=== PATIENT | female | born 1930 | race Caucasian/White ===

== ENCOUNTER 2016-05-08 17:37 | Inpatient (IN) | payer OTHER ==
--- NOTE | 2016-05-08 17:53 | CPEKG ---
Heart Rate: 122 RR Interval: 492 QRSD Interval: 86 QT Interval: 340 QTC Interval: 485 QRS [place]: -2 T Wave [place]: 114 EKG Severity - ABNORMAL ECG - EKG Impression: ATRIAL FLUTTER, A-RATE 294 EKG Impression: PROBABLE LVH WITH SECONDARY REPOL ABNRM Electronically Signed By: Augusto Escobar 08-May-2016 21:03:30
[2016-05-08] MEDS ORDERED: NS 500 ML IV ONE (18:10)
[2016-05-08 18:21] LABS: % IMMATURE GRANULYOCYTES 0.4 % (0.0-1.1); ABSOLUTE IMMATURE GRANULOCYTES 0.03 10^3/uL (0.00-0.10); ADD DIFF? NO; ADD MORPH? NO; ADD SCAN? NO; ATYPICAL LYMPHOCYTE FLAG 0 (0-99); FRAGMENT RBC FLAG 0 (0-99); HEMATOCRIT 38.8 % (38.0-47.0); LEFT SHIFT FLG 0 (0-99); LIPEMIA HEMOLYSIS FLAG 80 (0-99); MEAN CELL HEMOGLOBIN 30.7 pg (27.9-34.1); MEAN CELL HEMOGLOBIN CONCENTR. 33.5 g/dL (32.4-36.7); MEAN CELL VOLUME 91.5 fL (81.5-99.8); MEAN PLATELET VOLUME 9.8 fL (8.7-11.7); PLATELET CLUMPS FLAG 0 (0-99); PLATELET COUNT 324 10^3/uL (150-400); RED BLOOD CELL COUNT 4.24 10^6/uL (4.18-5.33); RED CELL DISTRIBUTION WIDTH 13.5 % (11.5-15.2)
[2016-05-08 18:22] LABS: ANION GAP 14 mEq/L (8-16); CALCIUM 10.2 mg/dL (8.5-10.4); CARBON DIOXIDE 22 mEq/l (22-31); CHLORIDE 102 mEq/L (97-110); CREATININE 1.4 mg/dL (0.6-1.0); GLOMERULAR FILTRATION RATE 36; GLUCOSE 169 mg/dL (70-100); POTASSIUM 4.5 mEq/L (3.5-5.2); SODIUM 138 mEq/L (134-144)
--- NOTE | 2016-05-08 18:29 | EDPHY ---
H & P Time Seen by Provider: 05/08/16 17:59 HPI/ROS: HPI Palpitations, lightheaded. 85-year-old female by private vehicle with her . She reports that she woke up at 3:00 a.m. last night and noticed that she had a fast heart rate. She states that she felt lightheaded she went to the bathroom. She did not have a syncopal event. She got back into bed and woke up again this morning at about 8:00 a.m.. She reports that shortly after waking up she had intermittent episodes of a fast heart rate with associated lightheadedness with exertion only. No chest pain. She had a prior episode of rapid heart rate back in February. She saw Dr. Johnathan Valenzuela the cardiology service for this. It resolved. She was not put on any additional medication. She is on Norvasc for hypertension. She has been on this medication for 10-15 years. ROS: Constitutional: No fever, no chills. No weakness. Eyes: No discharge. No changes in vision. ENT: No sore throat. No nasal congestion or rhinorrhea. Respiratory: No cough. No shortness of breath. Cardiac: No chest pain, no palpitations. Gastrointestinal: No abdominal pain, no vomiting, no diarrhea. Genitourinary: No hematuria. No dysuria or increased frequency with urination. Musculoskeletal: No back pain. No neck pain. No myalgias or arthralgias. Skin: No rashes. Neurological: No headache. No focal weakness or altered sensation. Past medical history: Pneumonia, achalasia, scoliosis, hysterectomy, appendectomy, arthritis. As above. Social history: Nonsmoker. Here with her . Physical Exam: General Appearance: Alert, no distress. This patient is responding to questions appropriately and in full sentences. This patient appears well- hydrated and well-nourished. Eyes: Pupils equal and round no pallor or injection. No lid edema, erythema or injection. Respiratory: There are no retractions, lungs are clear to auscultation with good air movement bilaterally. Cardiovascular: Irregular, irregular rhythm. No murmur. Gastrointestinal: Abdomen is soft and nontender, no masses, bowel sounds normal. No focal tenderness at McBurney's point. No Gallardo sign. Neurological: Motor sensory function is grossly intact. Cranial nerves are normal. Gait is normal. Skin: Warm and dry, no rashes. Musculoskeletal: Neck is supple and nontender. Extremities are symmetrical. All joints range without pain or impingement. Psychiatric: No agitation. No depression. Database: EKG: EKG time is 5:50 p.m., EKG shows a narrow complex atrial flutter versus fibrillation ventricular rate average of 122. No ST, T-wave changes indicative of ischemic or injury pattern. Interpreted by me. Imaging: Chest x-ray AP portable; the cardiac mediastinal silhouette is unremarkable. No evidence of infiltrate or pneumothorax. No acute cardiopulmonary disease process noted. Interpreted by me. Procedures: Emergency department course: IV placed. She was placed on a playground monitor. She was started on IV normal saline with 500 cc to be given over the next hour. She is very clear that her onset of symptoms was 3 a.m. last night. Will consider IV Lopressor for rate suppression then conversion. 6:45 p.m., patient re-evaluated. Resting comfortably at this time. Blood pressure currently 93/57. She was just started on IV normal saline. telemetry monitor shows a narrow complex regular rhythm with ventricular rate of 82. IV Lopressor will be held at this time. 7:30 p.m., patient re-evaluated. Resting comfortably at this time. Blood pressure on the monitor is 133/85. She is in and out of a sinus regular rhythm and atrial flutter versus atrial fibrillation with a rate in the low 80s. Troponin slightly elevated at 0.064. Results of blood work EKG and plan for admission discussed with her and her . An echocardiogram will be ordered. They are in agreement. All their questions were answered. 7:40 p.m., spoke with on-call hospitalist, Dr. Chaudhari. Patient accepted for admission. Echocardiogram ordered. Patient accepted the hospitalist service, telemetry. Patient admitted in stable condition. Differential Diagnosis: The differential diagnosis on this patient includes but is not limited to new onset atrial fibrillation, new onset atrial flutter with RVR. Acute coronary syndrome, CVA, pulmonary embolism unlikely. This represents a partial list of diagnoses considered. These considerations are based on history, physical exam , past history, reassessment and diagnostic testing. Smoking Status: Never smoked Constitutional: Initial Vital Signs Temperature (C) 36.2 C 05/08/16 17:42 Heart Rate 116 H 01/17/17 17:42 Respiratory Rate 22 H 05/08/16 17:42 Blood Pressure 99/68 L 05/08/16 17:42 O2 Sat (%) 94 05/08/16 17:42 O2 Delivery Mode Room Air Allergies/Adverse Reactions: Sulfa (Sulfonamide Antibiotics) Allergy (Verified 05/08/16 17:41) Rash Home Medications: Medication Instructions Recorded Acetaminophen [Tylenol ES 500 mg 12/03/15 (*)] Docusate Sodium [Colace 100 MG (*)] 12/03/15 Zolpidem Tartrate [Ambien 5MG (*)] 12/03/15 amLODIPine BESYLATE [Norvasc 5 mg 12/03/15 (*)] Mucinex 12/27/15 Medical Decision Making - Data Points Laboratory Results: Laboratory Results 05/08/16 17:56 05/08/16 17:56 05/08/16 17:56 WBC 7.28 10^3/uL (3.80-9.50) RBC 4.24 10^6/uL (4.18-5.33) Hgb 13.0 g/dL (12.6-16.3) Hct 38.8 % (38.0-47.0) MCV 91.5 fL (81.5-99.8) MCH 30.7 pg (27.9-34.1) MCHC 33.5 g/dL (32.4-36.7) RDW 13.5 % (11.5-15.2) Plt Count 324 10^3/uL (150-400) MPV 9.8 fL (8.7-11.7) Neut % (Auto) 83.5 H % (39.3-74.2) Lymph % (Auto) 11.0 L % (15.0-45.0) [place] % (Auto) 3.7 L % (4.5-13.0) Eos % (Auto) 0.4 L % (0.6-7.6) Baso % (Auto) 1.0 % (0.3-1.7) Nucleat RBC Rel Count 0.0 % (0.0-0.2) Absolute Neuts (auto) 6.08 10^3/uL (1.70-6.50) Absolute Lymphs (auto) 0.80 L 10^3/uL (1.00-3.00) Absolute Monos (auto) 0.27 L 10^3/uL (0.30-0.80) Absolute Eos (auto) 0.03 10^3/uL (0.03-0.40) Absolute Basos (auto) 0.07 10^3/uL (0.02-0.10) Absolute Nucleated RBC 0.00 10^3/uL (0-0.01) Immature Gran % 0.4 % (0.0-1.1) Immature Gran # 0.03 10^3/uL (0.00-0.10) PT 13.4 SEC (12.0-15.0) INR 1.03 (0.83-1.16) APTT 28.9 SEC (23.0-38.0) Sodium 138 mEq/L (134-144) Potassium 4.5 mEq/L (3.5-5.2) Chloride 102 mEq/L (97-110) Carbon Dioxide 22 mEq/l (22-31) Anion Gap 14 mEq/L (8-16) BUN 34 H mg/dL (7-23) Creatinine 1.4 H mg/dL (0.6-1.0) Estimated GFR 36 Glucose 169 H mg/dL (70-100) Calcium 10.2 mg/dL (8.5-10.4) Troponin I 0.064 H ng/mL (0-0.034) Medications Given: Discontinued Medications Sodium Chloride (Ns) 500 mls @ 0 mls/hr IV ONCE ONE PRN Reason: As Directed Stop: 05/08/16 18:11 Last Admin: 05/08/16 18:42 Dose: 500 mls Metoprolol Tartrate (Lopressor Injection) 5 mg IVP Q5M [facility] Stop: 05/08/16 19:11 Last Admin: 05/08/16 19:27 Dose: Not Given Departure - Departure Disposition: [facility] Acute Clinical Impression: Atrial flutter, Lightheaded, Elevated troponin, Dehydration, Renal insufficiency Referrals: Prema Guevara MD [Primary Care Provider] - As per Instructions
[2016-05-08 18:34] LABS: TROPONIN I 0.064 ng/mL (0-0.034)
[2016-05-08] MEDS ORDERED: METOPROLOL TARTRATE 5 MG/5 ML INJ ONE (18:34)
--- NOTE | 2016-05-08 18:42 | DX ---
Portable AP chest. May 08, 2016at 1831 History: Dizziness. Tachycardia. Comparison exam: December 12, 2015. Findings: Moderate enlargement of the cardiac silhouette. Lungs are clear, without infiltrate or effu allie. Impression: Moderate cardiomegaly.
[2016-05-08 18:43] LABS: INR 1.03 (0.83-1.16); PROTIME(PATIENT) 13.4 SEC (12.0-15.0)
[2016-05-08 18:44] LABS: APTT 28.9 SEC (23.0-38.0)
--- NOTE | 2016-05-08 19:17 | CPEKG ---
Heart Rate: 88 RR Interval: 682 QRSD Interval: 90 QT Interval: 380 QTC Interval: 460 QRS [place]: -4 T Wave [place]: 42 EKG Severity - ABNORMAL ECG - EKG Impression: ATRIAL FIBRILLATION EKG Impression: PROBABLE LVH WITH SECONDARY REPOL ABNRM Electronically Signed By: Augusto Escobar 08-May-2016 21:03:30
[2016-05-08] MEDS: METOPROLOL TARTRATE 5 MG/5 ML INJ IVP SCH (19:27)
[2016-05-08] MEDS ORDERED: ZOLPIDEM TARTRATE 5 MG TAB PO PRN (22:55)
[2016-05-08] MEDS ORDERED: ONDANSETRON DISINTEGRATING 4 MG TAB PO PRN (22:55)
[2016-05-08] MEDS ORDERED: ONDANSETRON 4 MG/2 ML VIAL IVP PRN (22:55)
[2016-05-08] MEDS ORDERED: ACETAMINOPHEN 325 MG TAB PO PRN (22:55)
[2016-05-08] MEDS ORDERED: METOPROLOL TARTRATE 5 MG/5 ML INJ IVP PRN (23:01)
[2016-05-08] MEDS: NS 1,000 ML IV SCH (23:17)
--- NOTE | 2016-05-09 01:40 | PDGENHP ---
History and Physical - Chief Complaint dizziness - History of Present Illness Patient is an 85/F with HTN, achalasia, arthritis who presents to the ED complaining of dizziness and fast heart rate. Patient states she woke up at around 3:00 a.m. the night prior to presentation feeling lightheaded. She denies any associated chest pain, palpitations or shortness of breath and only felt lightheaded when rising from sitting to standing position. She went back to sleep and awoke again this morning with persistent symptoms. Throughout the day she reported feeling primarily only lightheaded. Her , who is a retired physician, decided to check her pulse and O2 sat with his home pulse oximeter and it was noted to be in the 120-130 range. Given this and her symptoms a decided to come to the ED for further evaluation. Patient denies any recent fevers, chills, cough, congestion, chest pain, nausea vomiting or diarrhea. She does report p.o. intake is at her baseline, which is limited due to her history of achalasia. On arrival to the ED patient was afebrile, BP stable and HR 110-120 range. EKG revealed narrow complex tachycardia that appeared consistent with AFib. Labs were remarkable for mildly elevated creatinine, slightly elevated troponin, normal CBC. She was given gentle IV fluid hydration, IV metoprolol for rate control and heart rate improved, although remained in atrial fibrillation. She was then admitted to the hospitalist service for further management. History Information - Allergies/Home Medication List Allergies/Adverse Reactions: Sulfa (Sulfonamide Antibiotics) Allergy (Verified 05/08/16 17:41) Rash Home Medications: Docusate Sodium [Colace 100 MG (*)] 3 tab PO DAILY 12/03/15 [Last Taken 05/08/16 ] Zolpidem Tartrate [Ambien 5MG (*)] 2.5 - 5 mg PO HS PRN 12/03/15 [Last Taken ] amLODIPine BESYLATE [Norvasc 5 mg (*)] 5 mg PO DAILY 12/03/15 [Last Taken ] I have personally reviewed and updated: family history, medical history, social history, surgical history - Past Medical History Additional medical history: HTN. Achalasia. Osteoporosis with lumbar arthritis - Surgical History Additional surgical history: Hysterectomy. Bilateral bunionectomy. Appendectomy. Bilateral cataract. Right hand surgery - Family History Positive for: CAD (In her mother) - Social History Smoking Status: Never smoked Alcohol Use: Occasionally (One gin and tonic nightly) Drug Use: None Additional social history: Patient lives with her , is independent in all ADLs. Review of Systems ROS: 10pt was reviewed & negative except for what was stated in HPI & below Physical Exam Temp Pulse Resp BP Pulse Ox 37 C 91 17 120/61 93 05/09/16 00:00 05/09/16 00:00 05/09/16 00:00 05/09/16 00:00 05/09/16 00:00 Constitutional: no apparent distress, appears nourished, not in pain Eyes: PERRL, anicteric sclera, EOMI Ears, Nose, Mouth, Throat: moist mucous membranes, hearing normal, ears appear normal, no oral mucosal ulcers Cardiovascular: no murmur, rub, or gallop, irregularly irregular, pulses symmetric bilaterally, No JVD, No tachycardia, No edema Peripheral Pulses: 2+: dorsalis-pedis (R), dorsalis-pedis (L) Respiratory: no respiratory distress, no rales or rhonchi, clear to auscultation Gastrointestinal: normoactive bowel sounds, soft, non-tender abdomen, no palpable masses Genitourinary: no bladder fullness, no bladder tenderness Skin: warm, normal color, no rashes or abrasions, no fluctuance, No mottled Musculoskeletal: full muscle strength, no muscle tenderness, normal joint ROM, no joint effusions Neurologic: AAOx3, sensation intact bilaterally, CN II-XII Intact, No weakness, No numbness, No facial droop Psychiatric: interacting appropriately, not anxious, not encephalopathic, thought process linear Lab Data & Imaging Review 05/08/16 17:56 05/08/16 17:56 WBC 7.28 10^3/uL (3.80-9.50) 05/08/16 17:56 RBC 4.24 10^6/uL (4.18-5.33) 05/08/16 17:56 Hgb 13.0 g/dL (12.6-16.3) 05/08/16 17:56 Hct 38.8 % (38.0-47.0) 05/08/16 17:56 MCV 91.5 fL (81.5-99.8) 05/08/16 17:56 MCH 30.7 pg (27.9-34.1) 05/08/16 17:56 MCHC 33.5 g/dL (32.4-36.7) 05/08/16 17:56 RDW 13.5 % (11.5-15.2) 05/08/16 17:56 Plt Count 324 10^3/uL (150-400) 05/08/16 17:56 MPV 9.8 fL (8.7-11.7) 05/08/16 17:56 Neut % (Auto) 83.5 % (39.3-74.2) H 05/08/16 17:56 Lymph % (Auto) 11.0 % (15.0-45.0) L 05/08/16 17:56 [place] % (Auto) 3.7 % (4.5-13.0) L 05/08/16 17:56 Eos % (Auto) 0.4 % (0.6-7.6) L 05/08/16 17:56 Baso % (Auto) 1.0 % (0.3-1.7) 05/08/16 17:56 Nucleat RBC Rel Count 0.0 % (0.0-0.2) 05/08/16 17:56 Absolute Neuts (auto) 6.08 10^3/uL (1.70-6.50) 05/08/16 17:56 Absolute Lymphs (auto) 0.80 10^3/uL (1.00-3.00) L 05/08/16 17:56 Absolute Monos (auto) 0.27 10^3/uL (0.30-0.80) L 05/08/16 17:56 Absolute Eos (auto) 0.03 10^3/uL (0.03-0.40) 05/08/16 17:56 Absolute Basos (auto) 0.07 10^3/uL (0.02-0.10) 05/08/16 17:56 Absolute Nucleated RBC 0.00 10^3/uL (0-0.01) 05/08/16 17:56 Immature Gran % 0.4 % (0.0-1.1) 05/08/16 17:56 Immature Gran # 0.03 10^3/uL (0.00-0.10) 05/08/16 17:56 PT 13.4 SEC (12.0-15.0) 05/08/16 17:56 INR 1.03 (0.83-1.16) 05/08/16 17:56 APTT 28.9 SEC (23.0-38.0) 05/08/16 17:56 Sodium 138 mEq/L (134-144) 05/08/16 17:56 Potassium 4.5 mEq/L (3.5-5.2) 05/08/16 17:56 Chloride 102 mEq/L (97-110) 05/08/16 17:56 Carbon Dioxide 22 mEq/l (22-31) 05/08/16 17:56 Anion Gap 14 mEq/L (8-16) 05/08/16 17:56 BUN 34 mg/dL (7-23) H 05/08/16 17:56 Creatinine 1.4 mg/dL (0.6-1.0) H 05/08/16 17:56 Estimated GFR 36 05/08/16 17:56 Glucose 169 mg/dL (70-100) H 05/08/16 17:56 Calcium 10.2 mg/dL (8.5-10.4) 05/08/16 17:56 CK-MB (CK-2) Fraction 1.10 ng/mL (0-3.19) 05/08/16 23:20 Troponin I 0.057 ng/mL (0-0.034) H 05/08/16 23:20 Visualized and Interpreted Chest x-ray results: Yes Chest X-Ray results: no infiltrate, normal Visualized and Interpreted EKG results: Yes EKG Interpretation: Positive for: other (Atrial fib at 122 beats per minute, no obvious ischemic changes; repeat EKG: AFib it 88 beats per minute) Assessment & Plan Assessment: Patient is an 85-year-old female with history of hypertension, achalasia/ chronic dysphagia, who presents to the ED with the complaint of lightheadedness and was found to be in new onset AFib. Labs also showed evidence of mild dehydration. Plan: # atrial fibrillation Patient denies any previous history of this diagnosis. Follows with Dr. Valenzuela, reports having a normal TTE about 2 months ago. Labs revealed evidence of mild dehydration, so it is possible this has triggered the AFib, which appears to have begun less than 24 hours ago. Patient's ChadsVasc score is 4 (age, sex, hypertension), for which systemic anticoagulation is recommended. This was discussed with patient and her at length, they would like to discuss initiating anticoagulation with their parts remover in the morning. Will give gentle rehydration and assess rate/rhythm in the morning, if still in atrial fibrillation would initiate anticoagulation at that time. Overnight will continue to trend troponins, check TSH, lipid panel and TTE in a.m. and repeat EKG in a.m. Will initiate low dose lopressor for rate control. # elevated creatinine Given patient's history of achalasia/dysphagia she has chronic difficulty maintaining adequate p.o. intake. Elevated creatinine likely pre renal, will give IV fluid hydration and reassess in a.m. # chronic HTN BP stable, will cont home amlodipine. # achalasia, chronic dysphagia Will continue aspiration precautions while inpatient. # dispo: admit under observation for afib # full code
[2016-05-09 02:14] LABS: COLOR PALE YELLOW; LEUKOCYTE ESTERASE,URINE NEGATIVE (NEGATIVE); NITRITE,URINE NEGATIVE (NEGATIVE)
[2016-05-09 07:03] LABS: % IMMATURE GRANULYOCYTES 0.2 % (0.0-1.1); ABSOLUTE IMMATURE GRANULOCYTES 0.01 10^3/uL (0.00-0.10); ADD DIFF? NO; ADD MORPH? NO; ADD SCAN? NO; ATYPICAL LYMPHOCYTE FLAG 0 (0-99); FRAGMENT RBC FLAG 0 (0-99); HEMATOCRIT 34.3 % (38.0-47.0); HEMOGLOBIN 11.7 g/dL (12.6-16.3); LEFT SHIFT FLG 0 (0-99); LIPEMIA HEMOLYSIS FLAG 90 (0-99); MEAN CELL HEMOGLOBIN 31.5 pg (27.9-34.1); MEAN CELL HEMOGLOBIN CONCENTR. 34.1 g/dL (32.4-36.7); MEAN CELL VOLUME 92.2 fL (81.5-99.8); MEAN PLATELET VOLUME 9.5 fL (8.7-11.7); PLATELET CLUMPS FLAG 0 (0-99); PLATELET COUNT 252 10^3/uL (150-400); RED BLOOD CELL COUNT 3.72 10^6/uL (4.18-5.33); RED CELL DISTRIBUTION WIDTH 13.6 % (11.5-15.2)
[2016-05-09 07:12] LABS: INR 1.09 (0.83-1.16)
[2016-05-09 07:25] LABS: ANION GAP 7 mEq/L (8-16); CALCIUM 9.5 mg/dL (8.5-10.4); CARBON DIOXIDE 25 mEq/l (22-31); CHLORIDE 110 mEq/L (97-110); CREATININE 1.1 mg/dL (0.6-1.0); GLOMERULAR FILTRATION RATE 47; GLUCOSE 97 mg/dL (70-100); POTASSIUM 4.2 mEq/L (3.5-5.2); SODIUM 142 mEq/L (134-144)
[2016-05-09 07:37] LABS: CREATINE KINASE-MB FRACTION 1.18 ng/mL (0-3.19); TROPONIN I 0.045 ng/mL (0-0.034)
[2016-05-09] MEDS: DOCUSATE SODIUM 100 MG CAP PO SCH (08:49)
[2016-05-09] MEDS ORDERED: DOCUSATE SODIUM 100 MG CAP PO SCH (09:00)
[2016-05-09] MEDS ORDERED: amLODIPine BESYLATE 5 MG TAB PO SCH (09:00)
[2016-05-09] MEDS ORDERED: ENOXAPARIN 30 MG/0.3 ML SYR SC SCH (09:00)
[2016-05-09] MEDS ORDERED: ENOXAPARIN 40 MG/0.4 ML SYR SC SCH (09:00)
[2016-05-09] MEDS: METOPROLOL TARTRATE 25 MG TAB PO SCH ×2 (11:00→20:18)
[2016-05-09] MEDS: APIXABAN 2.5 MG TAB PO SCH ×2 (11:01→20:18)
--- NOTE | 2016-05-09 11:32 | GHP ---
[f rep st] HISTORY AND PHYSICAL DATE OF ADMISSION: 05/08/2016 CHIEF COMPLAINT: Palpitations. HPI: This is an 85-year-old female, who has a history of palpitations, was seen in our office by Dr. Valenzuela as recently as a few weeks ago with normal EKG with PACs and echocardiogram done at that po int in our office. Showed normal LV function, no ischemic wall motion abnormality, moderate to sever e left atrial enlargement, no significant valvar heart disease. In speaking to her in February year, she had an episode lasting 2-3 days of a rapid heart rate with some lightheadedness which ap parently ended spontaneously 2 days ago. She awoke after an episode of dehydration for unknown reaso ns. She was having quite a bit of urination and noted to be lightheaded. Her had a pulse ox which showed a heart rate of 120. She came to the emergency room where she was diagnosed atrial fib rillation. She was admitted with blood thinners, beta-blockers, and subsequently now is doing well. In speaking to her, her past history is significant cardiac johns only for a longstanding history of hypertension, for which she has been on chronic Norvasc. When she got admitted, she was slightly deh ydrated and received IV fluids. Overnight she has done well. Her heart rate now is in the 80s and i n atrial fibrillation. She is sitting comfortably without any issues. Her troponins are mildly elev ated. REVIEW OF SYSTEMS: She has had no previous history of any chest pain, CHF. She actually is involved in a balance class without problems. She denies any ongoing fever, chills, GI, , blood loss, or o ther issues. A long discussion with the patient, her , and her daughter regarding our options . At this time, we will begin Eliquis 2.5 mg p.o. b.i.d. and continue the metoprolol 12.5 mg p.o. b. i.d. We will watch her for the next 24 hours. Tomorrow we will obtain a Lexiscan stress test for co mpleteness sake. We will start off with a rate control strategy. I did talk to him about possible c ardioversions and discussed the pros and cons. They are comfortable with rate control strategy at is time. Upon discharge I would place a 30 day monitor and have her follow up in our office. For no w, all their questions were answered. She is comfortable and stable, feeling well. PAST HISTORY: Hypertension and achalasia. ALLERGIES: Sulfa. PAST SURGICAL HISTORY: Hysterectomy, bunionectomy. FAMILY HISTORY: History of CAD in her mother. SOCIAL HISTORY: She never smoked. She only has social alcohol. She lives with her . She is totally independent in her activities of daily living at this point. PHYSICAL EXAMINATION: VITAL SIGNS: 130/80. Heart rate is in the 80s and atrial fibrillation. GENE RAL: She is an elderly female, who is comfortable, alert and oriented x3. HEENT: Mouth oropharynx were moist. NECK: Without pain, no JVP, no bruits. LUNGS: Clear to auscultation. CARDIOVASCULAR: Irregular regular rhythm without murmurs, gallops, or rubs. ABDOMEN: Soft, normoactive bowel soun ds. MUSCULOSKELETAL: No edema. She had good distal pulses. LABS: White count 4, hemoglobin initially 13, after hydration 11.7. Creatinine initially was 1.4 an d now 1.1. Troponins 0.06, 0.05, and 0.04. TSH 2.1. ASSESSMENT: Atrial fibrillation. Apparently new onset with possible a previous episode a month ago. Patient has "palpitations." At this time, she is comfortable and stable and tolerating her medicat ions well. PLAN: 1. We will start off with her rate control strategy with beta blockers. Eliquis will be given, dose d for her age and renal insufficiency. The patient will continue to follow clinical course. 2. Mildly abnormal troponins probably due to arterial venous mismatch. Patient had an echocardiogra m 2 weeks ago in our office. Normal LV function. She has no ACS symptomatology. For complete jaymie p we will do a Lexiscan stress test tomorrow, but she gives no history of any ACS symptomatology. 3. Achalasia. We discussed hydration status as she appeared to be somewhat dehydrated when she came in initially. 4. No fever. 5. Further workup depending on her clinical course. /[id number]/MODL
[2016-05-09] MEDS ORDERED: ZOLPIDEM TARTRATE 5 MG TAB PO PRN (12:40)
--- NOTE | 2016-05-09 15:18 | ECHO ---
[id number] + + [address] : : [place] [address] : : [phone] + + Adult Echocardiographic Report + --+ :Name: BASIL BAUTISTA Jim Date: 05/09/2016 01:49 PM : : Hospital Admission Number: [id number] Location: 2 12: :: 1930 Gender: Female Height: 64 in : :Age: 85 yrs Race: WH Weight: 130 lb : :Reason For Study: Eval LV FX : : BSA: 1.6 meters2 : :History: New onset A-Fib : + --+ MMode/2D Measurements & Calculations IVSd: 1.1 cm LVIDd: 4.5 cm FS: 33.1 % Ao root diam: 3.3 cm LVPWd: 1.1 cm LVIDs: 3.0 cm EDV(Teich): 93.2 ml ACS: 1.8 cm ESV(Teich): 35.7 ml EF(Teich): 61.7 % Normal Measurement Values: + + :LVIDd (3.5-5.7cm) IVSd (0.6-1.1cm) LVPWd (0.6-1.1cm) Aortic Root (2.0-3.7cm)Left Atrium (1.5-4.0cm): :LV Vol(d) (76-115ml) LV Vol(s) (29-48ml) Ejec Fraction (50-65%)PV Gordy (0.6- 1.2m/s) TV Gordy (0.4-1.0m/s) : :MV E Gordy (0.8-1.0m/s)MV A G[place]y (0.3-1.0m/s)LVOT Gordy (0.7-1.2m/s) Asc Ao Gordy ( 0.9-1.8m/s) : + + Doppler Measurements & Calculations MV E max gordy: Ao V2 max: AI max gordy: LV V1 max: 111.6 cm/sec 114.0 cm/sec 414.0 cm/sec 54.8 cm/sec Ao max PG: AI max P.6 mmHg LV V1 max P.2 mmHg AI dec slope: 1.2 mmHg 150.2 cm/sec2 AI P1/2t: 807.5 msec PA V2 max: TR max gordy: 67.9 cm/sec 245.7 cm/sec PA max P.8 mmHg TR max P.1 mmHg RAP systole: 5.0 mmHg RVSP(TR): 29.1 mmHg Left Ventricle The left ventricle is normal in size. There is normal left ventricular wall thickness. The left ventricular ejection fraction is normal. Ejection Fraction = 62%. They rhythm is atrial fibrillation. No regional wall motion abnormalities noted. Right Ventricle The right ventricle is normal in size and function. Atria The left atrium is severely dilated. The right atrium is moderate to severely dilated. Mitral Valve The mitral valve is normal in structure and function. There is no evidence of mitral valve prolapse. There is no mitral valve stenosis. There is trace mitral regurgitation. Tricuspid Valve Normal tricuspid valve. There is trace tricuspid regurgitation. Aortic Valve Mild Aortic Valve Calcification. There is no aortic stenosis. Mild aortic regurgitation. Pulmonic Valve The pulmonic valve is normal in structure and function. There is no pulmonic valvular regurgitation. Great Vessels The aortic root is normal size. Pericardium/Pleural Small posterior pericardial effusion. Conclusion A complete two-dimensional transthoracic echocardiogram was performed (2D, M-mode, Doppler and color flow Doppler). The left ventricular ejection fraction is normal. Ejection Fraction = 62%. They rhythm is atrial fibrillation. No regional wall motion abnormalities noted. The right ventricle is normal in size and function. The left atrium is severely dilated. The mitral valve is normal in structure and function. There is trace mitral regurgitation. There is trace tricuspid regurgitation. Mild Aortic Valve Calcification Mild aortic regurgitation. The pulmonic valve is normal in structure and function. Small posterior pericardial effusion Final Reading Physician: Miquel Thrasher signed on 05/09/2016 03:17 PM Ordering Physician: Iggy Farnsworth Performed By: Kel Hollis, MARYANNCS
[2016-05-09] MEDS: NS 1,000 ML IV SCH (16:28)
--- NOTE | 2016-05-09 19:37 | HOSPPROG ---
Hospitalist Progress Note Assessment/Plan: * Rapid afib -PO metoprolol, Eliquis * Troponin elevation -Lexiscan stress test in am * ARF - suspect dehydration -continue IVF * Achalasia - stable Subjective: No new complaints Objective: Vital Signs Temp Pulse Resp BP Pulse Ox 36.4 C 94 19 138/83 H 93 05/09/16 15:30 05/09/16 15:30 05/09/16 15:30 05/09/16 15:30 05/09/16 15:30 05/08/16 05/09/16 05/10/16 05:59 05:59 05:59 Intake Total 550 Balance 550 PT 14.0 SEC (12.0-15.0) 05/09/16 06:55 INR 1.09 (0.83-1.16) 05/09/16 06:55 d/w Dr. Marr - cardiology consulted - stress test in am ECHO: unremarkable - Physical Exam Constitutional: no apparent distress, appears nourished, not in pain Cardiovascular: regular rate and rhythym, no murmur, rub, or gallop Respiratory: no respiratory distress, no rales or rhonchi, clear to auscultation Gastrointestinal: normoactive bowel sounds, soft, non-tender abdomen, no palpable masses Skin: no rashes or abrasions, no fluctuance, no induration Neurologic: AAOx3, sensation intact bilaterally Psychiatric: interacting appropriately, not anxious, not encephalopathic, thought process linear ICD10 Worksheet Patient Problems: Problems Problem Status Diagnosed Atrial flutter Acute Dehydration Acute Elevated troponin Acute Lightheaded Acute Renal insufficiency Acute Aspiration pneumonia Acute
[2016-05-10 04:00] VITALS: O2SAT 93
[2016-05-10 05:07] LABS: % IMMATURE GRANULYOCYTES 0.2 % (0.0-1.1); ABSOLUTE IMMATURE GRANULOCYTES 0.01 10^3/uL (0.00-0.10); ADD DIFF? NO; ADD MORPH? NO; ADD SCAN? NO; ATYPICAL LYMPHOCYTE FLAG 10 (0-99); FRAGMENT RBC FLAG 0 (0-99); HEMATOCRIT 35.8 % (38.0-47.0); HEMOGLOBIN 11.9 g/dL (12.6-16.3); LEFT SHIFT FLG 0 (0-99); LIPEMIA HEMOLYSIS FLAG 80 (0-99); MEAN CELL HEMOGLOBIN 31.5 pg (27.9-34.1); MEAN CELL HEMOGLOBIN CONCENTR. 33.2 g/dL (32.4-36.7); MEAN CELL VOLUME 94.7 fL (81.5-99.8); MEAN PLATELET VOLUME 9.7 fL (8.7-11.7); PLATELET CLUMPS FLAG 0 (0-99); PLATELET COUNT 254 10^3/uL (150-400); RED BLOOD CELL COUNT 3.78 10^6/uL (4.18-5.33); RED CELL DISTRIBUTION WIDTH 13.8 % (11.5-15.2)
[2016-05-10 05:34] LABS: ANION GAP 10 mEq/L (8-16); CALCIUM 9.1 mg/dL (8.5-10.4); CARBON DIOXIDE 22 mEq/l (22-31); CHLORIDE 110 mEq/L (97-110); CHOLESTEROL 233 mg/dL (140-220); CHOLESTEROL/HDL RATIO 3.76 RATIO (1.00-4.44); CREATININE 1.2 mg/dL (0.6-1.0); GLOMERULAR FILTRATION RATE 42; GLUCOSE 97 mg/dL (70-100); HIGH DENSITY LIPOPROTEIN 62 mg/dL (40-85); LDL/HDL RATIO 2.44 RATIO (1.00-3.22); LOW DENSITY LIPOPROTEIN 151 mg/dL (80-100); NON-HIGH DENSITY LIPOPROTEIN 171 mg/dL (90-129); POTASSIUM 4.4 mEq/L (3.5-5.2); SODIUM 142 mEq/L (134-144); TRIGLYCERIDE 102 mg/dL (35-135); VERY LOW DENSITY LIPOPROTEINS 20 mg/dL (8-25)
[2016-05-10] MEDS: METOPROLOL TARTRATE 25 MG TAB PO SCH (08:14)
[2016-05-10] MEDS: APIXABAN 2.5 MG TAB PO SCH (08:14)
[2016-05-10] MEDS: DOCUSATE SODIUM 100 MG CAP PO SCH (08:14)
[2016-05-10 08:18] VITALS: BP 144/86; PULSE 82
[2016-05-10] MEDS ORDERED: REGADENOSON 0.4 MG/5 ML SYR IVP ONE (09:43)
--- NOTE | 2016-05-10 10:14 | SOAPPROG ---
SOAP Progress Note Assessment/Plan: Assessment:1 afib..persistent..rate control strategy with eloquis and BB..30 day moniter with out pt f/u Plan:1.hopefully home today post reading of nuc tm 05/10/16 10:13 Subjective: pt doing well..lexiscan tm done without problems...if no significant issues on tm ok to d/c on eliquis and 30 day moniter with out pt f/u Objective: Vital Signs Temp Pulse Resp BP Pulse Ox 37 C 82 17 144/86 H 93 05/10/16 04:00 05/10/16 08:14 05/10/16 04:00 05/10/16 08:14 05/10/16 04:00 Laboratory Results 05/10/16 04:10 05/10/16 04:10 05/09/16 05/10/16 05/11/16 05:59 05:59 05:59 Intake Total 1450 Balance 1450 PT 14.0 SEC (12.0-15.0) 05/09/16 06:55 INR 1.09 (0.83-1.16) 05/09/16 06:55 Physical Exam - Physical Exam Respiratory: lungs clear Cardiac/Chest: No edema, No JVD ICD10 Worksheet Patient Problems: Problems Problem Status Diagnosed Atrial flutter Acute Dehydration Acute Elevated troponin Acute Lightheaded Acute Renal insufficiency Acute Aspiration pneumonia Acute
--- NOTE | 2016-05-10 11:46 | CPR ---
[f rep st] NONINVASIVE CARDIAC PROCEDURE REPORT DATE OF PROCEDURE: 05/10/2016 PROCEDURE: Nuclear stress test. INDICATION: Atrial fibrillation, shortness of breath. DESCRIPTION OF PROCEDURE: After informed consent, the patient received Lexiscan per protocol. She to lerated it well. She also tolerated the injection of nuclear tracer without incidence. Her exam was n ormal pre and post test. She remained in atrial fibrillation with stable vital signs at the end of th e procedure. She had no complications. Nuclear imaging will be dictated in a separate report. CONCLUSION: Uneventful Lexiscan stress test. /[id number]/MODL
--- NOTE | 2016-05-10 11:50 | NM ---
Nuclear Medicine Myocardial Perfusion Stress and Rest Imaging History: Chest pain. Comparison: None available. Technique: Rest imaging is performed after the intravenous administration of 10.7 mCi of technetiu m 99m labeled sestamibi on May 10, 2016 at 0914 hours. Stress imaging is performed after the intr avenous administration of 26.8 mCi of technetium 99m labeled sestamibi on May 10, 2016 at 1035 ho urs. Resting heart rate was 79 and maximal heart rate of 96 was attained. 0.4 mg of Lexiscan was adm inistered without complication. Images are reviewed on the independent nuclear medicine work station , computer analysis is performed. Findings: The left ventricular ejection fraction is 57%. A small fixed anteroseptal perfusion defec t is minimally more prominent with stress imaging. A small fixed area of lateral hypoperfusion near t he base in the circumflex distribution is more prominent with stress imaging. No focal wall motion ab normalities. Impression: 1. Normal left ventricular ejection fraction of 57%. 2. Small areas of probable mild ischemia anteroseptally and laterally. 3. No focal wall motion abnormalities. Findings discussed with Dr. Nawaf Marr today at 1140 hours.
[2016-05-10 12:17] VITALS: RESP 18; TEMP 97.6
--- NOTE | 2016-05-10 20:31 | GDS ---
[f rep st] DISCHARGE SUMMARY DISCHARGE DIAGNOSES: 1. Rapid atrial fibrillation. 2. Myocardial strain with slight troponin elevation. 3. Chronic kidney disease with baseline creatinine 1.2. 4. History of achalasia. HISTORY: The patient is an 85-year-old female who presented with palpitations and dizziness. On arr ival to the emergency room, she was found to be in rapid atrial fibrillation. Her atrial fibrillatio n remained persistent throughout her hospitalization. She was started on oral metoprolol with good r ate control. Her Norvasc was discontinued. Eliquis was initiated for stroke prevention. She was seen here in consultation with cardiology. They are recommending a 30-day monitor with outpa tient followup. She did have some slight troponin elevation likely due to strain of the rapid rhythm . They did recommend a Lexiscan stress test to rule out ischemia. This showed a small area of mild ischemia anteroseptally and laterally. This was reviewed by Cardiology and they did not think anythi ng further was needed at this time. DISCHARGE MEDICATIONS: 1. Metoprolol 12.5 mg p.o. twice daily. 2. Eliquis 2.5 mg p.o. twice daily. ADDITIONAL DISCHARGE INSTRUCTIONS: 1. Outpatient 30 day heart monitor. 2. Follow up with primary care for elevated cholesterol. Less than 30 minutes of time spent arranging this discharge. Patient seen and examined by me on the date of discharge. /[id number]/MODL
== END 2016-05-10 14:43 | disposition home or self-care (01) | DRG 309 ==
LOC: F2W 21:02 → OBSVTOIN 05-09 14:35
PROVIDERS: ADMIT Internal Medicine; ATTEND Internal Medicine
DX: I48.1 Persistent atrial fibrillation (principal); N17.9 Acute kidney failure, unspecified; E86.0 Dehydration; K22.0 Achalasia of cardia; R13.10 Dysphagia, unspecified; I10 Essential (primary) hypertension; M81.0 Age-related osteoporosis without current pathological fracture
CPT/HCPCS: A9500; G0378; J1650; J2785

== ENCOUNTER → 2016-05-14 | Outpatient (CLI) | payer OTHER | LOC: BHFA 15:15 | PROVIDERS: ATTEND Internal Medicine Interventional Cardiology | DX: I48.91 Unspecified atrial fibrillation (principal); E78.00 Pure hypercholesterolemia, unspecified; I10 Essential (primary) hypertension ==

== ENCOUNTER 2016-05-15 10:16 | Observation (INO) | payer OTHER ==
--- NOTE | 2016-05-15 10:31 | EDPHY ---
H & P Stated Complaint: SOB, CHILLS SINCE THIS AM Time Seen by Provider: 05/15/16 10:30 HPI/ROS: CHIEF COMPLAINT: Productive cough, chills, shortness of breath x1 day HISTORY OF PRESENT ILLNESS: The patient presents to the ED with a 1 day history of productive cough, chills and shortness of breath. The patient was hospitalized 1 week ago for new onset atrial fibrillation. She was started on anticoagulants at that point time. The patient had been doing well until this morning when she developed the symptoms above. She does have a remote history of pneumonia and reports her symptoms today are reminiscent of her prior pneumonia. The patient did reportedly given influenza vaccination. The patient denies any abdominal pain, vomiting or melena. She has been taking her metoprolol as prescribed. REVIEW OF SYSTEMS: A comprehensive 10 point review of systems is otherwise negative aside from elements mentioned in the history of present illness. Source: Patient - Personal History Current Tetanus/Diphtheria Vaccine: Yes Current Tetanus Diphtheria and Acellular Pertussis (TDAP): Yes - Medical/Surgical History Hx Asthma: No Hx Chronic Respiratory Disease: No Hx Diabetes: No Hx Cardiac Disease: Yes Hx Renal Disease: No Hx Cirrhosis: No Hx Alcoholism: No Hx HIV/AIDS: No Hx Splenectomy or Spleen Trauma: No Other PMH: pneumonia, achilasia, scoliosis lumbar spine, charlene bunionectomies, left thr, hysterectomy, appy, charlene thumb surgeries for arthritis - Social History Smoking Status: Never smoked - Physical Exam Exam: General Appearance: Alert, no distress Eyes: Pupils equal and round no pallor or injection ENT, Mouth: Mucous membranes moist Respiratory: Rhonchorous breath sounds right upper lung field Cardiovascular: Regular rate and rhythm Gastrointestinal: Abdomen is soft and nontender, no masses, bowel sounds normal Neurological: A&O, normal motor function, normal sensory exam, normal cranial nerves Skin: Warm and dry, no rashes Musculoskeletal: Neck is supple nontender Extremities: symmetrical, full range of motion Psychiatric: Patient is oriented X 3, there is no agitation Constitutional: Initial Vital Signs Temperature (C) 36.3 C 05/15/16 10:21 Heart Rate 76 05/15/16 10:21 Respiratory Rate 16 05/15/16 10:21 Blood Pressure 171/80 H 05/15/16 10:21 O2 Sat (%) 90 L 05/15/16 10:21 O2 Delivery Mode Room Air Allergies/Adverse Reactions: Sulfa (Sulfonamide Antibiotics) Allergy (Verified 05/08/16 17:41) Rash Home Medications: Medication Instructions Recorded Docusate Sodium [Colace 100 MG (*)] 3 tab PO DAILY 12/03/15 Zolpidem Tartrate [Ambien 5MG (*)] 2.5 - 5 mg PO HS PRN 12/03/15 Apixaban [Eliquis] 2.5 mg PO BID #60 tab 05/10/16 Metoprolol Tartrate [Lopressor 25 12.5 mg PO BID #60 tab 05/10/16 mg (*)] Acetaminophen [Tylenol 325mg (*)] 325 mg PO DAILY PRN 05/15/16 Herbals/Supplements -Info Only 1 ea PO DAILY 05/15/16 Medical Decision Making - Diagnostics EKG Interpretation: EKG: Complete interpretation has been separately recorded in the [employer] archive. Summary impression: Sinus rate, 68, nonspecific ST changes noted Imaging: Chest x-ray PA lateral: Images reviewed by myself and with radiologist Dr. Barrera, dense right upper lobe pneumonia noted. ED Course/Re-evaluation: I reviewed the patient's recent history and physical discharge summary. She was recently admitted for atrial fibrillation with rapid ventricular response. She was started on anticoagulation at that point time. She did have a slightly elevated troponin. She had a Lexiscan which demonstrated a mild area of ischemia which cardiology recommended medical management. The patient presents to the ED today with a right upper lobe pneumonia. She does not have SIRS criteria. Given the size of her pneumonia, age and hypoxemia I do feel that she should be admitted to the hospital. The patient does not have evidence of sepsis, severe sepsis or septic shock. Consultation was made with the hospitalist service. The patient will be admitted by Dr. Chaudhari The patient did have blood cultures x2 obtained in the ED. She was started on IV Levaquin. Differential Diagnosis: Differential diagnosis considered includes pneumonia, influenza, bronchitis, heart failure, recurrent atrial fibrillation - Data Points Laboratory Results: Laboratory Results 05/15/16 10:40 05/15/16 05/15/16 05/15/16 11:36 10:40 10:34 WBC 10.62 H 10^3/uL (3.80-9.50) RBC 3.59 L 10^6/uL (4.18-5.33) Hgb 11.3 L g/dL (12.6-16.3) Hct 33.3 L % (38.0-47.0) MCV 92.8 fL (81.5-99.8) MCH 31.5 pg (27.9-34.1) MCHC 33.9 g/dL (32.4-36.7) RDW 13.5 % (11.5-15.2) Plt Count 227 10^3/uL (150-400) MPV 10.3 fL (8.7-11.7) Neut % (Auto) 88.9 H % (39.3-74.2) Lymph % (Auto) 4.1 L % (15.0-45.0) [place] % (Auto) 5.8 % (4.5-13.0) Eos % (Auto) 0.4 L % (0.6-7.6) Baso % (Auto) 0.5 % (0.3-1.7) Nucleat RBC Rel Count 0.0 % (0.0-0.2) Absolute Neuts (auto) 9.44 H 10^3/uL (1.70-6.50) Absolute Lymphs (auto) 0.44 L 10^3/uL (1.00-3.00) Absolute Monos (auto) 0.62 10^3/uL (0.30-0.80) Absolute Eos (auto) 0.04 10^3/uL (0.03-0.40) Absolute Basos (auto) 0.05 10^3/uL (0.02-0.10) Absolute Nucleated RBC 0.00 10^3/uL (0-0.01) Immature Gran % 0.3 % (0.0-1.1) Immature Gran # 0.03 10^3/uL (0.00-0.10) Influenza Typ A,B (DFA) NEGATIVE FOR FLU (NEGATIVE) Influenza A & B (PCR) Pending Departure - Departure Disposition: [facility] Inpatient Acute Clinical Impression: Pneumonia Qualifiers: Pneumonia type: due to unspecified organism Laterality: right Lung location: upper lobe of lung Qualifier Code: (J18.1) Lobar pneumonia, unspecified organism Condition: Good
--- NOTE | 2016-05-15 10:47 | CPEKG ---
Heart Rate: 68 RR Interval: 882 P-R Interval: 196 QRSD Interval: 92 QT Interval: 428 QTC Interval: 456 P [place]: 73 QRS [place]: 6 T Wave [place]: 39 EKG Severity - OTHERWISE NORMAL ECG - EKG Impression: SINUS ARRHYTHMIA, RATE 52-79 Electronically Signed By: Augusto Escobar 15-May-2016 13:41:05
[2016-05-15 10:52] LABS: % IMMATURE GRANULYOCYTES 0.3 % (0.0-1.1); ABSOLUTE IMMATURE GRANULOCYTES 0.03 10^3/uL (0.00-0.10); ADD DIFF? NO; ADD MORPH? NO; ADD SCAN? NO; ATYPICAL LYMPHOCYTE FLAG 0 (0-99); FRAGMENT RBC FLAG 0 (0-99); HEMATOCRIT 33.3 % (38.0-47.0); HEMOGLOBIN 11.3 g/dL (12.6-16.3); LEFT SHIFT FLG 0 (0-99); LIPEMIA HEMOLYSIS FLAG 90 (0-99); MEAN CELL HEMOGLOBIN 31.5 pg (27.9-34.1); MEAN CELL HEMOGLOBIN CONCENTR. 33.9 g/dL (32.4-36.7); MEAN CELL VOLUME 92.8 fL (81.5-99.8); MEAN PLATELET VOLUME 10.3 fL (8.7-11.7); PLATELET CLUMPS FLAG 0 (0-99); PLATELET COUNT 227 10^3/uL (150-400); RED BLOOD CELL COUNT 3.59 10^6/uL (4.18-5.33); RED CELL DISTRIBUTION WIDTH 13.5 % (11.5-15.2)
--- NOTE | 2016-05-15 11:38 | DX ---
AP and lateral chest - May 15, 2016 History: Dyspnea, cough, fever. Comparison: Portable chest May 08, 2016, CT chest December 19, 2015. Findings: There is new dense right upper lobe consolidation and patchy medial segment right middle lo be consolidation. A tiny left pleural effusion is suspected. Apparent mild increase in cardiomegaly c ould be related to decreased lung volumes or less likely pericardial effusion. The bones are stable. Impression: 1. Right upper lobe and right middle lobe consolidation suggesting pneumonia. 2. Slight increase in cardiomegaly, which could be related to decreased lung volumes or a small peric ardial effusion. 3. Small left pleural effusion. Findings discussed with Dr. Sam Escobar today at 1120 hours.
[2016-05-15] MEDS ORDERED: NS 1,000 ML IV ONE (12:07)
[2016-05-15] MEDS ORDERED: ONDANSETRON DISINTEGRATING 4 MG TAB PO PRN (12:24)
[2016-05-15] MEDS ORDERED: ONDANSETRON 4 MG/2 ML VIAL IVP PRN (12:24)
[2016-05-15] MEDS ORDERED: ACETAMINOPHEN 325 MG TAB PO PRN (12:24)
[2016-05-15] MEDS ORDERED: ACETAMINOPHEN 325 MG TAB ONE (13:04)
[2016-05-15 13:07] LABS: ANION GAP 14 mEq/L (8-16); CALCIUM 9.8 mg/dL (8.5-10.4); CARBON DIOXIDE 21 mEq/l (22-31); CHLORIDE 107 mEq/L (97-110); CREATININE 1.1 mg/dL (0.6-1.0); GLOMERULAR FILTRATION RATE 47; GLUCOSE 97 mg/dL (70-100); SODIUM 142 mEq/L (134-144)
[2016-05-15] MEDS ORDERED: ZOLPIDEM TARTRATE 5 MG TAB PO PRN (15:23)
[2016-05-15] MEDS ORDERED: NS 1,000 ML IV SCH (15:30)
--- NOTE | 2016-05-15 16:30 | GHP ---
[f rep st] HISTORY AND PHYSICAL DATE OF ADMISSION: 05/15/2016 CHIEF COMPLAINT: Mild hemoptysis, weakness. HISTORY OF PRESENT ILLNESS: The patient is a pleasant 85-year-old female with recently diagnosed atrial fibrillation, achalasia and hypertension, presenting with 1 day of productive cough, chills and weakness. She was hospitalized 1 week ago for new onset atrial fibrillation and started on metoprolol and Eliquis. She was doing well until this morning when she had a productive cough with, what she says is bright red blood, approximately a tablespoon. She chronically coughs up a lot of mucus secondary to her achalasia. New to her were chills today. Denied fevers or sweats. Per her , she had significant weakness today requiring a wheelchair to bring her to the hospital. Normally she is ambulatory without assistive device. She denies abdominal pain, vomiting, melena or bright red blood per rectum. No dizziness or lightheadedness. REVIEW OF SYSTEMS: I completed a 10-point review of systems and negative, except as noted in the HPI. PAST MEDICAL HISTORY: Atrial fibrillation, CKD with baseline creatinine 1.2, achalasia, hypertension, osteopenia, bronchiectasis, multiple pneumonias September through November 2015. PAST SURGICAL HISTORY: Hysterectomy, bunionectomy, appendectomy, bilateral cataract, bilateral hand, hip replacement. FAMILY HISTORY: CAD in mother. SOCIAL HISTORY: Lives with her in [place]. They have been almost 65 years. They live at [facility]. Denies alcohol, illicits or tobacco. PHYSICAL EXAM: VITAL SIGNS: Temperature 36.6, blood pressure 178/3, heart rate is 59-78, respirations 18-22, 90% on room air, 94% on 3 L. GENERAL: The patient is lying comfortably in bed, without any distress. HEENT: PERRLA. EOMI. Mildly dry mucous membranes. Oropharynx clear, without exudate or erythema. CV: Toby, regular. No murmurs, gallops or rubs. LUNGS: Crackles right mid base. ABDOMEN: Soft, nontender, nondistended. Positive bowel sounds. : No suprapubic tenderness. MUSCULOSKELETAL: 5/5 upper and lower extremity strength. SKIN: Warm, dry. No ulceration or rash. NEURO: 2 through 12 intact. No focal deficits. PSYCH: Alert and oriented x3. LABS: WBC 10.6, hemoglobin 11, hematocrit 33, platelets 227. Sodium 142, potassium 4.0, chloride 107, carbon dioxide 21, BUN 32, creatinine 1.1, glucose 97, calcium 9.8. Influenza negative. IMAGING: Chest x-ray personally reviewed by me: Right upper and right middle lobe consolidation. Slight increase in cardiomegaly. Mild blunting of the left costophrenic angle. EKG: Sinus arrhythmia. Ps are present throughout. Heart rate 68. ASSESSMENT AND PLAN: 1. Suspected aspiration pneumonitis: chronic cough and mucus/food from achalasia. She is currently stable hemodynamically and afebrile. X-ray suggestive of aspiration.Given the fact the patient has mild hemoptysis and increased weakness, will treat empirically with IV Unasyn. Influenza was negative. She does have a history of bronchiectasis, but has had no issues since last summer. She had been evaluated by Dr. Gary with Pulmonology in the past. 2. Newly diagnosed atrial fibrillation last week. She is currently rate controlled. Will continue metoprolol and Eliquis. 3. Chronic kidney disease. Creatinine stable at 1.1. 4. Achalasia, stable. 5. Accelerated hypertension. Systolic blood pressure 178. She reports that her blood pressure varies for the past 15 years. She had previously been on amlodipine, but her PCP stopped this medication. Will monitor here in the hospital. 6. Normocytic anemia. H and H are stable. 7. Reported hemoptysis. The patient does report a teaspoon to a tablespoon of bright red blood with mucus this morning. Suspect this is due to inflammation. She was recently started on anticoagulation. However, H and H are stable. The x-ray is not showing diffuse infiltrates suggestive of a hemorrhage. Will monitor closely. 8. Acute hypoxemic respiratory failure. This is likely secondary to aspiration pneumonia. Influenza was negative. Will monitor overnight and continue IV antibiotics. 9. Diet regular. 10. Deep venous thrombosis prophylaxis. The patient is on Eliquis. 11. Disposition. The patient warrants observation admission for IV antibiotics and pulse oximetry. /[id number]/MODL MTDD
[2016-05-15] MEDS: AMPICILLIN/SULBACTAM 3 GM in NS 100 ML IV SCH ×2 (18:28→23:16)
[2016-05-15] MEDS: APIXABAN 2.5 MG TAB PO SCH (21:53)
[2016-05-15] MEDS: METOPROLOL TARTRATE 25 MG TAB PO SCH (21:53)
[2016-05-15 22:35] VITALS: RESP 16
[2016-05-16] MEDS: AMPICILLIN/SULBACTAM 3 GM in NS 100 ML IV SCH (05:09)
[2016-05-16] MEDS: APIXABAN 2.5 MG TAB PO SCH (07:54)
[2016-05-16] MEDS: METOPROLOL TARTRATE 25 MG TAB PO SCH (07:54)
[2016-05-16] MEDS ORDERED: ENOXAPARIN 40 MG/0.4 ML SYR SC SCH (09:00)
[2016-05-16] MEDS ORDERED: DOCUSATE SODIUM 100 MG CAP PO SCH (09:00)
[2016-05-16] MEDS ORDERED: Herbals/Supplements -Info Only PO SCH (09:00)
[2016-05-16 09:05] VITALS: PULSE 62; TEMP 97.5; O2SAT 93
[2016-05-16 10:33] LABS: HEMOGLOBIN 9.8 g/dL (12.6-16.3); MEAN CELL HEMOGLOBIN 31.7 pg (27.9-34.1); MEAN CELL HEMOGLOBIN CONCENTR. 33.8 g/dL (32.4-36.7); MEAN CELL VOLUME 93.9 fL (81.5-99.8); RED BLOOD CELL COUNT 3.09 10^6/uL (4.18-5.33); RED CELL DISTRIBUTION WIDTH 13.7 % (11.5-15.2)
[2016-05-16 15:03] VITALS: BP 132/61
--- NOTE | 2016-05-16 15:14 | PDIAF ---
- Diagnosis Code Status: Full Code - Medication Management Discharge Medications: Medications to Continue on Transfer Docusate Sodium [Colace 100 MG (*)] 3 tab PO DAILY 12/03/15 [Last Taken 05/15/16 ] Zolpidem Tartrate [Ambien 5MG (*)] 2.5 - 5 mg PO HS PRN 12/03/15 [Last Taken ] Apixaban [Eliquis] 2.5 mg PO BID #60 tab 05/10/16 [Last Taken 05/15/16] Metoprolol Tartrate [Lopressor 25 mg (*)] 12.5 mg PO BID #60 tab 05/10/16 [Last Taken 05/15/16] Acetaminophen [Tylenol 325mg (*)] 325 mg PO DAILY PRN 05/15/16 [Last Taken Unknown] Herbals/Supplements -Info Only 1 ea PO DAILY 05/15/16 [Last Taken Unknown] Discharge Medications: Refer to the Discharge Home Medication list for PRN reason. - Orders Services needed: Home Care, Registered Nurse, Physical Therapy Home Care Face to Face: I certify that this patient was under my care and that I had the required [id number] encounter meeting the encounter requirements on the discharge day. My findings support the fact that the patient is homebound as defined in CMS Chapter 7 Medicare Benefits Manual 30.1.1, The condition of the patient is such that there exists a normal inability to leave home and consequently, leaving home would require a considerable and taxing effort. Diet Recommendation: no restrictions on diet Diet Texture: Regular Texture Diet - Follow Up Care Current Providers and Referrals: Prema Guevara MD [Primary Care Provider] - As per Instructions
--- NOTE | 2016-05-16 16:02 | GDS ---
[f rep st] DISCHARGE SUMMARY DISCHARGE DIAGNOSES: 1. Acute hypoxic respiratory failure. 2. Suspected aspiration pneumonitis. 3. Recently diagnosed atrial fibrillation, now on anticoagulation. 4. Chronic kidney disease. 5. History of achalasia. 6. Accelerated hypertension. 7. Normocytic anemia. 8. Mild leukocytosis. 9. Acute hypoxemic respiratory failure. PRIMARY IT INTERN: Dr. Valenzuela. HISTORY OF PRESENT ILLNESS: Patient is a pleasant 85-year-old, female who was recently hospitalized for new onset atrial fibrillation and started on metoprolol and Eliquis. Was doing well until day of admission, when she had a productive cough with some red-tinged sputum. She states that she chronically coughs up a lot of mucus secondary to her achalasia. New to her were chills and profound weakness per her . She was requiring a wheelchair to bring her to the hospital which is new for her. She denies abdominal pain, nausea, vomiting, melena or fever. No sweats. No ill contacts. HOSPITAL COURSE BY PROBLEM: 1. Acute hypoxemic respiratory failure: due to aspiration pneumonitis. She has chronic achalasia and likely aspiration. Chest x-ray did reveal opacity, right upper and middle lobe. She remained afebrile with minimal increase in her white count here. Blood cultures have remained negative to date. Initially treated with Unasyn, but given the fact that patient has been not endorsing infectious symptoms, I suspect this is more of a pneumonitis and will not be discharged on antibiotics. I advised if develop fevers, increased cough or shortness of breath that she should see her PCP and can be started on Augmentin for anaerobic coverage. Influenza was negative. No O2 needed at DC. 2. Suspected aspiration pneumonitis: Plan as stated above. 3. CKD. Creatinine was stable at 1.1. 4. Mild leukocytosis. WBC was mildly elevated at 10. This is now 8. 5. Normocytic anemia. H and H are stable at 9 and 29 today. Patient denies any bleeding. 6. Recently diagnosed atrial fibrillation: now in sinus rhythm. Rate controlled with metoprolol and on Eliquis. She is to start Holter monitor and follow up with Cardiology. Of note, patient was inadvertently dosed both Lovenox prophylactically and Eliquis today. I informed patient and of error. I advised them to monitor for any bleeding. 7. Weakness. I suspect this is secondary to acute pneumonitis. Patient is stable here. She was evaluated by PT, and we will arrange for home PT. 8. Accelerated hypertension. Patient's blood pressure varied from 130s-170s. This has been inconsistent over the past 15 years. She had previously been on amlodipine, but her PCP stopped those medications. Recommend followup with her PCP. DISPOSITION: Patient is stable for discharge home. MEDICATIONS: No new medications. FOLLOWUP: 1. Holter monitor for arrhythmias. 2. Cardiology. 3. PCP, Dr. Guevara. Copy requested to: Dr. Guevara /[id number]/MODL MTDD
== END 2016-05-16 14:31 | disposition home health service (06) ==
LOC: INTOOBSV 12:10 → F3E 14:37
PROVIDERS: ADMIT Internal Medicine; ATTEND Internal Medicine
DX: J96.01 Acute respiratory failure with hypoxia (principal); J69.0 Pneumonitis due to inhalation of food and vomit; K22.0 Achalasia of cardia; I48.91 Unspecified atrial fibrillation; N18.9 Chronic kidney disease, unspecified; I12.9 Hypertensive chronic kidney disease with stage 1 through stage 4 chronic kidney disease, or unspecified chronic kidney disease; D64.9 Anemia, unspecified; Z79.01 Long term (current) use of anticoagulants; Z87.01 Personal history of pneumonia (recurrent)
CPT/HCPCS: 71020; 93005; 96374; 97161; 99285; G0378; G8978; G8979; J0295; J1650; J1956

== ENCOUNTER 2016-05-27 11:03 | Inpatient (IN) | payer OTHER ==
--- NOTE | 2016-05-27 11:22 | CPEKG ---
Heart Rate: 58 RR Interval: 1034 P-R Interval: 192 QRSD Interval: 90 QT Interval: 484 QTC Interval: 476 P [place]: 70 QRS [place]: 37 T Wave [place]: 42 EKG Severity - BORDERLINE ECG - EKG Impression: SINUS RHYTHM EKG Impression: PROBABLE LEFT ATRIAL ABNORMALITY Electronically Signed By: Francisca Chiu 27-May-2016 14:54:25
--- NOTE | 2016-05-27 11:39 | EDPHY ---
H & P Time Seen by Provider: 05/27/16 11:32 HPI/ROS: CHIEF COMPLAINT: Shortness of breath HISTORY OF PRESENT ILLNESS: This patient is an 85 year old woman, with a history of newly diagnosed paroxysmal atrial fibrillation 04/2016, TIA, and recent pneumonia, presenting with acute shortness of breath, onset yesterday. Onset of cough a few days ago. She saw her PCP 3 days ago and Augmentin was prescribed for possible pneumonia. Gradually increasing SOB x 1 day, now SOB with minimal exertion. Moderate in severity. Denies chest pain, fever, sore throat or nasal congestion. Received a flu vaccination this year. REVIEW OF SYSTEMS: Constitutional: No fever, no chills Eyes: No visual changes ENT: No sore throat Respiratory: cough, shortness of breath Cardiac: No chest pain Gastrointestinal: No nausea, no vomiting, no abdominal pain Genitourinary: No hematuria, no dysuria Musculoskeletal: No leg pain or swelling Skin: No rash Neurological: No headache, no numbness Psychiatric: No depression Past Medical/Surgical History: Paroxysmal atrial fibrillation, TIA, multiple pneumonias, CKD with baseline creatinine of 1.2, achalasia, hypertension, osteopenia, hysterectomy, appendectomy, hip replacement Social History: Non-smoker, , at bedside Smoking Status: Never smoked Physical Exam: General Appearance: Alert, mildly tachypneic on oxygen, non-toxic appearing Eyes: Pupils equal and round, no conjunctival pallor or injection ENT, Mouth: Mucous membranes moist Neck: Normal inspection Respiratory: decreased breath sounds at bases Cardiovascular: Regular rate and rhythm Gastrointestinal: Abdomen is soft and non-tender Neurological: A&O, nonfocal, normal gait Skin: Warm and dry, no rash Extremities: Nontender, no pedal edema Psychiatric: Mood and affect normal Constitutional: Initial Vital Signs Temperature (C) 36.3 C 05/27/16 11:08 Heart Rate 60 05/27/16 11:08 Respiratory Rate 18 05/27/16 11:08 Blood Pressure 181/86 H 05/27/16 11:08 O2 Sat (%) 89 L 05/27/16 11:08 O2 Delivery Mode Nasal Cannula O2 (L/minute) 2 Allergies/Adverse Reactions: Sulfa (Sulfonamide Antibiotics) Allergy (Verified 05/27/16 11:04) Rash Home Medications: Medication Instructions Recorded Docusate Sodium [Colace 100 MG (*)] 3 tab PO DAILY 12/03/15 Zolpidem Tartrate [Ambien 5MG (*)] 2.5 - 5 mg PO HS PRN 12/03/15 Apixaban [Eliquis] 2.5 mg PO BID #60 tab 05/10/16 Metoprolol Tartrate [Lopressor 25 12.5 mg PO BID #60 tab 05/10/16 mg (*)] Acetaminophen [Tylenol 325mg (*)] 325 mg PO DAILY PRN 05/15/16 Amiodarone HCl [Pacerone (*)] 200 mg PO DAILY 05/27/16 Amoxicillin/Clavulanate Pot 875 mg PO BID 05/27/16 [Augmentin 875 MG TAB (*)] Calcium Carb W/Vit D [Calcium Carb 500 mg PO BID 05/27/16 W/Vit D 500/200 (*)] Medical Decision Making - Diagnostics EKG Interpretation: The 12 lead EKG was interpreted by myself. Sinus rhythm, rate 58, probable left atrial abnormality. See hard copy and/or "tracemaster" electronic copy for interpretation. Imaging: Study: PA and Lateral Chest X-ray Indication: Cough, SOB Results: I viewed the images myself on the PACS system. My interpretation of the images is: Bilateral pleural effusion and likely bilateral infiltrate. The radiologist interpretation is pending at the time of this dictation. ED Course/Re-evaluation: Patient presents with likely recurrent pneumonia. She is nontoxic appearing and mildly hypoxic. Placed on oxygen by [place]. CXR ordered. I discussed the likelihood of hospital admission. stat EKG reveals no evidence of ischemia or dysrhythmia. CXR demonstrates bilateral pleural effusion with likely bilateral infiltrate. BNP is quite elevated at 5290; there are no old BNP's for comparison. Presentation likely secondary to pulmonary edema +/- pneumonia. Lasix 20 mg IV given. IV Azithromycin and IV Rocephin ordered for possible pneumonia. Pt does not meet SIRS criteria. 1305: Consulted with the hospitalist service. Dr. Florez accepts admission. Differential Diagnosis: Differential diagnosis includes though it is not limited to pneumonia, pneumothorax, pulmonary embolism, aortic dissection, pericarditis, acute coronary syndrome. - Data Points Laboratory Results: Laboratory Results 05/27/16 12:36 05/27/16 12:10 Microbiology Results: MICROBIOLOGY 05/27/16 12:10 Blood Blood Culture - Preliminary 05/27/16 12:36 Blood Blood Culture - Preliminary Medications Given: Discontinued Medications Amiodarone HCl (Amiodarone Hcl) 200 mg PO DAILY MIRACLE Stop: 11/23/16 16:59 Last Admin: 05/29/16 09:04 Dose: 200 mg Amlodipine Besylate (Norvasc) 5 mg PO DAILY MIRACLE Stop: 11/23/16 17:29 Last Admin: 05/28/16 09:04 Dose: 5 mg Furosemide (Lasix Injection) 20 mg IVP EDNOW ONE Stop: 05/27/16 13:07 Last Admin: 05/27/16 13:57 Dose: 20 mg Hydralazine HCl (Apresoline) 5 mg IVP Q6HRS PRN PRN Reason: systolic Bp > 160 mmHg Stop: 11/23/16 17:24 Last Admin: 05/28/16 08:58 Dose: 5 mg Sodium Chloride (Ns) 1,000 mls @ 0 mls/hr IV ONCE ONE PRN Reason: Wide Open Stop: 05/27/16 11:44 Last Admin: 05/27/16 12:10 Dose: 1,000 mls Azithromycin 500 mg/ Dextrose 255 mls @ 255 mls/hr IV EDNOW ONE PRN Reason: Protocol Stop: 05/27/16 13:03 Last Admin: 05/27/16 13:17 Dose: 255 mls Ceftriaxone Sodium 2 gm/ (Dextrose) 50 mls @ 100 mls/hr IV EDNOW ONE PRN Reason: Protocol Stop: 05/27/16 12:32 Last Admin: 05/27/16 14:38 Dose: 50 mls Departure - Departure Disposition: [facility] Inpatient Acute Clinical Impression: Pleural effusion Pneumonia Qualifiers: Pneumonia type: due to unspecified organism Laterality: bilateral Lung location : lower lobe of lung Qualifier Code: (J18.9) Pneumonia, unspecified organism Pulmonary edema Qualifiers: Chronicity: acute Qualifier Code: (J81.0) Acute pulmonary edema Condition: Fair Report Scribed for: Francisca Chiu Report Scribed by: Kasey Avalos Date of Report: 05/27/16 Time of Report: 11:33 Physician Review and Approval Statement: 05/27/16 11:34 Portions of this note were transcribed by a coroner/medical examiner. I personally performed a history, physical exam, medical decision making, and confirmed accuracy of information the transcribed note.
[2016-05-27] MEDS ORDERED: NS 1,000 ML IV ONE (11:43)
[2016-05-27] MEDS ORDERED: cefTRIAXone 2 GM in D5W 50 ML IV ONE (12:03)
[2016-05-27] MEDS ORDERED: AZITHROMYCIN IV 500 MG in D5W 250 ML IV ONE (12:04)
[2016-05-27 12:53] LABS: % IMMATURE GRANULYOCYTES 0.9 % (0.0-1.1); ABSOLUTE IMMATURE GRANULOCYTES 0.07 10^3/uL (0.00-0.10); ADD DIFF? NO; ADD MORPH? NO; ADD SCAN? NO; ATYPICAL LYMPHOCYTE FLAG 20 (0-99); FRAGMENT RBC FLAG 0 (0-99); HEMATOCRIT 28.9 % (38.0-47.0); HEMOGLOBIN 9.7 g/dL (12.6-16.3); LEFT SHIFT FLG 0 (0-99); LIPEMIA HEMOLYSIS FLAG 80 (0-99); MEAN CELL HEMOGLOBIN 31.6 pg (27.9-34.1); MEAN CELL HEMOGLOBIN CONCENTR. 33.6 g/dL (32.4-36.7); MEAN CELL VOLUME 94.1 fL (81.5-99.8); MEAN PLATELET VOLUME 9.8 fL (8.7-11.7); PLATELET CLUMPS FLAG 20 (0-99); PLATELET COUNT 251 10^3/uL (150-400); RED BLOOD CELL COUNT 3.07 10^6/uL (4.18-5.33); RED CELL DISTRIBUTION WIDTH 13.9 % (11.5-15.2)
[2016-05-27 12:58] LABS: ANION GAP 12 mEq/L (8-16); BILIRUBIN,TOTAL 1.4 mg/dL (0.1-1.4); CALCIUM 9.4 mg/dL (8.5-10.4); CARBON DIOXIDE 20 mEq/l (22-31); CHLORIDE 111 mEq/L (97-110); GLOMERULAR FILTRATION RATE 52; GLUCOSE 117 mg/dL (70-100); POTASSIUM 5.2 mEq/L (3.5-5.2); SODIUM 143 mEq/L (134-144); SPECIMEN HEMOLYSIS 182
[2016-05-27] MEDS ORDERED: FUROSEMIDE 20 MG/2 ML VIAL IVP ONE (13:06)
--- NOTE | 2016-05-27 13:06 | DX ---
AP Upright and Lateral Views of the Chest May 27, 2016 at 11:20 a.m. Clinical History: 85-year-old female with chest pain and a cough for multiple days, being treated for pneumonia. Comparison Study: Chest, dated May 15, 2016. Findings: There are mild hypoventilatory features. Telemetry monitoring lead lines and oxygen tubing are present. The cardiac silhouette remains enlarged. There are increasing areas of bibasilar pleurop arenchymal consolidation with peribronchial cuffing and pulmonary vascular redistribution. There has been interval resolution of a right upper lobe infiltrate. There is no pneumothorax. The trachea is m idline. The osseous structures are age-appropriate. Impression: 1. Resolution of a right upper lobe pneumonia since May 15, 2016. 2. Cardiomegaly with peribronchial thickening, pulmonary vascular congestion, and interim development of bibasilar pleuroparenchymal consolidation.
[2016-05-27 14:02] LABS: INR 1.41 (0.83-1.16); PROTIME(PATIENT) 17.2 SEC (12.0-15.0)
[2016-05-27 14:03] LABS: APTT 33.5 SEC (23.0-38.0)
[2016-05-27] MEDS ORDERED: CEFTRIAXONE 1 GM/DEXTROSE/50 ML BAG IV ONE (14:34)
[2016-05-27] MEDS ORDERED: LORazepam 2 MG/ML INJ IVP PRN (16:49)
[2016-05-27] MEDS ORDERED: POLYETHYLENE GLYCOL 3350 17 GM PKT PO PRN (16:49)
[2016-05-27] MEDS ORDERED: ZOLPIDEM TARTRATE 5 MG TAB PO PRN ×2 (16:49→17:24)
[2016-05-27] MEDS ORDERED: ALBUTEROL 60 PUFFS/8 GM MDI IH PRN (16:49)
[2016-05-27] MEDS ORDERED: BISACODYL 10 MG SUPP PR PRN (16:49)
[2016-05-27] MEDS ORDERED: LACTULOSE 20 GM/30 ML UDCUP PO PRN (16:49)
[2016-05-27] MEDS ORDERED: MAGNESIUM HYDROXIDE 30 ML UDCUP PO PRN (16:49)
[2016-05-27] MEDS ORDERED: ACETAMINOPHEN 325 MG TAB PO PRN ×2 (16:49→17:24)
[2016-05-27] MEDS ORDERED: ONDANSETRON 4 MG/2 ML VIAL IVP PRN (16:49)
[2016-05-27] MEDS ORDERED: ONDANSETRON DISINTEGRATING 4 MG TAB PO PRN (16:49)
[2016-05-27] MEDS ORDERED: LORazepam 0.5 MG TAB PO PRN (16:49)
[2016-05-27] MEDS ORDERED: hydrALAZINE 20 MG/ML VIAL IVP PRN (17:25)
[2016-05-27] MEDS: amLODIPine BESYLATE 5 MG TAB PO SCH (17:46)
--- NOTE | 2016-05-27 17:54 | GHP ---
[f rep st] HISTORY AND PHYSICAL DATE OF ADMISSION: 05/27/2016 CHIEF COMPLAINT: Shortness of breath and cough. HISTORY OF PRESENT ILLNESS: An 85-year-old female with a known prior history of atrial fibrillation, achalasia, hypertension, and prior a history of pneumonia who presents with a problem of mild shortn ess of breath and persistent cough, and was found in the emergency department to have a CHF and pneum onia. The patient was diagnosed with new-onset atrial fibrillation in 04/2016 and started on metopro lol and Eliquis, but stopped one of her antihypertensive medications at the time. Since then, she lopez s done well, followed up with her PCP, and is currently on a 30-day event monitor. In the last few d ays, she has noted increasing shortness of breath, worsening cough, and increasing weakness. She was started on an outpatient course of antibiotics for pneumonia and has currently received approximatel y 5 days of that. In the emergency department, she was noted to have a chest x-ray showing bibasilar consolidation and infiltrates, with an elevated BNP at approximately 500. She was thus admitted. Her pulmonary history indicates that she has had achalasia for many years. She currently persistentl y has very thick mucus and difficulty swallowing, and is on a dysphagia 2 diet. Per her , Messi , she had a diagnosis of pneumonia in September, October, and November of 2015. She saw Dr. Gary at [facility] who placed her on bronchodilators during that time, but these were stopped in or January of 2016 for unknown reasons. She then developed a confirmed pneumonia in April with a right upper lobe infiltrate which was felt to probably be an aspiration pneumonitis. She now presents approximately 2 weeks following that event with new onset of pneumonia. She admits to d ifficulty swallowing and has very thick mucus. She does follow a dysphagia 2 diet. She frequently h as coughing and difficulty swallowing. PAST MEDICAL HISTORY: 1. Atrial fibrillation diagnosed in April of 2016, on Eliquis anticoagulation, along with metoprol ol for rate control. 2. Chronic kidney disease with a baseline creatinine of 1.2. 3. Achalasia for many years. 4. Hypertension, but recently stopped her Norvasc when she started the treatment for atrial fibrilla tion. 5. Bronchiectasis and multiple episodes of pneumonia from September through November of 2015. PAST SURGICAL HISTORY: 1. Hysterectomy. 2. Bunionectomy. 3. Appendectomy. 4. Bilateral cataracts. 5. Bilateral hand surgery. 6. Hip replacement. REVIEW OF SYSTEMS: She denies fever, chills, or sweating. There is increasing shortness of breath 1 day DIET CONSULTANT. She has no nausea or vomiting, but difficulty swallowing as noted above. Denies dysuria. No joint problems. There is very mild peripheral edema which has been noted. The remainder of a 10 -point review of systems is entirely negative. FAMILY HISTORY: Positive for coronary artery disease in her mother. SOCIAL HISTORY: She lives with her in [place] at [facility]. They have been fo r 65 years. Denies alcohol, drugs, or tobacco. MEDICATIONS: Noted in the EMR and will be reconciled when available. PHYSICAL EXAMINATION: GENERAL: Pleasant, alert female who appears comfortable. VITAL SIGNS: Her b lood pressure is elevated at 182/94. Heart rate in the 50s and sometimes in 60s. She require supple mental oxygen as she was at 88% to 89% on room air. Monitor shows she is in a normal sinus rhythm. HEENT: WNL, without inflammation of the ears, nose, or mouth. LUNGS: Show increased dullness at th e bases. There are bronchial breath sounds noted in the left base, and significant rhonchi and some rales in the bilateral bases. HEART: Regular rate and rhythm. Singular S1 and S2. No murmur was a ppreciated. ABDOMEN: Thin. Normoactive bowel sounds. No masses, tenderness, or organomegaly. EXT REMITIES: Trace peripheral edema. No cyanosis or clubbing. LABORATORY: WBC 7000, hemoglobin 9.7. INR is 1.41. Lactate was normal at 1.7. BMP shows some degr ee of dehydration with a BUN of 31 and a creatinine of 1.02. Elevated BNP at 5290. Potassium of 5.2 . Chest x-ray reveals bilateral lower lobe infiltrates and consolidation, with air bronchograms and cardiomegaly. Pulmonary vascular congestion is also noted. There has been resolution of the right u pper lobe infiltrate since May 15, 2016. ASSESSMENT: 1. Acute hypoxic respiratory failure, with increasing oxygen needs and evidence of bilateral lower l obe infiltration and consolidation. 2. Possible pneumonia. Infectious versus aspiration remains a question here. It is bilateral and h as significantly developed since her last chest x-ray of April 2016. 3. Acute congestive heart failure, possible both systolic and diastolic, although this will need to be further evaluated by cardiac echo. Her BNP is elevated at greater than 5000. She has a recent di agnosis of atrial fibrillation with RVR, but she is currently well rate-controlled and at times has b radycardia. It is possible that she is excessively beta-blocked, causing some degree of her heart fa ilure, although this needs to be further assessed by cardiac echo. 4. Hypertension. Currently, she is significantly hypertensive, but asymptomatic thereof. Her Norva sc at 5 mg daily was stopped in April 2016, and I will reinstitute for hypertensive control. 5. Achalasia, with a history of frequent pneumonias and currently following a dysphagia 2 diet. It is probable this lady is silently aspirating despite her best efforts to avoid it and follow appropri ate eating instructions regarding this problem. 6. Acute kidney injury with a baseline creatinine of 1.2. Her creatinine is currently 1.0. I belie ve she is euvolemic and adequately hydrated currently. PLAN: Cardiac echocardiogram and cardiology consult regarding both her new-onset CHF and her atrial fibrillation with the 30-day event monitor. There was evidence of pneumonia, and I will begin treatm ent outpatient for the pneumonitis for the next 1-2 days and obtain a pulmonary sputum culture and Gr am smear. She had previously used bronchodilators, but these were stopped in December or January of 2015. I will restart this medication along with mucolytics. Regarding her achalasia, an SENIOR PROJECT MANAGER ENGINEERING consul t will be obtained. Her hypertension will be treated appropriately. DVT prophylaxis will be with Lo venox. CODE STATUS: Full. Her medical POA is her . TIME: This admission required 60 minutes. BILLING: The patient be admitted to inpatient as she has multiple medical problems, which will requi re greater than 2 midnights to resolve. /[id number]/MODL
[2016-05-27] MEDS: AMIODARONE HCL 200 MG TAB PO SCH (18:42)
[2016-05-27] MEDS: APIXABAN 2.5 MG TAB PO SCH (20:28)
[2016-05-27] MEDS: AMOXICILLIN/CLAVULANATE POT 875/125 MG TAB PO SCH (20:28)
[2016-05-27] MEDS: METOPROLOL TARTRATE 25 MG TAB PO SCH (20:28)
[2016-05-27] MEDS: guaiFENesin 600 MG TAB.ER PO SCH (20:29)
[2016-05-27] MEDS: CALCIUM CARB W/VIT D 500 MG TAB PO SCH (20:29)
[2016-05-27] MEDS: IPRATROPIUM/ALBUTEROL 3 ML DEYVIAL IH SCH (20:41)
[2016-05-28] MEDS: IPRATROPIUM/ALBUTEROL 3 ML DEYVIAL IH SCH ×4 (05:24→21:29)
[2016-05-28 05:30] LABS: ABSOLUTE IMMATURE GRANULOCYTES 0.06 10^3/uL (0.00-0.10); ADD DIFF? NO; ADD MORPH? NO; ADD SCAN? NO; ATYPICAL LYMPHOCYTE FLAG 20 (0-99); FRAGMENT RBC FLAG 0 (0-99); HEMATOCRIT 29.3 % (38.0-47.0); HEMOGLOBIN 9.9 g/dL (12.6-16.3); LEFT SHIFT FLG 0 (0-99); LIPEMIA HEMOLYSIS FLAG 90 (0-99); MEAN CELL HEMOGLOBIN 31.6 pg (27.9-34.1); MEAN CELL HEMOGLOBIN CONCENTR. 33.8 g/dL (32.4-36.7); MEAN CELL VOLUME 93.6 fL (81.5-99.8); MEAN PLATELET VOLUME 9.7 fL (8.7-11.7); PLATELET CLUMPS FLAG 0 (0-99); PLATELET COUNT 252 10^3/uL (150-400); RED BLOOD CELL COUNT 3.13 10^6/uL (4.18-5.33); RED CELL DISTRIBUTION WIDTH 13.9 % (11.5-15.2)
[2016-05-28 05:45] LABS: ALANINE AMINOTRANSFERASE 55 IU/L (9-52); ALBUMIN 2.8 g/dL (3.5-5.0); ANION GAP 9 mEq/L (8-16); ASPARTATE AMINOTRANSFERASE 31 IU/L (14-46); BILIRUBIN,TOTAL 0.6 mg/dL (0.1-1.4); CALCIUM 9.1 mg/dL (8.5-10.4); CARBON DIOXIDE 26 mEq/l (22-31); CHLORIDE 108 mEq/L (97-110); CREATININE 1.1 mg/dL (0.6-1.0); GLOMERULAR FILTRATION RATE 47; GLUCOSE 95 mg/dL (70-100); POTASSIUM 3.7 mEq/L (3.5-5.2); SODIUM 143 mEq/L (134-144); TOTAL PROTEIN 5.9 g/dL (6.3-8.2)
[2016-05-28] MEDS: DOCUSATE SODIUM 100 MG CAP PO SCH (09:01)
[2016-05-28] MEDS: guaiFENesin 600 MG TAB.ER PO SCH ×2 (09:02→20:12)
[2016-05-28] MEDS: CALCIUM CARB W/VIT D 500 MG TAB PO SCH ×2 (09:02→20:12)
[2016-05-28] MEDS: APIXABAN 2.5 MG TAB PO SCH ×2 (09:03→20:12)
[2016-05-28] MEDS: AMIODARONE HCL 200 MG TAB PO SCH (09:04)
[2016-05-28] MEDS: amLODIPine BESYLATE 5 MG TAB PO SCH (09:04)
[2016-05-28] MEDS: AMOXICILLIN/CLAVULANATE POT 875/125 MG TAB PO SCH ×2 (09:07→20:12)
[2016-05-28] MEDS: METOPROLOL TARTRATE 25 MG TAB PO SCH ×2 (09:08→20:11)
--- NOTE | 2016-05-28 10:38 | ECHO ---
[id number] + + [address] : : [place] [address] : : [phone] + Adult Echocardiographic Report + --+ :Name: BASIL BAUTISTA Jim Date: 05/28/2016 07:58 AM BP: 167/74 mmHg : : Hospital Admission Number: [id number] Location: 2 17: :: 1930 Gender: Female Height: 64 in : :Age: 85 yrs Race: WH Weight: 136 lb : :Reason For Study: new onset CHF : : BSA: 1.7 meters2 : :History: new onset CHF : + --+ MMode/2D Measurements & Calculations IVSd: 1.2 cm RVDd: 2.4 cm FS: 30.7 % MV Diam: 3.1 cm LVPWd: 1.1 cm LVIDd: 4.4 cm EDV(Teich): 85.7 ml LVIDs: 3.0 cm ESV(Teich): 35.5 ml EF(Teich): 58.6 % LA dimension: LVOT diam: 2.0 cmLVLd ap4: 7.8 cm SV(MOD-sp4): 4.5 cm LVOT area: EDV(MOD-sp4): 74.0 ml 3.3 cm2 128.0 ml LVLs ap4: 6.5 cm ESV(MOD-sp4): 54.0 ml EF(MOD-sp4): 57.8 % Normal Measurement Values: + + :LVIDd (3.5-5.7cm) IVSd (0.6-1.1cm) LVPWd (0.6-1.1cm) Aortic Root (2.0-3.7cm)Left Atrium (1.5-4.0cm): :LV Vol(d) (76-115ml) LV Vol(s) (29-48ml) Ejec Fraction (50-65%)PV Gordy (0.6- 1.2m/s) TV Gordy (0.4-1.0m/s) : :MV E Godry (0.8-1.0m/s)MV A Gordy (0.3-1.0m/s)LVOT Gordy (0.7-1.2m/s) Asc Ao Gordy ( 0.9-1.8m/s) : + + Doppler Measurements & Calculations MV E max gordy: MV V2 max: Ao V2 max: AI max gordy: 101.2 cm/sec 58.2 cm/sec 159.9 cm/sec 417.2 cm/sec MV A max gordy: MV max P.4 mmHg Ao max PG: AI max P.1 cm/sec MV V2 mean: 10.2 mmHg 69.6 mmHg MV E/A: 3.2 28.3 cm/sec AI dec slope: MV mean P.6 cm/sec2 0.37 mmHg AI P1/2t: MV V2 VTI: 16.3 cm 497.5 msec MV area (1 diam): 7.5 cm2 MVA(VTI): 4.1 cm2 MV Flow area (1diam): 7.5 cm2 LV V1 mean PG: MR max gordy: MR(RF 1 diam): SV(MV 1 diam): 1.5 mmHg 534.3 cm/sec 43.5 % 122.7 ml LV V1 mean: MR max PG: SI(MV 1 diam): 58.9 cm/sec 114.2 mmHg 73.9 ml/m2 LV V1 VTI: 20.5 cm SV(LVOT): 67.3 ml PA V2 max: PI end-d gordy: TR max gordy: RF(MV,LVOT)(1diam): 92.3 cm/sec 29.9 cm/sec 379.2 cm/sec 0.45 PA max PG: TR max P.4 mmHg 57.5 mmHg RAP systole: 10.0 mmHg RVSP(TR): 67.5 mmHg Left Ventricle The left ventricle is normal in size and function. There is mild to moderate concentric left ventricular hypertrophy. Ejection Fraction = 55-60%. There is Doppler evidence for diastolic dysfunction. No regional wall motion abnormalities noted. Right Ventricle The right ventricle is normal in size and function. Atria The left atrium is severely dilated. The Left Atrial Volume is 51 ml/m2. The right atrium is mildly dilated. A dilated inferior vena cava suggests increased right atrial pressure. 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 There is no mitral valve stenosis. There is moderate mitral regurgitation. The mitral regurgitant jet is eccentrically directed. Tricuspid Valve The tricuspid valve is normal in structure and function. There is no tricuspid stenosis. There is mild tricuspid regurgitation. Right ventricular systolic pressure is 68mmHg. There is Doppler evidence for moderate to severe pulmonary hypertension. Aortic Valve The aortic valve is trileaflet. There is mild aortic valve calcification. There is no aortic stenosis. Mild aortic regurgitation. Pulmonic Valve The pulmonic valve is normal in structure and function. Mild pulmonic valvular regurgitation. Great Vessels The aortic root is normal size. Pericardium/Pleural Small pericardial effusion. There is a large pleural effusion. Conclusion A two-dimensional transthoracic echocardiogram with M-mode and Doppler was performed. The left ventricle is normal in size and function. There is mild to moderate concentric left ventricular hypertrophy. Ejection Fraction = 55-60%. There is Doppler evidence for diastolic dysfunction. The left atrium is severely dilated. The Left Atrial Volume is 51 ml/m2. The right atrium is mildly dilated. A dilated inferior vena cava suggests increased right atrial pressure. 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 There is moderate mitral regurgitation. The mitral regurgitant jet is eccentrically directed. There is mild tricuspid regurgitation. Right ventricular systolic pressure is 68mmHg. There is Doppler evidence for moderate to severe pulmonary hypertension. Mild aortic regurgitation. Mild pulmonic valvular regurgitation. Small pericardial effusion. There is a large pleural effusion. Since previous echocardiogram the estimated RVSP have increased from 29mmHg on 05/09/2016 to 67mmHg today; in addition the mitral regurgitation has gone from trace to moderate. Final Reading Physician: Miquel John signed on 05/28/2016 10:37 AM Ordering Physician: Randolph Florez Performed By: Sunshine Rojas
--- NOTE | 2016-05-28 12:35 | PDCARCONS ---
Cardiology Consult Reason for Consult: New onset congestive heart failure Chief Complaint: shortness of breath and dry cough Requesting Physician: Dr. Rai History of Present Illness: and is an 85-year-old female well known to me from the outpatient setting. She has no prior cardiovascular history until this year. She had her 1st episode of atrial fibrillation with rapid ventricular response. She converted spontaneously. She was seen in the clinic and was put on a 30 day monitor to determine AFib burden. Since that time she has been admitted to the hospital at least twice. Initially this was for pneumonia. She reported several days of fatigue and exertional shortness of breath with dry cough was seen in the emergency department last night and admitted with a diagnosis of potential pneumonia versus heart failure. On my arrival she continues have significant dyspnea on exertion. She has a dry cough productive of bloody /yellow sputum. She denies PND orthopnea. She has had no chest pain. She has had no syncope or near syncope. Confounding medical problems include longstanding achalasia. She has a history of chronic kidney disease with a creatinine 1.2. She has longstanding hypertension. She has bronchiectasis with multiple episodes of pneumonia. She has no history of coronary artery disease. She has no history of valvular heart disease. Medications in the hospital Medications Generic Name Dose Route Start Last Admin Trade Name Freq PRN Reason Stop Dose Admin Albuterol 2 puffs 05/27/16 16:49 Proventil Inhaler 11/23/16 16:48 Q4HRS PRN Short of Breath/Dyspnea Albuterol/Ipratropium 3 ml 05/27/16 21:00 05/28/16 11:28 Duoneb 11/23/16 20:59 3 ml QID [facility]1983 Amiodarone HCl 200 mg 05/27/16 17:00 05/28/16 09:04 Amiodarone Hcl PO 11/23/16 16:59 200 mg DAILY [facility] Amlodipine Besylate 5 mg 05/27/16 17:30 05/28/16 09:04 Norvasc PO 11/23/16 17:29 5 mg DAILY [facility] Apixaban 2.5 mg 05/27/16 21:00 05/28/16 09:03 Eliquis PO 11/23/16 20:59 2.5 mg BID [facility] Hydralazine HCl 5 mg 05/27/16 17:25 05/28/16 08:58 Apresoline IVP 11/23/16 17:24 5 mg Q6HRS PRN systolic Bp > 160 mmHg Metoprolol Tartrate 12.5 mg 05/27/16 21:00 05/28/16 09:08 Lopressor PO 11/23/16 20:59 12.5 mg BID [facility] Discontinued Medications Generic Name Dose Route Start Last Admin Trade Name Apolloq PRN Reason Stop Dose Admin Furosemide 20 mg 05/27/16 13:06 05/27/16 13:57 Lasix Injection IVP 05/27/16 13:07 20 mg EDNOW ONE History Information - Allergies/Home Medication List Allergies/Adverse Reactions: Sulfa (Sulfonamide Antibiotics) Allergy (Verified 05/27/16 11:04) Rash Home Medications: Docusate Sodium [Colace 100 MG (*)] 3 tab PO DAILY 12/03/15 [Last Taken 09:00] Zolpidem Tartrate [Ambien 5MG (*)] 2.5 - 5 mg PO HS PRN 12/03/15 [Last Taken ] Acetaminophen [Tylenol 325mg (*)] 325 mg PO DAILY PRN 05/15/16 [Last Taken 05/20] Amiodarone HCl [Pacerone (*)] 200 mg PO DAILY 05/27/16 [Last Taken 05/27/16 09: 00] Amoxicillin/Clavulanate Pot [Augmentin 875 MG TAB (*)] 875 mg PO BID 05/27/16 [ Last Taken 05/27/16 09:00] Calcium Carb W/Vit D [Calcium Carb W/Vit D 500/200 (*)] 500 mg PO BID 05/27/16 [ Last Taken 05/26/16 09:00] I have personally reviewed and updated: family history, medical history, social history - Surgical History Reports: no pertinent surgical hx - Family History Positive for: non-pertinent - Social History Smoking Status: Never smoked Age in Years: 75 or older Sex: Female Congestive Heart Failure History: Yes Hypertension History: Yes Physical Exam Temp Pulse Resp BP Pulse Ox 36.3 C 63 26 H 158/74 H 93 05/28/16 11:42 05/28/16 11:42 05/28/16 11:42 05/28/16 11:42 05/28/16 11:42 O2 (L/minute) 1 Constitutional: no apparent distress Eyes: PERRL, anicteric sclera, No scleral injection Ears, Nose, Mouth, Throat: moist mucous membranes, hearing normal Cardiovascular: regular rate and rhythym, no murmur, rub, or gallop, No JVD Peripheral Pulses: 1+: carotid (R), carotid (L), femoral (R), femoral (L), dorsalis-pedis (R), dorsalis-pedis (L) Respiratory: reduced air movement, other (Inspiratory rales) Gastrointestinal: normoactive bowel sounds, soft, non-tender abdomen, no palpable masses Skin: warm, no rashes or abrasions Musculoskeletal: full muscle strength, no muscle tenderness Neurologic: AAOx3 Psychiatric: interacting appropriately, not anxious Lymph, Heme, Immunologic: no cervical LAD, no supraclavicular LAD Lab and Imaging 05/28/16 05:15 05/28/16 05:15 WBC 6.16 10^3/uL (3.80-9.50) 05/28/16 05:15 RBC 3.13 10^6/uL (4.18-5.33) L 05/28/16 05:15 Hgb 9.9 g/dL (12.6-16.3) L 05/28/16 05:15 Hct 29.3 % (38.0-47.0) L 05/28/16 05:15 MCV 93.6 fL (81.5-99.8) 05/28/16 05:15 MCH 31.6 pg (27.9-34.1) 05/28/16 05:15 MCHC 33.8 g/dL (32.4-36.7) 05/28/16 05:15 RDW 13.9 % (11.5-15.2) 05/28/16 05:15 Plt Count 252 10^3/uL (150-400) 05/28/16 05:15 MPV 9.7 fL (8.7-11.7) 05/28/16 05:15 Neut % (Auto) 68.5 % (39.3-74.2) 05/28/16 05:15 Lymph % (Auto) 17.9 % (15.0-45.0) 05/28/16 05:15 Stephens % (Auto) 8.0 % (4.5-13.0) 05/28/16 05:15 Eos % (Auto) 3.6 % (0.6-7.6) 05/28/16 05:15 Baso % (Auto) 1.0 % (0.3-1.7) 05/28/16 05:15 Nucleat RBC Rel Count 0.0 % (0.0-0.2) 05/28/16 05:15 Absolute Neuts (auto) 4.23 10^3/uL (1.70-6.50) 05/28/16 05:15 Absolute Lymphs (auto) 1.10 10^3/uL (1.00-3.00) 05/28/16 05:15 Absolute Monos (auto) 0.49 10^3/uL (0.30-0.80) 05/28/16 05:15 Absolute Eos (auto) 0.22 10^3/uL (0.03-0.40) 05/28/16 05:15 Absolute Basos (auto) 0.06 10^3/uL (0.02-0.10) 05/28/16 05:15 Absolute Nucleated RBC 0.00 10^3/uL (0-0.01) 05/28/16 05:15 Immature Gran % 1.0 % (0.0-1.1) 05/28/16 05:15 Immature Gran # 0.06 10^3/uL (0.00-0.10) 05/28/16 05:15 PT 17.2 SEC (12.0-15.0) H 05/27/16 13:43 INR 1.41 (0.83-1.16) H 05/27/16 13:43 APTT 33.5 SEC (23.0-38.0) 05/27/16 13:43 VBG Lactic Acid 1.7 mmol/L (0.7-2.1) 05/27/16 12:10 Sodium 143 mEq/L (134-144) 05/28/16 05:15 Potassium 3.7 mEq/L (3.5-5.2) 05/28/16 05:15 Chloride 108 mEq/L (97-110) 05/28/16 05:15 Carbon Dioxide 26 mEq/l (22-31) D 05/28/16 05:15 Anion Gap 9 mEq/L (8-16) 05/28/16 05:15 BUN 22 mg/dL (7-23) 05/28/16 05:15 Creatinine 1.1 mg/dL (0.6-1.0) H 05/28/16 05:15 Estimated GFR 47 05/28/16 05:15 Glucose 95 mg/dL (70-100) 05/28/16 05:15 Calcium 9.1 mg/dL (8.5-10.4) 05/28/16 05:15 Total Bilirubin 0.6 mg/dL (0.1-1.4) D 05/28/16 05:15 AST 31 IU/L (14-46) 05/28/16 05:15 ALT 55 IU/L (9-52) H 05/28/16 05:15 Alkaline Phosphatase 238 IU/L (38-126) H 05/28/16 05:15 Troponin I 0.020 ng/mL (0-0.034) 05/27/16 12:10 NT-Pro-B Natriuret Pep 4780 pg/mL (0-450) H 05/28/16 05:15 Total Protein 5.9 g/dL (6.3-8.2) L 05/28/16 05:15 Albumin 2.8 g/dL (3.5-5.0) L 05/28/16 05:15 TSH 2.350 uIU/mL (0.465-4.680) 05/28/16 05:15 Specimen Hemolysis 182 05/27/16 12:10 Laboratory Tests 05/27/16 05/28/16 12:10 05:15 Troponin I 0.020 NT-Pro-B Natriuret Pep 5290 H 4780 H Visualized and Interpreted Chest x-ray results: Yes Chest X-ray Interpretation: effusion Visualized and Interpreted EKG results: Yes EKG additional interpertation: sinus rhythm without acute ST-T changes Echocardiogram: echocardiogram revealed moderate mitral regurgitation with an increase in pulmonary artery pressures from study in April. A/P Assessment: 85-year-old female with progressive dyspnea on exertion associated with bilateral pleural effusions. Her echocardiogram overall 1 month. Has shown an increase from mild mitral regurgitation to at least moderate with anterior leaflet prolapse. There has been a dramatic increase in pulmonary artery pressures at the same time as elevated systemic blood pressures. This is associated with an elevation brain natretic peptide. Symptoms have been complicated by bronchitis/pneumonia symptoms. I do not think this represents acute mitral valve papillary muscle rupture. More likely this represents worsening progressive hypertension in the setting of recent infectious illness. There is no evidence of acute coronary syndrome. Plan: Strongly ran commend optimization of medical therapy. This would include gentle diuresis. Afterload reduction with Isordil and hydralazine. Continued beta julio use. As she improves clinically will need to consider further risk stratification. At its most invasive would consider transesophageal ECHO left and right heart catheterization to see if she was a surgical candidate. In light of her advanced age would want her to fail medical therapy before going down this approach. I will discuss this with her Dr. Lawrence. Will plan for repeat echocardiogram once medical therapy and clinical status has been optimized. Review of Systems - Review of Systems Constitutional: malaise, weakness. denies: chills, fever Respiratory: cough, shortness of breath Cardiac: lightheadedness. denies: chest pain, irregular heart rate, palpitations, syncope Gastrointestinal/Abdominal: no symptoms reported Genitourinary: no symptoms Musculoskelatal: no symptoms Skin: no symptoms Neurological: no symptoms Hematologic/Lymphatic: no symptoms reported Immunologic/allergic: no symptoms reported
[2016-05-28] MEDS: FUROSEMIDE 20 MG TAB PO SCH ×2 (14:44→20:12)
[2016-05-28] MEDS: LOSARTAN POTASSIUM 50 MG TAB PO SCH (14:44)
--- NOTE | 2016-05-28 16:50 | HOSPPROG ---
Hospitalist Progress Note Assessment/Plan: 85 yo F w recent CAP and progressive MR CAP: completing course of augmentin MR: progressive ARB added gentle diuresis proph: anticoagulated AF: bb, colin overton code: full dispo: inpt Subjective: coughing up sputum. case d/w dr johnston. tele: AF (interp by me) Objective: Vital Signs Temp Pulse Resp BP Pulse Ox 36.5 C 63 20 132/69 H 90 L 05/28/16 15:27 05/28/16 15:27 05/28/16 15:27 05/28/16 15:27 05/28/16 15:27 Laboratory Results 05/28/16 05:15 05/28/16 05:15 05/27/16 05/28/16 05/29/16 05:59 05:59 05:59 Intake Total 800 Output Total 1050 300 Balance -250 -300 PT 17.2 SEC (12.0-15.0) H 05/27/16 13:43 INR 1.41 (0.83-1.16) H 05/27/16 13:43 - Physical Exam Constitutional: no apparent distress, appears nourished Eyes: PERRL, anicteric sclera Ears, Nose, Mouth, Throat: moist mucous membranes, hearing normal, ears appear normal Cardiovascular: regular rate and rhythym, systolic murmur Respiratory: no respiratory distress Gastrointestinal: normoactive bowel sounds, soft, non-tender abdomen Genitourinary: No barcenas in urethra Skin: warm, normal color Musculoskeletal: full muscle strength Neurologic: AAOx3 ICD10 Worksheet Patient Problems: Problems Problem Status Diagnosed Atrial flutter Acute Dehydration Acute Elevated troponin Acute Lightheaded Acute Pleural effusion Acute Pneumonia Acute Renal insufficiency Acute Aspiration pneumonia Acute
[2016-05-28 21:20] LABS: ALKALINE PHOSPHATASE 107 IU/L (38-126)
[2016-05-29 05:05] LABS: % IMMATURE GRANULYOCYTES 0.8 % (0.0-1.1); ABSOLUTE IMMATURE GRANULOCYTES 0.05 10^3/uL (0.00-0.10); ADD DIFF? NO; ADD MORPH? NO; ADD SCAN? NO; ATYPICAL LYMPHOCYTE FLAG 10 (0-99); FRAGMENT RBC FLAG 0 (0-99); HEMOGLOBIN 10.6 g/dL (12.6-16.3); LEFT SHIFT FLG 0 (0-99); LIPEMIA HEMOLYSIS FLAG 90 (0-99); MEAN CELL HEMOGLOBIN 31.7 pg (27.9-34.1); MEAN CELL HEMOGLOBIN CONCENTR. 34.2 g/dL (32.4-36.7); MEAN CELL VOLUME 92.8 fL (81.5-99.8); PLATELET CLUMPS FLAG 10 (0-99); PLATELET COUNT 296 10^3/uL (150-400); RED BLOOD CELL COUNT 3.34 10^6/uL (4.18-5.33)
[2016-05-29 05:27] LABS: ALANINE AMINOTRANSFERASE 54 IU/L (9-52); ALBUMIN 3.4 g/dL (3.5-5.0); ALKALINE PHOSPHATASE 112 IU/L (38-126); ASPARTATE AMINOTRANSFERASE 29 IU/L (14-46); BILIRUBIN,TOTAL 0.7 mg/dL (0.1-1.4); CALCIUM 9.4 mg/dL (8.5-10.4); CARBON DIOXIDE 25 mEq/l (22-31); CREATININE 1.1 mg/dL (0.6-1.0); GLOMERULAR FILTRATION RATE 47; GLUCOSE 98 mg/dL (70-100); POTASSIUM 3.7 mEq/L (3.5-5.2); SODIUM 142 mEq/L (134-144); TOTAL PROTEIN 6.1 g/dL (6.3-8.2)
[2016-05-29 05:32] LABS: ANION GAP 12 mEq/L (8-16); CHLORIDE 105 mEq/L (97-110)
[2016-05-29] MEDS: IPRATROPIUM/ALBUTEROL 3 ML DEYVIAL IH SCH ×4 (06:16→22:12)
[2016-05-29] MEDS: FUROSEMIDE 20 MG TAB PO SCH ×3 (06:27→21:35)
[2016-05-29] MEDS: DOCUSATE SODIUM 100 MG CAP PO SCH (09:02)
[2016-05-29] MEDS: CALCIUM CARB W/VIT D 500 MG TAB PO SCH ×2 (09:02→21:34)
[2016-05-29] MEDS: AMOXICILLIN/CLAVULANATE POT 875/125 MG TAB PO SCH ×2 (09:03→21:35)
[2016-05-29] MEDS: guaiFENesin 600 MG TAB.ER PO SCH ×2 (09:03→21:34)
[2016-05-29] MEDS: APIXABAN 2.5 MG TAB PO SCH ×2 (09:03→21:35)
[2016-05-29] MEDS: AMIODARONE HCL 200 MG TAB PO SCH (09:04)
[2016-05-29] MEDS: METOPROLOL TARTRATE 25 MG TAB PO SCH ×2 (09:04→21:34)
[2016-05-29] MEDS: LOSARTAN POTASSIUM 50 MG TAB PO SCH (09:04)
--- NOTE | 2016-05-29 15:03 | DX ---
Video Esophagram with Speech Therapy Clinical History: 85-year-old female with known distal thoracic esophageal achalasia, recently admitt ed for recurrent pneumonia. Assess dysphagia. Technique: This exam was performed in conjunction with Linda, the speech therapist, and the patient w as imaged in the lateral projection while ingesting thin barium, applesauce coated with barium, a aircraft riveter cker coated with barium, and barium tablet with water. Fluoroscopy Time: 1.5 minutes (entrance dose of 6.70 mCi) Comparison Study: Thoracic esophagram, dated November 14, 2015. Findings: There is appropriate oropharyngeal propulsion of the bolus into the hypopharynx. There is n o tongue weakness, nasopharyngeal reflux, epiglottic undercoating, vestibular penetration, or aspirat ion. There is no upper esophageal sphincter abnormality identified. There was a delay in thoracic eso phageal motility, which was better documented on the previous evaluation in October 2015. Impression: Normal oropharyngeal evaluation. Please also refer to speech therapist's separate assessments and specific recommendations for follow up.
--- NOTE | 2016-05-29 15:57 | SOAPPROG ---
SOAP Progress Note Assessment/Plan: Assessment: 1. moderate mitral regurgitation associated with pulmonary hypertension: Progressive from prior study. 2. paroxysmal atrial fibrillation. 3. systemic hypertension. 4. volume overload in the setting of recent pneumonic process. 5. History of bronchiectasis. Impression: Slow and steady improvement. She is maintaining sinus rhythm. She is tolerating afterload reduction. Will up titrate NICHOLAS-inhibitor today. She continues to diurese well. She is still requiring 2 L of oxygen to maintain saturations greater than 90%. Continue current medical therapy with clinical follow-up. Discussed with her Dr. Lawrence . Will continue current anticoagulation with Eliquis. Will continue rate control with beta- julio. Will stop her amiodarone as not to compromise further her pulmonary status. 05/29/16 15:54 05/29/16 15:57 05/29/16 15:58 Subjective: slowly improving. Still short of breath and weak with walking. She was able to make 1 lap. She denies PND orthopnea. She has had no syncope or near syncope. Peripheral swelling is resolving. Objective: Vital Signs Temp Pulse Resp BP Pulse Ox 36.4 C 64 20 169/76 H 94 05/29/16 15:40 05/29/16 15:40 05/29/16 15:40 05/29/16 15:40 05/29/16 15:40 Laboratory Results 05/29/16 04:26 05/29/16 04:26 05/28/16 05/29/16 05/30/16 05:59 05:59 05:59 Intake Total 800 200 350 Output Total 1050 1500 500 Balance -250 -1300 -150 PT 17.2 SEC (12.0-15.0) H 05/27/16 13:43 INR 1.41 (0.83-1.16) H 05/27/16 13:43 Medications Generic Name Dose Route Start Last Admin Trade Name Freq PRN Reason Stop Dose Admin Albuterol 2 puffs 05/27/16 16:49 Proventil Inhaler 11/23/16 16:48 Q4HRS PRN Short of Breath/Dyspnea Albuterol/Ipratropium 3 ml 05/27/16 21:00 05/29/16 11:45 Duoneb 11/23/16 20:59 3 ml QID [facility] Amiodarone HCl 200 mg 05/27/16 17:00 05/29/16 09:04 Amiodarone Hcl PO 11/23/16 16:59 200 mg DAILY [facility] Amoxicillin/Clavulanate Potassium 875 mg 05/27/16 21:00 05/29/16 09:03 Augmentin 875mg PO 05/31/16 21:01 875 mg BID [facility] Protocol Apixaban 2.5 mg 05/27/16 21:00 05/29/16 09:03 Eliquis PO 11/23/16 20:59 2.5 mg BID [facility] Furosemide 20 mg 05/28/16 14:00 05/29/16 14:05 Lasix PO 11/24/16 13:59 20 mg Q8HRS [facility] Losartan Potassium 50 mg 05/28/16 13:00 05/29/16 09:04 Cozaar PO 11/24/16 12:59 50 mg DAILY [facility] Metoprolol Tartrate 12.5 mg 05/27/16 21:00 05/29/16 09:04 Lopressor PO 11/23/16 20:59 12.5 mg BID [facility] Physical Exam - Physical Exam General Appearance: alert, no apparent distress EENT: normal ENT inspection Neck: non-tender, full range of motion Respiratory: decreased breath sounds, rhonchi Cardiac/Chest: regular rate, rhythm, No edema, No gallop, No JVD Abdomen: non-tender, soft Back: Normal inspection ICD10 Worksheet Patient Problems: Problems Problem Status Diagnosed Atrial flutter Acute Dehydration Acute Elevated troponin Acute Lightheaded Acute Pleural effusion Acute Pneumonia Acute Renal insufficiency Acute Aspiration pneumonia Acute Review of Systems - Review of Systems Constitutional: weakness. denies: chills, fever EENTM: no symptoms reported Respiratory: shortness of breath Cardiac: no symptoms reported Gastrointestinal/Abdominal: no symptoms reported Genitourinary: no symptoms
--- NOTE | 2016-05-29 16:36 | HOSPPROG ---
Hospitalist Progress Note Assessment/Plan: 85 yo F w recent CAP and progressive MR CAP: completing course of augmentin MR: progressive ARB added gentle diuresis proph: anticoagulated AF: bb, amio, colin code: full dispo: inpt Subjective: 1.5 L neg Objective: Vital Signs Temp Pulse Resp BP Pulse Ox 36.4 C 64 20 169/76 H 94 05/29/16 15:40 05/29/16 15:40 05/29/16 15:40 05/29/16 15:40 05/29/16 15:40 Laboratory Results 05/29/16 04:26 05/29/16 04:26 05/28/16 05/29/16 05/30/16 05:59 05:59 05:59 Intake Total 800 200 350 Output Total 1050 1500 500 Balance -250 -1300 -150 PT 17.2 SEC (12.0-15.0) H 05/27/16 13:43 INR 1.41 (0.83-1.16) H 05/27/16 13:43 - Physical Exam Constitutional: no apparent distress, appears nourished Eyes: PERRL, anicteric sclera Ears, Nose, Mouth, Throat: moist mucous membranes, hearing normal Cardiovascular: regular rate and rhythym, no murmur, rub, or gallop Respiratory: no respiratory distress, no rales or rhonchi Gastrointestinal: normoactive bowel sounds, soft, non-tender abdomen Genitourinary: No barcenas in urethra Skin: warm, normal color Musculoskeletal: full muscle strength, no muscle tenderness Neurologic: AAOx3 ICD10 Worksheet Patient Problems: Problems Problem Status Diagnosed Atrial flutter Acute Dehydration Acute Elevated troponin Acute Lightheaded Acute Pleural effusion Acute Pneumonia Acute Renal insufficiency Acute Aspiration pneumonia Acute
[2016-05-30] MEDS: IPRATROPIUM/ALBUTEROL 3 ML DEYVIAL IH SCH ×3 (05:39→16:43)
[2016-05-30] MEDS: FUROSEMIDE 20 MG TAB PO SCH ×2 (05:50→15:09)
[2016-05-30] MEDS: LOSARTAN POTASSIUM 50 MG TAB PO SCH (09:57)
[2016-05-30] MEDS: guaiFENesin 600 MG TAB.ER PO SCH ×2 (09:58→20:17)
[2016-05-30] MEDS: CALCIUM CARB W/VIT D 500 MG TAB PO SCH ×2 (09:58→20:17)
[2016-05-30] MEDS: AMOXICILLIN/CLAVULANATE POT 875/125 MG TAB PO SCH ×2 (09:58→20:17)
[2016-05-30] MEDS: METOPROLOL TARTRATE 25 MG TAB PO SCH ×2 (09:58→20:18)
[2016-05-30] MEDS: APIXABAN 2.5 MG TAB PO SCH ×2 (09:58→20:17)
[2016-05-30] MEDS: DOCUSATE SODIUM 100 MG CAP PO SCH (09:58)
--- NOTE | 2016-05-30 10:13 | SOAPPROG ---
SOAP Progress Note Assessment/Plan: Assessment: 1. moderate mitral regurgitation associated with pulmonary hypertension: Progressive from prior study. 2. paroxysmal atrial fibrillation. 3. systemic hypertension. 4. volume overload in the setting of recent pneumonic process. 5. History of bronchiectasis. Impression: Slow and steady improvement. She is maintaining sinus rhythm. She is tolerating afterload reduction. Will up titrate NICHOLAS-inhibitor today. She continues to diurese well. She is still requiring 2 L of oxygen to maintain saturations greater than 90%. Continue current medical therapy with clinical follow-up. Discussed with her Dr. Lawrence . Will continue current anticoagulation with Eliquis. Will continue rate control with beta- julio. Will stop her amiodarone as not to compromise further her pulmonary status. 05/29/16 15:58 Impression: Continued improvement with decreasing exertional dyspnea. Increasing strength. Blood pressures remain moderately elevated. Goal is 140 systolic. Oxygen saturations stabilizing on 2 L. reviewed echocardiograms on patient over the last 6 weeks today at case conference. Concerned was raised about the possibility of a ruptured Chord. Overall group recommendations were for aggressive medical therapy reassessment of MR in 14 to 30 days. Plan: Up titration of calcium channel julio to 5 mg amlodipine daily to maintain blood pressure systolic of 140 or less. Reduced diuretic therapy to 20 mg twice daily. Metabolic panel tomorrow. Rehabilitation. Discussed with patient's . 05/30/16 10:07 Subjective: Feeling better. Good night's sleep without PND orthopnea. Continues with exertional shortness of breath though improving. no palpitations, syncope, near syncope Objective: Vital Signs Temp Pulse Resp BP Pulse Ox 36.6 C 66 25 H 168/83 H 95 05/30/16 07:24 05/30/16 07:24 05/30/16 07:24 05/30/16 07:24 05/30/16 07:24 Laboratory Results 05/29/16 04:26 05/29/16 04:26 05/29/16 05/30/16 05/31/16 05:59 05:59 05:59 Intake Total 200 800 Output Total 1500 1920 700 Balance -1300 -1120 -700 PT 17.2 SEC (12.0-15.0) H 05/27/16 13:43 INR 1.41 (0.83-1.16) H 05/27/16 13:43 Medications Generic Name Dose Route Start Last Admin Trade Name Fantasma PRN Reason Stop Dose Admin Furosemide 20 mg 05/28/16 14:00 05/30/16 05:50 Lasix PO 11/24/16 13:59 20 mg Q8HRS [facility] Amlodipine Besylate 2.5 mg 05/29/16 16:30 05/30/16 09:58 Norvasc PO 11/25/16 16:29 2.5 mg DAILY [facility] Apixaban 2.5 mg 05/27/16 21:00 05/30/16 09:58 Eliquis PO 11/23/16 20:59 2.5 mg BID [facility] Losartan Potassium 50 mg 05/28/16 13:00 05/30/16 09:57 Cozaar PO 11/24/16 12:59 50 mg DAILY [facility] Metoprolol Tartrate 12.5 mg 05/27/16 21:00 05/30/16 09:58 Lopressor PO 11/23/16 20:59 12.5 mg BID [facility] Physical Exam - Physical Exam General Appearance: alert, no apparent distress EENT: normal ENT inspection Neck: non-tender, full range of motion Respiratory: lungs clear, decreased breath sounds Cardiac/Chest: regular rate, rhythm, No edema, No gallop, No JVD Abdomen: normal bowel sounds, non-tender Skin: warm/dry Lymphatic: no adenopathy Extremities: No pedal edema, No calf tenderness ICD10 Worksheet Patient Problems: Problems Problem Status Diagnosed Atrial flutter Acute Chronic Disease Mgmt/Transitional Care Acute Dehydration Acute Elevated troponin Acute Lightheaded Acute Pleural effusion Acute Pneumonia Acute Pulmonary edema Acute Renal insufficiency Acute Aspiration pneumonia Acute Review of Systems - Review of Systems Constitutional: denies: chills, fever EENTM: no symptoms reported Respiratory: shortness of breath. denies: wheezing Cardiac: no symptoms reported Gastrointestinal/Abdominal: no symptoms reported Genitourinary: no symptoms Musculoskelatal: no symptoms Skin: no symptoms
--- NOTE | 2016-05-30 16:56 | HOSPPROG ---
Hospitalist Progress Note Assessment/Plan: 85 yo F w recent CAP and progressive MR CAP: completing course of augmentin MR: progressive ARB added gentle diuresis proph: anticoagulated AF: bb, amijose elias, colin code: full dispo: inpt Subjective: diuresing well. case d/w dr johnston. tele: sinus (interp by me) Objective: Vital Signs Temp Pulse Resp BP Pulse Ox 36.4 C 65 20 145/74 H 92 05/30/16 15:18 05/30/16 15:18 05/30/16 15:18 05/30/16 15:18 05/30/16 15:18 Laboratory Results 05/29/16 04:26 05/29/16 04:26 05/29/16 05/30/16 05/31/16 05:59 05:59 05:59 Intake Total 200 800 240 Output Total 1500 1920 800 Balance -1300 -1120 -560 PT 17.2 SEC (12.0-15.0) H 05/27/16 13:43 INR 1.41 (0.83-1.16) H 05/27/16 13:43 - Physical Exam Constitutional: no apparent distress, appears nourished Eyes: PERRL, anicteric sclera Ears, Nose, Mouth, Throat: moist mucous membranes, hearing normal Cardiovascular: regular rate and rhythym, no murmur, rub, or gallop Respiratory: no respiratory distress, no rales or rhonchi Gastrointestinal: normoactive bowel sounds, soft, non-tender abdomen Genitourinary: No barcenas in urethra Skin: warm Musculoskeletal: full muscle strength Neurologic: AAOx3 ICD10 Worksheet Patient Problems: Problems Problem Status Diagnosed Atrial flutter Acute Chronic Disease [facility]/Transitional Care Acute Dehydration Acute Elevated troponin Acute Lightheaded Acute Pleural effusion Acute Pneumonia Acute Pulmonary edema Acute Renal insufficiency Acute Aspiration pneumonia Acute
[2016-05-31 06:04] LABS: ANION GAP 11 mEq/L (8-16); CALCIUM 10.2 mg/dL (8.5-10.4); CARBON DIOXIDE 29 mEq/l (22-31); CHLORIDE 99 mEq/L (97-110); CREATININE 1.4 mg/dL (0.6-1.0); GLOMERULAR FILTRATION RATE 36; GLUCOSE 99 mg/dL (70-100); POTASSIUM 3.6 mEq/L (3.5-5.2); SODIUM 139 mEq/L (134-144)
[2016-05-31] MEDS: CALCIUM CARB W/VIT D 500 MG TAB PO SCH ×2 (09:00→20:53)
[2016-05-31] MEDS: AMOXICILLIN/CLAVULANATE POT 875/125 MG TAB PO SCH ×2 (09:00→20:52)
[2016-05-31] MEDS: guaiFENesin 600 MG TAB.ER PO SCH ×2 (09:00→20:52)
[2016-05-31] MEDS: DOCUSATE SODIUM 100 MG CAP PO SCH (09:00)
[2016-05-31] MEDS: amLODIPine BESYLATE 5 MG TAB PO SCH (09:01)
[2016-05-31] MEDS: APIXABAN 2.5 MG TAB PO SCH ×2 (09:01→20:52)
[2016-05-31] MEDS: METOPROLOL TARTRATE 25 MG TAB PO SCH (09:01)
[2016-05-31] MEDS: LOSARTAN POTASSIUM 50 MG TAB PO SCH (09:01)
[2016-05-31] MEDS ORDERED: POTASSIUM CL 20 MEQ/15 ML UDCUP PO ONE (11:29)
--- NOTE | 2016-05-31 11:34 | SOAPPROG ---
SOAP Progress Note Assessment/Plan: Assessment: 1. moderate mitral regurgitation associated with pulmonary hypertension: Progressive from prior study. 2. paroxysmal atrial fibrillation. 3. systemic hypertension. 4. volume overload in the setting of recent pneumonic process. 5. History of bronchiectasis. 6. Anemia Impression: Slow and steady improvement. She is maintaining sinus rhythm. She is tolerating afterload reduction. Will up titrate NICHOLAS-inhibitor today. She continues to diurese well. She is still requiring 2 L of oxygen to maintain saturations greater than 90%. Continue current medical therapy with clinical follow-up. Discussed with her Dr. Lawrence . Will continue current anticoagulation with Eliquis. Will continue rate control with beta- julio. Will stop her amiodarone as not to compromise further her pulmonary status. 05/29/16 15:58 Impression: Continued improvement with decreasing exertional dyspnea. Increasing strength. Blood pressures remain moderately elevated. Goal is 140 systolic. Oxygen saturations stabilizing on 2 L. reviewed echocardiograms on patient over the last 6 weeks today at case conference. Concerned was raised about the possibility of a ruptured Chord. Overall group recommendations were for aggressive medical therapy reassessment of MR in 14 to 30 days. Plan: Up titration of calcium channel julio to 5 mg amlodipine daily to maintain blood pressure systolic of 140 or less. Reduced diuretic therapy to 20 mg twice daily. Metabolic panel tomorrow. Rehabilitation. Discussed with patient's . 05/30/16 10:07 impression: Patient continuing to improve. She is off supplemental oxygen at rest today. Her cough is tremendously productive of thick yellow sputum. Her creatinine has bumped with borderline blood pressure suggesting she is euvolemic to slightly dry. Recommendations: Reduce diuretic to once daily beginning tomorrow. Allow current medical regime to stabilize over several days. Consider dropping metoprolol as it is low dose and may be affecting underlying pulmonary status. Cardiac rehabilitation. Potassium supplementation. Consideration for further evaluation for anemia. 05/31/16 11:31 05/31/16 11:34 Subjective: Feeling better today. Off oxygen. No chest pain, PND, orthopnea. Very productive cough. She is bringing up white thick sputum. She has denied fever or chills. Objective: Vital Signs Temp Pulse Resp BP Pulse Ox 36.5 C 81 20 107/66 90 L 05/31/16 11:19 05/31/16 11:19 05/31/16 11:19 05/31/16 11:19 05/31/16 11:19 Laboratory Results 05/29/16 04:26 05/31/16 04:59 05/30/16 05/31/16 06/01/16 05:59 05:59 05:59 Intake Total 800 1320 Output Total 1920 1730 Balance -1120 -410 PT 17.2 SEC (12.0-15.0) H 05/27/16 13:43 INR 1.41 (0.83-1.16) H 05/27/16 13:43 Medications Generic Name Dose Route Start Last Admin Trade Name Freq PRN Reason Stop Dose Admin Amlodipine Besylate 5 mg 05/31/16 09:00 05/31/16 09:01 Norvasc PO 11/27/16 08:59 5 mg DAILY [facility] Apixaban 2.5 mg 05/27/16 21:00 05/31/16 09:01 Eliquis PO 11/23/16 20:59 2.5 mg BID [facility] Furosemide 20 mg 05/30/16 15:00 05/30/16 15:09 Lasix PO 11/26/16 14:59 20 mg BID@0900,1500 [facility] Losartan Potassium 50 mg 05/28/16 13:00 05/31/16 09:01 Cozaar PO 11/24/16 12:59 50 mg DAILY [facility] Metoprolol Tartrate 12.5 mg 05/27/16 21:00 05/31/16 09:01 Lopressor PO 11/23/16 20:59 12.5 mg BID [facility] Physical Exam - Physical Exam General Appearance: alert, no apparent distress Neck: full range of motion, supple Respiratory: decreased breath sounds, rhonchi Cardiac/Chest: normal peripheral pulses, regular rate, rhythm, No edema, No gallop, No JVD Abdomen: normal bowel sounds, non-tender Skin: warm/dry Neuro/Psych: no motor/sensory deficits, alert, normal mood/affect, oriented x 3 ICD10 Worksheet Patient Problems: Problems Problem Status Diagnosed Atrial flutter Acute Chronic Disease Mgmt/Transitional Care Acute Dehydration Acute Elevated troponin Acute Lightheaded Acute Pleural effusion Acute Pneumonia Acute Pulmonary edema Acute Renal insufficiency Acute Aspiration pneumonia Acute Review of Systems - Review of Systems Constitutional: denies: chills, fever EENTM: no symptoms reported Respiratory: see HPI, cough Cardiac: no symptoms reported Gastrointestinal/Abdominal: no symptoms reported Genitourinary: no symptoms Musculoskelatal: no symptoms Skin: no symptoms Neurological: no symptoms Hematologic/Lymphatic: no symptoms reported Immunologic/allergic: no symptoms reported All Other Systems: Reviewed and Negative Past Medical History - Personal History Current Tetanus/Diphtheria Vaccine: Yes - Medical/Surgical History Hx Asthma: No Hx Chronic Respiratory Disease: No Hx Cardiac Disease: Yes Hx Diabetes: No Hx Renal Disease: No Hx Alcoholism: No Hx Cirrhosis: No Hx HIV/AIDS: No Hx Splenectomy or Spleen Trauma: No Other PMH: pneumonia, achilasia, scoliosis lumbar spine, charlene bunionectomies, left thr, hysterectomy, appy, charlene thumb surgeries for arthritis, LEFT HIP, CATARACTS, AFIB, HYPERCHOLEST, HYPERTSN - Social History Smoking Status: Never smoked
[2016-05-31] MEDS: FUROSEMIDE 20 MG TAB PO SCH (11:48)
--- NOTE | 2016-05-31 15:52 | HOSPPROG ---
Hospitalist Progress Note Assessment/Plan: 85 yo F w recent CAP and progressive MR CAP: completing course of augmentin MR: progressive ARB added gentle diuresis proph: anticoagulated AF: , colin [place] dc BB as per dr johnston code: full dispo: inpt Subjective: feels improved Objective: Vital Signs Temp Pulse Resp BP Pulse Ox 36.5 C 81 20 107/66 90 L 05/31/16 11:19 05/31/16 11:19 05/31/16 11:19 05/31/16 11:19 05/31/16 11:19 Laboratory Results 05/29/16 04:26 05/31/16 04:59 05/30/16 05/31/16 06/01/16 05:59 05:59 05:59 Intake Total 800 1320 Output Total 1920 1730 Balance -1120 -410 PT 17.2 SEC (12.0-15.0) H 05/27/16 13:43 INR 1.41 (0.83-1.16) H 05/27/16 13:43 - Physical Exam Constitutional: no apparent distress, appears nourished Eyes: PERRL, anicteric sclera Ears, Nose, Mouth, Throat: moist mucous membranes, hearing normal Cardiovascular: regular rate and rhythym, no murmur, rub, or gallop Respiratory: no respiratory distress, no rales or rhonchi Gastrointestinal: normoactive bowel sounds, soft, non-tender abdomen Genitourinary: No barcenas in urethra Skin: warm, normal color Musculoskeletal: full muscle strength Neurologic: AAOx3, sensation intact bilaterally Psychiatric: interacting appropriately ICD10 Worksheet Patient Problems: Problems Problem Status Diagnosed Atrial flutter Acute Chronic Disease Mgmt/Transitional Care Acute Dehydration Acute Elevated troponin Acute Lightheaded Acute Pleural effusion Acute Pneumonia Acute Pulmonary edema Acute Renal insufficiency Acute Aspiration pneumonia Acute
[2016-06-01 05:18] LABS: ANION GAP 9 mEq/L (8-16); CARBON DIOXIDE 30 mEq/l (22-31); CHLORIDE 101 mEq/L (97-110); CREATININE 1.5 mg/dL (0.6-1.0); GLOMERULAR FILTRATION RATE 33; GLUCOSE 102 mg/dL (70-100); POTASSIUM 3.9 mEq/L (3.5-5.2); SODIUM 140 mEq/L (134-144)
[2016-06-01] MEDS: DOCUSATE SODIUM 100 MG CAP PO SCH (09:17)
[2016-06-01] MEDS: LOSARTAN POTASSIUM 50 MG TAB PO SCH (09:18)
[2016-06-01] MEDS: guaiFENesin 600 MG TAB.ER PO SCH ×2 (09:20→20:04)
[2016-06-01] MEDS: FUROSEMIDE 20 MG TAB PO SCH (09:20)
[2016-06-01] MEDS: CALCIUM CARB W/VIT D 500 MG TAB PO SCH ×2 (09:20→20:04)
[2016-06-01] MEDS: amLODIPine BESYLATE 5 MG TAB PO SCH (09:20)
[2016-06-01] MEDS: APIXABAN 2.5 MG TAB PO SCH ×2 (09:20→20:04)
--- NOTE | 2016-06-01 17:22 | SOAPPROG ---
SOAP Progress Note Assessment/Plan: Assessment: 1. moderate mitral regurgitation associated with pulmonary hypertension: Progressive from prior study. 2. paroxysmal atrial fibrillation. 3. systemic hypertension. 4. volume overload in the setting of recent pneumonic process. 5. History of bronchiectasis. 6. Anemia Impression: Slow and steady improvement. She is maintaining sinus rhythm. She is tolerating afterload reduction. Will up titrate NICHOLAS-inhibitor today. She continues to diurese well. She is still requiring 2 L of oxygen to maintain saturations greater than 90%. Continue current medical therapy with clinical follow-up. Discussed with her Dr. Lawrence . Will continue current anticoagulation with Eliquis. Will continue rate control with beta- julio. Will stop her amiodarone as not to compromise further her pulmonary status. 05/29/16 15:58 Impression: Continued improvement with decreasing exertional dyspnea. Increasing strength. Blood pressures remain moderately elevated. Goal is 140 systolic. Oxygen saturations stabilizing on 2 L. reviewed echocardiograms on patient over the last 6 weeks today at case conference. Concerned was raised about the possibility of a ruptured Chord. Overall group recommendations were for aggressive medical therapy reassessment of MR in 14 to 30 days. Plan: Up titration of calcium channel julio to 5 mg amlodipine daily to maintain blood pressure systolic of 140 or less. Reduced diuretic therapy to 20 mg twice daily. Metabolic panel tomorrow. Rehabilitation. Discussed with patient's . 05/30/16 10:07 impression: Patient continuing to improve. She is off supplemental oxygen at rest today. Her cough is tremendously productive of thick yellow sputum. Her creatinine has bumped with borderline blood pressure suggesting she is euvolemic to slightly dry. Recommendations: Reduce diuretic to once daily beginning tomorrow. Allow current medical regime to stabilize over several days. Consider dropping metoprolol as it is low dose and may be affecting underlying pulmonary status. Cardiac rehabilitation. Potassium supplementation. Consideration for further evaluation for anemia. 05/31/16 11:31 Impression: Clinically improved today. Almost at baseline. She is on 1 L supplemental oxygen. She continues to have productive sputum. Blood pressure has been well controlled. Creatinine has again increased slightly to 1.5. BNP has fallen Plan: Mitral regurgitation moderate by echo during acute decompensation. Recommendations are for follow-up echo in 30 days. Systemic hypertension better control on current medical therapy. Clinical follow-up. volume overload after recent pneumonic process. Resolved. Anemia stable but of uncertain etiology. Paroxysmal atrial fibrillation currently in sinus rhythm. She is off amiodarone. She is anticoagulated with Eliquis. She is on rate control with low-dose metoprolol. Patient could be discharged tomorrow from cardiac point of view. Outpatient follow-up with Nicolas 10-14 days. No new recommendations. 06/01/16 17:17 06/01/16 17:20 Subjective: Feeling well without shortness of breath, chest pain. She has been walking with stable vital signs. She continues to have a cough productive of sputum. Today it is rust-colored. Objective: Medications Generic Name Dose Route Start Last Admin Trade Name Freq PRN Reason Stop Dose Admin Amlodipine Besylate 5 mg 05/31/16 09:00 06/01/16 09:20 Norvasc PO 11/27/16 08:59 5 mg DAILY [facility] Apixaban 2.5 mg 05/27/16 21:00 06/01/16 09:20 Eliquis PO 11/23/16 20:59 2.5 mg BID [facility] Furosemide 20 mg 06/01/16 09:00 06/01/16 09:20 Lasix PO 11/28/16 08:59 20 mg DAILY [facility] Losartan Potassium 50 mg 05/28/16 13:00 06/01/16 09:18 Cozaar PO 11/24/16 12:59 50 mg DAILY [facility] Vital Signs Temp Pulse Resp BP Pulse Ox 36.6 C 80 20 124/68 H 92 06/01/16 16:30 06/01/16 16:30 06/01/16 16:30 06/01/16 16:30 06/01/16 16:30 Laboratory Results 05/29/16 04:26 06/01/16 04:42 05/31/16 06/01/16 06/02/16 05:59 05:59 05:59 Intake Total 1320 400 Output Total 1730 300 250 Balance -410 100 -250 PT 17.2 SEC (12.0-15.0) H 05/27/16 13:43 INR 1.41 (0.83-1.16) H 05/27/16 13:43 Laboratory Tests 05/27/16 05/28/16 05/29/16 12:10 05:15 04:26 Creatinine 1.0 1.1 H 1.1 H NT-Pro-B Natriuret Pep 5290 H 4780 H 3080 H 05/31/16 06/01/16 04:59 04:42 Creatinine 1.4 H 1.5 H NT-Pro-B Natriuret Pep ICD10 Worksheet Patient Problems: Problems Problem Status Diagnosed Atrial flutter Acute Chronic Disease Mgmt/Transitional Care Acute Dehydration Acute Elevated troponin Acute Lightheaded Acute Pleural effusion Acute Pneumonia Acute Pulmonary edema Acute Renal insufficiency Acute Aspiration pneumonia Acute Review of Systems - Review of Systems Constitutional: denies: chills, fever EENTM: no symptoms reported Respiratory: cough Cardiac: no symptoms reported Gastrointestinal/Abdominal: no symptoms reported Genitourinary: no symptoms
--- NOTE | 2016-06-01 22:22 | HOSPPROG ---
Hospitalist Progress Note Assessment/Plan: Assessment/Plan: 85 yo F p/w acute diastolic CHF in setting of mitral regurgitation, recent CAP, chronic hypoxic respiratory failure, paroxysmal atrial fibrillation # Acute diastolic CHF exacerbation. Evidenced by BNP > 5000 + pulm vasc congestion and effusions on CXR (personally interpreted) + diastolic dysfunction on Echo in setting of MR - s/p diuresis and afterload reduction - cont w/ ARB and bblocker # Paroxysmal Atrial Fibrillation. DC amio, cont on bblocker and eliquis ( counseled patient and regarding costs of this medication, to remove barrier to adherence) # Chronic hypoxic respiratory failure. Cont on supp o2, will require additional o2 for transport home # YAMILEX. Likely 2/2 hypoperfusion in setting of diuresis and lowering BP, as well as anticipated reduction in eGFR by increase in ARB dosage - monitor UOP/Cr for additional 24hrs given that it continues to rise - if rising in AM, will hold ARB and then restart at lower dose # CAP. Recent diagnosis, resolving on CXR - cont augmentin # HTN. Systemic and pulmonary, increased ARB Diet. Low salt PPx. High risk, on eliquis Code. Full Dispo. ADD 06/02, pending stabilization of YAMILEX above Subjective: patient/ requiring significant amount of financial counseling and reassurrence about medicaitons Objective: Vital Signs Temp Pulse Resp BP Pulse Ox 36.3 C 67 18 142/80 H 95 06/01/16 20:00 06/01/16 20:00 06/01/16 20:00 06/01/16 20:00 06/01/16 20:00 Laboratory Results 05/29/16 04:26 06/01/16 04:42 05/31/16 06/01/16 06/02/16 05:59 05:59 05:59 Intake Total 1320 400 780 Output Total 1730 300 250 Balance -410 100 530 PT 17.2 SEC (12.0-15.0) H 05/27/16 13:43 INR 1.41 (0.83-1.16) H 05/27/16 13:43 - Time Spent With Patient Time Spent with Patient: greater than 35 minutes Time Spent with Patient: Greater than 35 minutes spent on this patients care, greater than 50% of time spent counseling, educating, and coordinating care regarding the above mentioned plan. - Physical Exam Constitutional: not in pain, chronically ill appearing, No uncomfortable Cardiovascular: systolic murmur (III/ at apex), irregularly irregular, No tachycardia, No edema Respiratory: inspiratory crackles (bilat bases), No reduced air movement, No expiratory wheeze, No bronchial breath sounds, No respiratory distress Neurologic: AAOx3 Psychiatric: interacting appropriately, not anxious, not encephalopathic, thought process linear ICD10 Worksheet Patient Problems: Problems Problem Status Diagnosed Atrial flutter Acute Chronic Disease [facility]/Transitional Care Acute Dehydration Acute Elevated troponin Acute Lightheaded Acute Pleural effusion Acute Pneumonia Acute Pulmonary edema Acute Renal insufficiency Acute Aspiration pneumonia Acute
[2016-06-02 05:04] VITALS: TEMP 97.8
[2016-06-02 05:27] LABS: % IMMATURE GRANULYOCYTES 0.4 % (0.0-1.1); ABSOLUTE IMMATURE GRANULOCYTES 0.02 10^3/uL (0.00-0.10); ADD DIFF? NO; ADD MORPH? NO; ADD SCAN? NO; ATYPICAL LYMPHOCYTE FLAG 40 (0-99); FRAGMENT RBC FLAG 0 (0-99); HEMATOCRIT 33.8 % (38.0-47.0); HEMOGLOBIN 11.2 g/dL (12.6-16.3); LEFT SHIFT FLG 0 (0-99); LIPEMIA HEMOLYSIS FLAG 80 (0-99); MEAN CELL HEMOGLOBIN 30.9 pg (27.9-34.1); MEAN CELL HEMOGLOBIN CONCENTR. 33.1 g/dL (32.4-36.7); MEAN CELL VOLUME 93.1 fL (81.5-99.8); MEAN PLATELET VOLUME 9.8 fL (8.7-11.7); PLATELET CLUMPS FLAG 0 (0-99); PLATELET COUNT 304 10^3/uL (150-400); RED BLOOD CELL COUNT 3.63 10^6/uL (4.18-5.33); RED CELL DISTRIBUTION WIDTH 13.7 % (11.5-15.2)
[2016-06-02 05:45] LABS: ANION GAP 9 mEq/L (8-16); CALCIUM 10.1 mg/dL (8.5-10.4); CARBON DIOXIDE 28 mEq/l (22-31); CHLORIDE 103 mEq/L (97-110); CREATININE 1.3 mg/dL (0.6-1.0); GLOMERULAR FILTRATION RATE 39; GLUCOSE 90 mg/dL (70-100); POTASSIUM 4.1 mEq/L (3.5-5.2); SODIUM 140 mEq/L (134-144)
[2016-06-02 07:17] VITALS: BP 179/82; PULSE 64; RESP 19
[2016-06-02] MEDS: guaiFENesin 600 MG TAB.ER PO SCH (08:41)
[2016-06-02] MEDS: CALCIUM CARB W/VIT D 500 MG TAB PO SCH (08:42)
[2016-06-02] MEDS: FUROSEMIDE 20 MG TAB PO SCH (08:43)
[2016-06-02] MEDS: amLODIPine BESYLATE 5 MG TAB PO SCH (08:43)
[2016-06-02] MEDS: LOSARTAN POTASSIUM 50 MG TAB PO SCH (08:43)
[2016-06-02] MEDS: DOCUSATE SODIUM 100 MG CAP PO SCH (08:43)
[2016-06-02] MEDS: APIXABAN 2.5 MG TAB PO SCH (08:43)
--- NOTE | 2016-06-02 09:35 | SOAPPROG ---
SOY[facility] Progress Note Assessment/Plan: Assessment:1 pafib..back in [place] ..pt on eloquis and now metoprolol..f/u with dr johnston in 10 days ..already scheduled..has home oxygen Plan:1. ok to d/c home from my standpoint d/w dr díaz and patient/ 06/02/16 09:33 Subjective: pt feeling better today..ready to go home ..will take eloquis and metoprolol ..pt has f/u with dr johnston Objective: Vital Signs Temp Pulse Resp BP Pulse Ox 36.6 C 64 19 179/82 H 93 06/02/16 07:15 06/02/16 07:15 06/02/16 07:15 06/02/16 07:15 06/02/16 07:15 Laboratory Results 06/02/16 04:50 06/02/16 04:50 06/01/16 06/02/16 06/03/16 05:59 05:59 05:59 Intake Total 400 880 Output Total 300 250 Balance 100 630 PT 17.2 SEC (12.0-15.0) H 05/27/16 13:43 INR 1.41 (0.83-1.16) H 05/27/16 13:43 Physical Exam - Physical Exam Respiratory: lungs clear Cardiac/Chest: regular rate, rhythm ICD10 Worksheet Patient Problems: Problems Problem Status Diagnosed Atrial flutter Acute Chronic Disease Mgmt/Transitional Care Acute Dehydration Acute Elevated troponin Acute Lightheaded Acute Pleural effusion Acute Pneumonia Acute Pulmonary edema Acute Renal insufficiency Acute Aspiration pneumonia Acute
[2016-06-02 10:14] VITALS: O2SAT 90
--- NOTE | 2016-06-02 11:23 | PDDCSUM ---
Discharge Summary Discharge Summary: DISCHARGE SUMMARY FOLLOW-UP ITEMS: Repeat creatinine BUN and lytes next week prior to appointment with Dr. Valenzuela. DATE OF ADMISSION: 05/27/2016 DATE OF DISCHARGE: 06/02/2016 DISCHARGE DIAGNOSES: 1. Acute diastolic congestive heart failure exacerbation 2. Paroxysmal atrial fibrillation 3. Chronic hypoxic respiratory failure 4. Acute kidney injury 5. Recent community-acquired pneumonia 6. Systemic and pulmonary hypertension CONSULTATIONS: Cardiology PROCEDURES / IMAGING: Ejection fraction 55-60%, diastolic dysfunction, no focal wall motion abnormalities, normal right ventricular size and function Severely dilated left atrium with dilated IVC moderate mitral regurgitation, moderate to severe pulmonary hypertension with an RVSP of 68 CHIEF COMPLAINT: Acute shortness of breath and cough SUBJECTIVE: Patient is feeling improved at time of discharge, she continues to have intermittent cough PHYSICAL EXAM ON DISCHARGE: Systolic blood pressure is 1/20, heart rate in the 60s, afebrile overnight, requiring 1 L nasal cannula, lungs are clear to auscultation bilaterally, there is no lower extremity edema, heart rhythm is regular LABS ON DISCHARGE: Creatinine 1.3, potassium 4.1, white blood count 4600, hemoglobin 11.2 HOSPITAL COURSE BY PROBLEM: 1. Acute diastolic congestive heart failure exacerbation. Evidenced by a BNP of greater than 5000+ pulmonary vascular congestion and effusions on chest x- ray plus diastolic dysfunction on echocardiogram in the setting of mitral regurgitation. Patient received diuresis and afterload reduction. She will be discharged home on Lasix, ARB, beta-julio therapy. She will follow up with the cardiology office and have repeat creatinine BUN and lytes this week. 2. Paroxysmal atrial fibrillation. Patient was initially on a beta-julio and amiodarone but the decision was made to discontinue the amiodarone given her underlying pulmonary hypertension. She has been rate and rhythm controlled on a single agent beta-julio and she will be continued on renally dosed Eliquis for CVA prevention. 3. Chronic hypoxic respiratory failure. Patient was continued on supplemental oxygen. 4. Acute kidney injury. Most likely secondary to hypoperfusion in the setting of diuresis and lowering patient's blood pressure. There is also anticipated reduction in the eGFR by increasing her ARB dosage. Her creatinine level stabilized at 1.3 at time of discharge will be followed up in the outpatient Cardiology Office. 5. Recent community-acquired pneumonia. Resolving on chest x-ray, patient will finish her a prescription for Augmentin. 6. Systemic and pulmonary hypertension. The patient's antihypertensives were increased utilizing amlodipine and losartan, to be up titrated in the outpatient setting. DISCHARGE MEDICATIONS: Please see official discharge medication reconciliation sheet in chart , amlodipine 5 mg initiated, losartan 50 mg initiated, amiodarone discontinued, Eliquis continued, metoprolol 12.5 mg twice daily continued, Mucinex added. DISCHARGE INSTRUCTIONS: Patient should follow up in the [facility] office this week and have labs performed prior to that appointment. She should also follow up with the Pulmonary office and have an outpatient swallow eval performed TIME SPENT: Greater than 30 minutes were spent on direct patient care, as well as discharge planning and preparation.
--- NOTE | 2016-06-02 11:25 | PDIAF ---
- Diagnosis Diagnosis: Acute diastolic CHF, pulm HTN, paroxysmal Afib Code Status: Full Code - Medication Management Discharge Medications: Medications to Continue on Transfer Docusate Sodium [Colace 100 MG (*)] 3 tab PO DAILY 12/03/15 [Last Taken 09:00] Zolpidem Tartrate [Ambien 5MG (*)] 2.5 - 5 mg PO HS PRN 12/03/15 [Last Taken ] Apixaban [Eliquis] 2.5 mg PO BID #60 tab 05/10/16 [Last Taken 05/27/16 09:00] Metoprolol Tartrate [Lopressor 25 mg (*)] 12.5 mg PO BID #60 tab 05/10/16 [Last Taken 05/27/16 09:00] Acetaminophen [Tylenol 325mg (*)] 325 mg PO DAILY PRN 05/15/16 [Last Taken 05/20] Amoxicillin/Clavulanate Pot [Augmentin 875 MG TAB (*)] 875 mg PO BID 05/27/16 [ Last Taken 05/27/16 09:00] Calcium Carb W/Vit D [Calcium Carb W/Vit D 500/200 (*)] 500 mg PO BID 05/27/16 [ Last Taken 05/26/16 09:00] Acetaminophen [Tylenol 325mg (*)] 650 mg PO Q4HRS PRN #0 tab 06/02/16 [Last Taken Unknown] Furosemide [Lasix 20 MG (*)] 20 mg PO DAILY #30 tab 06/02/16 [Last Taken Unknown ] Losartan Potassium [Cozaar 50 mg (*)] 50 mg PO DAILY #30 tab 06/02/16 [Last Taken Unknown] amLODIPine BESYLATE [Norvasc 5 mg (*)] 5 mg PO DAILY #30 tab 06/02/16 [Last Taken Unknown] guaiFENesin [Mucinex 600 MG (*)] 1,200 mg PO BID #10 tab.er 06/02/16 [Last Taken Unknown] [employer] Super[employer] Antibiotics: home dose of augmentin Discharge Medications: Refer to the Discharge Home Medication list for PRN reason. PICC Care - Routine: N/A - Orders Services needed: Home Care, Registered Nurse, Physical Therapy, Speech Language Pathologist Home Care Face to Face: I certify that this patient was under my care and that I had the required [id number] encounter meeting the encounter requirements on the discharge day. My findings support the fact that the patient is homebound as defined in CMS Chapter 7 Medicare Benefits Manual 30.1.1, The condition of the patient is such that there exists a normal inability to leave home and consequently, leaving home would require a considerable and taxing effort. Oxygen: 1L Diet Texture: Regular Texture Diet, Thin Liquids Weigh Patient: weekly Rahman: Not applicable Activity/Weight Bearing Restrictions: as tolerates with walker - Labs/Radiology BMP Date: 06/05/16 CBC Date: 06/05/16 Call or Fax Lab and Imaging Results to: Dr. Guevara and Dr. Valenzuela - Follow Up Care Current Providers and Referrals: Prema Guevara MD [Primary Care Provider] - As per Instructions Syed Rios MD [Medical Doctor] - Johnathan Valenzuela MD [Medical Doctor] -
== END 2016-06-02 12:15 | disposition home health service (06) | DRG 291 ==
LOC: F2W 14:54
PROVIDERS: ADMIT Internal Medicine Pulmonary Disease; ATTEND Internal Medicine Pulmonary Disease
DX: I50.31 Acute diastolic (congestive) heart failure (principal); J18.9 Pneumonia, unspecified organism; I48.0 Paroxysmal atrial fibrillation; N17.9 Acute kidney failure, unspecified; J96.11 Chronic respiratory failure with hypoxia; I27.2 Other secondary pulmonary hypertension; I34.0 Nonrheumatic mitral (valve) insufficiency; N18.9 Chronic kidney disease, unspecified; K22.0 Achalasia of cardia; Z96.649 Presence of unspecified artificial hip joint; Z87.01 Personal history of pneumonia (recurrent)
CPT/HCPCS: 92610-GN; 92611-GN; 96365; 97116-GP; 97161-GP; G8978-GP-CI; G8979-GP-CI; G8996-GN-CJ; G8997-GN-CI; J0360; J0456; J0696

== ENCOUNTER 2016-07-02 19:56 | Inpatient (IN) | payer OTHER ==
--- NOTE | 2016-07-02 20:03 | EDPHY ---
H & P HPI/ROS: CHIEF COMPLAINT: LTA, Facial laceration. HISTORY OF PRESENT ILLNESS: The patient is an 85 year old female, with history of CHF and Afib, brought in by EMS presenting as limited + trauma activation. The patient was walking into the bathroom because she was coughing up mucous and suddenly fell forward. She hit her face on the ground. The fall was witnessed by and daughter. Family describes This as appearing as if it was an abrupt syncopal episode. The patient herself is unable to recall if she lost consciousness. She complains of neck pain and facial pain. Cervical collar is in place. She denies pain to extremities. The patient is on Eliquis. She is currently being seen at [facility] for congestive heart failure. Her family reports that they have been changing her medications and she seems to be increasingly unsteady. No recent fevers or chills, denies chest pain, palpitations, shortness of breath, no vomiting or diarrhea. REVIEW OF SYSTEMS: Aside from elements discussed in the HPI, a comprehensive 10-point review of systems was reviewed and is negative. PAST MEDICAL HISTORY: CHF, Atrial fibrillation on Eliquis, Achalasia. SOCIAL HISTORY: . VITAL SIGNS: Reviewed by me; see NN. GENERAL: Elderly female, pleasant, complaining of facial pain and neck pain HEENT: Head: Atraumatic, normocephalic. Face: laceration over left eye. Laceration on inner lip on left, through and through. Ecchymosis on upper left lip. Periorbital ecchymosis over left eye. PERRL, EOMI, no nystagmus. Oropharynx: no dental trauma, no instability, normal occlusion. Neck: Cervical spine is tender to palpation throughout. CHEST: Nontender, no subcutaneous air palpable. LUNGS: Clear to auscultation bilaterally, breath sounds are equal. CARDIAC: Regular rate and rhythm, no rubs, murmurs or gallops. ABDOMEN: Soft, nontender, nondistended, bowel sounds normal. BACK: No CVA tenderness, no spinal tenderness. EXTREMITIES: Ecchymosis over the left shoulder, normal range of motion. PULSES: 2+ and equal throughout. NEURO: Alert and oriented x3, cranial nerves are intact throughout, normal motor , normal sensation. SKIN: Warm and dry, no rash. Portions of this note were transcribed by a medical care manager. I personally performed a history, physical exam, medical decision making, and confirmed accuracy of information the transcribed note. Source: Patient, Family, EMS Constitutional: Initial Vital Signs Temperature (C) 36.6 C 07/02/16 19:56 Heart Rate 96 07/02/16 19:56 Respiratory Rate 17 07/02/16 19:56 Blood Pressure 177/92 H 07/02/16 19:56 O2 Sat (%) 92 07/02/16 19:56 O2 Delivery Mode Room Air Allergies/Adverse Reactions: Sulfa (Sulfonamide Antibiotics) Allergy (Verified 07/02/16 21:14) Rash Home Medications: Medication Instructions Recorded Docusate Sodium [Colace 100 MG (*)] 3 tab PO HS 12/03/15 Zolpidem Tartrate [Ambien 5MG (*)] 2.5 - 5 mg PO HS PRN 12/03/15 Apixaban [Eliquis] 2.5 mg PO BID #60 tab 05/10/16 Metoprolol Tartrate [Lopressor 25 12.5 mg PO BID #60 tab 05/10/16 mg (*)] Calcium Carb W/Vit D [Calcium Carb 500 mg PO BID 05/27/16 W/Vit D 500/200 (*)] Acetaminophen [Tylenol 325mg (*)] 650 mg PO Q4HRS PRN #0 tab 06/02/16 Atorvastatin Calcium [Lipitor 10 10 mg PO HS 07/02/16 mg (*)] Losartan Potassium [Cozaar 25 mg 25 mg PO DAILY 07/02/16 (*)] Spironolactone [Aldactone 25 MG 12.5 mg PO DAILY 07/02/16 (*)] Torsemide 30 mg PO DAILY 07/02/16 Medical Decision Making - Diagnostics EKG Interpretation: 12-LEAD EKG: Please see the full report in [facility]. My interpretation: Sinus rhythm, left ventricular hypertrophy. Imaging: Results: CT scan of the head was obtained. I viewed the images independently on the PACS system. I discussed the results of the study with the radiologist. Impression: Scattered mild subarachnoid hemorrhage. Two small foci of probable intraparenchymal hemorrhage in the right centrum semiovale. Please see the full radiology report. Results: CT scan of the maxillofacial was obtained. I viewed the images independently on the PACS system. I discussed the results of the study with the radiologist. Impression: No fracture. Please see the full radiology report. Results: CT scan of the cervical spine was obtained. I viewed the images independently on the PACS system. I discussed the results of the study with the radiologist. Impression: No fracture. Please see the full radiology report. ED Course/Re-evaluation: patient was seen on arrival. She is a limited +trauma activation secondary to taking Eliquis. CT imaging was ordered. 9:00 p.m.: I discussed CT findings with the patient and family. Plan to admit. I will consult neurosurgery. 9:05 p.m.: The patient will be admitted to Dr. Tabor, General surgery. 9:15 p.m.: I spoke to the neurosurgeon, Dr. Andino, who will consult. Lacerations repaired by LARA Valle. Please see his documentation. Differential Diagnosis: Differential diagnosis of this patient's fall was considered including but not limited to intracranial injury, long bone and pelvic bone fracture, spinal injury, intrathoracic injury, extremity injury, intra-abdominal injury, lacerations, abrasions, and contusions. Differential diagnosis of this patient's syncope was considered including but not limited to vasovagal syncope, arrhythmia, dehydration, and blood loss. Consult/Admit Bed Type: Dr. Tabor, ICU - Data Points Laboratory Results: Laboratory Results 07/02/16 19:45 07/02/16 19:45 07/02/16 07/02/16 07/02/16 19:45 19:45 19:45 WBC 5.64 10^3/uL 10^3/uL (3.80-9.50) RBC 3.81 10^6/uL L 10^6/uL (4.18-5.33) Hgb 12.1 g/dL L g/dL (12.6-16.3) Hct 35.9 % L % (38.0-47.0) MCV 94.2 fL fL (81.5-99.8) MCH 31.8 pg pg (27.9-34.1) MCHC 33.7 g/dL g/dL (32.4-36.7) RDW 13.4 % % (11.5-15.2) Plt Count 198 10^3/uL 10^3/uL (150-400) MPV 10.7 fL fL (8.7-11.7) Neut % (Auto) 49.3 % % (39.3-74.2) Lymph % (Auto) 38.1 % % (15.0-45.0) [place] % (Auto) 8.9 % % (4.5-13.0) Eos % (Auto) 2.3 % % (0.6-7.6) Baso % (Auto) 1.2 % % (0.3-1.7) Nucleat RBC Rel Count 0.0 % % (0.0-0.2) Absolute Neuts (auto) 2.78 10^3/uL 10^3/uL (1.70-6.50) Absolute Lymphs (auto) 2.15 10^3/uL 10^3/uL (1.00-3.00) Absolute Monos (auto) 0.50 10^3/uL 10^3/uL (0.30-0.80) Absolute Eos (auto) 0.13 10^3/uL 10^3/uL (0.03-0.40) Absolute Basos (auto) 0.07 10^3/uL 10^3/uL (0.02-0.10) Absolute Nucleated RBC 0.00 10^3/uL 10^3/uL (0-0.01) Immature Gran % 0.2 % % (0.0-1.1) Immature Gran # 0.01 10^3/uL 10^3/uL (0.00-0.10) PT 14.5 SEC SEC (12.0-15.0) INR 1.14 (0.83-1.16) APTT 28.1 SEC SEC (23.0-38.0) Sodium 138 mEq/L mEq/L (134-144) Potassium 3.5 mEq/L mEq/L (3.5-5.2) Chloride 96 mEq/L L mEq/L (97-110) Carbon Dioxide 24 mEq/l mEq/l (22-31) Anion Gap 18 mEq/L H mEq/L (8-16) BUN 65 mg/dL H mg/dL (7-23) Creatinine 2.1 mg/dL H mg/dL (0.6-1.0) Estimated GFR 22 Glucose 106 mg/dL H mg/dL (70-100) Calcium 11.0 mg/dL H mg/dL (8.5-10.4) Phosphorus 3.6 mg/dL mg/dL (2.5-4.5) Troponin I 0.016 ng/mL ng/mL (0-0.034) NT-Pro-B Natriuret Pep 1680 pg/mL H pg/mL (0-450) Medications Given: Discontinued Medications Hydromorphone HCl (Dilaudid) 0.5 mg IVP EDNOW ONE Stop: 07/02/16 20:06 Last Admin: 07/02/16 21:13 Dose: Not Given Hydromorphone HCl (Dilaudid) 0.5 mg IVP EDNOW ONE Stop: 07/02/16 22:33 Last Admin: 07/02/16 22:34 Dose: 0.5 mg Octyl Cyanoacrylate (Dermabond) 1 each TP ONCE ONE Stop: 07/02/16 22:34 Last Admin: 07/02/16 22:34 Dose: 1 each Departure - Departure Disposition: [facility] Inpatient Acute Clinical Impression: Subarachnoid hemorrhage Intraparenchymal hematoma of brain due to trauma Qualifiers: Encounter type: initial encounter Laterality: right Loss of consciousness presence/duration: without LOC Qualified Code(s): S06.340A - Traumatic hemorrhage of right cerebrum without loss of consciousness, initial encounter Lip laceration Qualifiers: Encounter type: initial encounter Qualified Code(s): S01.511A - Laceration without foreign body of lip, initial encounter Syncope Qualifiers: Syncope type: unspecified Qualified Code(s): R55 - Syncope and collapse Condition: Serious Report Scribed for: Abbey Ignacio Report Scribed by: Tiffanie Slater Date of Report: 07/02/16 Time of Report: 20:03
[2016-07-02] MEDS ORDERED: HYDROmorphONE/DILAUDID 1 MG/ML SYR IVP ONE ×2 (20:05→22:32)
[2016-07-02 20:14] LABS: % IMMATURE GRANULYOCYTES 0.2 % (0.0-1.1); ABSOLUTE IMMATURE GRANULOCYTES 0.01 10^3/uL (0.00-0.10); ADD DIFF? NO; ADD MORPH? NO; ADD SCAN? NO; ATYPICAL LYMPHOCYTE FLAG 20 (0-99); FRAGMENT RBC FLAG 0 (0-99); HEMATOCRIT 35.9 % (38.0-47.0); HEMOGLOBIN 12.1 g/dL (12.6-16.3); LEFT SHIFT FLG 0 (0-99); LIPEMIA HEMOLYSIS FLAG 80 (0-99); MEAN CELL HEMOGLOBIN 31.8 pg (27.9-34.1); MEAN CELL HEMOGLOBIN CONCENTR. 33.7 g/dL (32.4-36.7); MEAN CELL VOLUME 94.2 fL (81.5-99.8); MEAN PLATELET VOLUME 10.7 fL (8.7-11.7); PLATELET CLUMPS FLAG 0 (0-99); PLATELET COUNT 198 10^3/uL (150-400); RED BLOOD CELL COUNT 3.81 10^6/uL (4.18-5.33); RED CELL DISTRIBUTION WIDTH 13.4 % (11.5-15.2)
[2016-07-02 20:23] LABS: ANION GAP 18 mEq/L (8-16); CARBON DIOXIDE 24 mEq/l (22-31); CHLORIDE 96 mEq/L (97-110); CREATININE 2.1 mg/dL (0.6-1.0); GLOMERULAR FILTRATION RATE 22; GLUCOSE 106 mg/dL (70-100); POTASSIUM 3.5 mEq/L (3.5-5.2); SODIUM 138 mEq/L (134-144)
[2016-07-02 20:27] LABS: APTT 28.1 SEC (23.0-38.0); INR 1.14 (0.83-1.16); PROTIME(PATIENT) 14.5 SEC (12.0-15.0)
[2016-07-02 20:35] LABS: TROPONIN I 0.016 ng/mL (0-0.034)
--- NOTE | 2016-07-02 20:48 | CPEKG ---
Heart Rate: 63 RR Interval: 952 P-R Interval: 196 QRSD Interval: 104 QT Interval: 452 QTC Interval: 463 P [place]: 94 QRS [place]: 41 T Wave [place]: 58 EKG Severity - ABNORMAL ECG - EKG Impression: SINUS RHYTHM Electronically Signed By: Nigel Madison 04-Jul-2016 12:06:20
[2016-07-02] MEDS ORDERED: HYDROmorphONE/DILAUDID 1 MG/ML SYR ONE (22:23)
[2016-07-02] MEDS ORDERED: SKIN ADHESIVE (DERMABOND) 1 EACH TP ONE ×2 (22:24→22:33)
[2016-07-02] MEDS ORDERED: ACETAMINOPHEN 325 MG TAB PO PRN (22:26)
[2016-07-02] MEDS ORDERED: ONDANSETRON 4 MG/2 ML VIAL IVP PRN (22:26)
[2016-07-02] MEDS ORDERED: HYDROCODONE/APAP 5/325 TAB PO PRN (22:26)
[2016-07-02] MEDS ORDERED: LR 1,000 ML IV SCH (22:30)
--- NOTE | 2016-07-02 23:06 | GHP ---
[f rep st] PREOP HISTORY AND PHYSICAL DATE OF ADMISSION: 07/02/2016 REASON FOR EVALUATION: Trauma, subarachnoid hemorrhage, heart failure, anticoagulation. HISTORY OF PRESENT ILLNESS: 85-year-old female with a significant history for congestive heart failure and atrial fibrillation. She has been hospitalized recently and has been followed under the care of [facility] including Dr. Valenzuela and Dr. Knight. She has been maintained on Eliquis, as well as Lopressor, losartan, Norvasc and Lasix. She was witnessed to have a syncopal episode while walking to the bathroom. She was observed by her daughter. Her daughter notes that she did not trip prior, nor try and protect herself on falling forward. The patient is unable to recall any events surrounding the injury. She complains of facial pain only at this point in time. Patient denies any visual changes. She denies headache. Denies nausea or vomiting. She denies neck pain. She denies current chest pains or shortness of breath. She denies abdominal complaints. She denies bilateral upper or lower extremity complaints. She is alert and appropriate otherwise without deficit. She has been recently being assessed for unsteadiness by her public information relations manager. She was recently hospitalized for CHF. She denies a history of prior syncope nor does her family note such complaint. She denies visual changes or headache at present time. She denies CP or SOB at present time. She denies abdominal complaints. She reports that her lower extremity edema and weight have been nicely controlled on her current medication regimen. PAST MEDICAL HISTORY: CHF, atrial fibrillation, achalasia. PAST SURGICAL HISTORY: Left hip replacement, appendectomy, bilateral bunionectomy, cataract repair, blepharoplasty, total abdominal hysterectomy, bilateral salpingo-oophorectomy. MEDICATIONS: Eliquis, Colace, Lopressor, recently Augmentin, calcium, Lasix, losartan, Norvasc, Mucinex, Torsemide, Amlodipine. ALLERGIES: Sulfa. SOCIAL HISTORY: No alcohol, no tobacco. She lives in independent living with her . REVIEW OF SYSTEMS: Notable for recent admissions for heart failure. Negative 10 point system otherwise. PHYSICAL EXAMINATION: VITAL SIGNS: Temperature 36.6, blood pressure 188/92, pulse 96, respirations of 17, 92% saturation on room air. PRIMARY SURVEY: ABC intact. SECONDARY SURVEY: HEENT: Small laceration with periorbital ecchymosis and hematoma of left supraorbital brow, as well as a left lateral upper lip laceration. No active bleeding was present at either site. Pupils are equally round, reactive to light and accommodation. Extraocular muscles intact. Tympanic membranes are clear bilaterally. Nares are normal bilaterally. Tongue is normal. No midface tenderness. No step-offs or deformities. NECK: Cervical spine nontender. Trachea midline without crepitus. HEART: Regular. LUNGS: Clear bilaterally. ABDOMEN: Soft, nontender, nondistended. Pelvis nontender. EXTREMITIES: Notable left shoulder ecchymosis with tenderness to touch and good range of motion with pain. Normal bilateral upper and lower extremities. 2+ pedal pulses bilaterally. THORACIC SPINE: Mildly tender throughout. LUMBAR SPINE: Nontender. NEUROLOGIC: Patient is alert, appropriate, oriented x3. Moving all extremities. Intact normally. LABORATORY DATA: Hemoglobin 12, white count 5, platelets 200, INR 1.1. Sodium 138, potassium 3.5, chloride 96, CO2 24, BUN 65, creatinine 2.1. Glucose 106. BNP 1680. Troponin 0.016. CT images were directly reviewed on PACS as well as with on-call radiologist. Small scattered punctate subarachnoid hemorrhage, as well as 2 possible focal intraparenchymal hemorrhages and small left intraventricular hemorrhage. 12 lead EKG: NSR 60bpm, LVH, no acute changes. IMPRESSIONS: 1. Syncopal episode. 2. Superficial lacerations with associated ecchymosis/hematoma left face. 3. History of congestive heart failure/atrial fibrillation, on Eliquis. 4. Left shoulder ecchymosis. 5. Thoracic spine tenderness. 6. Elevated creatinine. PLAN: 1. The patient is being admitted for observation. Neurosurgical service has been consulted regarding intraparenchymal bleeding. Will repeat serial imaging studies later this morning. Hold Eliquis. No further intervention is being recommended at this time. 2. Obtain left shoulder and thoracic spine x-rays. 3. Internal Medicine has been requested for further syncope workup and medical management of the patient's chronic heart failure. 4. Gentle hydration/hold diuretic for elevated creatinine. Repeat labs in am. Care plan was reviewed with from the neurosurgical service via phone as well as hospitalist service at bedside. /[id number]/MODL MTDD
[2016-07-03] MEDS ORDERED: hydrALAZINE 20 MG/ML VIAL IVP PRN (00:57)
--- NOTE | 2016-07-03 04:59 | PDGENHP ---
History and Physical - Chief Complaint syncope - History of Present Illness Patient was seen and evaluated on 07/02/2016. Patient is an 85-year-old female with history of atrial fibrillation on systemic anticoagulation, diastolic CHF, chronic hypoxic respiratory failure, severe pulmonary hypertension and hypertension who presented to the ED with a syncopal episode resulting in facial trauma and intracranial hemorrhage. Patient reports that since most recent hospital discharge about 3 weeks ago patient's home medication regimen has been altered several times due to intolerance. She has been feeling particularly dizzy upon standing over the past 1 week. this evening, patient had eaten dinner without event, was walking back to her apartment with her and daughter when she suddenly blacked out and fell forward, striking her face on the ground. Patient remained unconscious for several minutes as EMS was called by the building staff. By EMS arrival patient had begun to regain consciousness and was immediately transferred to the ED. on arrival to the ED patient was afebrile, slightly hypertensive but otherwise hemodynamically stable. Exam revealed obvious left facial trauma and ecchymosis. CT head and C-spine were obtained and revealed acute intracranial hemorrhage with no evidence of acute fracture. EKG was normal sinus rhythm without obvious ischemia, and normal intervals. Labs revealed creatinine above previous baseline, elevated BNP and normal CBC. Patient was admitted under the Trauma Service, with hospital service consulting. History Information - Allergies/Home Medication List Allergies/Adverse Reactions: Sulfa (Sulfonamide Antibiotics) Allergy (Verified 07/02/16 21:14) Rash Home Medications: Docusate Sodium [Colace 100 MG (*)] 3 tab PO HS 12/03/15 [Last Taken 07/01/16 21 :00] Zolpidem Tartrate [Ambien 5MG (*)] 2.5 - 5 mg PO HS PRN 12/03/15 [Last Taken ] Calcium Carb W/Vit D [Calcium Carb W/Vit D 500/200 (*)] 500 mg PO BID 05/27/16 [ Last Taken 05/26/16 09:00] Atorvastatin Calcium [Lipitor 10 mg (*)] 10 mg PO HS 07/02/16 [Last Taken 21:00] Losartan Potassium [Cozaar 25 mg (*)] 25 mg PO DAILY 07/02/16 [Last Taken 08:00] Spironolactone [Aldactone 25 MG (*)] 12.5 mg PO DAILY 07/02/16 [Last Taken 07/02 08:00] Torsemide 30 mg PO DAILY 07/02/16 [Last Taken 07/02/16 08:00] I have personally reviewed and updated: family history, medical history, social history, surgical history - Past Medical History Additional medical history: Atrial fibrillation on eliquis. HTN. Achalasia. diastolic CHF. moderate to severe Pulm hypertension. chronic respiratory failure on home O2 at night. Osteoporosis with lumbar arthritis - Surgical History Additional surgical history: Hysterectomy. Bilateral bunionectomy. Appendectomy. Bilateral cataract. Right hand surgery - Family History Positive for: non-pertinent - Social History Smoking Status: Never smoked Additional social history: Patient lives with her in an independent living facility, usually walks with a walker Review of Systems ROS: 10pt was reviewed & negative except for what was stated in HPI & below Physical Exam Temp Pulse Resp BP Pulse Ox 36.7 C 61 16 128/61 H 98 07/03/16 04:03 07/03/16 04:03 07/03/16 04:03 07/03/16 04:03 07/03/16 04:03 O2 (L/minute) 2 Constitutional: other ( Elderly female obvious facial trauma, but no acute distress) Eyes: PERRL, anicteric sclera, EOMI, other (ecchymosis of L orbit, nare, scalp) Ears, Nose, Mouth, Throat: hearing normal, ears appear normal, no oral mucosal ulcers, dry mucous membranes Cardiovascular: regular rate and rhythym, no murmur, rub, or gallop, pulses symmetric bilaterally, No JVD, No edema Peripheral Pulses: 2+: dorsalis-pedis (R), dorsalis-pedis (L) Respiratory: no respiratory distress, no rales or rhonchi, clear to auscultation Gastrointestinal: normoactive bowel sounds, soft, non-tender abdomen, no palpable masses, No guarding, No rebound, No distension Genitourinary: no bladder fullness, no bladder tenderness Skin: other (ecchymosis and abrasions over L face and L shoulder ) Musculoskeletal: full muscle strength, no muscle tenderness, normal joint ROM Neurologic: AAOx3, sensation intact bilaterally, CN II-XII Intact, No weakness, No numbness, No pronator drift Psychiatric: interacting appropriately, not anxious, not encephalopathic, thought process linear Lab Data & Imaging Review 07/02/16 19:45 07/03/16 04:25 WBC 5.64 10^3/uL (3.80-9.50) 07/02/16 19:45 RBC 3.81 10^6/uL (4.18-5.33) L 07/02/16 19:45 Hgb 12.1 g/dL (12.6-16.3) L 07/02/16 19:45 Hct 35.9 % (38.0-47.0) L 07/02/16 19:45 MCV 94.2 fL (81.5-99.8) 07/02/16 19:45 MCH 31.8 pg (27.9-34.1) 07/02/16 19:45 MCHC 33.7 g/dL (32.4-36.7) 07/02/16 19:45 RDW 13.4 % (11.5-15.2) 07/02/16 19:45 Plt Count 198 10^3/uL (150-400) 07/02/16 19:45 MPV 10.7 fL (8.7-11.7) 07/02/16 19:45 Neut % (Auto) 49.3 % (39.3-74.2) 07/02/16 19:45 Lymph % (Auto) 38.1 % (15.0-45.0) 07/02/16 19:45 [place] % (Auto) 8.9 % (4.5-13.0) 07/02/16 19:45 Eos % (Auto) 2.3 % (0.6-7.6) 07/02/16 19:45 Baso % (Auto) 1.2 % (0.3-1.7) 07/02/16 19:45 Nucleat RBC Rel Count 0.0 % (0.0-0.2) 07/02/16 19:45 Absolute Neuts (auto) 2.78 10^3/uL (1.70-6.50) 07/02/16 19:45 Absolute Lymphs (auto) 2.15 10^3/uL (1.00-3.00) 07/02/16 19:45 Absolute Monos (auto) 0.50 10^3/uL (0.30-0.80) 07/02/16 19:45 Absolute Eos (auto) 0.13 10^3/uL (0.03-0.40) 07/02/16 19:45 Absolute Basos (auto) 0.07 10^3/uL (0.02-0.10) 07/02/16 19:45 Absolute Nucleated RBC 0.00 10^3/uL (0-0.01) 07/02/16 19:45 Immature Gran % 0.2 % (0.0-1.1) 07/02/16 19:45 Immature Gran # 0.01 10^3/uL (0.00-0.10) 07/02/16 19:45 PT 14.5 SEC (12.0-15.0) 07/02/16 19:45 INR 1.14 (0.83-1.16) 07/02/16 19:45 APTT 28.1 SEC (23.0-38.0) 07/02/16 19:45 Sodium 138 mEq/L (134-144) 07/02/16 19:45 Potassium 3.5 mEq/L (3.5-5.2) 07/02/16 19:45 Chloride 96 mEq/L (97-110) L 07/02/16 19:45 Carbon Dioxide 24 mEq/l (22-31) 07/02/16 19:45 Anion Gap 18 mEq/L (8-16) H 07/02/16 19:45 BUN 65 mg/dL (7-23) H 07/02/16 19:45 Creatinine 2.1 mg/dL (0.6-1.0) H 07/02/16 19:45 Estimated GFR 22 07/02/16 19:45 Glucose 106 mg/dL (70-100) H 07/02/16 19:45 Calcium 11.0 mg/dL (8.5-10.4) H 07/02/16 19:45 Phosphorus 3.6 mg/dL (2.5-4.5) 07/02/16 19:45 Troponin I 0.016 ng/mL (0-0.034) 07/02/16 19:45 NT-Pro-B Natriuret Pep 1680 pg/mL (0-450) H 07/02/16 19:45 Visualized and Interpreted Chest x-ray results: Yes Chest X-Ray results: no infiltrate, normal Visualized and Interpreted imaging results: Yes Interpretation: CT head: Scattered mild subarachnoid hemorrhages, small area of intraparenchymal hemorrhage, intraventricular hemorrhage into the left lateral ventricle; no acute skull fracture. CT c-spine/maxilofacial: no acute bony fracture Visualized and Interpreted EKG results: Yes EKG Interpretation: Positive for: normal sinsus rhythm (no st/t wave changes) Assessment & Plan Assessment: patient is an 85-year-old female with a history of hypertension, atrial fibrillation, diastolic CHF and severe pulmonary hypertension who presents to the ED after syncopal episode that resulted in left facial trauma, acute intraparenchymal and subarachnoid hemorrhages. Labs also reveal evidence of YAMILEX. Plan: # syncope Patient reports for the past week she has felt dizzy on standing with several adjustments made to her home med regimen. Suspect syncope was likely due to orthostatic hypotension in the setting of dehydration versus cardiac arrhythmia. Initial troponin is negative and EKG does not show any evidence of acute ischemia, so low suspicion for ACS. Labs do show evidence of YAMILEX, so will hold diuretics and ARB, monitor on telemetry, trend troponins and will also repeat TTE in AM. # intracranial and subarachnoid hemorrhage Repeat CT head shows stable hemorrhage without expansion. Will f/u neurosurgery recommendations, attempt to control BP and cont neuro checks per stroke protocol. # acute on chronic renal failure Patient's baseline creatinine appears to be 1.2-1.5, but is 2.1 on presentation. Suspect a pre-renal etiology in setting of overdiuresis. She is being given gentle IVF hydration overnight and will cont to monitor trend. Hold ARB/spironolactone and diuretic. Avoid nephrotoxic agents. # paroxysmal atrial fibrillation Patient in NSR on presentation. Will cont home metoprolol, but hold eliquis in setting of acute ICH. # diastolic CHF, mod/severe pulmonary hypertension, systemic hypertension Patient appears hypovolemic on presentation, BNP is chronically elevated. Will hold diuretic, arb and spironolactone in setting of yamilex and hypovolemia, cont b- julio and add hydralazine prn for BP control. # dispo: admit to inpatient service for likely > 2 [place] stay # gen: NPO DVT ppx: hold eliquis Full code
[2016-07-03 05:08] LABS: ANION GAP 13 mEq/L (8-16); CALCIUM 10.7 mg/dL (8.5-10.4); CARBON DIOXIDE 28 mEq/l (22-31); CHLORIDE 101 mEq/L (97-110); CREATININE 1.9 mg/dL (0.6-1.0); GLOMERULAR FILTRATION RATE 25; GLUCOSE 141 mg/dL (70-100); POTASSIUM 4.1 mEq/L (3.5-5.2); SODIUM 142 mEq/L (134-144)
[2016-07-03 05:17] LABS: TROPONIN I 0.032 ng/mL (0-0.034)
--- NOTE | 2016-07-03 08:21 | GCON ---
[f rep st] CONSULTATION NEUROSURGICAL CONSULTATION CHIEF COMPLAINT: Headache after a fall. HISTORY OF PRESENT ILLNESS: The patient is an 85-year-old female with a past medical history signif icant for atrial fibrillation, diastolic congestive heart failure, and pulmonary hypertension. She apparently had a syncopal episode yesterday and fell striking her head. She was evaluated in the em ergency department. She was found have a very small left parietal petechial subarachnoid hemorrhage . Neurosurgical consultation was requested. The patient feels better since she was admitted. She currently has a mild headache, but this has improved since yesterday. She is not having any [place], vomiting or weakness. PAST MEDICAL HISTORY: 1. Atrial fibrillation. 2. Hypertension. 3. Diastolic heart failure. 4. Achalasia. 5. Pulmonary hypertension. 6. Respiratory failure. 7. Osteoporosis. PAST SURGICAL HISTORY: 1. A hysterectomy. 2. Bilateral bunionectomy. 3. Appendectomy. 4. Cataract surgery. 5. Right hand surgery. MEDICATIONS: Prior to admission are torsemide, Aldactone, Cozaar, Lipitor, calcium carbonate, Ambie n and Colace. ALLERGIES: Sulfa. FAMILY HISTORY: Patient has no family history of head trauma. SOCIAL HISTORY: Patient is with 3 grown children. She does drink gin and tonic occasionall y but denies smoking. REVIEW OF SYSTEMS: Negative. PHYSICAL EXAM: GENERAL: Patient is an 85-year-old female lying in bed, in no apparent distress. S he does have significant left periorbital ecchymoses with left-sided facial swelling. EXTREMITIES: [place], warm, and dry. NEUROLOGICAL: Patient is awake, alert, oriented x4. Pupils equal, round, re active to light. Extraocular motions are intact. There is no evidence of facial droop. Tongue and uvula are midline. Spinal accessory muscles are intact. Her motor strength is 5/5 in all muscle g roups of her upper and lower extremities bilaterally. Her sensation is grossly intact to light touc h in both upper and lower extremities bilaterally. Deep tendon reflexes are 1+ out of 4 in the bila teral biceps, triceps, brachioradialis, patellar, and Achilles. There is a negative Zoya's with no clonus. DIAGNOSTIC STUDIES: A head CT without contrast from [facility] on 07/02/2016 shows a very small left petechial parietal subarachnoid hemorrhage. There is no evidence of hydrocephalus . There is no evidence of any extra-axial fluid collections. IMPRESSION: This is an 85-year-old female who had a syncopal episode, and she has a tiny left parie gregoria subarachnoid hemorrhage. She is neurologically stable. PLAN: All the above was discussed in detail with the patient and her nurse. This patient was seen and examined by Dr. Loving this morning. Because she has been on Eliquis, Dr. Loving would like her to have a repeat head CT without contrast this morning. We will order the repeat hea d CT to be done today. Assuming there is no significant change, then she can likely just resume her Eliquis. We would like her to be evaluated by Physical Therapy, Occupational Therapy, and Speech T herapy. She will not require any antiepileptic medications. If the head CT is stable then she can subsequently be transferred to the floor. Please call with any neurological changes. /[id number]/MODL
[2016-07-03] MEDS ORDERED: LOSARTAN POTASSIUM 25 MG TAB PO SCH (09:00)
[2016-07-03] MEDS ORDERED: TORSEMIDE 20 MG TAB PO SCH (09:00)
[2016-07-03] MEDS ORDERED: amLODIPine BESYLATE 5 MG TAB PO SCH (09:00)
[2016-07-03] MEDS: METOPROLOL TARTRATE 25 MG TAB PO SCH ×2 (09:20→21:12)
[2016-07-03] MEDS: SPIRONOLACTONE 25 MG TAB PO SCH (09:20)
[2016-07-03] MEDS: CALCIUM CARB W/VIT D 500 MG TAB PO SCH ×2 (09:20→21:11)
--- NOTE | 2016-07-03 12:44 | TRAUMAPN ---
Assessment/Plan: 85 yo s/p fall with left facial trauma Hx of afib on Eliqus Recent medication changes concerning for syncopal episode iph and sah stable on interval ct this am NS ordered repeat ct - pending Neurologically intact RRR CTA Abd sofrt NT ND Extremities good ROM no injuries noted Ambulates with walker minimal assist Mild L shoulder pain this am Facial trauma -abrasions and swelling, left orbital lac treated with adhesive closure Request cardiology input Dr Cartwright rn radiation for [facility] to see Will likely transfer to PCU and discharge with med rec in the next 24 -48 hrs Objective: Vital Signs Temp Pulse Resp BP Pulse Ox 36.7 C 70 14 125/54 H 94 07/03/16 08:00 07/03/16 09:20 07/03/16 08:00 07/03/16 09:20 07/03/16 08:00 Laboratory Results 07/03/16 04:25 07/02/16 07/03/16 07/04/16 05:59 05:59 05:59 Intake Total 296 Output Total 1 Balance 295 PT 14.5 SEC (12.0-15.0) 07/02/16 19:45 INR 1.14 (0.83-1.16) 07/02/16 19:45
--- NOTE | 2016-07-03 16:11 | PDCARPN ---
Cardiology Progress Note Chief Complaint: syncope Assessment/Plan: Assessment: Danitza is a 85 y/o F with a history of CRI, HTN, moderate MR, moderate PHTN, and nighttime hypoxia. She also has a history of DCHF in the setting of PAF with RVR and hospitalization one month ago. She was admitted with syncope which resulted in facial trauma and intracranial hematoma. She was out to dinner with her daughter and and walked about 30 feet to the bathroom when her daughter saw her place her hand on the wall and then have a true syncopal event. Danitza does not recall anything prior to the event or after. She did not complain of anything when walking with her to the bathroom but was coughing. She is being seen by our transitional care team on a weekly basis and her medications were adjusted at her last office visit. Losartan was increased and her Lasix 30mg was changed to Torsemide 30mg daily. She has been lightheaded and dizzy since the med changes. Her blood pressure has been running 105-125/60 with HR of 55-70. Her troponins are negative x2 and she has remained in NSR since hospitalization. Her BUN/CR are elevated at 2. Plan: 1. Syncope- which came on with little warning. Likely related to dehydration and hypotension with recent medication changes but will assess for other causes. Will continue monitor on tele for tachy leola arrhythmias and check a echo. I doubt ACS given that she is CP free and troponins are negative. Diuretics and hypertensive meds have been adjusted. 2. PAF- currently in NSR. Off Eliquis secondary to ICH 3. DCHF- agree with stopping Torsemide and Losartan for now. Will reassess need to diuretics over the next few days. If she remains in NSR diuretics may not be necessary. 4. Acute on chronic renal insufficiency- secondary to diuretic therapy. Continue to monitor. Improving 5. HTN- Continue Aldactone and low dose Metoprolol. Ok for SBP to be on the higher side (140-150) from a cardiac standpoint. 6. Abnormal nuc- with mild anteroseptal and lateral ischemia in 04/2016. Normal trops and pt is CP free. 7. Moderate MR- 8. Moderate PHTN- 07/03/16 15:34 Subjective: Pt denies any CP, SOB, or edema. She is having facial pain. Objective: Vital Signs (8 Hrs) Temp Pulse Resp BP Pulse Ox 07/03/16 12:00 36.9 C 58 L 13 141/59 H 97 07/03/16 09:20 70 125/54 H 07/03/16 08:50 56 L 125/54 H 99 07/03/16 08:00 36.7 C 58 L 14 124/52 H 94 Intake/Output (24 Hrs) 07/02/16 07/03/16 07/04/16 05:59 05:59 05:59 Intake Total 296 Output Total 1 Balance 295 Intake: Oral (ml) 100 IV Infused (ml) 196 Lr 1,000 ml @ 50 mls/hr 196 IV CONT M[place]LE Rx#: [id number] Output: Urine (ml) 1 Toilet 1 Other: Weight 55 kg Number of Voids Toilet 2 Result Diagrams: 07/02/16 19:45 07/03/16 04:25 Cardiac Labs: Cardiac Lab Results (72 Hrs) 07/03/16 04:25 Troponin I 0.032 Telemetry: NSR - Physical Exam Constitutional: WDWN Cardiovascular: regular rate and rhythm, systolic murmur, No carotid bruit Peripheral Pulses: 2+: dorsalis-pedis (R), dorsalis-pedis (L) Respiratory: clear to auscultate bilat Gastrointestinal: no tenderness, no masses, No ascites Skin: no edema Neurologic: AAOx3 ICD10 Worksheet Patient Problems: Problems Problem Status Onset Intraparenchymal hematoma of brain due to trauma Acute Lip laceration Acute Subarachnoid hemorrhage Acute Syncope Acute Aspiration pneumonia Acute Atrial flutter Acute Chronic Disease Mgmt/Transitional Care Acute Dehydration Acute Elevated troponin Acute Lightheaded Acute Pleural effusion Acute Pneumonia Acute Pulmonary edema Acute Renal insufficiency Acute
--- NOTE | 2016-07-03 17:03 | GCON ---
[f rep st] CONSULTATION REFERRING PHYSICIAN: Juni Cleveland MD HISTORY: The patient is an 85-year-old woman, whom I am asked to see in neurologic consultation reg claudia an episode of loss of consciousness. In April, she had some syncopal episodes and over the last few months has been evaluated for cardiac issues, and has been found to have some congestive h eart failure, as well as atrial fibrillation which resolved spontaneously. She had been on Eliquis for prevention of stroke. Yesterday, she was at home and had gone into a room and fell without real ly any warning. The patient has anterograde and retrograde amnesia, and last thing she remembers is dinner yesterday before remembering having her neck brace taken off in the emergency room when she came in. She fell with perhaps transient loss of consciousness and tried to move around, and just w as clearly confused according to her , and was bleeding rather profusely. She had no ability to catch herself when she fell. She said that there is really minimal pain at this point. She den ies any focal numbness or weakness. She was not having chest pain or palpitations, although she has had palpitations in the past. She has had some recent unsteadiness. She has had some edema. MEDICATIONS ON ADMISSION: Eliquis, Colace, Lopressor, Augmentin, calcium, Lasix, losartan, Norvasc, Mucinex, torsemide, and . ALLERGIES: Sulfa. SOCIAL HISTORY: No smoking or alcohol. She lives with her independently. PHYSICAL EXAM: VITAL SIGNS: Blood pressure is 141/59, pulse of 58, respirations 13, temperature is 36.9. GENERAL: She is well developed, in no acute distress. EYES: Clear. NECK: Supple with no bruits or masses. CARDIAC: Regular rate and rhythm. No murmur. EXTREMITIES: No cyanosis or [place] ma, but she has a trauma to the left face with swelling around the eye and lip. NEUROLOGIC: Pupils 2 mm and reactive. Extraocular movements are intact. No visual field loss. I do not detect any d efinite facial weakness. The motor exam reveals no focal weakness. Sensation is intact for tempera ture and light touch. She is a little lethargic, but able to awaken, and answer questions and follo w commands and is currently oriented, but amnestic for the events around this trauma. IMAGING: I reviewed all of the head CT scans of the last 24 hours. She has some resolution of some left intraventricular hemorrhage, which was very small, small area of subarachnoid bleeding in righ t basal ganglia, very small area of hemorrhage. There is no mass effect. No evidence of an ischemi c stroke. IMPRESSION: The patient has suffered an episode of presumed syncope versus acute cardiac arrhythmia , and I do not suspect a TIA or seizure based on this description. I would like to check a carotid ultrasound for anything that might predispose her to poor cerebral blood flow or syncope. I agree t hat she needs to be off anticoagulation for now. Given the small amount of bleeding we are seeing a nd relative risks of stroke if she has paroxysmal atrial fibrillation, then resuming anticoagulation therapy after a few weeks would be reasonable in my opinion. The total unit time spent on her case is 50 minutes. I will follow up tomorrow. /[id number]/MODL
[2016-07-03] MEDS: DOCUSATE SODIUM 100 MG CAP PO SCH (21:11)
[2016-07-03] MEDS: ATORVASTATIN CALCIUM 10 MG TAB PO SCH (21:12)
[2016-07-03] MEDS: ACETAMINOPHEN 325 MG TAB PO PRN (21:13)
--- NOTE | 2016-07-03 22:29 | HOSPPROG ---
Hospitalist Progress Note Assessment/Plan: 85 yo F with PMH of a fib presenting s/p syncopal event with IcH # ICH/SAH: on personal review of serial head CT she is noted to have mulifocal areas of small SAH that have not been shown to be expanding. IN the setting of trauma while on AC. NO indication for surgical intervention. Will continue to hold AC for several weeks. # syncope: in the setting of recent med changes for CHF and noted to be hypovolemic by labs and exam on arrival. BP has also been low for age. Suspect some component of orthostasis contributing. Appreciate cardiology/neurology input. Monitoring on tele. Carotid US wnl. Echo pending. # stephanie on ckd: pre renal in setting of over diuresis, monitoring off of losartan and torsemide # chronic diastolic heart failure: as above with over diuresis suspected prior to admission, adjusting meds, tolerating higher bp # p afib: continue bb, holding AC # Dispo: IP status Patient new to my care. Old records reviewed and summarized as above. Care plan reviewed with cardiology. Further hx obtained from patient sfamily present at bedside. Subjective: patient is feeling well, face hurts, not dizzy Objective: Vital Signs Temp Pulse Resp BP Pulse Ox 36.9 C 67 17 110/50 L 98 07/03/16 20:00 07/03/16 20:00 07/03/16 20:00 07/03/16 20:00 07/03/16 20:00 Laboratory Results 07/03/16 04:25 07/02/16 07/03/16 07/04/16 05:59 05:59 05:59 Intake Total 296 500 Output Total 1 Balance 295 500 PT 14.5 SEC (12.0-15.0) 07/02/16 19:45 INR 1.14 (0.83-1.16) 07/02/16 19:45 awake alert nad anciteric significant edema ecchymosis over left side of face rrr no mrg cta b soft nt nd no cce warm dry well perfused oriented appropriate ICD10 Worksheet Patient Problems: Problems Problem Status Onset Aspiration pneumonia Acute Atrial flutter Acute Lightheaded Acute Renal insufficiency Acute Elevated troponin Acute Dehydration Acute Pneumonia Acute Pleural effusion Acute Chronic Disease Mgmt/Transitional Care Acute Pulmonary edema Acute Subarachnoid hemorrhage Acute Intraparenchymal hematoma of brain due to trauma Acute Lip laceration Acute Syncope Acute
[2016-07-04 05:09] LABS: % IMMATURE GRANULYOCYTES 0.2 % (0.0-1.1); ABSOLUTE IMMATURE GRANULOCYTES 0.01 10^3/uL (0.00-0.10); ADD DIFF? NO; ADD MORPH? NO; ADD SCAN? NO; ATYPICAL LYMPHOCYTE FLAG 10 (0-99); FRAGMENT RBC FLAG 0 (0-99); HEMATOCRIT 30.6 % (38.0-47.0); HEMOGLOBIN 10.1 g/dL (12.6-16.3); LEFT SHIFT FLG 0 (0-99); LIPEMIA HEMOLYSIS FLAG 80 (0-99); MEAN CELL HEMOGLOBIN 31.6 pg (27.9-34.1); MEAN CELL VOLUME 95.6 fL (81.5-99.8); MEAN PLATELET VOLUME 10.9 fL (8.7-11.7); PLATELET CLUMPS FLAG 0 (0-99); PLATELET COUNT 146 10^3/uL (150-400); RED CELL DISTRIBUTION WIDTH 13.5 % (11.5-15.2)
[2016-07-04 05:26] LABS: ANION GAP 10 mEq/L (8-16); CALCIUM 10.2 mg/dL (8.5-10.4); CARBON DIOXIDE 28 mEq/l (22-31); CHLORIDE 104 mEq/L (97-110); CREATININE 1.5 mg/dL (0.6-1.0); GLOMERULAR FILTRATION RATE 33; GLUCOSE 104 mg/dL (70-100); POTASSIUM 3.6 mEq/L (3.5-5.2); SODIUM 142 mEq/L (134-144)
--- NOTE | 2016-07-04 07:48 | SOAPPROG ---
SOAP Progress Note Assessment/Plan: Assessment: 85 yo F sp syncopal episode with tiny left SAH and petechial BG ICH Plan: neuro: stable and doing well overall head CT from 07/03 shows stable ICH with no evidence of progression PT/OT IM working up syncope ok to discharge from NS standpoint will sign off, please call with questions follow up with Dr Mcgee in 3 weeks with repeat head CT without contrast patient discussed with DR Mcgee 07/04/16 07:46 Subjective: patient has mild headache, no N/V. No weakness. Objective: Vital Signs Temp Pulse Resp BP Pulse Ox 36.9 C 53 L 16 152/74 H 98 07/04/16 07:26 07/04/16 07:26 07/04/16 07:26 07/04/16 07:26 07/04/16 07:26 Laboratory Results 07/04/16 04:26 07/04/16 04:26 07/03/16 07/04/16 07/05/16 05:59 05:59 05:59 Intake Total 296 620 Output Total 1 Balance 295 620 PT 14.5 SEC (12.0-15.0) 07/02/16 19:45 INR 1.14 (0.83-1.16) 07/02/16 19:45 AAOx4, +FC PERRL, EOMI, no facial droop 5/5 + light touch ICD10 Worksheet Patient Problems: Problems Problem Status Onset Intraparenchymal hematoma of brain due to trauma Acute Lip laceration Acute Subarachnoid hemorrhage Acute Syncope Acute Aspiration pneumonia Acute Atrial flutter Acute Chronic Disease Mgmt/Transitional Care Acute Dehydration Acute Elevated troponin Acute Lightheaded Acute Pleural effusion Acute Pneumonia Acute Pulmonary edema Acute Renal insufficiency Acute
--- NOTE | 2016-07-04 09:40 | ECHO ---
[id number] + + [address] : : [place] [address] : : [phone] + + Adult Echocardiographic Report + + :Name: BASIL BAUTISTA Study Date: 07/03/2016 03:08 PM : : Hospital Admission Number: [id number] : :: 1930 Gender: Female Height: 64 in : :Age: 85 yrs Race: WH Weight: 121 lb : :Reason For Study: syncope : : BSA: 1.6 meters2: :History: syncope : + + MMode/2D Measurements \T\ Calculations IVSd: 1.1 cm RVDd: 2.4 cm FS: 40.3 % Ao root diam: LVPWd: 0.91 cm LVIDd: 4.8 cm EDV(Teich): 2.8 cm LVIDs: 2.9 cm 106.8 ml LA dimension: ESV(Teich): 3.7 cm 31.0 ml EF(Teich): 71.0 % LVLd ap4: 7.6 cm SV(MOD-sp4): EDV(MOD-sp4): 82.0 ml 126.0 ml LVLs ap4: 6.0 cm ESV(MOD-sp4): 44.0 ml EF(MOD-sp4): 65.1 % Normal Measurement Values: + + :LVIDd (3.5-5.7cm) IVSd (0.6-1.1cm) LVPWd (0.6-1.1cm) Aortic Root (2.0-3.7cm)Left Atrium (1.5-4.0cm): :LV Vol(d) (76-115ml) LV Vol(s) (29-48ml) Ejec Fraction (50-65%)PV Gordy (0.6- 1.2m/s) TV Gordy (0.4-1.0m/s) : :MV E Gordy (0.8-1.0m/s)MV A Gordy (0.3-1.0m/s)LVOT Gordy (0.7-1.2m/s) Asc Ao Gordy ( 0.9-1.8m/s) : + + Doppler Measurements \T\ Calculations MV E max gordy: Ao V2 max: LV V1 max: PA V2 max: 75.0 cm/sec 127.0 cm/sec 68.6 cm/sec 80.4 cm/sec MV A max gordy: Ao max P.5 mmHgLV V1 max PG: PA max P.7 cm/sec 1.9 mmHg 2.6 mmHg MV E/A: 1.2 MV dec time: 0.29 sec TR max gordy: 272.6 cm/sec TR max P.7 mmHg RAP systole: 10.0 mmHg RVSP(TR): 39.7 mmHg Left Ventricle The left ventricle is normal in size and function. There is mild concentric left ventricular hypertrophy. There is Doppler evidence for diastolic dysfunction. Ejection Fraction = 65-70%. No regional wall motion abnormalities noted. Right Ventricle The right ventricle is normal in size and function. Atria The left atrium is severely dilated. The Left Atrial Volume is 48 ml/m2. The right atrium is mildly dilated. A dilated inferior vena cava suggests increased right atrial pressure. Mitral Valve The mitral valve leaflets appear myxomatous. Prolapse of the anterior mitral leaflet. There is no mitral valve stenosis. The mitral regurgitant jet is posteriorly directed, which is consistent with anterior leaflet pathology. There is mild mitral regurgitation. Tricuspid Valve The tricuspid valve is normal in structure and function. There is no tricuspid stenosis. There is mild tricuspid regurgitation. Right ventricular systolic pressure is 40mmHg. There is Doppler evidence for mild to moderate pulmonary hypertension. Aortic Valve The aortic valve is normal in structure and function. There is no aortic stenosis. Mild aortic regurgitation. Pulmonic Valve The pulmonic valve is normal in structure and function. Trace pulmonic valvular regurgitation. Great Vessels The aortic root is normal size. Pericardium/Pleural trivial pericardial effusion. Conclusion A two-dimensional transthoracic echocardiogram with M-mode and Doppler was performed. The left ventricle is normal in size and function. There is mild concentric left ventricular hypertrophy. There is Doppler evidence for diastolic dysfunction. Ejection Fraction = 65-70%. The left atrium is severely dilated. The Left Atrial Volume is 48 ml/m2. The right atrium is mildly dilated. A dilated inferior vena cava suggests increased right atrial pressure. The mitral valve leaflets appear myxomatous. Prolapse of the anterior mitral leaflet. There is mild mitral regurgitation. There is mild tricuspid regurgitation. Right ventricular systolic pressure is 40mmHg. There is Doppler evidence for mild to moderate pulmonary hypertension. The aortic valve is normal in structure and function. Mild aortic regurgitation. Trace pulmonic valvular regurgitation. trivial pericardial effusion. Since previous echocardiogram 05-28-2016 the RVSP has decreased, was 68mmHg and on todays echocardiogram it is 40mmHg. Mitral regurgitation is now mild; 05-28-2016 it was moderate. Final Reading Physician: Miquel Rodriguez signed on 07/04/2016 09:39 AM Ordering Physician: Peg Pete Performed By: Sunshine Rojas
[2016-07-04] MEDS ORDERED: IBUPROFEN 200 MG TAB PO PRN (10:02)
--- NOTE | 2016-07-04 10:20 | TRAUMAPN ---
Assessment/Plan: S/p fall from standing height following witness syncopal event SAH/ICH resolving on serial CT No anticoagulation since Saturday (Eliquis) for paroxysmal A-fib persistant neck pain C7-T1 with anterolisthisis on CT without fracture Old T11 compression fracture left shoulder pain without fracture/cannot exclude rotator cuff tear Rec: continue PT/OT speech eval for swallowing (hx of Achalasia) increase activity Subjective: awake and conversant/oriented to person and place Objective: Vital Signs Temp Pulse Resp BP Pulse Ox 36.9 C 53 L 16 152/74 H 98 07/04/16 07:26 07/04/16 07:26 07/04/16 07:26 07/04/16 07:26 07/04/16 07:26 Laboratory Results 07/04/16 04:26 07/04/16 04:26 07/03/16 07/04/16 07/05/16 05:59 05:59 05:59 Intake Total 296 620 Output Total 1 Balance 295 620 PT 14.5 SEC (12.0-15.0) 07/02/16 19:45 INR 1.14 (0.83-1.16) 07/02/16 19:45 - C-Spine Clearance Cervical Spine Cleared: Yes Provider who Cleared Cervical Spine: Dr. potter Physical Exam - Physical Exam General Appearance: WD/WN, thin, other (frail) EENT: other (mild tenderness C7-T1 spinous process/bruising and swelling left keyla-orbital and keyla-oral) Neck: tender midline Respiratory: lungs clear, normal breath sounds, decreased breath sounds (at bases) Cardiac/Chest: regular rate, rhythm Abdomen: non-tender, soft Skin: normal color, warm/dry Extremities: other (trace pitting edema/pedal pulses +2 symmetrical) Neuro/Psych: normal mood/affect, oriented x 3
[2016-07-04] MEDS: SPIRONOLACTONE 25 MG TAB PO SCH (10:51)
[2016-07-04] MEDS: ACETAMINOPHEN 325 MG TAB PO PRN (10:51)
[2016-07-04] MEDS: CALCIUM CARB W/VIT D 500 MG TAB PO SCH (10:52)
--- NOTE | 2016-07-04 11:32 | SOAPPROG ---
SOAP Progress Note Assessment/Plan: Assessment: 85 y/o woman with HTN, PAF/sinus bradycardia, mild diastolic CHF and achalasia with frequent gagging s/p syncopal spell in bathroom at [facility] with trauma to left side of body and small ICH stable on serial CTs of head. Clinically I wonder if she had syncope from symptomatic sinus bradycardia worsened by vagal reaction from her gagging she was doing right beforehand. She appears euvolemic now. REC: 1)stop Metoprolol 2)start Losartan 25mg po qday if SBP > 120 3)no eliquis for now. Rediscuss with her in 3-4 wks if follow up CT head so resolution of ICH risks/benefits of anticoagulation [facility]. 4)aldactone alone for diuretic without restarting Demadex as appears euvolemic. 5)probably okay from cardiology standpoint to transfer back to [facility] [place] if no significant tachy or bradyarrhythmias overnight and BP okay. 6)will place 30 day event monitor on upon discharge from hospital [place]. 07/04/16 11:28 Subjective: sore all over. Denies CP, lightheadedness, PND or palpitations. Has only ambulated 10-20ft so far. Objective: Vital Signs Temp Pulse Resp BP Pulse Ox 36.6 C 34 L 16 135/57 H 91 L 07/04/16 11:24 07/04/16 11:24 07/04/16 11:24 07/04/16 11:24 07/04/16 11:24 Laboratory Results 07/04/16 04:26 07/04/16 04:26 07/03/16 07/04/16 07/05/16 05:59 05:59 05:59 Intake Total 296 620 Output Total 1 Balance 295 620 PT 14.5 SEC (12.0-15.0) 07/02/16 19:45 INR 1.14 (0.83-1.16) 07/02/16 19:45 Physical Exam - Physical Exam General Appearance: alert EENT: other (large ecchymosis over left face.) Neck: limited range of motion Respiratory: lungs clear Cardiac/Chest: bradycardia, systolic murmur, No gallop, No JVD Peripheral Pulses: 2+: carotid (R), carotid (L), femoral (R), femoral (L), dorsalis-pedis (R), dorsalis-pedis (L) Abdomen: non-tender, soft Skin: warm/dry Extremities: No pedal edema Neuro/Psych: alert ICD10 Worksheet Patient Problems: Problems Problem Status Onset Intraparenchymal hematoma of brain due to trauma Acute Lip laceration Acute Subarachnoid hemorrhage Acute Syncope Acute Aspiration pneumonia Acute Atrial flutter Acute Chronic Disease Mgmt/Transitional Care Acute Dehydration Acute Elevated troponin Acute Lightheaded Acute Pleural effusion Acute Pneumonia Acute Pulmonary edema Acute Renal insufficiency Acute
[2016-07-04] MEDS: METOPROLOL TARTRATE 25 MG TAB PO SCH (12:05)
[2016-07-04] MEDS: LOSARTAN POTASSIUM 25 MG TAB PO SCH (12:54)
--- NOTE | 2016-07-04 16:04 | HOSPPROG ---
Hospitalist Progress Note Assessment/Plan: 85 yo F with PMH of a fib presenting s/p syncopal event with IcH # ICH/SAH: on personal review of serial head CT she is noted to have multifocal areas of small SAH that have not been shown to be expanding. IN the setting of trauma while on AC. NO indication for surgical intervention. Will continue to hold AC for several weeks and decide whether or not to resume pending event monitor and cardiology f/u (AC for A fib) # syncope: in the setting of recent med changes for CHF and noted to be hypovolemic by labs and exam on arrival. BP has also been low for age. Suspect some component of orthostasis contributing as well as possible vagal event. Adjusting meds as below. # stephanie on ckd: pre renal in setting of over diuresis, losartan resumed. Patient appearing euvolemic so will not resume torsemide but started on aldactone. Baseline creatinine close to 1.6 and patient essentially back to baseline. Does have underlying pulm htn likely contributing to worsening renal fxn with diuresis # neck pain: s/p syncope and fall, cervical spine MRI personally reviewed and notable for bone contusion at c7/t1, no fracture, no significant ligamentous injury noted. pt/ot. # chronic diastolic heart failure: as above, BB discontinued, resumed on losartan and aldactone. Echo showing preserved EF, improved pulm htn. Patient appears euvolemic. # p afib: continue bb, holding AC # Dispo: IP status, will dc to rehab at [facility] given multiple active medical issues Reviewed care plan with CM, patients daughter present at bedside. Subjective: no significant overnight events, patient somnolent, continues to have neck pain Objective: Vital Signs Temp Pulse Resp BP Pulse Ox 36.9 C 55 L 18 139/88 H 98 07/04/16 12:00 07/04/16 12:00 07/04/16 12:00 07/04/16 12:54 07/04/16 12:00 Laboratory Results 07/04/16 04:26 07/04/16 04:26 07/03/16 07/04/16 07/05/16 05:59 05:59 05:59 Intake Total 296 620 Output Total 1 Balance 295 620 PT 14.5 SEC (12.0-15.0) 03/13/17 19:45 INR 1.14 (0.83-1.16) 07/02/16 19:45 awake alert nad anciteric significant edema ecchymosis over left side of face rrr no mrg cta b soft nt nd no cce warm dry well perfused oriented appropriate ICD10 Worksheet Patient Problems: Problems Problem Status Onset Intraparenchymal hematoma of brain due to trauma Acute Lip laceration Acute Subarachnoid hemorrhage Acute Syncope Acute Aspiration pneumonia Acute Atrial flutter Acute Chronic Disease Mgmt/Transitional Care Acute Dehydration Acute Elevated troponin Acute Lightheaded Acute Pleural effusion Acute Pneumonia Acute Pulmonary edema Acute Renal insufficiency Acute
[2016-07-05] MEDS: CALCIUM CARB W/VIT D 500 MG TAB PO SCH ×2 (00:03→08:08)
[2016-07-05] MEDS: ATORVASTATIN CALCIUM 10 MG TAB PO SCH (00:03)
[2016-07-05] MEDS: DOCUSATE SODIUM 100 MG CAP PO SCH (00:04)
[2016-07-05] MEDS: SPIRONOLACTONE 25 MG TAB PO SCH (08:06)
[2016-07-05] MEDS: LOSARTAN POTASSIUM 25 MG TAB PO SCH (08:08)
--- NOTE | 2016-07-05 08:56 | CPEKG ---
Heart Rate: 58 RR Interval: 1034 P-R Interval: 196 QRSD Interval: 100 QT Interval: 440 QTC Interval: 433 P Abbott: 80 QRS Abbott: 18 T Wave Abbott: 42 EKG Severity - ABNORMAL ECG - EKG Impression: SINUS RHYTHM EKG Impression: PROBABLE LVH WITH SECONDARY REPOL ABNRM Electronically Signed By: Nigel Madison 06-Jul-2016 09:04:43
--- NOTE | 2016-07-05 10:52 | TRAUMAPN ---
Assessment/Plan: Assessment/Plan: S/p fall from standing height following witness syncopal event SAH/ICH resolving on serial CT No anticoagulation since Saturday (Eliquis) for paroxysmal A-fib persistant neck pain C7-T1 with anterolisthisis on CT without fracture. MRI with bruise to bone. No ligamentous injury. Pain improved this am Old T11 compression fracture left shoulder pain without fracture/cannot exclude rotator cuff tear Rec: continue PT/OT speech eval for swallowing (hx of Achalasia) increase activity Will sign off to hospitalist, discussed with Dr. Villalobos Subjective: improved today. Less neck pain. Objective: Vital Signs Temp Pulse Resp BP Pulse Ox 36.7 C 70 20 160/95 H 91 L 07/05/16 07:22 07/05/16 08:50 07/05/16 07:22 07/05/16 08:50 07/05/16 07:22 Laboratory Results 07/04/16 04:26 07/04/16 04:26 07/04/16 07/05/16 07/06/16 05:59 05:59 05:59 Intake Total 620 600 Output Total 350 Balance 620 250 PT 14.5 SEC (12.0-15.0) 07/02/16 19:45 INR 1.14 (0.83-1.16) 07/02/16 19:45 - C-Spine Clearance Cervical Spine Cleared: Yes Provider who Cleared Cervical Spine: Dr. potter Physical Exam - Physical Exam General Appearance: WD/WN, alert, no apparent distress, other (sitting in chair) EENT: PERRL/EOMI, normal ENT inspection, other (ecchymosis on left orbit and swelling of lip) Neck: non-tender, full range of motion, supple Respiratory: chest non-tender, lungs clear Cardiac/Chest: irregularly irregular Abdomen: non-tender, soft
[2016-07-05 12:24] VITALS: BP 109/65; PULSE 78; RESP 18; TEMP 98.1; O2SAT 92
--- NOTE | 2016-07-05 12:47 | SOAPPROG ---
SOAP Progress Note Assessment/Plan: Assessment: 85 y/o woman with HTN, PAF/sinus bradycardia, mild diastolic CHF and achalasia with frequent gagging s/p syncopal spell in bathroom at [facility] with trauma to left side of body and small ICH stable on serial CTs of head. Clinically I wonder if she had syncope from symptomatic sinus bradycardia worsened by vagal reaction from her gagging she was doing right beforehand. She appears euvolemic now. SBP a little on low side. Telemetry without any afib with RVR or severe bradyarrhythmias. REC: 1)decrease and send home on Losartan 12.5mg PO qam. 2)continue Atorvastatin and Aldactone at home doses. 3)no Eliquis, Metoprolol or Lasix please. 4)will send to her home 30 [address] event monitor and place in next week. 5)will set up f/u [facility] with ecg for two weeks 6)okay to discharge back to [facility] today. Thanks. Will sign off. 07/05/16 12:44 Subjective: feeling better. Less sore. Ambulated with PT without near syncope. Denies CP, [place], PND or palpitations. Objective: Vital Signs Temp Pulse Resp BP Pulse Ox 36.7 C 78 18 109/65 92 07/05/16 12:00 07/05/16 12:00 07/05/16 12:00 07/05/16 12:00 07/05/16 12:00 Laboratory Results 07/04/16 04:26 07/04/16 04:26 07/04/16 07/05/16 07/06/16 05:59 05:59 05:59 Intake Total 620 600 Output Total 350 Balance 620 250 PT 14.5 SEC (12.0-15.0) 07/02/16 19:45 INR 1.14 (0.83-1.16) 07/02/16 19:45 Physical Exam - Physical Exam General Appearance: alert EENT: other (ecchymosis left face...slightly better than yesterday.) Neck: supple Respiratory: lungs clear Cardiac/Chest: regular rate, rhythm, systolic murmur, No gallop, No JVD Peripheral Pulses: 2+: carotid (R), carotid (L), femoral (R), femoral (L), dorsalis-pedis (R), dorsalis-pedis (L) Abdomen: non-tender Skin: warm/dry Extremities: No pedal edema Neuro/Psych: alert ICD10 Worksheet Patient Problems: Problems Problem Status Onset Intraparenchymal hematoma of brain due to trauma Acute Lip laceration Acute Subarachnoid hemorrhage Acute Syncope Acute Aspiration pneumonia Acute Atrial flutter Acute Chronic Disease Mgmt/Transitional Care Acute Dehydration Acute Elevated troponin Acute Lightheaded Acute Pleural effusion Acute Pneumonia Acute Pulmonary edema Acute Renal insufficiency Acute
--- NOTE | 2016-07-05 13:01 | PDDCSUM ---
Discharge Summary Discharge Summary: Dates of service 07/03-07/05/16 Discharge dx: # ICH/SAH # syncope # orthostatic hypotension # stephanie on ckd # neck pain # chronic diastolic HF # paroxysmal a fib Consultations: cardiology, trauma surgery, neurosurgery Procedures performed: serial head CT Hospital course by problem: # ICH/SAH: on personal review of serial head CT she is noted to have multifocal areas of small SAH that have not been shown to be expanding. IN the setting of trauma while on AC. NO indication for surgical intervention. Will continue to hold AC for several weeks and decide whether or not to resume pending event monitor and cardiology f/u (AC for A fib) # syncope: in the setting of recent med changes for CHF and noted to be hypovolemic by labs and exam on arrival. BP has also been low for age. Suspect some component of orthostasis contributing as well as possible vagal event. Adjusting meds as below. # stephanie on ckd: pre renal in setting of over diuresis, losartan resumed. Patient appearing euvolemic so will not resume torsemide but started on aldactone. Baseline creatinine close to 1.6 and patient essentially back to baseline. Does have underlying pulm htn likely contributing to worsening renal fxn with diuresis # neck pain: s/p syncope and fall, bone contusion at c7/t1, no fracture, no significant ligamentous injury noted. pt/ot. # chronic diastolic heart failure: as above, BB discontinued, resumed on losartan and aldactone. Echo showing preserved EF, improved pulm htn. Patient appears euvolemic. # p afib: continue bb, holding AC--patient will dc with event monitor and cardiology to determine if to resume AC based on those results [facility] Meds: see EHR F/u with PCP, cardiology > 35 minutes spent in dc of patient, more than half in coordination of care and counseling patient and her regarding f/u care plans
--- NOTE | 2016-07-05 13:18 | PDIAF ---
- Diagnosis Code Status: Full Code - Medication Management Discharge Medications: Medications to Continue on Transfer Docusate Sodium [Colace 100 MG (*)] 3 tab PO HS 12/03/15 [Last Taken 07/01/16 21 :00] Calcium Carb W/Vit D [Calcium Carb W/Vit D 500/200 (*)] 500 mg PO BID 05/27/16 [ Last Taken 05/26/16 09:00] Acetaminophen [Tylenol 325mg (*)] 650 mg PO Q4HRS PRN #0 tab 06/02/16 [Last Taken Unknown] Atorvastatin Calcium [Lipitor 10 mg (*)] 10 mg PO HS 07/02/16 [Last Taken 21:00] Spironolactone [Aldactone 25 MG (*)] 12.5 mg PO DAILY 07/02/16 [Last Taken 07/02 08:00] Losartan Potassium [Cozaar 25 mg (*)] 12.5 mg PO DAILY #0 tab 07/05/16 [Last Taken Unknown] Discharge Medications: Refer to the Discharge Home Medication list for PRN reason. - Orders Services needed: Registered Nurse, Certified Personnel And Payroll Technician, Physical Therapy, Occupational Therapy Diet Recommendation: no restrictions on diet Diet Texture: Regular Texture Diet, Thin Liquids, Meds Whole w/Liquids - Labs/Radiology BMP Date: 07/09/16 - Follow Up Care Current Providers and Referrals: Patient,NotPresent [Unknown] - As per Instructions
[2016-07-06] MEDS ORDERED: LOSARTAN POTASSIUM 25 MG TAB PO SCH (09:00)
== END 2016-07-05 14:00 | DRG 86 ==
LOC: EDUNIT# → OBSVTOIN 22:26 → F2N 23:02 → F2W 07-03 18:28
PROVIDERS: ADMIT Surgery; ATTEND Internal Medicine
PROC: 0CQ1XZZ Repair Lower Lip, External Approach (ICD-10-PCS; principal; 2016-07-02)
PROC: 0HQ1XZZ Repair Face Skin, External Approach (ICD-10-PCS; principal; 2016-07-02)
DX: S06.6X1A Traumatic subarachnoid hemorrhage with loss of consciousness of 30 minutes or less, initial encounter (principal); S01.511A Laceration without foreign body of lip, initial encounter; S01.81XA Laceration without foreign body of other part of head, initial encounter; W01.0XXA Fall on same level from slipping, tripping and stumbling without subsequent striking against object, initial encounter; I50.32 Chronic diastolic (congestive) heart failure; N17.9 Acute kidney failure, unspecified; J96.11 Chronic respiratory failure with hypoxia; I13.0 Hypertensive heart and chronic kidney disease with heart failure and stage 1 through stage 4 chronic kidney disease, or unspecified chronic kidney disease; I48.0 Paroxysmal atrial fibrillation; I95.1 Orthostatic hypotension; N18.9 Chronic kidney disease, unspecified; I27.2 Other secondary pulmonary hypertension; I12.9 Hypertensive chronic kidney disease with stage 1 through stage 4 chronic kidney disease, or unspecified chronic kidney disease; M81.0 Age-related osteoporosis without current pathological fracture; M54.2 Cervicalgia; Z79.01 Long term (current) use of anticoagulants; Y92.012 Bathroom of single-family (private) house as the place of occurrence of the external cause
CPT/HCPCS: 92507-GN; 92523-GN; 97116-GP; 97161-GP; 97165-GO; 97530-GO; 97530-GP; 97535-GO; G0390; G8978-GP-CJ; G8979-GP-CI; G8987-GO-CJ; G8988-GO-CI; G9168-GO-CI; G9169-GN-CI; J0360; J1170

== ENCOUNTER 2016-07-14 22:27 | Observation (INO) | payer OTHER ==
--- NOTE | 2016-07-14 22:48 | EDPHY ---
H & P Time Seen by Provider: 07/14/16 22:40 HPI/ROS: HPI The patient presents with palpitations which began at about 6:00 p.m. tonight. She is at [facility], after a hospital admission for intracranial hemorrhage, sub arachnoid hemorrhage, resulting from syncope. She was subsequently diagnosed with an aspiration pneumonia. Today she had 4 doses of a DuoNeb, 1 amp, last just before dinner at about 6:00 p.m.. When she returned from dinner, she felt the palpitations which did not improve though she was monitoring them throughout the evening. Her has a pulse oximeter and checked her heart rate on several occasions and it was in the 120s to 140s, thus 911 was called. The patient continues to feel palpitations, though denies any chest pain, shortness of breath, nausea or vomiting. She does believe she has gained about 10 lb since being discharged from the hospital. She has taken albuterol before for a pneumonia that she had over the summer without these sorts of side effects. REVIEW OF SYSTEMS Constitutional: No fever, no chills. Eyes: No discharge. ENT: No sore throat. Cardiovascular: No chest pain, no palpitations. Respiratory: No cough, no shortness of breath. Gastrointestinal: No abdominal pain, no vomiting. Genitourinary: No hematuria. Musculoskeletal: No back pain. Skin: No rashes. Neurological: No headache. PMHx: Recent intracranial hemorrhage with subarachnoid hemorrhage associated with syncope and orthostasis, atrial fibrillation with diastolic CHF. 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 PHYSICAL General Appearance: Alert, no distress Eyes: Pupils equal and round no pallor or injection ENT, Mouth: Mucous membranes moist Respiratory: There are no retractions, breathing comfortably, some crackles at bases Cardiovascular: Tachycardic, irregularly irregular Gastrointestinal: Abdomen is soft and non-tender, no masses, bowel sounds normal Neurological: A&O, moves all extremities Skin: Warm and dry, no rashes Musculoskeletal: Neck is supple non tender Extremities: symmetrical, full range of motion, 2+ lower extremity edema Psychiatric: Patient is oriented X 3, there is no agitation Source: Patient, Family, EMS, Old records - Medical/Surgical History Hx Asthma: No Hx Chronic Respiratory Disease: No Hx Diabetes: No Hx Cardiac Disease: Yes Hx Renal Disease: No Hx Cirrhosis: No Hx Alcoholism: No Hx HIV/AIDS: No Hx Splenectomy or Spleen Trauma: No Other PMH: pneumonia, achilasia, scoliosis lumbar spine, charlene bunionectomies, left thr, hysterectomy, appy, charlene thumb surgeries for arthritis, LEFT HIP, CATARACTS, AFIB, HYPERCHOLEST, HYPERTSN - Social History Smoking Status: Never smoked Constitutional: Initial Vital Signs Temperature (C) 36.7 C 07/14/16 22:30 Heart Rate 125 H 07/14/16 22:30 Respiratory Rate 18 07/14/16 22:30 Blood Pressure 154/77 H 07/14/16 22:30 O2 Sat (%) 94 07/14/16 22:30 O2 Delivery Mode Room Air Allergies/Adverse Reactions: Sulfa (Sulfonamide Antibiotics) Allergy (Verified 07/02/16 21:14) Rash Home Medications: Medication Instructions Recorded Docusate Sodium [Colace 100 MG (*)] 3 tab PO HS 12/03/15 Calcium Carb W/Vit D [Calcium Carb 500 mg PO BID 05/27/16 W/Vit D 500/200 (*)] Acetaminophen [Tylenol 325mg (*)] 650 mg PO Q4HRS PRN #0 tab 06/02/16 Atorvastatin Calcium [Lipitor 10 10 mg PO HS 07/02/16 mg (*)] Spironolactone [Aldactone 25 MG 12.5 mg PO DAILY 07/02/16 (*)] Losartan Potassium [Cozaar 25 mg 12.5 mg PO DAILY #0 tab 07/05/16 (*)] Medical Decision Making - Diagnostics EKG Interpretation: EKG: Complete interpretation has been separately recorded in the [facility] archive. Summary impression: Atrial fibrillation with RVR Imaging: Chest x-ray one view shows CHF, interpreted by Radiology, images were reviewed by me. Differential Diagnosis: This is an 85-year-old female, recently admitted with intracranial hemorrhage after syncope related to hypotension, complicated by aspiration pneumonia recently who presents from her rehab facility with palpitations for the last several hours in the setting of albuterol use. She also reports a 10 lb weight gain. She denies any other complaints. Differential diagnosis includes CHF exacerbation, albuterol side-effect, fluid overload state. In the emergency room, EKG was checked and revealed atrial fibrillation with RVR. Because of this, she was given a dose of diltiazem. Beta blockers will held because the patient has been receiving albuterol and does have a history of CHF. Her heart rate did improve somewhat with this. She was also given a dose of Lasix after her chest x-ray revealed fluid overload state. Her blood pressures have been stable. She will be admitted to the hospitalist service. I have discussed the case with Dr. Esqueda/ - Data Points Laboratory Results: Laboratory Results 07/14/16 22:35 07/14/16 22:35 07/14/16 07/14/16 22:35 22:35 WBC 6.81 10^3/uL 10^3/uL (3.80-9.50) RBC 3.11 10^6/uL L 10^6/uL (4.18-5.33) Hgb 9.8 g/dL L g/dL (12.6-16.3) Hct 29.6 % L % (38.0-47.0) MCV 95.2 fL fL (81.5-99.8) MCH 31.5 pg pg (27.9-34.1) MCHC 33.1 g/dL g/dL (32.4-36.7) RDW 14.1 % % (11.5-15.2) Plt Count 222 10^3/uL 10^3/uL (150-400) MPV 10.4 fL fL (8.7-11.7) Neut % (Auto) 75.8 % H % (39.3-74.2) Lymph % (Auto) 11.5 % L % (15.0-45.0) [place] % (Auto) 9.8 % % (4.5-13.0) Eos % (Auto) 2.1 % % (0.6-7.6) Baso % (Auto) 0.4 % % (0.3-1.7) Nucleat RBC Rel Count 0.0 % % (0.0-0.2) Absolute Neuts (auto) 5.16 10^3/uL 10^3/uL (1.70-6.50) Absolute Lymphs (auto) 0.78 10^3/uL L 10^3/uL (1.00-3.00) Absolute Monos (auto) 0.67 10^3/uL 10^3/uL (0.30-0.80) Absolute Eos (auto) 0.14 10^3/uL 10^3/uL (0.03-0.40) Absolute Basos (auto) 0.03 10^3/uL 10^3/uL (0.02-0.10) Absolute Nucleated RBC 0.00 10^3/uL 10^3/uL (0-0.01) Immature Gran % 0.4 % % (0.0-1.1) Immature Gran # 0.03 10^3/uL 10^3/uL (0.00-0.10) Sodium 142 mEq/L mEq/L (134-144) Potassium 3.9 mEq/L mEq/L (3.5-5.2) Chloride 107 mEq/L mEq/L (97-110) Carbon Dioxide 24 mEq/l mEq/l (22-31) Anion Gap 11 mEq/L mEq/L (8-16) BUN 31 mg/dL H mg/dL (7-23) Creatinine 1.5 mg/dL H mg/dL (0.6-1.0) Estimated GFR 33 Glucose 115 mg/dL H mg/dL (70-100) Calcium 10.2 mg/dL mg/dL (8.5-10.4) Troponin I 0.017 ng/mL ng/mL (0-0.034) NT-Pro-B Natriuret Pep 4250 pg/mL H pg/mL (0-450) Medications Given: Discontinued Medications Diltiazem HCl (Cardizem 25 Mg/5 Ml Vial) 12 mg IVP EDNOW ONE Stop: 07/14/16 23:04 Last Admin: 07/14/16 23:07 Dose: 12 mg Furosemide (Lasix Injection) 20 mg IVP EDNOW ONE Stop: 07/14/16 23:19 Last Admin: 07/14/16 23:42 Dose: 20 mg Departure - Departure Referrals: CHRISTIAN BORJA [Non Staff Provider ()] - As per Instructions
[2016-07-14 22:53] LABS: % IMMATURE GRANULYOCYTES 0.4 % (0.0-1.1); ABSOLUTE IMMATURE GRANULOCYTES 0.03 10^3/uL (0.00-0.10); ADD DIFF? NO; ADD MORPH? NO; ADD SCAN? NO; ATYPICAL LYMPHOCYTE FLAG 20 (0-99); FRAGMENT RBC FLAG 0 (0-99); HEMATOCRIT 29.6 % (38.0-47.0); HEMOGLOBIN 9.8 g/dL (12.6-16.3); LEFT SHIFT FLG 0 (0-99); LIPEMIA HEMOLYSIS FLAG 80 (0-99); MEAN CELL HEMOGLOBIN 31.5 pg (27.9-34.1); MEAN CELL HEMOGLOBIN CONCENTR. 33.1 g/dL (32.4-36.7); MEAN CELL VOLUME 95.2 fL (81.5-99.8); MEAN PLATELET VOLUME 10.4 fL (8.7-11.7); PLATELET CLUMPS FLAG 0 (0-99); PLATELET COUNT 222 10^3/uL (150-400); RED BLOOD CELL COUNT 3.11 10^6/uL (4.18-5.33); RED CELL DISTRIBUTION WIDTH 14.1 % (11.5-15.2)
[2016-07-14 23:00] LABS: ANION GAP 11 mEq/L (8-16); CALCIUM 10.2 mg/dL (8.5-10.4); CARBON DIOXIDE 24 mEq/l (22-31); CHLORIDE 107 mEq/L (97-110); CREATININE 1.5 mg/dL (0.6-1.0); GLOMERULAR FILTRATION RATE 33; GLUCOSE 115 mg/dL (70-100); POTASSIUM 3.9 mEq/L (3.5-5.2); SODIUM 142 mEq/L (134-144)
[2016-07-14] MEDS ORDERED: DILTIAZEM 25 MG/5 ML VIAL IVP ONE (23:03)
[2016-07-14 23:12] LABS: TROPONIN I 0.017 ng/mL (0-0.034)
--- NOTE | 2016-07-14 23:16 | CPEKG ---
Heart Rate: 97 RR Interval: 619 QRSD Interval: 88 QT Interval: 364 QTC Interval: 463 QRS [place]: 29 EKG Severity - ABNORMAL ECG - EKG Impression: ATRIAL FIBRILLATION EKG Impression: BORDERLINE REPOL ABNORMALITY, DIFFUSE LEADS Electronically Signed By: Magda Mathur 15-Jul-2016 07:21:13
[2016-07-14] MEDS ORDERED: FUROSEMIDE 20 MG/2 ML VIAL IVP ONE (23:18)
[2016-07-15] MEDS ORDERED: HYDROCODONE/APAP 5/325 TAB PO PRN (00:13)
[2016-07-15] MEDS ORDERED: ACETAMINOPHEN 325 MG TAB PO PRN (00:13)
[2016-07-15] MEDS ORDERED: ONDANSETRON DISINTEGRATING 4 MG TAB PO PRN (00:13)
[2016-07-15] MEDS ORDERED: ONDANSETRON 4 MG/2 ML VIAL IVP PRN (00:13)
--- NOTE | 2016-07-15 00:21 | PDGENHP ---
History and Physical - Chief Complaint palpitations - History of Present Illness Patient is an 85-year-old female with history of atrial fibrillation, diastolic CHF, chronic hypoxic respiratory failure, achalasia, severe pulmonary hypertension and hypertension who presented to the ED with complaint of palpitations. Patient was recently admitted to [facility] for syncope resulting in head trauma and intracranial hemorrhage. She was discharged to [facility] and reports feeling well until about 2 days ago, when she was eating dinner and had a possible aspiration episode. She states she had regurgitated a small amount of recently swallowed food and then began coughing. She did not become hypoxic and was not in respiratory distress at this time, went to sleep without event. The following day (day prior to presentation), patient continued to have a mild cough, associated with shortness of breath. CXR was performed at [facility] and revealed possible RLL infiltrate consistent with an aspiration event. She was initiated on albuterol nebulizers every 6 hours and started on Augmentin. This evening, after receiving another neb treatment, patient began feeling palpitations, not associated with chest pain, lightheadedness. Her monitored her HR on his pulse ox and it was found to be in the 130-140 range. Given this, it was decided to transport her to the ED for further evaluation. On arrival to the ED, patient was tachycardic to the 130 range, afebrile and with stable VS. Labs revealed normal cbc and BMP, but elevated BNP. CXR showed evidence of fluid overload. Her heart rate was controlled with IV diltiazem and she was given 1 dose of IV lasix. She was then admitted to the hospitalist service for further management. History Information - Allergies/Home Medication List Allergies/Adverse Reactions: Sulfa (Sulfonamide Antibiotics) Allergy (Verified 07/02/16 21:14) Rash Home Medications: Docusate Sodium [Colace 100 MG (*)] 3 tab PO HS 12/03/15 [Last Taken 07/01/16 21 :00] Calcium Carb W/Vit D [Calcium Carb W/Vit D 500/200 (*)] 500 mg PO BID 05/27/16 [ Last Taken 05/26/16 09:00] Atorvastatin Calcium [Lipitor 10 mg (*)] 10 mg PO HS 07/02/16 [Last Taken 21:00] Spironolactone [Aldactone 25 MG (*)] 12.5 mg PO DAILY 07/02/16 [Last Taken 07/02 08:00] I have personally reviewed and updated: family history, medical history, social history, surgical history - Past Medical History Additional medical history: Atrial fibrillation off AC after recent intracranial hemorrhage. Intracranial hemorrhage. HTN. Achalasia. diastolic CHF. moderate to severe Pulm hypertension. chronic respiratory failure on home O2 at night. Osteoporosis with lumbar arthritis - Surgical History Additional surgical history: Hysterectomy. Bilateral bunionectomy. Appendectomy. Bilateral cataract. Right hand surgery - Family History Positive for: non-pertinent - Social History Smoking Status: Never smoked Additional social history: Patient lives with her in an independent living facility until recent hospital admission, discharged to [facility]. Usually walks with a walker Review of Systems ROS: 10pt was reviewed & negative except for what was stated in HPI & below Physical Exam Temp Pulse Resp BP Pulse Ox 36.7 C 115 H 18 144/83 H 95 07/14/16 22:30 07/15/16 00:00 07/15/16 00:00 07/15/16 00:00 07/15/16 00:00 Constitutional: no apparent distress, appears nourished, not in pain Eyes: PERRL, anicteric sclera, EOMI Ears, Nose, Mouth, Throat: moist mucous membranes, hearing normal, ears appear normal, no oral mucosal ulcers Cardiovascular: regular rate and rhythym, irregularly irregular, pulses symmetric bilaterally, edema, No JVD Peripheral Pulses: 2+: dorsalis-pedis (R), dorsalis-pedis (L) Respiratory: no respiratory distress, no rales or rhonchi, inspiratory crackles (in L lung base) Gastrointestinal: normoactive bowel sounds, soft, non-tender abdomen, no palpable masses, No tenderness, No guarding, No rebound, No distension Genitourinary: no bladder fullness, no bladder tenderness Skin: warm, normal color, no fluctuance, other (resolving facial ecchymosis; L eyebrow laceration healing), No mottled Musculoskeletal: full muscle strength, no muscle tenderness, normal joint ROM, no joint effusions Neurologic: AAOx3, sensation intact bilaterally, CN II-XII Intact, No weakness, No numbness, No pronator drift, No facial droop Psychiatric: interacting appropriately, not anxious, not encephalopathic, thought process linear Lab Data & Imaging Review 07/14/16 22:35 07/14/16 22:35 WBC 6.81 10^3/uL (3.80-9.50) 07/14/16 22:35 RBC 3.11 10^6/uL (4.18-5.33) L 07/14/16 22:35 Hgb 9.8 g/dL (12.6-16.3) L 07/14/16 22:35 Hct 29.6 % (38.0-47.0) L 07/14/16 22:35 MCV 95.2 fL (81.5-99.8) 07/14/16 22: MCH 31.5 pg (27.9-34.1) 07/14/16 22: MCHC 33.1 g/dL (32.4-36.7) 07/14/16 22: RDW 14.1 % (11.5-15.2) 07/14/16 22:35 Plt Count 222 10^3/uL (150-400) 07/14/16 22:35 MPV 10.4 fL (8.7-11.7) 07/14/16 22:35 Neut % (Auto) 75.8 % (39.3-74.2) H 07/14/16 22:35 Lymph % (Auto) 11.5 % (15.0-45.0) L 07/14/16 22: [place] % (Auto) 9.8 % (4.5-13.0) 07/14/16 22:35 Eos % (Auto) 2.1 % (0.6-7.6) 07/14/16 22:35 Baso % (Auto) 0.4 % (0.3-1.7) 07/14/16:35 Nucleat RBC Rel Count 0.0 % (0.0-0.2) 07/14/16 22:35 Absolute Neuts (auto) 5.16 10^3/uL (1.70-6.50) 07/14/16 22:35 Absolute Lymphs (auto) 0.78 10^3/uL (1.00-3.00) L 07/14/16 22:35 Absolute Monos (auto) 0.67 10^3/uL (0.30-0.80) 07/14/16 22:35 Absolute Eos (auto) 0.14 10^3/uL (0.03-0.40) 07/14/16 22:35 Absolute Basos (auto) 0.03 10^3/uL (0.02-0.10) 07/14/16 22:35 Absolute Nucleated RBC 0.00 10^3/uL (0-0.01) 07/14/16:35 Immature Gran % 0.4 % (0.0-1.1) 07/14/16 22:35 Immature Gran # 0.03 10^3/uL (0.00-0.10) 07/14/16 22:35 Sodium 142 mEq/L (134-144) 07/14/16 22:35 Potassium 3.9 mEq/L (3.5-5.2) 07/14/16:35 Chloride 107 mEq/L (97-110) 07/14/16:35 Carbon Dioxide 24 mEq/l (22-31) 07/14/16 22:35 Anion Gap 11 mEq/L (8-16) 07/14/16 22:35 BUN 31 mg/dL (7-23) H 07/14/16 22:35 Creatinine 1.5 mg/dL (0.6-1.0) H 07/14/16 22:35 Estimated GFR 33 07/14/16 22:35 Glucose 115 mg/dL (70-100) H 07/14/16:35 Calcium 10.2 mg/dL (8.5-10.4) 07/14/16:35 Troponin I 0.017 ng/mL (0-0.034) 07/14/16 22:35 NT-Pro-B Natriuret Pep 4250 pg/mL (0-450) H 07/14/16 22:35 Visualized and Interpreted Chest x-ray results: Yes Chest X-Ray results: infiltrate (L lower infiltrate vs effusion) Visualized and Interpreted EKG results: Yes EKG additional interpertation: atrial fib Assessment & Plan Assessment: Patient is an 85-year-old female with a history of hypertension, atrial fibrillation, diastolic CHF and severe pulmonary hypertension who presents to the ED with complaint of palpitations. On arrival to the ED, patient was noted to be in afib with rvr to the 130 range, which has been controlled with diltiazem. Labs also reveal possible acute chf exacerbation. Plan: # afib with rvr Patient's chief complaint was palpitations after receiving several nebulized albuterol treatments. Suspect tachycardia was induced by albuterol, although acute infection vs pulmonary embolism are also on the differential. On arrival, patient was in afib with RVR to the 120-130 range, BP stable. She was given IV diltiazem with improvement in HR. In outpatient setting, patient is not on any rate controlling meds and Eliquis was held due to acute intracranial hemorrhage. Will monitor HR off albuterol. If persistently elevated, will initiate low dose PO metoprolol for rate control. Will continue to hold anticoagulation and consult cardiology regarding risks/benefits of restarting. # ? aspiration event Patient reports 2 days ago she felt she had aspirated some food and had been feeling short of breath over past 1 day, which is why she was receiving nebulizer treatments. Presentation CXR does not have an obvious aspiration pneumonia, patient is afebrile and without leukocytosis, so will hold any antibiotics at this time. # acute on chronic diastolic CHF exacerbation Patient with mild lower extremity edema,BNP is significant elevated and CXR appears consistent with fluid overload. She is on spironolactone only for outpatient diuretic regimen given recent syncope with head trauma due to hypovolemia. Will give gentle diuresis and monitor fluid status. EKG does not show obvious ischemic changes and initial troponin is negative. Will continue to monitor troponins, serial ekgs. # recent ICH Patient with resolving facial ecchymosis and healing L eyebrow laceration. Systemic anticoagulation was held in previous admission. Will need to assess risks vs benefits of restarting AC in setting of recent falls. # HTN BP stable on presentation. Will cont home BP meds. # dispo: admit to observation status # gen: cardiac diet DVt ppx: lovenox Full code
[2016-07-15 01:37] LABS: COLOR COLORLESS; LEUKOCYTE ESTERASE,URINE NEGATIVE (NEGATIVE); NITRITE,URINE NEGATIVE (NEGATIVE)
[2016-07-15 08:44] LABS: % IMMATURE GRANULYOCYTES 0.4 % (0.0-1.1); ABSOLUTE IMMATURE GRANULOCYTES 0.02 10^3/uL (0.00-0.10); ADD DIFF? NO; ADD MORPH? NO; ADD SCAN? NO; ATYPICAL LYMPHOCYTE FLAG 20 (0-99); FRAGMENT RBC FLAG 0 (0-99); HEMATOCRIT 27.7 % (38.0-47.0); HEMOGLOBIN 9.3 g/dL (12.6-16.3); LEFT SHIFT FLG 0 (0-99); LIPEMIA HEMOLYSIS FLAG 80 (0-99); MEAN CELL HEMOGLOBIN 31.7 pg (27.9-34.1); MEAN CELL HEMOGLOBIN CONCENTR. 33.6 g/dL (32.4-36.7); MEAN CELL VOLUME 94.5 fL (81.5-99.8); MEAN PLATELET VOLUME 9.9 fL (8.7-11.7); PLATELET CLUMPS FLAG 10 (0-99); PLATELET COUNT 216 10^3/uL (150-400); RED BLOOD CELL COUNT 2.93 10^6/uL (4.18-5.33)
[2016-07-15 08:47] LABS: APTT 35.5 SEC (23.0-38.0); INR 1.12 (0.83-1.16); PROTIME(PATIENT) 14.3 SEC (12.0-15.0)
[2016-07-15 08:50] LABS: ANION GAP 11 mEq/L (8-16); CALCIUM 9.3 mg/dL (8.5-10.4); CARBON DIOXIDE 23 mEq/l (22-31); CHLORIDE 110 mEq/L (97-110); CREATININE 1.3 mg/dL (0.6-1.0); GLOMERULAR FILTRATION RATE 39; GLUCOSE 94 mg/dL (70-100); MAGNESIUM 1.9 mg/dL (1.6-2.3); POTASSIUM 3.8 mEq/L (3.5-5.2); SODIUM 144 mEq/L (134-144)
[2016-07-15] MEDS ORDERED: ENOXAPARIN 30 MG/0.3 ML SYR SC SCH (09:00)
[2016-07-15] MEDS ORDERED: METOPROLOL TARTRATE 25 MG TAB PO SCH (09:00)
[2016-07-15] MEDS ORDERED: FUROSEMIDE 20 MG/2 ML VIAL IVP SCH (09:00)
[2016-07-15 09:02] LABS: CREATINE KINASE-MB FRACTION 1.08 ng/mL (0-3.19); TROPONIN I 0.073 ng/mL (0-0.034)
[2016-07-15 11:21] VITALS: BP 153/77; PULSE 80; RESP 18; TEMP 97.5; O2SAT 94
[2016-07-15] MEDS ORDERED: AMIODARONE HCL 200 MG TAB PO SCH (12:00)
--- NOTE | 2016-07-15 12:16 | PDIAF ---
- Diagnosis Diagnosis: afib with rvr Code Status: Full Code - Medication Management Discharge Medications: Medications to Continue on Transfer Docusate Sodium [Colace 100 MG (*)] 3 tab PO HS 12/03/15 [Last Taken 07/01/16 21 :00] Acetaminophen [Tylenol 325mg (*)] 650 mg PO Q4HRS PRN #0 tab 06/02/16 [Last Taken Unknown] Atorvastatin Calcium [Lipitor 10 mg (*)] 10 mg PO HS 07/02/16 [Last Taken ] Spironolactone [Aldactone 25 MG (*)] 12.5 mg PO DAILY 07/02/16 [Last Taken 07/14] Acetaminophen [Tylenol 325mg (*)] 650 mg PO Q4HRS PRN #0 tab 07/15/16 [Last Taken Unknown] Amiodarone HCl [Pacerone (*)] 400 mg PO BID #30 tab 07/15/16 [Last Taken Unknown ] Calcium Citrate/Vitamin D3 [CITRACAL-VIT D 250 MG-200 TAB] 1 each PO DAILY 07/15 [Last Taken 07/14/16] Losartan Potassium [Cozaar 50 mg (*)] 25 mg PO DAILY 07/15/16 [Last Taken ] Zolpidem Tartrate 3.75 mg PO HS PRN 07/15/16 [Last Taken Unknown] Discharge Medications: Refer to the Discharge Home Medication list for PRN reason. - Orders Services needed: Registered Nurse, Physical Therapy, Occupational Therapy - Follow Up Care Current Providers and Referrals: CHRISTIAN BORJA [Non Staff Provider ()] - As per Instructions
--- NOTE | 2016-07-15 13:13 | GDS ---
[f rep st] DISCHARGE SUMMARY DISCHARGE DIAGNOSES: 1. Paroxysmal atrial fibrillation with rapid ventricular response, status post conversion to sinus rhythm. 2. Reported aspiration event without signs of aspiration pneumonia or pneumonitis. 3. Acute on chronic diastolic heart failure exacerbation. 4. Recent intracranial hemorrhage. 5. Hypertension. CONSULTANTS: Dr. Wes Mcfarland, [facility]. HOSPITAL COURSE AND STAY BY PROBLEM: 1. Atrial fibrillation with RVR: The patient was given IV diltiazem in the emergency department an d was then placed on observation on where she spontaneously converted to sinus rhythm early t his morning. She was seen by Dr. Mcfarland from [facility], who recommended starting amiod arone, which was done. On day of discharge, the patient states she feels well and is agreeable to g o home. She denies any chest pain or shortness of breath. PHYSICAL EXAMINATION: VITAL SIGNS: On day of discharge, blood pressure 153/77, pulse of 80, respir atory rate 18, O2 saturation 94% on room air. Temperature afebrile. GENERAL: No acute distress. HEART: S1, S2. LUNGS: Clear. ABDOMEN: Soft. EXTREMITIES: No edema. DISCHARGE MEDICATIONS: Please refer to discharge medication reconciliation in [facility] for full det ails. Below is a preliminary list. New medications on hospital discharge: Amiodarone 400 mg p.o. b.i.d. All other home medications were continued at her usual home dosages. DISCHARGE INSTRUCTIONS: The patient was discharged from the hospital where she should follow up shannan Knight in 2 weeks to titrate her amiodarone. It was not recommended that she be restarted on a nticoagulation given her recent fall an intracranial hemorrhage. /[id number]/MODL
--- NOTE | 2016-07-15 13:44 | GCON ---
[f rep st] CONSULTATION HISTORY OF PRESENT ILLNESS: This is an 85-year-old female with past medical history of paroxysmal atrial fibrillation, diastolic congestive heart failure, chronic hypoxic respiratory failure, achalasia, bleeding peptic ulcer in the past, moderate pulmonary hypertension, systemic hypertension, who came in to the emergency room with complaints of palpitations. Recently, the patient has been admitted on several occasions to the hospital. She had an episode of atrial fibrillation in April of 2016. After that, she was started on Eliquis. Following Eliquis and some changes in her medications, she had a syncopal episode related to intracranial hemorrhage. After that, she was discharged to [facility] and was reportedly feeling well. She was having dinner 2 days back, when she had an aspiration episode. She regurgitated a little, and then started coughing, but did not get hypoxic and was not in distress. Went to sleep without any events. The following day, she continued to have mild cough associated with some shortness of breath. Chest x- ray was performed which showed right lower lobe pneumonia consistent with aspiration. She was started on albuterol and Augmentin. After the fourth dose of albuterol, she was feeling palpitations not associated with lightheadedness, dizziness, presyncope or syncope. Her , who is a retired physician, checked her pulse, and it was in the 130-140 range, and it was decided to bring her to the hospital. On arrival to the hospital, she was tachycardiac, afebrile, with stable vital signs. She was given a dose of Lasix and admitted for further management. She spontaneously converted to normal sinus rhythm, and is currently asymptomatic, able to converse without any problems. HOME MEDICATION: Colace, calcium, atorvastatin, Aldactone, albuterol, and Cozaar. ALLERGIES: Sulfa. FAMILY HISTORY: Noncontributory. SOCIAL HISTORY: Never smoked. Lives with her at an independent living facility. Multiple recent admissions. REVIEW OF SYSTEMS: Other than above, are negative. PHYSICAL EXAMINATION: VITAL SIGNS: Blood pressure 140/80, pulse of 80, respiratory rate 16. HEENT: Pupils equal, reacting to light accommodating. No thyromegaly, no JVD. CHEST: Good air entry, bilaterally equal. No rales, rhonchi, rub. CARDIAC: S1, S2 regular. No S3. No significant murmurs that I could appreciate. ABDOMEN: Soft, nontender. No guarding or rigidity. Bowel sounds present. EXTREMITIES: No edema. LABS: White count is normal. Hemoglobin 9.3, hematocrit 27.7, platelet count of 216. Creatinine of 1.3. BNP of 4250. EKG: Atrial fibrillation with controlled rate. Current telemetry: Normal sinus rhythm. IMPRESSION AND PLAN: 1. This is an 85-year-old female with recent intracranial hemorrhage comes in with atrial fibrillation likely related to aspiration and hypoxic failure related to it. The patient has normal ejection fraction, but has diastolic dysfunction. In view of her atrial fibrillation, one has to decide on blood thinners as well as rate versus rhythm control. In terms of blood thinners, I believe that having had recent intracranial bleed, her risk of oral anticoagulation is much more than the benefit, and hence we will hold off on the oral anticoagulation. I have explained the risk of stroke to the family, and they understand it and agree with it. 2. In terms of rate versus rhythm control, the patient clearly gets symptomatic and hence, prevention of her atrial fibrillation will be necessary. She has multiple factors which can potentially precipitate atrial fibrillation and hence prevention of that will be needed, especially considering she gets symptomatic and then gets admitted for the same. We will start her on amiodarone 400 b.i.d. and taper it down to 200 once a day. 3. Hypertension. This is under good control with current dose of Cozaar as well as Aldactone. No changes will be made. Thank you for letting me participate in the patient's care. Feel free to call me for questions you may have. /[id number]/MODL MTDD
== END 2016-07-15 13:00 | disposition home or self-care (01) ==
LOC: EDUNIT# → EEVIPCON 22:27 → F2W 07-15 00:31
PROVIDERS: ADMIT Internal Medicine; ATTEND Internal Medicine
DX: I48.0 Paroxysmal atrial fibrillation (principal); I11.0 Hypertensive heart disease with heart failure; I50.33 Acute on chronic diastolic (congestive) heart failure; S06.6X1D Traumatic subarachnoid hemorrhage with loss of consciousness of 30 minutes or less, subsequent encounter
CPT/HCPCS: 71010; 93005; 97161; G0378; G8978; G8979; J1650

== ENCOUNTER → 2016-10-25 | Outpatient (CLI) | payer OTHER | LOC: BHFA 14:30 | PROVIDERS: ATTEND Internal Medicine Cardiovascular Disease | DX: Z79.899 Other long term (current) drug therapy (principal) ==

== ENCOUNTER → 2016-11-26 | Outpatient (CLI) | payer OTHER | LOC: FIMAGING 15:19 | PROVIDERS: ATTEND Internal Medicine Critical Care Medicine | DX: J18.9 Pneumonia, unspecified organism (principal); I51.7 Cardiomegaly; R91.1 Solitary pulmonary nodule ==

== ENCOUNTER → 2016-11-30 | Outpatient (CLI) | payer OTHER | LOC: FIMAGING 15:34 | PROVIDERS: ATTEND Psychiatry & Neurology Neurology | DX: R26.81 Unsteadiness on feet (principal); J32.0 Chronic maxillary sinusitis; G31.9 Degenerative disease of nervous system, unspecified; S06.6X Traumatic subarachnoid hemorrhage ==

== ENCOUNTER → 2016-12-11 | Outpatient (CLI) | payer OTHER | LOC: FIMAGING 13:57 | PROVIDERS: ATTEND Internal Medicine Critical Care Medicine | DX: J98.4 Other disorders of lung (principal); I51.7 Cardiomegaly ==

== ENCOUNTER 2016-12-16 10:12 | Inpatient (IN) | payer OTHER ==
--- NOTE | 2016-12-16 10:38 | EDPHY ---
H & P Stated Complaint: hx pna/coughing fever/hypoxia Time Seen by Provider: 12/16/16 10:26 HPI/ROS: CHIEF COMPLAINT: Fever, vomiting, dizziness, cough HISTORY OF PRESENT ILLNESS: This patient is an 85 year old female with history of atrial fibrillation arriving with her family complaining of cough onset yesterday and chills onset this morning. She was recently treated for pneumonia and finished a z-pack around 10 days ago. This morning she got up feeling very cold, could not get warm even with a heating pad. She ate breakfast, but began to feel nauseated and vomited "mucous". She endorses runny nose and shortness of breath today. She is not usually on home oxygen. She is scheduled to follow up with her primary care provider, Dr. uGevara, on 12/27/16, but began feeling much worse today. She denies chest pain, diarrhea, or other associated symptoms. REVIEW OF SYSTEMS: A 10 point review of systems was performed and is negative with the exception of the elements mentioned in the history of present illness. - Personal History Current Tetanus/Diphtheria Vaccine: Yes - Medical/Surgical History PMH: Atrial fibrillation. Aclasia. Pneumonia. Congestive heart failure. Hx Asthma: No Hx Chronic Respiratory Disease: No Hx Diabetes: No Hx Cardiac Disease: Yes Hx Renal Disease: No Hx Cirrhosis: No Hx Alcoholism: No Hx HIV/AIDS: No Hx Splenectomy or Spleen Trauma: No Other PMH: pneumonia, achilasia, scoliosis lumbar spine, charlene bunionectomies, left thr, hysterectomy, appy, charlene thumb surgeries for arthritis, LEFT HIP, CATARACTS, AFIB, HYPERCHOLEST, HYPERTSN - Social History Smoking Status: Never smoked Additional Social History: Family at bedside. . Lives in [place]. - Physical Exam Exam: General Appearance: Alert, pleasant Eyes: Pupils equal and round, no conjunctival pallor or injection ENT, Mouth: Mucous membranes moist Neck: Normal inspection Respiratory: Rales at right base Cardiovascular: 2/6 systolic murmur. Regular rate and rhythm Gastrointestinal: Abdomen is soft and non-tender Neurological: A&O, nonfocal, normal gait Skin: Warm and dry, no rash Extremities: Nontender, 1+ pedal edema. Ecchymosis on right 3rd and 4th toes. Ecchymosis of left midfoot and 4th toe. Psychiatric: Mood and affect normal Constitutional: Initial Vital Signs Temperature (C) 37 C 12/16/16 10:18 Heart Rate 84 12/16/16 10:18 Respiratory Rate 20 12/16/16 10:18 Blood Pressure 171/103 H 12/16/16 10:18 O2 Sat (%) 85 L 12/16/16 10:18 O2 Delivery Mode Nasal Cannula O2 (L/minute) 5 Allergies/Adverse Reactions: Sulfa (Sulfonamide Antibiotics) Allergy (Verified 12/16/16 10:16) Rash Home Medications: Medication Instructions Recorded Docusate Sodium [Colace 100 MG (*)] 3 tab PO HS 12/03/15 Atorvastatin Calcium [Lipitor 10 10 mg PO HS 07/02/16 mg (*)] Acetaminophen [Tylenol ES 500 mg 500 mg PO Q6 PRN 12/16/16 (*)] Amiodarone HCl [Pacerone (*)] 200 mg PO DAILY 12/16/16 Aspirin [Aspirin 81mg (*)] 81 mg PO DAILY 12/16/16 Losartan Potassium [Cozaar 25 mg 25 mg PO DAILY 12/16/16 (*)] Multivitamins [Multivitamin (*)] 1 each PO DAILY 12/16/16 guaiFENesin [Mucinex] 1,200 mg PO DAILY PRN 12/16/16 Medical Decision Making - Diagnostics EKG Interpretation: EKG interpreted by me reveals sinus rhythm, rate 68, first degree AV block, left ventricular hypertrophy. Interpretation: abnormal EKG. Imaging Results: Chest x-ray independently reviewed by me reveals a right-sided infiltrate. Imaging: I viewed and interpreted images myself ED Course/Re-evaluation: 85 year old female with history of recent pneumonia presents with hypoxia, cough and chills. Concern for recurrent pneumonia. She does not meet SIRS criteria. Plan for chest x-ray. IV established, plan for labs including CBC, BMP, sepsis, respiratory PCR, blood cultures. Chest x-ray shows right lobe pneumonia. Blood cultures drawn and Invanz 1gm IV given. 11:10 Consulted with hospitalist service. Dr. Harden accepts admission for pneumonia. Differential Diagnosis: includes though not limited to empyema, PE, pulm edema, bronchitis. - Data Points Laboratory Results: Laboratory Results 12/16/16 10:40 12/16/16 10:40 Microbiology Results: MICROBIOLOGY 12/16/16 11:16 Blood Blood Culture - Preliminary 12/16/16 10:40 Blood Blood Culture - Preliminary Medications Given: Amiodarone HCl (Amiodarone Hcl) 200 mg PO DAILY [facility] Stop: 06/14/17 18:29 Last Admin: 12/18/16 08:41 Dose: 200 mg Aspirin (Aspirin) 81 mg PO DAILY [facility] Stop: 06/15/17 08:59 Last Admin: 12/18/16 08:42 Dose: 81 mg Atorvastatin Calcium (Lipitor) 10 mg PO HS [facility] Stop: 06/14/17 20:59 Last Admin: 12/17/16 22:16 Dose: Not Given Docusate Sodium (Colace) 300 mg PO HS [facility] Stop: 06/14/17 20:59 Last Admin: 12/17/16 22:16 Dose: Not Given Heparin Sodium (Porcine) (Heparin Sc Injection) 5,000 unit SC Q8HRS [facility] Stop: 06/14/17 13:59 Last Admin: 12/18/16 15:02 Dose: 5,000 unit Hydralazine HCl (Apresoline) 10 mg IVP Q6HRS PRN PRN Reason: systolic Bp > 160 mmHg Stop: 06/16/17 15:08 Last Admin: 12/18/16 15:54 Dose: 10 mg Sodium Chloride (Ns) 1,000 mls @ 75 mls/hr IV CONT [facility] Stop: 06/14/17 13:59 Last Admin: 12/18/16 08:36 Dose: 1,000 mls Ertapenem 0.5 gm/ Sodium (Chloride) 100 mls @ 200 mls/hr IV DAILY [facility] PRN Reason: Protocol Stop: 01/16/17 14:29 Last Admin: 12/18/16 08:37 Dose: 100 mls Losartan Potassium (Cozaar) 25 mg PO DAILY [facility] Stop: 06/15/17 08:59 Last Admin: 12/18/16 08:41 Dose: 25 mg Multivitamins (Tab-A-Hodan) 1 each PO DAILY [facility] Stop: 06/15/17 08:59 Last Admin: 12/18/16 08:42 Dose: 1 each Discontinued Medications Ertapenem 1 gm/ Sodium (Chloride) 100 mls @ 200 mls/hr IV EDNOW ONE PRN Reason: Protocol Stop: 12/16/16 11:40 Last Admin: 12/16/16 11:56 Dose: 100 mls Departure - Departure Disposition: [facility] Inpatient Acute Clinical Impression: Pneumonia Qualifiers: Pneumonia type: aspiration pneumonia Aspiration pneumonia type: unspecified Laterality: right Lung location: unspecified part of lung Qualified Code(s): J69.0 - Pneumonitis due to inhalation of food and vomit Condition: Fair Report Scribed for: Francisca Chiu Report Scribed by: Skye Carpenter Date of Report: 12/16/16 Time of Report: 10:39 Physician Review and Approval Statement: 12/16/16 10:39 Portions of this note were transcribed by a back office medical assistant. I personally performed a history, physical exam, medical decision making, and confirmed accuracy of information the transcribed note.
[2016-12-16 10:52] LABS: % IMMATURE GRANULYOCYTES 0.7 % (0.0-1.1); ABSOLUTE IMMATURE GRANULOCYTES 0.08 10^3/uL (0.00-0.10); ADD DIFF? NO; ADD MORPH? NO; ADD SCAN? NO; ATYPICAL LYMPHOCYTE FLAG 0 (0-99); FRAGMENT RBC FLAG 0 (0-99); HEMATOCRIT 30.7 % (38.0-47.0); HEMOGLOBIN 10.2 g/dL (12.6-16.3); LEFT SHIFT FLG 10 (0-99); LIPEMIA HEMOLYSIS FLAG 80 (0-99); MEAN CELL HEMOGLOBIN 30.6 pg (27.9-34.1); MEAN CELL HEMOGLOBIN CONCENTR. 33.2 g/dL (32.4-36.7); MEAN CELL VOLUME 92.2 fL (81.5-99.8); MEAN PLATELET VOLUME 9.7 fL (8.7-11.7); PLATELET CLUMPS FLAG 0 (0-99); PLATELET COUNT 238 10^3/uL (150-400); RED BLOOD CELL COUNT 3.33 10^6/uL (4.18-5.33); RED CELL DISTRIBUTION WIDTH 14.6 % (11.5-15.2)
--- NOTE | 2016-12-16 11:09 | CPEKG ---
Heart Rate: 68 RR Interval: 882 P-R Interval: 220 QRSD Interval: 104 QT Interval: 444 QTC Interval: 473 P [place]: 59 QRS [place]: -7 T Wave [place]: 92 EKG Severity - ABNORMAL ECG - EKG Impression: SINUS RHYTHM EKG Impression: FIRST DEGREE AV BLOCK EKG Impression: PROBABLE LEFT ATRIAL ABNORMALITY EKG Impression: LEFT VENTRICULAR HYPERTROPHY Electronically Signed By: Francisca Chiu 16-Dec-2016 15:00:11
[2016-12-16] MEDS ORDERED: ERTAPENEM 1 GM in NS 100 ML IV ONE (11:11)
[2016-12-16 11:17] LABS: ANION GAP 15 mEq/L (8-16); CALCIUM 9.7 mg/dL (8.5-10.4); CARBON DIOXIDE 20 mEq/l (22-31); CHLORIDE 106 mEq/L (97-110); CREATININE 1.2 mg/dL (0.6-1.0); GLOMERULAR FILTRATION RATE 42; GLUCOSE 116 mg/dL (70-100); POTASSIUM 3.5 mEq/L (3.5-5.2); SODIUM 141 mEq/L (134-144)
[2016-12-16] MEDS ORDERED: NON-FORMULARY NEW DRUG (Guaifenesin [Mucinex] 1,200 MG) PO PRN (13:46)
[2016-12-16] MEDS ORDERED: ACETAMINOPHEN 325 MG TAB PO PRN (13:50)
[2016-12-16] MEDS ORDERED: ONDANSETRON 4 MG/2 ML VIAL IVP PRN (13:50)
[2016-12-16] MEDS ORDERED: ALBUTEROL 3 ML DEYVIAL IH PRN (13:50)
[2016-12-16] MEDS ORDERED: guaiFENesin 600 MG TAB.ER PO PRN (14:25)
[2016-12-16] MEDS: NS 1,000 ML IV SCH (14:25)
[2016-12-16] MEDS: HEPARIN 5,000 UNIT/0.5 ML SYR SC SCH ×2 (15:09→22:53)
[2016-12-16] MEDS ORDERED: IPRATROPIUM/ALBUTEROL 3 ML DEYVIAL IH SCH (16:00)
--- NOTE | 2016-12-16 16:44 | PDGENHP ---
History and Physical History and Physical: CC: cough weakness and shortness of breath History: ( The history I am taking from the patient and her both of whom have some memory issues and there may be some INAccuracy related to this) This patient awoke feeling reasonably well this morning but had as she typically does in the morning only fair amount of regurgitation of some mucousy material. Shortly thereafter she had a large coughing spell and began to cough more and become short of breath and weak. Nausea developed and it sounds like she may have vomited. She came into the hospital emergency room following this with significant shortness of breath and hypoxemia but without fever. There is no chest pain. On top of these symptoms the patient had recently been seen by Dr. Guevara with respiratory symptoms and treated with a course of azithromycin. There was a chest x-ray that did not show dramatic changes from previous x-rays but had some degree of infiltrate. She had seen Dr. Rios in follow-up had a follow-up chest x-ray that was improved. notably the patient does have history of an aspiration episode which required hospital admission here in the past several months. She has a long history of chronic hypoxemia with bronchiectasis and some borderline restrictive lung disease and has chronic pulmonary hypertension. She has mitral regurgitation and atrial fibrillation as well with chronic diastolic heart failure. it sounds like she was never a smoker. ROS: She does tell me that for the last 2-3 months at least she has quite a lot of regurgitation of mucousy material that she thinks is coming from her esophagus and she thinks this may be related to her achalasia. She has an appointment to see Dr. Chi related to this, and apparently had an esophagram done in [place] 5 days ago in preparation for her appoint with Dr. Chi. They do not know the results of that Gillian comprehensive 10 system review revealed no other significant findings PAST MEDICAL HISTORY: Atrial fibrillation Diastolic heart failure Mitral regurgitation Chronic pulmonary hypertension Chronic hypoxemic respiratory failure Bronchiectasis noted on CT scan Borderline restrictive changes on pulmonary function testing Hypertension Chronic kidney disease A Christina GONZALEZA with chronic symptoms related to that Chronic orthostasis Peptic ulcer disease Hypercholesterolemia Osteoporosis Hypertension Surgeries have included hysterectomy appendectomy cataract hand surgery and total hip replacement FAMILY MEDICAL HISTORY: coronary disease, glaucoma, skin cancer, hypertension SOCIAL HISTORY: lives her in an apartment No history of smoking MEDICATIONS: The patients list has been reconciled by our clinical pharmacist in the EMR. I have reviewed the list and ordered appropriate medicines. PHYSICAL EXAMINATION: Vital Signs: mildly hypertensive, otherwise stable without fever Commercial Litigation Attorney: sinus rhythm in the ER Examination: General: alert, oriented, good mentation, relaxed breathing 5 L of nasal cannula oxygen but I was able to turn it down to 2 L without any decrease in her oxygen saturation or her respiratory appearance Skin: warm, dry, good color, no rash HEENT: normal Neck: no mass or jvd Resps: relaxed Lungs: diminished breath sounds with some rhonchi on the right lung base Heart: regular, with a 2/6 systolic murmur at the apex Abdomen: soft, nondistended, nontender, +BS, no mass Upper Extremities: normal Lower Extremities: very mild bipedal edema, warm No Bleeding or bruising Neurologic: normal speech/language, normal public relations specialist, no focal weakness IV site: looks normal LABORATORY DATA: creatinine 1.2 which is actually better than she has had in the recent couple of months white blood cell count 39061 *no organisms identified on a respiratory pathogen panel test RADIOLOGY STUDIES: My reading of the images:chest x-ray shows a very dense large right mid and lower lung infiltrate , no signs of heart failure although she has a very large heart 12 LEAD EKG: My reading of the tracing shows sinus rhythm with no acute abnormalities ASSESSMENT: -acute hypoxemic respiratory failure -Suspected aspiration pneumonitis -Recent suspected infectious respiratory episode treated with azithromycin, with improvement in symptoms and chest x-ray -History of achalasia with ongoing daily regurgitation of mucousy material -Chronic lung disease with chronic hypoxemic respiratory failure, bronchiectasis , and some mild restrictive change Given her appearance, lack of fever, and negative respiratory pathogen panel, I suspect this is primarily a respiratory pneumonitis without likely significant infection. However will treat her empirically for short time with antibiotics and while we watch how she recovers. If she does not have ongoing signs of infection or fever would stop that after a couple days. I think that she is likely having recurrent aspiration episodes related to her achalasia and will have Gastroenterology see her related to that. Will have pulmonology see her to weigh in as well as they have just seen her in the last couple weeks And she will need ongoing follow-up care with Dr. Rios. At this point will keep her NPO and also have a speech therapy evaluation to make sure that she is swallowing appropriately. It does not sound like she has much trouble swallowing with meals. I have reviewed the patient's case in detail with Dr. Randolph Gonzalez I have reviewed the patient's past medical records as part of this assessment, including previous hospital records as well as clinic records with Dr. Rios from earlier this month as well as prior chest x-ray images
[2016-12-16] MEDS: AMIODARONE HCL 200 MG TAB PO SCH (18:20)
[2016-12-16] MEDS: ATORVASTATIN CALCIUM 10 MG TAB PO SCH (20:14)
[2016-12-16] MEDS: DOCUSATE SODIUM 100 MG CAP PO SCH (20:14)
[2016-12-17 04:49] LABS: % IMMATURE GRANULYOCYTES 0.9 % (0.0-1.1); ABSOLUTE IMMATURE GRANULOCYTES 0.15 10^3/uL (0.00-0.10); ADD DIFF? NO; ADD MORPH? NO; ADD SCAN? NO; ATYPICAL LYMPHOCYTE FLAG 0 (0-99); FRAGMENT RBC FLAG 0 (0-99); HEMATOCRIT 26.1 % (38.0-47.0); HEMOGLOBIN 8.8 g/dL (12.6-16.3); LEFT SHIFT FLG 30 (0-99); LIPEMIA HEMOLYSIS FLAG 80 (0-99); MEAN CELL HEMOGLOBIN 31.4 pg (27.9-34.1); MEAN CELL HEMOGLOBIN CONCENTR. 33.7 g/dL (32.4-36.7); MEAN CELL VOLUME 93.2 fL (81.5-99.8); MEAN PLATELET VOLUME 9.6 fL (8.7-11.7); PLATELET CLUMPS FLAG 20 (0-99); PLATELET COUNT 184 10^3/uL (150-400); RED CELL DISTRIBUTION WIDTH 14.9 % (11.5-15.2)
[2016-12-17] MEDS: HEPARIN 5,000 UNIT/0.5 ML SYR SC SCH ×4 (05:03→21:49)
[2016-12-17 05:05] LABS: ANION GAP 10 mEq/L (8-16); CALCIUM 8.8 mg/dL (8.5-10.4); CARBON DIOXIDE 21 mEq/l (22-31); CHLORIDE 109 mEq/L (97-110); CREATININE 1.2 mg/dL (0.6-1.0); GLOMERULAR FILTRATION RATE 42; GLUCOSE 88 mg/dL (70-100); POTASSIUM 3.3 mEq/L (3.5-5.2); SODIUM 140 mEq/L (134-144)
[2016-12-17] MEDS ORDERED: ENOXAPARIN 40 MG/0.4 ML SYR SC SCH (09:00)
[2016-12-17] MEDS: AMIODARONE HCL 200 MG TAB PO SCH (09:05)
[2016-12-17] MEDS: LOSARTAN POTASSIUM 50 MG TAB PO SCH (09:06)
[2016-12-17] MEDS: MULTIVITAMINS 1 EACH TAB PO SCH (09:12)
[2016-12-17] MEDS: ASPIRIN 81 MG CHEWABLE TAB PO SCH (09:13)
--- NOTE | 2016-12-17 12:57 | HOSPPROG ---
Hospitalist Progress Note Assessment/Plan: DIAGNOSES: -acute hypoxemic respiratory failure -Suspected aspiration pneumonitis -Recent suspected infectious respiratory episode treated with azithromycin, with improvement in symptoms and chest x-ray -History of achalasia with ongoing daily regurgitation of mucousy material -Chronic lung disease with chronic hypoxemic respiratory failure, bronchiectasis , and some mild restrictive change -Chronic hypertension, on treatment, with a history of chronic symptomatic orthostatic hypotension She is essentially is unchanged in respiratory status between yesterday and today, still with some hypoxemia and dyspnea, and still having significant regurgitation of esophageal contents. She is able to swallow safely but I am concerned about her regurgitating during her sleep. PLANS: -Continue ertapenem and respiratory care at this time -I have ordered a repeat chest x-ray today -I have reviewed case with Dr. Melchor is will see the patient and will get results of her recent esophagram done at the [facility] -I believe she will need some treatment for her achalasia but will determine recommendations after we have information from GI - of note her systolic blood pressures running in the 60s, but this is her goal blood pressure per her sane rn's due to her significant chronic orthostatic hypotension SUBJECTIVE: Feels more alert today and her also noticed her being more alert Still with some dyspnea, no chest pain, some cough present with phlegm Did wake up during the night with acid reflux and regurgitation of partially digested food around 4 o'clock this morning OBJECTIVE Vitals reviewed: stable without fever Exam: alert oriented skin warm dry color ok resps not labored but mildly rapid lungs very diminished BSs with some rhonchi on the right lower lung heart regular abd soft nondistended nontender, bowel sounds present limbs warm, no edema iv site ok laboratory data: Notably her white blood cell count is increased significantly at 16,000 today Microbiology: Respiratory pathogen panel negative Blood cultures no growth to date Objective: Vital Signs Temp Pulse Resp BP Pulse Ox 36.9 C 62 14 163/73 H 95 12/17/16 11:47 12/17/16 11:47 12/17/16 11:47 12/17/16 11:47 12/17/16 11:47 Laboratory Results 12/17/16 04:36 12/17/16 04:36 12/16/16 12/17/16 12/18/16 06:59 06:59 06:59 Intake Total 1440 Balance 1440 ICD10 Worksheet Patient Problems: Problems Problem Status Onset Pneumonia Acute Aspiration pneumonia Acute Atrial flutter Acute Chronic Disease Mgmt/Transitional Care Acute Dehydration Acute Elevated troponin Acute Intraparenchymal hematoma of brain due to trauma Acute Lightheaded Acute Lip laceration Acute Pleural effusion Acute Pulmonary edema Acute Renal insufficiency Acute Subarachnoid hemorrhage Acute Syncope Acute
[2016-12-17] MEDS ORDERED: ERTAPENEM 1 GM in NS 100 ML IV SCH (13:00)
[2016-12-17] MEDS: ERTAPENEM 0.5 GM in NS 100 ML IV SCH (17:11)
[2016-12-17] MEDS: NS 1,000 ML IV SCH (19:37)
[2016-12-17] MEDS: ATORVASTATIN CALCIUM 10 MG TAB PO SCH (22:16)
[2016-12-17] MEDS: DOCUSATE SODIUM 100 MG CAP PO SCH (22:16)
[2016-12-18] MEDS ORDERED: hydrALAZINE 10 MG TAB PO PRN (00:03)
[2016-12-18 05:08] LABS: % IMMATURE GRANULYOCYTES 0.8 % (0.0-1.1); ADD DIFF? NO; ADD MORPH? NO; ADD SCAN? NO; ATYPICAL LYMPHOCYTE FLAG 0 (0-99); FRAGMENT RBC FLAG 0 (0-99); HEMATOCRIT 27.6 % (38.0-47.0); LEFT SHIFT FLG 10 (0-99); LIPEMIA HEMOLYSIS FLAG 80 (0-99); MEAN CELL HEMOGLOBIN 30.9 pg (27.9-34.1); MEAN CELL HEMOGLOBIN CONCENTR. 32.6 g/dL (32.4-36.7); MEAN CELL VOLUME 94.8 fL (81.5-99.8); PLATELET CLUMPS FLAG 0 (0-99); PLATELET COUNT 204 10^3/uL (150-400); RED BLOOD CELL COUNT 2.91 10^6/uL (4.18-5.33); RED CELL DISTRIBUTION WIDTH 14.8 % (11.5-15.2)
[2016-12-18] MEDS: HEPARIN 5,000 UNIT/0.5 ML SYR SC SCH ×3 (05:24→21:56)
[2016-12-18 05:25] LABS: ANION GAP 14 mEq/L (8-16); CALCIUM 8.9 mg/dL (8.5-10.4); CARBON DIOXIDE 19 mEq/l (22-31); CHLORIDE 109 mEq/L (97-110); GLOMERULAR FILTRATION RATE 52; GLUCOSE 71 mg/dL (70-100); POTASSIUM 3.3 mEq/L (3.5-5.2); SODIUM 142 mEq/L (134-144)
[2016-12-18] MEDS: NS 1,000 ML IV SCH ×2 (08:36→19:44)
[2016-12-18] MEDS: ERTAPENEM 0.5 GM in NS 100 ML IV SCH (08:37)
[2016-12-18] MEDS: AMIODARONE HCL 200 MG TAB PO SCH (08:41)
[2016-12-18] MEDS: LOSARTAN POTASSIUM 50 MG TAB PO SCH (08:41)
[2016-12-18] MEDS: ASPIRIN 81 MG CHEWABLE TAB PO SCH (08:42)
[2016-12-18] MEDS: MULTIVITAMINS 1 EACH TAB PO SCH (08:42)
--- NOTE | 2016-12-18 15:14 | HOSPPROG ---
Hospitalist Progress Note Assessment/Plan: 86-year-old female admitted with acute respiratory failure, right lower lobe pneumonia and known achalasia. Patient is new to me today. There esophageal pressure readings from the [facility] in records which we at this time of not been able to obtain. This would be helpful in her evaluation as she is reporting she is really unable to eat without vomiting and feels a sense of pressure in her upper abdomen and lower chest. -acute hypoxic respiratory failure: This is now improved on pulmonary care and antibiotics. Chest x-ray shows a right lower lobe infiltrate likely an aspiration pneumonia secondary to her achalasia. She had a recent suspected infectious respiratory problem treated with azithromycin and improvement in the symptoms and by chest x-ray. -history of achalasia with daily regurgitation and vomiting of food material. We are seeking the records from the [facility] and will consult GI appropriately. -chronic lung disease with chronic hypoxic respiratory failure, bronchiectasis and some mild restrictive changes. -chronic hypertension on Cozaar as an outpatient. She is hypertensive here and will be given today hydralazine IV. -nutrition: Presently the patient is unable to eat as she suffers from severe achalasia. The records from [facility] would be quite helpful yet if she is unable to eat an alternative nutritional plan will need to be established. Plan: Obtain records from the [facility] and consult Gastroenterology. Treat the hypertension with IV hydralazine and continue her home medications. Continue her ongoing pulmonary care. Subjective: Reports she is vomiting most of which she tries to eat. At this time she has not had adequate nutrition for at least 5 days. There is some pain and tenderness in the low chest upper abdomen. She denies shortness of breath or chest pain. Objective: Vital Signs Temp Pulse Resp BP Pulse Ox 36.8 C 59 L 20 176/75 H 97 12/18/16 07:35 12/18/16 10:57 12/18/16 10:57 12/18/16 10:57 12/18/16 10:57 Laboratory Results 12/18/16 04:46 12/18/16 04:45 12/17/16 12/18/16 12/19/16 05:59 05:59 05:59 Intake Total 889 2251 Output Total 200 Balance 889 4838 - Time Spent With Patient Time Spent with Patient: greater than 35 minutes Time Spent with Patient: Greater than 35 minutes spent on this patients care, greater than 50% of time spent counseling, educating, and coordinating care regarding the above mentioned plan. - Pending Discharge Pending Discharge Within 24 Hours: No Pending Discharge Within 48 Hours: No - Physical Exam Constitutional: no apparent distress, chronically ill appearing Eyes: PERRL, anicteric sclera Ears, Nose, Mouth, Throat: moist mucous membranes, hearing normal Cardiovascular: regular rate and rhythym, systolic murmur, JVD (JVD is not elevated), edema (No edema) Respiratory: no respiratory distress, reduced air movement, inspiratory crackles , rhonchi Gastrointestinal: normoactive bowel sounds, soft, non-tender abdomen, no palpable masses Genitourinary: no bladder fullness Skin: warm Musculoskeletal: generalized weakness Neurologic: AAOx3, CN II-XII Intact Psychiatric: interacting appropriately ICD10 Worksheet Patient Problems: Problems Problem Status Onset Aspiration pneumonia Acute Atrial flutter Acute Lightheaded Acute Renal insufficiency Acute Elevated troponin Acute Dehydration Acute Pneumonia Acute Pleural effusion Acute Chronic Disease Mgmt/Transitional Care Acute Pulmonary edema Acute Subarachnoid hemorrhage Acute Intraparenchymal hematoma of brain due to trauma Acute Lip laceration Acute Syncope Acute
[2016-12-18] MEDS ORDERED: PROTOCOL POTASSIUM 1 DOSE MISC PRN ×2 (15:16)
--- NOTE | 2016-12-18 15:53 | ASMTCMCOM ---
DILAN Note CM Note Notes: Spoke w/pt and re; dc w/homecare, PT/OT rec hc, pt and her live at [facility], state pt may have surgery b/c she has not been able to tolerate much oral intake. Both are ammenable to hc but want to wait to discuss diana melgoza CM w/f. Date Signed: 12/18/2016 03:53 PM Electronically Signed By:Jenna Borges
[2016-12-18] MEDS: hydrALAZINE 20 MG/ML VIAL IVP PRN (15:54)
[2016-12-18 18:53] LABS: POTASSIUM 3.3 mEq/L (3.5-5.2)
[2016-12-18] MEDS ORDERED: POLYETHYLENE GLYCOL 3350 17 GM PKT PO PRN (19:39)
[2016-12-18] MEDS ORDERED: LACTULOSE 20 GM/30 ML UDCUP PO PRN (19:39)
[2016-12-18] MEDS ORDERED: MAGNESIUM HYDROXIDE 30 ML UDCUP PO PRN (19:39)
[2016-12-18] MEDS: POTASSIUM Cl (KCl) 100 ML IV SCH ×3 (19:44→23:46)
[2016-12-18] MEDS: DOCUSATE SODIUM 100 MG CAP PO SCH (20:38)
[2016-12-18] MEDS: ATORVASTATIN CALCIUM 10 MG TAB PO SCH (20:38)
[2016-12-18] MEDS: SENNOSIDES/DOCUSATE SODIUM TAB PO SCH (20:39)
[2016-12-19 04:42] LABS: ABSOLUTE IMMATURE GRANULOCYTES 0.11 10^3/uL (0.00-0.10); ADD DIFF? NO; ADD MORPH? NO; ADD SCAN? NO; ATYPICAL LYMPHOCYTE FLAG 0 (0-99); FRAGMENT RBC FLAG 0 (0-99); HEMATOCRIT 28.1 % (38.0-47.0); HEMOGLOBIN 9.2 g/dL (12.6-16.3); LEFT SHIFT FLG 0 (0-99); LIPEMIA HEMOLYSIS FLAG 80 (0-99); MEAN CELL HEMOGLOBIN 31.2 pg (27.9-34.1); MEAN CELL HEMOGLOBIN CONCENTR. 32.7 g/dL (32.4-36.7); MEAN CELL VOLUME 95.3 fL (81.5-99.8); MEAN PLATELET VOLUME 9.7 fL (8.7-11.7); PLATELET CLUMPS FLAG 10 (0-99); PLATELET COUNT 234 10^3/uL (150-400); RED BLOOD CELL COUNT 2.95 10^6/uL (4.18-5.33); RED CELL DISTRIBUTION WIDTH 14.9 % (11.5-15.2)
[2016-12-19 05:16] LABS: ANION GAP 16 mEq/L (8-16); CALCIUM 9.4 mg/dL (8.5-10.4); CARBON DIOXIDE 15 mEq/l (22-31); CHLORIDE 113 mEq/L (97-110); GLOMERULAR FILTRATION RATE 52; GLUCOSE 67 mg/dL (70-100); POTASSIUM 4.1 mEq/L (3.5-5.2); SODIUM 144 mEq/L (134-144)
[2016-12-19] MEDS: HEPARIN 5,000 UNIT/0.5 ML SYR SC SCH ×3 (06:00→22:51)
[2016-12-19] MEDS: hydrALAZINE 20 MG/ML VIAL IVP PRN ×2 (08:49→10:01)
[2016-12-19] MEDS: SENNOSIDES/DOCUSATE SODIUM TAB PO SCH (10:00)
[2016-12-19] MEDS: ERTAPENEM 0.5 GM in NS 100 ML IV SCH (10:00)
[2016-12-19] MEDS: MULTIVITAMINS 1 EACH TAB PO SCH (10:00)
[2016-12-19] MEDS: LOSARTAN POTASSIUM 50 MG TAB PO SCH (10:01)
[2016-12-19] MEDS: ASPIRIN 81 MG CHEWABLE TAB PO SCH (10:01)
[2016-12-19] MEDS: AMIODARONE HCL 200 MG TAB PO SCH (10:01)
[2016-12-19] MEDS: ENALAPRILAT DIHYDRATE 1.25 MG/ML VIAL IVP SCH ×2 (11:17→18:08)
[2016-12-19] MEDS: NS 1,000 ML IV SCH (11:17)
--- NOTE | 2016-12-19 13:37 | GCON ---
[f rep st] CONSULTATION DATE OF CONSULTATION: 12/19/2016 CHIEF COMPLAINT: Dysphagia. HISTORY OF PRESENT ILLNESS: I am asked to see this patient in consultation by Dr. Florez for chief complaint of dysphagia. The patient is a pleasant 86-year-old, followed by my partner, Dr. Chi, for approximately 4-year history of achalasia and trouble swallowing. She did undergo a pneumatic d ilation to 30 mm in 2014 but has been having increasing problems, particularly with regurgitation, t hen resulting in likely aspiration pneumonia. States that she has been admitted at least 5 times th is year for pneumonia and then was readmitted again this week with cough. She states that she has b een having progressive trouble swallowing and now is unable to even swallow liquids, although can lopez ndle her own saliva. On Saturday, she did eat dinner and then had a feeling of foreign body sensation that has now resolved. She then had some feeling of chest pain, but no longer describes feeling of acute foreign body; however, still unable to swallow sips of water without immediate regurgitation. The patient went down to [facility] and had a formal esophageal motility testing on A ugust 2016. However, I have been unable to get that report. ALLERGIES: Sulfa. CURRENT MEDICATIONS: Amiodarone, Mucinex, Tylenol, multivitamins, Cozaar, Colace, calcium, baby asp irin. PAST MEDICAL HISTORY: Notable for achalasia, atrial fibrillation, mitral regurg, diastolic heart fa ilure, chronic pulmonary hypertension, chronic hypoxemia, bronchiectasis on CT scan, hypertension, c hronic kidney disease, peptic ulcer disease, osteoporosis. SOCIAL HISTORY: Patient is . She does not smoke. FAMILY HISTORY: Notable for coronary artery disease. REVIEW OF SYSTEMS: I performed a complete review of systems which was negative except for the perti nent positives and negatives noted above in the HPI. PHYSICAL EXAM: VITALS: She is currently afebrile at 36.6, BP 175/77, pulse 63. CONSTITUTIONAL: P atient is alert and oriented. Eyes are non scleral icterus. HEENT: No oral lesions. CARDIOVASCUL AR: Regular rate, rhythm. CHEST: Clear with some rhonchi but no crepitus. GI: Positive bowel so unds. No hepatosplenomegaly. NEUROLOGIC: Nonfocal. SKIN: No rashes. LABORATORY DATA: Hematocrit is 28%, white count 10 with platelets of 232. Chest x-ray from 017 shows right mid to lower lung opacity, similar in appearance to the chest x-ray from the day bef ore, consistent with suspected aspiration pneumonia superimposed on underlying COPD, some cardiac en largement. Reviewing films, I see no obvious air-fluid levels in the esophagus. Upper GI series fr om 11/14/2015 shows cricopharyngeal hypertrophy with Zenker's. She also has a thoracic esophageal d iverticulum, torturous corkscrew esophagus, and ectatic dilated esophagus. ASSESSMENT: Patient with significant dysphagia, likely multifactorial, with history of underlying a chalasia. May have progression of her disease. 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 Her inability to swallow liquids without immediate regurgitation is concerning for i mpaction, although this also could be if her Zenker's is obstructing. The patient otherwise does no t have a feeling of foreign body sensation which would argue against acute food impaction. Overall, she would be very high risk for endoscopy at this time because of her pneumonia, poor pulmonary/car diac status, and not an easy decision to proceed to diagnostic endoscopy. Therefore, I would recomm end we do a barium swallow today to delineate anatomy and to identify if there is acute obstruction and to see if the Zenker's has progressed. If food impaction is identified, then can arrange for hi gh-risk endoscopy with anesthesia for attempted removal. In the meantime, we will request the [place] report done at [facility] last week to help then make a plan for definitive treatment to see if s he would be a candidate for repeat pneumatic dilation versus peroral endoscopic myotomy procedure. Thanks for the consult. /[id number]/MODL
--- NOTE | 2016-12-19 14:21 | HOSPPROG ---
Hospitalist Progress Note Assessment/Plan: 86-year-old female admitted with acute respiratory failure, right lower lobe pneumonia and known achalasia. There esophageal pressure readings from the [facility] in records which we at this time of not been able to obtain. This would be helpful in her evaluation as she is reporting she is really unable to eat without vomiting and feels a sense of pressure in her upper abdomen and lower chest. She has a known history of achalasia as anchors diverticulum. -acute hypoxic respiratory failure: This is now improved on pulmonary care and antibiotics. Chest x-ray shows a right lower lobe infiltrate likely an aspiration pneumonia secondary to her achalasia. She had a recent suspected infectious respiratory problem treated with azithromycin and improvement in the symptoms and by chest x-ray. -history of achalasia with daily regurgitation and vomiting of food material. Today she coughed up some food which she reported she had knee and 5 days. She does not have a feeling of food stuck in the midesophagus. Thus this anchor seems possible also. Case has been discussed with Gastroenterology, Dr. Melchor he has, and a barium swallow is being ordered to evaluate for possible food impaction or obstruction. GI note appreciated. -chronic lung disease with chronic hypoxic respiratory failure, bronchiectasis and some mild restrictive changes. -chronic hypertension on Cozaar as an outpatient. She is hypertensive here and will be given today hydralazine IV. As she is unable to swallow affectively and probably does not absorb any of her p. O. medication I will change her antihypertensive stay to IV medication -nutrition: Presently the patient is unable to eat as she suffers from severe achalasia. The records from [facility] would be quite helpful yet if she is unable to eat an alternative nutritional plan will need to be established. Plan: -obtain the records from the [facility]. -change medications to IV. The Pacerone has a 26 and half day half-life and thus we can simply hold this medication until the matters resolved -continue pulmonary care. -possible EGD tomorrow with anesthesia as she is high risk. Case was discussed with Dr. Melchor. The esophageal swallowing study will be reviewed when available. Subjective: Reports no chest pain or shortness of breath reports coughing up food which I believe came from the esophagus as she has no respiratory distress. Denies abdominal pain back pain dysuria. Objective: Vital Signs Temp Pulse Resp BP Pulse Ox 36.4 C 64 20 142/58 H 94 12/19/16 11:57 12/19/16 11:57 12/19/16 11:57 12/19/16 11:57 12/19/16 11:57 Laboratory Results 12/19/16 04:33 12/19/16 12:25 12/18/16 12/19/16 12/20/16 05:59 05:59 05:59 Intake Total 2251 1688 Output Total 200 Balance 2050 1687 - Time Spent With Patient Time Spent with Patient: greater than 35 minutes Time Spent with Patient: Greater than 35 minutes spent on this patients care, greater than 50% of time spent counseling, educating, and coordinating care regarding the above mentioned plan. - Pending Discharge Pending Discharge Within 24 Hours: No Pending Discharge Within 48 Hours: No - Physical Exam Constitutional: no apparent distress, chronically ill appearing, other (Very thin in appearance with loss of muscle mass) Eyes: PERRL Ears, Nose, Mouth, Throat: moist mucous membranes, hearing normal Cardiovascular: regular rate and rhythym, systolic murmur, JVD (JVD appears normal), edema (No edema is present.) Respiratory: no respiratory distress, reduced air movement, expiratory wheeze, inspiratory crackles, rhonchi Gastrointestinal: normoactive bowel sounds, soft, non-tender abdomen, no palpable masses Genitourinary: no bladder fullness Skin: warm Musculoskeletal: generalized weakness Neurologic: AAOx3, CN II-XII Intact ICD10 Worksheet Patient Problems: Problems Problem Status Onset Aspiration pneumonia Acute Atrial flutter Acute Lightheaded Acute Renal insufficiency Acute Elevated troponin Acute Dehydration Acute Pneumonia Acute Pleural effusion Acute Chronic Disease Mgmt/Transitional Care Acute Pulmonary edema Acute Subarachnoid hemorrhage Acute Intraparenchymal hematoma of brain due to trauma Acute Lip laceration Acute Syncope Acute
[2016-12-19] MEDS: BISACODYL 10 MG SUPP PR PRN (16:48)
[2016-12-20] MEDS: ENALAPRILAT DIHYDRATE 1.25 MG/ML VIAL IVP SCH ×5 (00:22→23:59)
[2016-12-20] MEDS: ATORVASTATIN CALCIUM 10 MG TAB PO SCH ×2 (00:25→22:46)
[2016-12-20] MEDS: DOCUSATE SODIUM 100 MG CAP PO SCH ×2 (00:25→22:47)
[2016-12-20] MEDS: AMIODARONE HCL 200 MG TAB PO SCH ×2 (00:26→08:50)
[2016-12-20] MEDS: MULTIVITAMINS 1 EACH TAB PO SCH ×2 (00:26→08:50)
[2016-12-20] MEDS: SENNOSIDES/DOCUSATE SODIUM TAB PO SCH ×4 (00:26→22:47)
[2016-12-20] MEDS: ASPIRIN 81 MG CHEWABLE TAB PO SCH ×2 (00:26→08:50)
[2016-12-20] MEDS: LOSARTAN POTASSIUM 50 MG TAB PO SCH (01:05)
[2016-12-20] MEDS: NS 1,000 ML IV SCH (03:22)
[2016-12-20 05:22] LABS: % IMMATURE GRANULYOCYTES 1.5 % (0.0-1.1); ABSOLUTE IMMATURE GRANULOCYTES 0.11 10^3/uL (0.00-0.10); ADD DIFF? NO; ADD MORPH? NO; ADD SCAN? NO; ATYPICAL LYMPHOCYTE FLAG 0 (0-99); FRAGMENT RBC FLAG 0 (0-99); HEMATOCRIT 29.1 % (38.0-47.0); HEMOGLOBIN 9.3 g/dL (12.6-16.3); LEFT SHIFT FLG 10 (0-99); LIPEMIA HEMOLYSIS FLAG 80 (0-99); MEAN CELL HEMOGLOBIN 30.6 pg (27.9-34.1); MEAN CELL VOLUME 95.7 fL (81.5-99.8); MEAN PLATELET VOLUME 10.1 fL (8.7-11.7); PLATELET CLUMPS FLAG 0 (0-99); PLATELET COUNT 247 10^3/uL (150-400); RED BLOOD CELL COUNT 3.04 10^6/uL (4.18-5.33); RED CELL DISTRIBUTION WIDTH 15.1 % (11.5-15.2)
[2016-12-20 05:38] LABS: ANION GAP 14 mEq/L (8-16); CALCIUM 9.9 mg/dL (8.5-10.4); CARBON DIOXIDE 16 mEq/l (22-31); CHLORIDE 113 mEq/L (97-110); GLOMERULAR FILTRATION RATE 52; GLUCOSE 72 mg/dL (70-100); POTASSIUM 3.7 mEq/L (3.5-5.2); SODIUM 143 mEq/L (134-144)
[2016-12-20] MEDS: HEPARIN 5,000 UNIT/0.5 ML SYR SC SCH ×3 (05:47→22:50)
[2016-12-20] MEDS: ERTAPENEM 0.5 GM in NS 100 ML IV SCH (09:16)
[2016-12-20] MEDS: hydrALAZINE 20 MG/ML VIAL IVP PRN (09:16)
--- NOTE | 2016-12-20 10:52 | PDANEPAE ---
ANE History of Present Illness EGD ANE Past Medical History - Cardiovascular History Hx Hypertension: Yes Hx Arrhythmias: No Hx Chest Pain: No Hx Coronary Artery / Peripheral Vascular Disease: No Hx CHF / Valvular Disease: No Hx Palpitations: No Cardiovascular History Comment: pcp monitors bp meds. hypercholesterolemia - Pulmonary History Hx COPD: No Hx Asthma/Reactive Airway Disease: No Hx Recent Upper Respiratory Infection: No Hx Oxygen in Use at Home: No Hx Sleep Apnea: Yes Sleep Apnea Screening Result - Last Documented: Positive Pulmonary History Comment: pna 09/2015 recurrent pna d/t aspiration - Neurologic History Hx Cerebrovascular Accident: No Hx Seizures: No Hx Dementia: No - Endocrine History Hx Diabetes: No - Renal History Hx Renal Disorders: No - Liver History Hx Hepatic Disorders: No - Neurological & Psychiatric Hx Hx Neurological and Psychiatric Disorders: No - Cancer History Hx Cancer: No - Congenital Disorder History Hx Congenital Disorders: No - GI History Hx Gastrointestinal Disorders: Yes Gastrointestinal History Comment: reflux. esophageal stenosis currently. achilasia. dysphagia - Other Health History Other Health History: none - Chronic Pain History Chronic Pain: No - Surgical History Prior Surgeries: 06/29/14 esophageal dilation with gatof. appy. bilateral bunionectomies. hysterectomy. left david. blepheroplasty. face lift. laser eye surgery. bilateral thumb surgery ANE Review of Systems - Exercise capacity METS (RN): 3 METS ANE Patient History - Allergies Allergies/Adverse Reactions: Sulfa (Sulfonamide Antibiotics) Allergy (Verified 12/16/16 10:16) Rash - Home Medications Home Medications: Docusate Sodium [Colace 100 MG (*)] 3 tab PO HS 12/03/15 [Last Taken 12/15/16] Atorvastatin Calcium [Lipitor 10 mg (*)] 10 mg PO HS 07/02/16 [Last Taken ] Acetaminophen [Tylenol ES 500 mg (*)] 500 mg PO Q6 PRN 12/16/16 [Last Taken Unknown] Amiodarone HCl [Pacerone (*)] 200 mg PO DAILY 12/16/16 [Last Taken 12/15/16] Aspirin [Aspirin 81mg (*)] 81 mg PO DAILY 12/16/16 [Last Taken 12/16/16] Losartan Potassium [Cozaar 25 mg (*)] 25 mg PO DAILY 12/16/16 [Last Taken ] Multivitamins [Multivitamin (*)] 1 each PO DAILY 12/16/16 [Last Taken Unknown] guaiFENesin [Mucinex] 1,200 mg PO DAILY PRN 12/16/16 [Last Taken Unknown] - NPO status NPO Since - Liquids (Date): 12/19/16 NPO Since - Liquids (Time): 12:00 - Smoking Hx Smoking Status: Never smoked - Family Anes Hx Family Hx Anesthesia Complications: none ANE Labs/Vital Signs - Labs Result Diagrams: 12/20/16 04:53 12/20/16 04:53 - Vital Signs Blood Pressure: 156/72 Heart Rate: 62 Respiratory Rate: 20 O2 Sat (%): 94 Height: 162.56 cm Weight: 52.707 kg ANE Physical Exam - Airway Neck exam: FROM Mallampati Score: Class 2 - ASA Status ASA Status: III ANE Anesthesia Plan Anesthesia Plan: general endotracheal anesthesia
[2016-12-20] MEDS ORDERED: PROPOFOL 200 MG/20 ML VIAL ONE (10:57)
[2016-12-20] MEDS ORDERED: LIDOCAINE 2% 5 ML SDV ONE (10:57)
[2016-12-20] MEDS ORDERED: SUCCINYLCHOLINE CHLORIDE*ANESTHESIA ONLY*200 MG/10 ML SYR IVP ONE (10:57)
[2016-12-20] MEDS ORDERED: fentaNYL 100 MCG/2 ML INJ ONE (10:57)
[2016-12-20] MEDS ORDERED: NALOXONE HCL 0.4 MG/ML INJ IVP PRN ×2 (11:03)
[2016-12-20] MEDS ORDERED: ALBUTEROL 3 ML DEYVIAL IH PRN (11:03)
[2016-12-20] MEDS ORDERED: ONDANSETRON 4 MG/2 ML VIAL IVP PRN (11:03)
--- NOTE | 2016-12-20 11:05 | PDHPUP ---
History & Physical Update H&P update statement: This history and physical update is based on an assessment of the patient which was completed after admission or registration (within 24 hours), but prior to the surgery/procedure. H&P update: H&P reviewed & patient examined, no change in patient's condition since H&P completed
--- NOTE | 2016-12-20 11:35 | POSTANESTH ---
Post Anesthetic Evaluation Cardiovascular Status: Normal, Stable Respiratory Status: Normal, Stable Level of Consciousness/Mental Status: Can Participate in Eval, Mildly Sleepy, Arousable Pain Control: Adequate, Prn Tx Ordered Nausea/Vomiting Control: Adequate, Prn Tx Ordered Complications Possibly Related to Anesthesia: None Noted
--- NOTE | 2016-12-20 12:05 | GPN ---
[f rep st] PROCEDURE NOTE DATE OF PROCEDURE: 12/20/2016 PROCEDURE PERFORMED: Esophagogastroduodenoscopy with dilation and biopsy. INDICATION: An 86-year-old female with esophageal food impaction and suspected achalasia. EGD is b eing done to clear her esophagus. CONSENT: Informed consent was obtained from the patient after an explanation of risks, benefits, an d alternatives to the procedure. MEDICATIONS GIVEN: General anesthesia with intubation as per Anesthesia. DESCRIPTION OF EXAM: After the patient was intubated and positioned in the left lateral decubitus p osition on exam table, the forward viewing endoscope was advanced under direct vision through the or opharynx and as far as the 2nd portion of the duodenum. Findings were as noted below. Retroflexion was performed in the stomach. ESTIMATED BLOOD LOSS: None. COMPLICATIONS: None at time of the procedure. FINDINGS: 1. Moderate amount of food was found in the esophagus, as was liquid. Liquid was suctioned with th e scope. Food was gently advanced down into the stomach after evaluating the GE junction and confir igor there was no structural obstruction. The esophagus was notable for being tortuous. 2. After the esophagus was cleared of debris and the exam was completed, a guidewire was placed int o the stomach, the scope was withdrawn, and a 60-Hebrew Savary dilator was placed over the guidewire to dilate the esophagus. 3. Stomach was notable for mild gastric erythema in the antrum and body. Biopsies were taken from that area to assess for H pylori/gastritis. 4. Duodenal bulb, and 2nd portion were normal. 5. Retroflexion in the stomach was unremarkable. IMPRESSION: Food was found and removed from the esophagus, followed by a 60-Hebrew Savary dilation. Although this is not a definitive treatment for achalasia, my hope is that it will provide her sidney e improvement in swallowing. RECOMMENDATIONS: 1. Recommend liquid diet until definitive treatment of her achalasia is performed. She is undergoi ng evaluation at the [facility] as an outpatient. 2. Continue current medications and take with water. 3. Dr. Melchor will follow the patient as long as she is an inpatient at the hospital. /[id number]/MODL
[2016-12-20] MEDS: POTASSIUM Cl (KCl) 100 ML IV SCH ×2 (12:41→15:58)
[2016-12-20 13:20] LABS: POTASSIUM 3.9 mEq/L (3.5-5.2)
--- NOTE | 2016-12-20 16:41 | HOSPPROG ---
Hospitalist Progress Note Assessment/Plan: 86-year-old female admitted with acute respiratory failure, right lower lobe pneumonia and known achalasia. Today she underwent an endoscopy and clearance of her esophagus. -acute hypoxic respiratory failure: This is now improved on pulmonary care and antibiotics. Chest x-ray shows a right lower lobe infiltrate likely an aspiration pneumonia secondary to her achalasia. She had a recent suspected infectious respiratory problem treated with azithromycin and improvement in the symptoms and by chest x-ray. Currently day 4 of Invanz -history of achalasia with daily regurgitation and vomiting of food material. Endoscopy today showed a impacted esophagus. Food was removed and the esophagus was then dilated. She will be placed on a liquid diet only until further evaluation of the achalasia can be done. Case is discussed with gastroenterology -chronic lung disease with chronic hypoxic respiratory failure, bronchiectasis and some mild restrictive changes. -chronic hypertension on Cozaar as an outpatient. She is hypertensive here and will be given today hydralazine IV. As she is unable to swallow affectively and probably does not absorb any of her p. O. medication I will change her antihypertensive stay to IV medication -nutrition: Presently the patient is unable to eat as she suffers from severe achalasia. dietary has been consulted and is making recommendations. Plan: -obtain the records from the [facility]. -change medications to IV. The Pacerone has a 26 and half day half-life and thus we can simply hold this medication until the matters resolved -continue pulmonary care. - Liquid diet disposition: Patient may require SNF placement for ultimate rehabilitation. I will discuss this with the patient her and case management. We continue to seek the records from the [facility] regarding her manometry measurements. Case was discussed with Dr. Melchor. Subjective: Reports she feels weak and tired but no chest pain shortness of breath. Cough is not productive Objective: Vital Signs Temp Pulse Resp BP Pulse Ox 36.8 C 61 14 157/67 H 94 12/20/16 15:46 12/20/16 15:46 12/20/16 15:46 12/20/16 15:46 12/20/16 15:46 Laboratory Results 12/20/16 04:53 12/20/16 12:30 12/19/16 12/20/16 12/21/16 05:59 05:59 05:59 Intake Total 1688 1078 1223 Output Total 0 Balance 1688 1078 1223 Laboratory Tests 12/16/16 12/17/16 12/18/16 10:40 04:36 04:46 WBC 16.20 H 12.78 H Hgb 10.2 L 8.8 L 9.0 L 12/19/16 12/20/16 04:33 04:53 WBC 10.88 H 7.55 Hgb 9.2 L 9.3 L - Time Spent With Patient Time Spent with Patient: greater than 35 minutes Time Spent with Patient: Greater than 35 minutes spent on this patients care, greater than 50% of time spent counseling, educating, and coordinating care regarding the above mentioned plan. - Pending Discharge Pending Discharge Within 24 Hours: No Pending Discharge Within 48 Hours: No - Physical Exam Constitutional: no apparent distress, chronically ill appearing Eyes: PERRL, anicteric sclera Ears, Nose, Mouth, Throat: moist mucous membranes, hearing normal, ears appear normal, no oral mucosal ulcers Cardiovascular: regular rate and rhythym, systolic murmur Respiratory: no respiratory distress, reduced air movement, inspiratory crackles , bronchial breath sounds, rhonchi Gastrointestinal: normoactive bowel sounds, soft, non-tender abdomen, no palpable masses Genitourinary: no bladder fullness Skin: warm Musculoskeletal: generalized weakness Neurologic: AAOx3, CN II-XII Intact Psychiatric: interacting appropriately ICD10 Worksheet Patient Problems: Problems Problem Status Onset Aspiration pneumonia Acute Atrial flutter Acute Lightheaded Acute Renal insufficiency Acute Elevated troponin Acute Dehydration Acute Pneumonia Acute Pleural effusion Acute Chronic Disease Mgmt/Transitional Care Acute Pulmonary edema Acute Subarachnoid hemorrhage Acute Intraparenchymal hematoma of brain due to trauma Acute Lip laceration Acute Syncope Acute
[2016-12-20] MEDS: D5W NS 1,000 ML IV SCH (18:49)
[2016-12-20 19:49] LABS: POTASSIUM 4.8 mEq/L (3.5-5.2)
[2016-12-21] MEDS: D5W NS 1,000 ML IV SCH (04:26)
[2016-12-21 05:19] LABS: % IMMATURE GRANULYOCYTES 2.7 % (0.0-1.1); ABSOLUTE IMMATURE GRANULOCYTES 0.12 10^3/uL (0.00-0.10); ADD DIFF? NO; ADD MORPH? NO; ADD SCAN? NO; ATYPICAL LYMPHOCYTE FLAG 20 (0-99); FRAGMENT RBC FLAG 0 (0-99); HEMATOCRIT 28.1 % (38.0-47.0); HEMOGLOBIN 9.1 g/dL (12.6-16.3); LEFT SHIFT FLG 20 (0-99); LIPEMIA HEMOLYSIS FLAG 80 (0-99); MEAN CELL HEMOGLOBIN 30.8 pg (27.9-34.1); MEAN CELL HEMOGLOBIN CONCENTR. 32.4 g/dL (32.4-36.7); MEAN CELL VOLUME 95.3 fL (81.5-99.8); PLATELET CLUMPS FLAG 0 (0-99); PLATELET COUNT 237 10^3/uL (150-400); RED BLOOD CELL COUNT 2.95 10^6/uL (4.18-5.33); RED CELL DISTRIBUTION WIDTH 15.2 % (11.5-15.2)
[2016-12-21] MEDS: HEPARIN 5,000 UNIT/0.5 ML SYR SC SCH ×3 (05:36→22:30)
[2016-12-21 05:37] LABS: ALANINE AMINOTRANSFERASE 51 IU/L (9-52); ALBUMIN 3.1 g/dL (3.5-5.0); ALKALINE PHOSPHATASE 89 IU/L (38-126); ANION GAP 11 mEq/L (8-16); ASPARTATE AMINOTRANSFERASE 32 IU/L (14-46); BILIRUBIN,TOTAL 0.6 mg/dL (0.1-1.4); CALCIUM 9.8 mg/dL (8.5-10.4); CARBON DIOXIDE 18 mEq/l (22-31); CHLORIDE 115 mEq/L (97-110); CREATININE 1.1 mg/dL (0.6-1.0); GLOMERULAR FILTRATION RATE 47; GLUCOSE 164 mg/dL (70-100); POTASSIUM 4.3 mEq/L (3.5-5.2); SODIUM 144 mEq/L (134-144); TOTAL PROTEIN 5.9 g/dL (6.3-8.2)
[2016-12-21] MEDS: ENALAPRILAT DIHYDRATE 1.25 MG/ML VIAL IVP SCH ×3 (06:16→20:24)
--- NOTE | 2016-12-21 06:57 | HOSPPROG ---
Hospitalist Progress Note Assessment/Plan: 86-year-old female admitted with acute respiratory failure, right lower lobe pneumonia and known achalasia. On 12/20 she underwent an endoscopy and clearance of her esophagus. On 12/21 she had placement of PEG -acute hypoxic respiratory failure: This is now improved on pulmonary care and antibiotics. Chest x-ray shows a right lower lobe infiltrate likely an aspiration pneumonia secondary to her achalasia. She had a recent suspected infectious respiratory problem treated with azithromycin and improvement in the symptoms and by chest x-ray. Currently day 6 of Invanz. -history of achalasia with daily regurgitation and vomiting of food material. Endoscopy showed impacted esophagus. A PEG tube has been placed today for nutrition. Her swallowing mechanism was abnormal and the risk of aspiration was high. -chronic lung disease with chronic hypoxic respiratory failure, bronchiectasis and some mild restrictive changes. -chronic hypertension on Cozaar as an outpatient. She is hypertensive here and will be given today hydralazine IV. As she is unable to swallow affectively and probably does not absorb any of her p. O. medication I will change her antihypertensive stay to IV medication. Hypertension persists today as noted, not severe. Plan: With placement of a PEG tube will change her to her p.o. antihypertensives. -nutrition: PCM: albumin 3.1. Presently the patient is unable to eat as she suffers from severe achalasia. dietary has been consulted and is making recommendations. Plan: Dietary consult Plan: -PEG tube placement today -following dietary consult the patient could be discharged probably in 1-2 days. disposition: Patient may require SNF placement for ultimate rehabilitation. I will discuss this with the patient her and case management. I suggest to explore the SNF placement with the family once again following the PEG tube placement. Case was discussed with Dr. Melchor. Family discussions been held x2 today for a total time approximately 30 minutes in the family discussion. Subjective: No complaints of chest pain or shortness of breath she says she feels weak. No headache. Patient wants to have the PEG tube placed Objective: Vital Signs Temp Pulse Resp BP Pulse Ox 36.3 C 59 L 16 156/60 H 88 L 12/21/16 03:20 12/21/16 03:20 12/21/16 03:20 12/21/16 06:16 12/21/16 03:20 Laboratory Results 12/21/16 04:57 12/21/16 04:57 12/20/16 12/21/16 12/22/16 05:59 05:59 05:59 Intake Total 1078 4249 Output Total 0 Balance 1078 4249 Selected Entries 12/20/16 12/20/16 12/21/16 22:32 23:59 03:20 Blood Pressure 164/70 H 164/70 H 151/66 H 12/21/16 06:16 Blood Pressure 156/60 H Laboratory Tests 12/16/16 12/21/16 12/21/16 10:40 04:57 04:57 WBC 11.36 H 4.47 Hgb 10.2 L 9.1 L Albumin 3.1 L Laboratory Tests 12/20/16 12/21/16 04:53 04:57 Creatinine 1.0 1.1 H Albumin 3.1 L - Time Spent With Patient Time Spent with Patient: greater than 35 minutes Time Spent with Patient: Greater than 35 minutes spent on this patients care, greater than 50% of time spent counseling, educating, and coordinating care regarding the above mentioned plan. - Pending Discharge Pending Discharge Within 24 Hours: Yes Pending Discharge Date: 12/22/16 Pending Discharge Time: 11:00 - Physical Exam Constitutional: no apparent distress, chronically ill appearing, other (Very thin but alert and pleasant) Eyes: PERRL, anicteric sclera Ears, Nose, Mouth, Throat: moist mucous membranes, hard of hearing, other ( Patient uses bilateral hearing aids) Cardiovascular: regular rate and rhythym, systolic murmur, JVD (JVD is not elevated and there is no edema) Respiratory: reduced air movement, inspiratory crackles, bronchial breath sounds , rhonchi Gastrointestinal: normoactive bowel sounds, soft, non-tender abdomen, no palpable masses Genitourinary: no bladder fullness Skin: warm Musculoskeletal: generalized weakness Neurologic: AAOx3, CN II-XII Intact Psychiatric: interacting appropriately ICD10 Worksheet Patient Problems: Problems Problem Status Onset Aspiration pneumonia Acute Atrial flutter Acute Lightheaded Acute Renal insufficiency Acute Elevated troponin Acute Dehydration Acute Pneumonia Acute Pleural effusion Acute Chronic Disease Mgmt/Transitional Care Acute Pulmonary edema Acute Subarachnoid hemorrhage Acute Intraparenchymal hematoma of brain due to trauma Acute Lip laceration Acute Syncope Acute
[2016-12-21] MEDS: AMIODARONE HCL 200 MG TAB PO SCH (07:39)
[2016-12-21] MEDS: SENNOSIDES/DOCUSATE SODIUM TAB PO SCH ×2 (07:40→22:09)
[2016-12-21] MEDS: MULTIVITAMINS 1 EACH TAB PO SCH (07:40)
[2016-12-21] MEDS: ASPIRIN 81 MG CHEWABLE TAB PO SCH (07:40)
[2016-12-21] MEDS: ERTAPENEM 1 GM in NS 100 ML IV SCH (08:12)
--- NOTE | 2016-12-21 11:01 | SOAPPROG ---
SOAP Progress Note Assessment/Plan: Assessment: Dysphagia with achalasia post food bolus removal yesterday. Patient with multiple aspirations and pt and family would like PEG tube for enteral feeding. Endoscopic PEG tube may be challenging to place bumper through her esophagus and IR may be better approach Plan: Consult IR for possible percutaneous feeding tube hopefully today 12/21/16 10:57 Subjective: CC Dysphagia Pt still with dysphagia post food bolus removal Objective: Vital Signs Temp Pulse Resp BP Pulse Ox 36.7 C 58 L 18 170/83 H 96 12/21/16 08:00 12/21/16 08:00 12/21/16 08:00 12/21/16 08:00 12/21/16 08:00 Laboratory Results 12/21/16 04:57 12/21/16 04:57 12/20/16 12/21/16 12/22/16 05:59 05:59 05:59 Intake Total 1078 4249 Output Total 0 Balance 1078 4249 Physical Exam - Physical Exam General Appearance: WD/WN Respiratory: chest non-tender, normal breath sounds Cardiac/Chest: regular rate, rhythm Abdomen: normal bowel sounds, non-tender ICD10 Worksheet Patient Problems: Problems Problem Status Onset Pneumonia Acute Aspiration pneumonia Acute Atrial flutter Acute Chronic Disease Mgmt/Transitional Care Acute Dehydration Acute Elevated troponin Acute Intraparenchymal hematoma of brain due to trauma Acute Lightheaded Acute Lip laceration Acute Pleural effusion Acute Pulmonary edema Acute Renal insufficiency Acute Subarachnoid hemorrhage Acute Syncope Acute
[2016-12-21 12:14] LABS: POTASSIUM 4.4 mEq/L (3.5-5.2)
[2016-12-21] MEDS: hydrALAZINE 20 MG/ML VIAL IVP PRN (13:35)
[2016-12-21] MEDS ORDERED: LIDOCAINE 2% JELLY 20 ML (UROJECT) ONE (15:23)
[2016-12-21] MEDS ORDERED: LIDOCAINE 1% 300 MG/30 ML SDV ONE (15:23)
[2016-12-21] MEDS ORDERED: IOPAMIDOL (ISOVUE-300) 100 ML BTL ONE (15:24)
--- NOTE | 2016-12-21 15:58 | PDANEPAE ---
ANE History of Present Illness 86 yo female with severe achalasia now for PEG tube. ANE Past Medical History - Cardiovascular History Hx Hypertension: Yes Hx Arrhythmias: Yes Hx Chest Pain: No Hx Coronary Artery / Peripheral Vascular Disease: No Hx CHF / Valvular Disease: No Hx Palpitations: No Cardiovascular History Comment: pcp monitors bp meds. hypercholesterolemia. PAF - Pulmonary History Hx COPD: No Hx Asthma/Reactive Airway Disease: No Hx Recent Upper Respiratory Infection: No Hx Oxygen in Use at Home: Yes Hx Sleep Apnea: Yes Sleep Apnea Screening Result - Last Documented: Positive Pulmonary History Comment: pna 09/2015 recurrent pna d/t aspiration - Neurologic History Hx Cerebrovascular Accident: No Hx Seizures: No Hx Dementia: No - Endocrine History Hx Diabetes: No - Renal History Hx Renal Disorders: No - Liver History Hx Hepatic Disorders: No - Neurological & Psychiatric Hx Hx Neurological and Psychiatric Disorders: Yes Neurological / Psychiatric History Comment: mild dementia per note - Cancer History Hx Cancer: No - Congenital Disorder History Hx Congenital Disorders: No - GI History GERD: no (pt denies, but it is in her history) Hx Gastrointestinal Disorders: Yes Gastrointestinal History Comment: reflux. esophageal stenosis currently. achilasia. dysphagia - Other Health History Other Health History: none - Chronic Pain History Chronic Pain: No - Surgical History Prior Surgeries: 06/29/14 esophageal dilation with gatof. appy. bilateral bunionectomies. hysterectomy. left david. blepheroplasty. face lift. laser eye surgery. bilateral thumb surgery ANE Review of Systems Review of Systems: Decreased exercise tolerance due to co-morbidities. + aspiration PNA currently - RLL - Exercise capacity Exercise capacity: <4 METS METS (RN): 3 METS - Systems Constitutional: Reports: weight loss Cardiac: Reports: no symptoms Respiratory: Reports: shortness of breath Gastrointestinal: Reports: other (unable to swallow) ANE Patient History - Allergies Allergies/Adverse Reactions: Sulfa (Sulfonamide Antibiotics) Allergy (Verified 12/16/16 10:16) Rash - Home Medications Home medications: home medication list seen and reviewed Home Medications: Docusate Sodium [Colace 100 MG (*)] 3 tab PO HS 12/03/15 [Last Taken 12/15/16] Atorvastatin Calcium [Lipitor 10 mg (*)] 10 mg PO HS 07/02/16 [Last Taken ] Acetaminophen [Tylenol ES 500 mg (*)] 500 mg PO Q6 PRN 12/16/16 [Last Taken Unknown] Amiodarone HCl [Pacerone (*)] 200 mg PO DAILY 12/16/16 [Last Taken 12/15/16] Aspirin [Aspirin 81mg (*)] 81 mg PO DAILY 12/16/16 [Last Taken 12/16/16] Losartan Potassium [Cozaar 25 mg (*)] 25 mg PO DAILY 12/16/16 [Last Taken ] Multivitamins [Multivitamin (*)] 1 each PO DAILY 12/16/16 [Last Taken Unknown] guaiFENesin [Mucinex] 1,200 mg PO DAILY PRN 12/16/16 [Last Taken Unknown] - NPO status NPO Status: no food or drink >8 hours NPO Since - Liquids (Date): 12/19/16 NPO Since - Liquids (Time): 12:00 - Anes Hx Anes Hx: no prior problems - Smoking Hx Smoking Status: Never smoked Marijuana use: No - Family Anes Hx Family Anes Hx: none Family Hx Anesthesia Complications: none ANE Labs/Vital Signs - Labs Result Diagrams: 12/21/16 04:57 12/21/16 11:47 - Vital Signs Blood Pressure: 154/62 (persistently hypertensive all day) Heart Rate: 56 Respiratory Rate: 16 O2 Sat (%): 96 Height: 162.56 cm Weight: 52.707 kg ANE Physical Exam - Airway Neck exam: decreased ROM Mallampati Score: Class 3 - Pulmonary Pulmonary: inspiratory crackles (bilateral) - Cardiovascular Cardiovascular: regular rate and rhythym - ASA Status ASA Status: IV ANE Anesthesia Plan Anesthesia Plan: MAC (Pt with worsening pulmonary effusions/congestion, not a candidate for GA today. )
--- NOTE | 2016-12-21 16:14 | ASMTCMCOM ---
CM Note CM Note Notes: Spoke w/pt and re; PT/OT recommendations. They recommend SNF, pt wants [facility] as they are residents there. CM spoke w/Ced[facility] at [facility], do not have a bed until Saturday, hospitalist ok with pt staying until then. [facility] also notified and referral faxed for nutritional supplies post snf. DILAN w/f. Date Signed: 12/21/2016 04:14 PM Electronically Signed By:Jenna Borges
[2016-12-21] MEDS ORDERED: LIDOCAINE 2% 5 ML SDV ONE (16:27)
[2016-12-21] MEDS ORDERED: PROPOFOL 200 MG/20 ML VIAL ONE (16:27)
[2016-12-21] MEDS ORDERED: fentaNYL 100 MCG/2 ML INJ ONE ×2 (16:27→18:05)
[2016-12-21] MEDS ORDERED: hydrALAZINE 20 MG/ML VIAL ONE (16:42)
[2016-12-21] MEDS ORDERED: FUROSEMIDE 40 MG/4 ML VIAL IVP ONE ×2 (16:58→20:15)
--- NOTE | 2016-12-21 17:10 | HOSPPROG ---
Hospitalist Progress Note Assessment/Plan: Spoke with Dr Florez/ he has asked me to request a tx to PCU, serial trops, lasix 40 mg x one. Will contact cardiology to see, Dr Hedrick. Objective: Vital Signs Temp Pulse Resp BP Pulse Ox 36.5 C 56 L 16 154/62 H 96 12/21/16 14:56 12/21/16 16:22 12/21/16 16:22 12/21/16 16:22 12/21/16 16:22 Laboratory Results 12/21/16 04:57 12/21/16 11:47 12/20/16 12/21/16 12/22/16 05:59 05:59 05:59 Intake Total 1078 4249 Output Total 0 Balance 1078 4249 ICD10 Worksheet Patient Problems: Problems Problem Status Onset Pneumonia Acute Aspiration pneumonia Acute Atrial flutter Acute Chronic Disease Mgmt/Transitional Care Acute Dehydration Acute Elevated troponin Acute Intraparenchymal hematoma of brain due to trauma Acute Lightheaded Acute Lip laceration Acute Pleural effusion Acute Pulmonary edema Acute Renal insufficiency Acute Subarachnoid hemorrhage Acute Syncope Acute
[2016-12-21] MEDS ORDERED: ALBUTEROL 3 ML DEYVIAL IH PRN (17:37)
[2016-12-21] MEDS ORDERED: ACETAMINOPHEN 500 MG TAB PO PRN (17:37)
[2016-12-21] MEDS ORDERED: NALOXONE HCL 0.4 MG/ML INJ IVP PRN (17:37)
[2016-12-21] MEDS ORDERED: hydrALAZINE 20 MG/ML VIAL IVP PRN (17:40)
--- NOTE | 2016-12-21 17:43 | POSTANESTH ---
Post Anesthetic Evaluation Cardiovascular Status: Similar to Pre-Op Cond, Tx Hyper/Hypo-tension Respiratory Status: Similar to Pre-op Cond., Tx Decrease in SpO2 Level of Consciousness/Mental Status: Can Participate in Eval, Mildly Sleepy, Arousable Pain Control: Adequate, Prn Tx Ordered Nausea/Vomiting Control: Adequate, Prn Tx Ordered Complications Possibly Related to Anesthesia: None Noted
--- NOTE | 2016-12-21 17:44 | POSTOPPROG ---
Post Op Note Date of Operation: 12/21/16 Surgeon: Anjali Soliz Anesthesia: IV Sedation (MAC) Pre-op Diagnosis: achalasia, aspiration Post-op Diagnosis: same Indication: aspiration Procedure: G-tube placement Findings: successful tube placement Inf/Abcess present in the surg proc area at time of surgery?: No Depth: Superfical (Skin SQ) EBL: Minimal Complications: none Drains: Other (22Fr G-tube)
--- NOTE | 2016-12-21 18:09 | CPEKG ---
Heart Rate: 66 RR Interval: 909 P-R Interval: 192 QRSD Interval: 104 QT Interval: 460 QTC Interval: 482 P Hessel: 72 QRS Hessel: 26 T Wave Hessel: 41 EKG Severity - BORDERLINE ECG - EKG Impression: SINUS RHYTHM EKG Impression: BORDERLINE T WAVE ABNORMALITIES Electronically Signed By: Rony Fournier 22-Dec-2016 17:21:13
[2016-12-21] MEDS: fentaNYL 100 MCG/2 ML INJ IVP PRN ×2 (18:12→18:21)
[2016-12-21 18:38] LABS: TROPONIN I 0.023 ng/mL (0.000-0.034)
[2016-12-21] MEDS ORDERED: ACETAMINOPHEN 650 MG SUPP PR PRN (18:44)
--- NOTE | 2016-12-21 20:45 | GCON ---
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 She has a fairly extensive cardiac history. The marlyn ent was admitted 12/16/2016 under the care of Dr. Jefry Harden. The patient noted that she had a lar ge coughing spell, began to cough more, and became short of breath and weak. Nausea developed, and she may have vomited. The patient has a history of achalasia, as well as chronic bronchiectasis, re current pneumonia, and also aspiration related to her achalasia, and problems with food getting stuc k in her esophagus. The patient has been admitted, and over the past several days has not done well . She has thrown up several times. Ultimately, underwent an esophageal endoscopy revealing a matte d mass of vegetable matter and undigested food in the upper portion of her esophagus. She has also been noted to have a probable dense infiltrate in her right lung, most consistent with aspiration pn eumonia. Over the last several days the patient's blood pressure has not been well controlled. She also underwent a 60-[place]er Savary dilation on 12/20. She did receive general anesthesia for that p rocedure. Her blood pressure has been elevated, and she has become more progressively short of tariq th with increasing oxygen requirements. Ultimately, the patient's , who is a retired pediatr ician, demanded that a turner in be called, which happened this evening. They asked that I come and see the patient. I ordered an EKG, and troponin, and BNP levels to evaluate for an acute hernadez ry syndrome. Her EKG reveals sinus rhythm with nonspecific and minor ST-segment abnormalities in le ad 1, 2, V4, V5 and V6. The EKG is in essence unchanged from the patient's admission EKG, which was obtained on 12/16, both of which have been reviewed directly by me. There is certainly no evidence of acute ischemia or injury pattern on the electrocardiogram. At the time of my evaluation, the patient denies chest pain, but does admit to being short of breath , although she appears quite comfortable with lying flat in the bed with 2 L by nasal cannula in som ce. Her past medical history, social, and family history are extensive. REVIEW OF SYSTEMS: A 10-point review of systems is otherwise negative, except as previously noted i n the patient's history of present illness. FAMILY HISTORY: Not pertinent given the patient's age. Noncontributory. SOCIAL HISTORY: She does live at home with her who is, as I mentioned, a retired pediatrici an. She does not smoke, abuse alcohol, or illicit drugs. PAST MEDICAL HISTORY: Significant for atrial fibrillation, diastolic heart failure, mitral regurgit ation, chronic pulmonary hypertension, chronic hypoxemic respiratory failure, bronchiectasis, border line restrictive changes on pulmonary function testing, hypertension, chronic kidney disease, achala mandy of her esophagus chronic, orthostasis, peptic ulcer disease, hypercholesterolemia, osteoporosis. PAST SURGICAL HISTORY: Hysterectomy, appendectomy, cataract surgery, hand surgery, total hip replac ement. She has also had the esophagogastroduodenoscopy, along with esophageal dilation during this hospitalization. Today underwent PEG tube placement under the care of Dr. Anjali Soliz to help her nutri tional status. CURRENT MEDICATIONS: Albuterol, amiodarone 200 mg p.o. daily, aspirin 81 mg daily, atorvastatin, ca lcium 10 mg daily, Dulcolax rectal suppository 10 mg as needed for constipation. She has been on lo w-dose heparin, as well as hydralazine, both orally and as IV push to help control her blood pressur e, as well as a variety of other medications for constipation and gastrointestinal issues. PHYSICAL EXAMINATION: VITAL SIGNS: At the time of my evaluation and physical exam, are pertinent f or a blood pressure which is 149/62, the pulse is 63 and regular, respirations are 16 and unlabored, oxygen saturation 94% on 2 L by nasal cannula. NECK: Reveals no JVD, carotid bruit, or supraclavi cular masses. HEART: Reveals a normal S1 and S2 with a loud systolic murmur consistent with mitral regurgitation. LUNGS: Clear to auscultation bilaterally. Anteriorly, she does have bilateral ins piratory rhonchi. ABDOMEN: Benign with positive bowel sounds. It is nondistended and nontender. I do not appreciate rebound or guarding. EXTREMITIES: Cool and dry without significant peripheral edema. LABORATORY STUDIES: Troponin I of 0.023 ng/mL. The N-terminal proBNP level is 6,020 pg/mL, which i s consistent with heart strain and volume overload. Her chloride is 115, CO2 18, BUN and creatinine are 29 and 1.1. Glucose 164, is a nonfasting sample. Her AST and ALT are normal. Total protein 5 .9, albumin 3.1. Her venous blood gas is 0.9 on admission. Her hemoglobin is 9.1 and 28.1. Platel et count of 237 with a neutrophil predominance. Her EKG is as I previously described. IMPRESSION PLAN: The patient presented to the hospital with shortness of breath and a presumably ne w aspiration pneumonia, superimposed on her chronic bronchiectasis. This was apparently related to achalasia and a massive undigested food, which was noted in her esophagus. The patient underwent re moval of that matter, and then had a dilation procedure on the , and then today had a gastric tu be placed under the care of the interventional radiologist. The patient appears to be comfortable a t the present time. She has known chronic valvular heart disease, but is presently in normal rhythm . I think she may have received iatrogenic fluid administration, which has overloaded her heart, an d therefore she should be diuresed gently, and her blood pressure managed. I do not have a problem with her being managed with vasodilators, such as hydralazine, and nitrates could be considered leonie use she has had some issues with renal insufficiency in the past. Certainly, I think we should avoi d giving her boluses of intravenous fluid at the present time, and I would like to repeat an echocar diogram to see if there has been a change in her valvular function over the last several years. I h ave done my best to reassure the patient's that she does not appear to be having a heart att ack at the present time, and that we will try to manage her medically and conservatively at this [facility]. Thank you for the consultation. Dr. Knight will be following up with the patient tomorrow on rounds, as I will be on vacation. Please do not hesitate to call me overnight or in the beading sawyer hour s if the patient's condition deteriorates or other questions arise. /[id number]/MODL
[2016-12-21] MEDS: ATORVASTATIN CALCIUM 10 MG TAB PO SCH (22:08)
[2016-12-21] MEDS: DOCUSATE SODIUM 100 MG CAP PO SCH (22:09)
[2016-12-22] MEDS: ENALAPRILAT DIHYDRATE 1.25 MG/ML VIAL IVP SCH ×2 (01:44→06:29)
[2016-12-22 05:46] LABS: ALANINE AMINOTRANSFERASE 68 IU/L (9-52); ALBUMIN 3.4 g/dL (3.5-5.0); ALKALINE PHOSPHATASE 98 IU/L (38-126); ANION GAP 11 mEq/L (8-16); ASPARTATE AMINOTRANSFERASE 55 IU/L (14-46); BILIRUBIN,TOTAL 0.7 mg/dL (0.1-1.4); CALCIUM 10.3 mg/dL (8.5-10.4); CARBON DIOXIDE 21 mEq/l (22-31); CHLORIDE 112 mEq/L (97-110); CREATININE 1.1 mg/dL (0.6-1.0); GLOMERULAR FILTRATION RATE 47; GLUCOSE 93 mg/dL (70-100); POTASSIUM 3.8 mEq/L (3.5-5.2); SODIUM 144 mEq/L (134-144)
[2016-12-22 05:53] LABS: TROPONIN I 0.032 ng/mL (0.000-0.034)
[2016-12-22] MEDS: HEPARIN 5,000 UNIT/0.5 ML SYR SC SCH ×3 (06:30→21:30)
--- NOTE | 2016-12-22 09:25 | SOAPPROG ---
SOAP Progress Note Assessment/Plan: Assessment: 85 y/o woman with PAF and previous falls with ICH, chronic diastolic CHF, secondary pulmonary HTN admitted with aspiration pneumonia now with PEG and complete NPO from mouth. In NSR and mildly hypervolemic and hypertensive. No angina. PLAN: 1)lasix 20mg IV qam 2)increase IV Vasotec to 2.5mg IV q6hrs. 3)nitropaste 1/2 inch q6hrs more for BP control than angina 4)rest of meds without changes. 5)continue IV abx. 6)transition to PO meds thru PEG in next 2-3 days 12/22/16 09:22 Subjective: tired but feels better. Denies CP, palpitations, ROBBINS or PND. Objective: Vital Signs Temp Pulse Resp BP Pulse Ox 36.4 C 57 L 18 170/79 H 97 12/22/16 08:00 12/22/16 08:00 12/22/16 08:00 12/22/16 08:00 12/22/16 08:00 Laboratory Results 12/21/16 04:57 12/22/16 04:19 12/21/16 12/22/16 12/23/16 05:59 05:59 05:59 Intake Total 4249 975 Output Total 0 360 Balance 4249 615 Physical Exam - Physical Exam General Appearance: alert, thin EENT: PERRL/EOMI Neck: non-tender Respiratory: crackles (1/2 up both sides.) Cardiac/Chest: regular rate, rhythm, systolic murmur, No gallop, No JVD Peripheral Pulses: 2+: carotid (R), carotid (L), femoral (R), femoral (L), dorsalis-pedis (R), dorsalis-pedis (L) Abdomen: non-tender, No ascites Skin: warm/dry Extremities: No pedal edema Neuro/Psych: alert ICD10 Worksheet Patient Problems: Problems Problem Status Onset Pneumonia Acute Aspiration pneumonia Acute Atrial flutter Acute Chronic Disease Mgmt/Transitional Care Acute Dehydration Acute Elevated troponin Acute Intraparenchymal hematoma of brain due to trauma Acute Lightheaded Acute Lip laceration Acute Pleural effusion Acute Pulmonary edema Acute Renal insufficiency Acute Subarachnoid hemorrhage Acute Syncope Acute
[2016-12-22] MEDS ORDERED: ENALAPRIL MALEATE 2.5 MG TAB TUBE SCH (09:30)
[2016-12-22] MEDS: FUROSEMIDE 20 MG/2 ML VIAL IVP SCH (10:58)
[2016-12-22] MEDS: ERTAPENEM 1 GM in NS 100 ML IV SCH (11:12)
[2016-12-22] MEDS: NITROGLYCERIN 2% 1 GM PACKET TP SCH ×3 (11:13→23:26)
[2016-12-22] MEDS ORDERED: POTASSIUM CL 10 MEQ TAB PO ONE (12:58)
[2016-12-22] MEDS ORDERED: MAGNESIUM HYDROXIDE 30 ML UDCUP TUBE PRN (13:05)
[2016-12-22] MEDS ORDERED: LACTULOSE 20 GM/30 ML UDCUP TUBE PRN (13:05)
[2016-12-22] MEDS ORDERED: POLYETHYLENE GLYCOL 3350 17 GM PKT TUBE PRN (13:07)
[2016-12-22] MEDS ORDERED: POTASSIUM CL 20 MEQ/15 ML UDCUP TUBE ONE ×2 (13:15→23:15)
--- NOTE | 2016-12-22 13:25 | HOSPPROG ---
Hospitalist Progress Note Assessment/Plan: DIAGNOSES: -acute hypoxemic respiratory failure -Suspected aspiration pneumonitis -mild congestive heart failure acutely -Recent suspected infectious respiratory episode treated with azithromycin, with improvement in symptoms and chest x-ray -History of achalasia with ongoing daily regurgitation of mucousy material; moderately large volume of food and liquids retained in esophagus on EGD -status post esophageal dilation during this hospital stay -status post PEG tube placement here -Chronic lung disease with chronic hypoxemic respiratory failure, bronchiectasis , and some mild restrictive change -Chronic hypertension, on treatment, with a history of chronic symptomatic orthostatic hypotension PLANS: -will check with IR but she should be able to stay begin treatment through her feeding tube today or tomorrow -continue current respiratory care -ongoing PT and OT -DVT prophylaxis SUBJECTIVE: Slept poorly last night due to being up for her diuretic Otherwise feels good with only minor discomfort at her PEG tube insertion site OBJECTIVE Vitals reviewed: stable without fever Exam: alert oriented skin warm dry color ok resps not labored but mildly rapid lungs very diminished BSs with some rhonchi on the right lower lung heart regular abd PEG in place, soft nondistended nontender, bowel sounds present limbs warm, still some mild edema iv site ok Microbiology: Respiratory pathogen panel negative Blood cultures no growth to date Objective: Vital Signs Temp Pulse Resp BP Pulse Ox 36.8 C 59 L 20 176/73 H 95 12/22/16 11:32 12/22/16 11:32 12/22/16 11:32 12/22/16 11:32 12/22/16 11:32 Laboratory Results 12/21/16 04:57 12/22/16 04:19 12/21/16 12/22/16 12/23/16 06:59 06:59 06:59 Intake Total 3332 975 Output Total 0 360 200 Balance 3332 615 -200 ICD10 Worksheet Patient Problems: Problems Problem Status Onset Pneumonia Acute Aspiration pneumonia Acute Atrial flutter Acute Chronic Disease Mgmt/Transitional Care Acute Dehydration Acute Elevated troponin Acute Intraparenchymal hematoma of brain due to trauma Acute Lightheaded Acute Lip laceration Acute Pleural effusion Acute Pulmonary edema Acute Renal insufficiency Acute Subarachnoid hemorrhage Acute Syncope Acute
[2016-12-22] MEDS ORDERED: guaiFENesin 200 MG/10 ML UDL PO PRN (14:52)
[2016-12-22] MEDS: AMIODARONE HCL 200 MG TAB TUBE SCH (15:00)
[2016-12-22] MEDS: ASPIRIN 81 MG CHEWABLE TAB TUBE SCH (15:00)
[2016-12-22] MEDS: ASPIRIN 81 MG CHEWABLE TAB PO SCH (15:17)
[2016-12-22] MEDS: AMIODARONE HCL 200 MG TAB PO SCH (15:17)
[2016-12-22] MEDS: MULTIVITAMINS 1 EACH TAB PO SCH (15:21)
[2016-12-22] MEDS: SENNOSIDES/DOCUSATE SODIUM TAB PO SCH (15:21)
[2016-12-22] MEDS: hydrALAZINE 10 MG TAB TUBE PRN (15:24)
[2016-12-22 19:09] LABS: POTASSIUM 3.7 mEq/L (3.5-5.2)
[2016-12-22] MEDS: SENNOSIDES 17.6 MG/10 ML UDL PO SCH (20:26)
[2016-12-22] MEDS: ENALAPRIL MALEATE 5 MG TAB TUBE SCH (20:26)
[2016-12-22] MEDS: ATORVASTATIN CALCIUM 10 MG TAB TUBE SCH (20:29)
[2016-12-22] MEDS: DOCUSATE SODIUM 100 MG CAP PO SCH (20:31)
[2016-12-23 04:56] LABS: HEMATOCRIT 28.8 % (38.0-47.0); HEMOGLOBIN 9.1 g/dL (12.6-16.3); MEAN CELL HEMOGLOBIN 30.3 pg (27.9-34.1); MEAN CELL HEMOGLOBIN CONCENTR. 31.6 g/dL (32.4-36.7); RED CELL DISTRIBUTION WIDTH 15.2 % (11.5-15.2)
[2016-12-23 05:12] LABS: ALANINE AMINOTRANSFERASE 70 IU/L (9-52); ALBUMIN 3.1 g/dL (3.5-5.0); ALKALINE PHOSPHATASE 84 IU/L (38-126); ANION GAP 13 mEq/L (8-16); ASPARTATE AMINOTRANSFERASE 60 IU/L (14-46); BILIRUBIN,TOTAL 0.6 mg/dL (0.1-1.4); CALCIUM 9.7 mg/dL (8.5-10.4); CARBON DIOXIDE 25 mEq/l (22-31); CHLORIDE 110 mEq/L (97-110); CREATININE 1.2 mg/dL (0.6-1.0); GLOMERULAR FILTRATION RATE 42; GLUCOSE 141 mg/dL (70-100); POTASSIUM 3.7 mEq/L (3.5-5.2); SODIUM 148 mEq/L (134-144); TOTAL PROTEIN 5.7 g/dL (6.3-8.2)
[2016-12-23] MEDS: HEPARIN 5,000 UNIT/0.5 ML SYR SC SCH ×3 (06:32→21:04)
[2016-12-23] MEDS: NITROGLYCERIN 2% 1 GM PACKET TP SCH ×3 (06:32→17:31)
--- NOTE | 2016-12-23 08:52 | SOAPPROG ---
SOAP Progress Note Assessment/Plan: Assessment: 85 y/o woman with PAF and previous falls with ICH, chronic diastolic CHF, secondary pulmonary HTN admitted with aspiration pneumonia now with PEG and complete NPO from mouth. In NSR. Her BP is better controlled and she appears euvolemic. PLAN: 1)no change in current meds. 2)probably tommorrow once know PEG working well with good absorption, will stop Nitropaste and IV lasix and change everything to PT tabs. 3)okay to transfer to inpt SNF or rehab from cardiac standpoint when rest of medical issues stablized. 12/23/16 08:49 Subjective: more alert. Still short of breath moving in bed. Denies CP, palpitations, PND or syncope. Objective: Vital Signs Temp Pulse Resp BP Pulse Ox 37 C 84 16 149/67 H 94 12/23/16 04:00 12/23/16 04:00 12/23/16 04:00 12/23/16 04:00 12/23/16 04:00 Laboratory Results 12/23/16 04:30 12/23/16 04:30 12/22/16 12/23/16 12/24/16 05:59 05:59 05:59 Intake Total 975 937 Output Total 360 1400 Balance 615 -463 Physical Exam - Physical Exam General Appearance: thin EENT: normal ENT inspection Neck: non-tender Respiratory: rales (overall improved air movement but still crackles in right base.) Cardiac/Chest: regular rate, rhythm, systolic murmur, No gallop, No JVD Peripheral Pulses: 2+: carotid (R), carotid (L), femoral (R), femoral (L), dorsalis-pedis (R), dorsalis-pedis (L) Abdomen: non-tender, No guarding, No ascites Skin: warm/dry Extremities: non-tender, No pedal edema Neuro/Psych: alert ICD10 Worksheet Patient Problems: Problems Problem Status Onset Pneumonia Acute Aspiration pneumonia Acute Atrial flutter Acute Chronic Disease Mgmt/Transitional Care Acute Dehydration Acute Elevated troponin Acute Intraparenchymal hematoma of brain due to trauma Acute Lightheaded Acute Lip laceration Acute Pleural effusion Acute Pulmonary edema Acute Renal insufficiency Acute Subarachnoid hemorrhage Acute Syncope Acute
[2016-12-23] MEDS: ERTAPENEM 1 GM in NS 100 ML IV SCH (09:24)
[2016-12-23] MEDS: SENNOSIDES 17.6 MG/10 ML UDL PO SCH (09:24)
[2016-12-23] MEDS: ASPIRIN 81 MG CHEWABLE TAB TUBE SCH (09:29)
[2016-12-23] MEDS: AMIODARONE HCL 200 MG TAB TUBE SCH (09:29)
[2016-12-23] MEDS: ENALAPRIL MALEATE 5 MG TAB TUBE SCH ×2 (09:30→20:07)
[2016-12-23] MEDS: FUROSEMIDE 20 MG/2 ML VIAL IVP SCH (09:31)
[2016-12-23] MEDS ORDERED: POTASSIUM CL 10 MEQ TAB PO ONE (11:49)
[2016-12-23] MEDS ORDERED: guaiFENesin 200 MG/10 ML UDL TUBE PRN (11:59)
[2016-12-23] MEDS: MULTIVIT/MINERAL/FERR GLUC 15 ML UDL TUBE SCH (12:12)
--- NOTE | 2016-12-23 13:12 | HOSPPROG ---
Hospitalist Progress Note Assessment/Plan: DIAGNOSES: -acute hypoxemic respiratory failure -Suspected aspiration pneumonitis -mild congestive heart failure acutely -Recent suspected infectious respiratory episode treated with azithromycin, with improvement in symptoms and chest x-ray -History of achalasia with ongoing daily regurgitation of mucousy material; moderately large volume of food and liquids retained in esophagus on EGD -status post esophageal dilation during this hospital stay -status post PEG tube placement here -Chronic lung disease with chronic hypoxemic respiratory failure, bronchiectasis , and some mild restrictive change -Chronic hypertension, on treatment, with a history of chronic symptomatic orthostatic hypotension PLANS: -continue tube feeds -PT OT -continue diuresis and pulm measures -repeat CXR in am Will want to see some improvement in effusion before DC; may need to consider tapping that SUBJECTIVE: slept better overnight tolerating tube feeds welll so far OBJECTIVE Vitals reviewed: stable without fever Exam: alert oriented skin warm dry color ok resps not labored but mildly rapid lungs very diminished BSs and egophany at L lower lung typical of effusion heart regular abd PEG in place looks good, soft nondistended nontender, bowel sounds present limbs warm, still some mild edema iv site ok Microbiology: Respiratory pathogen panel negative Blood cultures no growth to date Objective: Vital Signs Temp Pulse Resp BP Pulse Ox 36.6 C 57 L 19 166/72 H 93 12/23/16 11:36 12/23/16 11:36 12/23/16 11:36 12/23/16 11:36 12/23/16 11:36 Laboratory Results 12/23/16 04:30 12/23/16 04:30 12/22/16 12/23/16 12/24/16 06:59 06:59 06:59 Intake Total 294 937 Output Total 360 1400 Balance 615 -463 ICD10 Worksheet Patient Problems: Problems Problem Status Onset Pneumonia Acute Aspiration pneumonia Acute Atrial flutter Acute Chronic Disease Mgmt/Transitional Care Acute Dehydration Acute Elevated troponin Acute Intraparenchymal hematoma of brain due to trauma Acute Lightheaded Acute Lip laceration Acute Pleural effusion Acute Pulmonary edema Acute Renal insufficiency Acute Subarachnoid hemorrhage Acute Syncope Acute
[2016-12-23] MEDS: ACETAMINOPHEN 650 MG/20.3 ML UDCUP TUBE PRN (18:10)
[2016-12-23] MEDS: hydrALAZINE 10 MG TAB TUBE PRN (18:10)
[2016-12-23] MEDS: ATORVASTATIN CALCIUM 10 MG TAB TUBE SCH (20:07)
[2016-12-23] MEDS: SENNOSIDES 17.6 MG/10 ML UDL TUBE SCH (20:09)
[2016-12-24] MEDS: NITROGLYCERIN 2% 1 GM PACKET TP SCH ×2 (01:20→06:24)
[2016-12-24 04:07] LABS: % IMMATURE GRANULYOCYTES 2.9 % (0.0-1.1); ABSOLUTE IMMATURE GRANULOCYTES 0.27 10^3/uL (0.00-0.10); ADD DIFF? NO; ADD MORPH? NO; ADD SCAN? NO; ATYPICAL LYMPHOCYTE FLAG 10 (0-99); FRAGMENT RBC FLAG 0 (0-99); HEMATOCRIT 29.3 % (38.0-47.0); HEMOGLOBIN 9.4 g/dL (12.6-16.3); LEFT SHIFT FLG 20 (0-99); LIPEMIA HEMOLYSIS FLAG 80 (0-99); MEAN CELL HEMOGLOBIN 30.6 pg (27.9-34.1); MEAN CELL HEMOGLOBIN CONCENTR. 32.1 g/dL (32.4-36.7); MEAN CELL VOLUME 95.4 fL (81.5-99.8); MEAN PLATELET VOLUME 10.2 fL (8.7-11.7); PLATELET CLUMPS FLAG 10 (0-99); PLATELET COUNT 225 10^3/uL (150-400); RED BLOOD CELL COUNT 3.07 10^6/uL (4.18-5.33); RED CELL DISTRIBUTION WIDTH 15.2 % (11.5-15.2)
[2016-12-24 04:21] LABS: ANION GAP 11 mEq/L (8-16); CALCIUM 9.6 mg/dL (8.5-10.4); CARBON DIOXIDE 28 mEq/l (22-31); CHLORIDE 108 mEq/L (97-110); GLOMERULAR FILTRATION RATE 52; GLUCOSE 122 mg/dL (70-100); POTASSIUM 3.6 mEq/L (3.5-5.2); SODIUM 147 mEq/L (134-144)
[2016-12-24] MEDS: ACETAMINOPHEN 650 MG/20.3 ML UDCUP TUBE PRN (04:55)
[2016-12-24] MEDS: hydrALAZINE 20 MG/ML VIAL IVP PRN (05:02)
[2016-12-24] MEDS: HEPARIN 5,000 UNIT/0.5 ML SYR SC SCH ×3 (05:04→20:47)
[2016-12-24] MEDS: BISACODYL 10 MG SUPP PR PRN (08:33)
[2016-12-24] MEDS: AMIODARONE HCL 200 MG TAB TUBE SCH (08:37)
[2016-12-24] MEDS: ENALAPRIL MALEATE 5 MG TAB TUBE SCH ×2 (08:37→20:46)
[2016-12-24] MEDS: SENNOSIDES 17.6 MG/10 ML UDL TUBE SCH ×2 (08:37→22:17)
[2016-12-24] MEDS: MULTIVIT/MINERAL/FERR GLUC 15 ML UDL TUBE SCH (08:37)
[2016-12-24] MEDS: ASPIRIN 81 MG CHEWABLE TAB TUBE SCH (08:37)
[2016-12-24] MEDS: FUROSEMIDE 20 MG/2 ML VIAL IVP SCH (08:38)
[2016-12-24] MEDS: ERTAPENEM 1 GM in NS 100 ML IV SCH (08:38)
--- NOTE | 2016-12-24 09:09 | SOAPPROG ---
SOAP Progress Note Assessment/Plan: Assessment: 85 y/o woman with PAF and previous falls with ICH, chronic diastolic CHF, secondary pulmonary HTN admitted with aspiration pneumonia now with PEG and complete NPO from mouth. In NSR. Her BP is better controlled and she appears euvolemic. PLAN: 1)stop Nitropaste as BP better controlled. If SBP routinely > 165, increase Vasotec to 5mg PT BID 2)change lasix to 20mg PT qam. 3)rest of meds without changes. 4)okay to transfer to rehab facility from cardiology whenever PNA and PEG issues stable. 5)f/u [facility] in three weeks. 12/24/16 09:07 Subjective: some incisional pain at PEG site. No CP, rest dyspnea, near syncope or PND. Objective: Vital Signs Temp Pulse Resp BP Pulse Ox 36.4 C 62 16 117/54 L 96 12/24/16 07:11 12/24/16 07:11 12/24/16 07:11 12/24/16 07:11 12/24/16 07:11 Laboratory Results 12/24/16 03:47 12/24/16 03:47 12/23/16 12/24/16 12/25/16 05:59 05:59 05:59 Intake Total 937 1360 Output Total 1400 600 50 Balance -463 760 -50 Physical Exam - Physical Exam General Appearance: alert, thin EENT: PERRL/EOMI Neck: non-tender Respiratory: rales (improving but still some rales at right base.) Cardiac/Chest: regular rate, rhythm, systolic murmur, No gallop, No JVD Peripheral Pulses: 2+: carotid (R), carotid (L), femoral (R), femoral (L), dorsalis-pedis (R), dorsalis-pedis (L) Abdomen: non-tender, No guarding Skin: warm/dry Extremities: No pedal edema Neuro/Psych: alert ICD10 Worksheet Patient Problems: Problems Problem Status Onset Pneumonia Acute Aspiration pneumonia Acute Atrial flutter Acute Chronic Disease Mgmt/Transitional Care Acute Dehydration Acute Elevated troponin Acute Intraparenchymal hematoma of brain due to trauma Acute Lightheaded Acute Lip laceration Acute Pleural effusion Acute Pulmonary edema Acute Renal insufficiency Acute Subarachnoid hemorrhage Acute Syncope Acute
--- NOTE | 2016-12-24 12:40 | HOSPPROG ---
Hospitalist Progress Note Assessment/Plan: DIAGNOSES: -acute hypoxemic respiratory failure -Suspected aspiration pneumonitis -acute diastolic congestive heart failure with bilateral pleural effusions -History of achalasia with ongoing daily regurgitation of mucousy material; moderately large volume of food and liquids retained in esophagus on EGD; -status post esophageal dilation during this hospital stay 12/20 -status post PEG tube placement here -Chronic lung disease with chronic hypoxemic respiratory failure, bronchiectasis , and some mild restrictive change, and mild Pulm HTN -Chronic hypertension, on treatment, with a history of chronic symptomatic orthostatic hypotension Her pleural effusions are smaller today than on 12/21 by xray and by exam. Otherwise progressing as expected PLANS: -continue tube feeds -PT OT -continue diuresis -possible DC to SNF in ? 2 days -will need outpt follow up with Cardiology, GI, PCP SUBJECTIVE: slept better overnight tolerating tube feeds welll so far OBJECTIVE Vitals reviewed: stable without fever Exam: alert oriented skin warm dry color ok resps not labored but mildly rapid lungs very diminished BSs and egophany at L lower lung typical of effusion heart regular abd PEG in place looks good, soft nondistended nontender, bowel sounds present limbs warm, still some mild edema iv site ok Microbiology: Respiratory pathogen panel negative Blood cultures no growth to date CXR from yest afternoon, my reading: some decrease in bilateral pleural effusions; stable chronic changes of bronchiectasis Objective: Vital Signs Temp Pulse Resp BP Pulse Ox 36.6 C 62 18 135/66 H 96 12/24/16 11:25 12/24/16 11:25 12/24/16 11:25 12/24/16 11:25 12/24/16 11:25 Laboratory Results 12/24/16 03:47 12/24/16 03:47 12/23/16 12/24/16 12/25/16 06:59 06:59 06:59 Intake Total 937 1360 Output Total 1400 650 Balance -463 710 ICD10 Worksheet Patient Problems: Problems Problem Status Onset Pneumonia Acute Aspiration pneumonia Acute Atrial flutter Acute Chronic Disease Mgmt/Transitional Care Acute Dehydration Acute Elevated troponin Acute Intraparenchymal hematoma of brain due to trauma Acute Lightheaded Acute Lip laceration Acute Pleural effusion Acute Pulmonary edema Acute Renal insufficiency Acute Subarachnoid hemorrhage Acute Syncope Acute
[2016-12-24] MEDS: ATORVASTATIN CALCIUM 10 MG TAB TUBE SCH (20:46)
[2016-12-25] MEDS: HEPARIN 5,000 UNIT/0.5 ML SYR SC SCH ×3 (05:27→21:34)
[2016-12-25] MEDS: ASPIRIN 81 MG CHEWABLE TAB TUBE SCH (09:49)
[2016-12-25] MEDS: FUROSEMIDE 20 MG TAB TUBE SCH (09:49)
[2016-12-25] MEDS: MULTIVIT/MINERAL/FERR GLUC 15 ML UDL TUBE SCH (09:49)
[2016-12-25] MEDS: AMIODARONE HCL 200 MG TAB TUBE SCH (09:49)
[2016-12-25] MEDS: ENALAPRIL MALEATE 5 MG TAB TUBE SCH ×2 (09:49→19:52)
[2016-12-25] MEDS: ERTAPENEM 1 GM in NS 100 ML IV SCH (09:50)
[2016-12-25] MEDS: SENNOSIDES 17.6 MG/10 ML UDL TUBE SCH ×2 (09:51→21:42)
--- NOTE | 2016-12-25 14:04 | ASMTCMCOM ---
CM Note CM Note Notes: Case Management Progress Note: Spoke with Cedrick at [facility], holding bed for pt in [facility]. Cedrick declined faxed updates, requested summary notes faxed at d/c. Discussed changes in tube feedings planned for d/c w/RN and MD. Alerted [facility]. Anticipate d/c tomorrow. Case Management to arrange transport. Case Management to follow. Date Signed: 12/25/2016 02:03 PM Electronically Signed By:Odalys Miller
--- NOTE | 2016-12-25 15:50 | HOSPPROG ---
Hospitalist Progress Note Assessment/Plan: * aspiration pneumonia * Finishing 10 days of antibiotics today * acute hypoxic respiratory failure * On room air now * history of achalasia status post esophageal dilation * Recommendation for no oral intake until achalasia is addressed * Peg tube was placed * Switch to bolus feeding * small pleural effusion * Follow on diuretics * acute diastolic CHF exacerbation * On oral Lasix * hypertension * Pretty well controlled on current medications * disposition * To SNF tomorrow Subjective: Feeling better. Getting stronger Objective: Vital Signs Temp Pulse Resp BP Pulse Ox 36.6 C 60 18 165/68 H 95 12/25/16 15:11 12/25/16 15:11 12/25/16 15:11 12/25/16 15:11 12/25/16 15:11 Laboratory Results 12/24/16 03:47 12/24/16 03:47 12/24/16 12/25/16 12/26/16 05:59 05:59 05:59 Intake Total 1360 Output Total 600 575 Balance 760 -575 - Physical Exam Constitutional: no apparent distress, appears nourished, not in pain Eyes: anicteric sclera, EOMI Ears, Nose, Mouth, Throat: moist mucous membranes, hearing normal Cardiovascular: regular rate and rhythym, no murmur, rub, or gallop Respiratory: no respiratory distress, no rales or rhonchi, clear to auscultation Gastrointestinal: normoactive bowel sounds, soft, non-tender abdomen, no palpable masses, other (Peg tube in place) Neurologic: AAOx3 Psychiatric: interacting appropriately, not anxious, not encephalopathic, thought process linear ICD10 Worksheet Patient Problems: Problems Problem Status Onset Pneumonia Acute Aspiration pneumonia Acute Atrial flutter Acute Chronic Disease [facility]/Transitional Care Acute Dehydration Acute Elevated troponin Acute Intraparenchymal hematoma of brain due to trauma Acute Lightheaded Acute Lip laceration Acute Pleural effusion Acute Pulmonary edema Acute Renal insufficiency Acute Subarachnoid hemorrhage Acute Syncope Acute
[2016-12-25] MEDS: ATORVASTATIN CALCIUM 10 MG TAB TUBE SCH (19:53)
[2016-12-26 04:55] LABS: ANION GAP 8 mEq/L (8-16); CALCIUM 9.5 mg/dL (8.5-10.4); CARBON DIOXIDE 33 mEq/l (22-31); CHLORIDE 103 mEq/L (97-110); GLOMERULAR FILTRATION RATE 52; GLUCOSE 94 mg/dL (70-100); MAGNESIUM 2.1 mg/dL (1.6-2.3); POTASSIUM 3.6 mEq/L (3.5-5.2); SODIUM 144 mEq/L (134-144)
[2016-12-26] MEDS: HEPARIN 5,000 UNIT/0.5 ML SYR SC SCH (06:46)
[2016-12-26 07:56] VITALS: BP 158/64; PULSE 54; RESP 18; TEMP 98.4; O2SAT 96
[2016-12-26] MEDS: ASPIRIN 81 MG CHEWABLE TAB TUBE SCH (08:12)
[2016-12-26] MEDS: MULTIVIT/MINERAL/FERR GLUC 15 ML UDL TUBE SCH (08:12)
[2016-12-26] MEDS: FUROSEMIDE 20 MG TAB TUBE SCH (08:12)
[2016-12-26] MEDS: AMIODARONE HCL 200 MG TAB TUBE SCH (08:12)
[2016-12-26] MEDS: ENALAPRIL MALEATE 5 MG TAB TUBE SCH (08:12)
[2016-12-26] MEDS: SENNOSIDES 17.6 MG/10 ML UDL TUBE SCH (08:13)
--- NOTE | 2016-12-26 10:20 | PDIAF ---
- Diagnosis Diagnosis: aspiration pna Code Status: Full Code - Medication Management Discharge Medications: Medications to Continue on Transfer Docusate Sodium [Colace 100 MG (*)] 3 tab PO HS 12/03/15 [Last Taken 12/15/16] Atorvastatin Calcium [Lipitor 10 mg (*)] 10 mg PO HS 07/02/16 [Last Taken ] Acetaminophen [Tylenol ES 500 mg (*)] 500 mg PO Q6 PRN 12/16/16 [Last Taken Unknown] Amiodarone HCl [Pacerone (*)] 200 mg PO DAILY 12/16/16 [Last Taken 12/15/16] Aspirin [Aspirin 81mg (*)] 81 mg PO DAILY 12/16/16 [Last Taken 12/16/16] Multivitamins [Multivitamin (*)] 1 each PO DAILY 12/16/16 [Last Taken Unknown] guaiFENesin [Mucinex] 1,200 mg PO DAILY PRN 12/16/16 [Last Taken Unknown] Enalapril Maleate [Vasotec 5 MG (*)] 2.5 mg TUBE BID #1 tab 12/26/16 [Last Taken Unknown] Furosemide [Lasix 20 MG (*)] 20 mg TUBE DAILY #1 tab 12/26/16 [Last Taken Unknown] Discharge Medications: Refer to the Discharge Home Medication list for PRN reason. PICC Care - Routine: N/A - Orders Services needed: Physical Therapy, Occupational Therapy Oxygen: 2L NC Diet Recommendation: sodium restricted Diet Texture: None Tube feeding: see below Weigh Patient: daily Rahman: Not applicable Additional: Tube feeds: Jevity 1.5 general formula 240 ml bolus feedings 4 X's/ day at 8am, 12pm, 4pm and 8pm. 80 ml water before and after feedings will provide 1370 ml free water - Labs/Radiology Imaging Orders: PCXR in [address] Lm Knight - Follow Up Care Current Providers and Referrals: Prema Gueavra MD [Primary Care Provider] - As per Instructions Lm Knight MD [Medical Doctor] - follow up in 2 weeks
--- NOTE | 2016-12-26 11:26 | GDS ---
[f rep st] DISCHARGE SUMMARY DISCHARGE DIAGNOSES: 1. Aspiration pneumonia. 2. Achalasia with esophageal stricture. 3. Diastolic congestive heart failure exacerbation. 4. Paroxysmal atrial fibrillation. 5. Pulmonary hypertension. 6. Previous intracranial hemorrhage. CONSULTATIONS: 1. Gastroenterology. 2. Cardiology. PROCEDURES: 1. EGD. 2. PEG tube placement. HOSPITAL COURSE: 1. Achalasia and esophageal stricture. The patient has a known history of this. GI consultation wa s obtained. She underwent EGD, which showed moderate food in the esophagus and liquid. The esophagu s was then dilated. She is undergoing outpatient evaluation at [facility] for definitive treatment o f her achalasia. Since this was not treated here and the patient had aspiration pneumonia, it was el ected to undergo PEG tube placement until this could be done. She is tolerating her tube feeds curre ntly. 2. Aspiration pneumonia. The patient received 10 days of Invanz and is doing well on minimal oxygen . 3. Diastolic congestive heart failure. Cardiology was consulted. She was diuresed. Some of her me dications were changed a little bit. She is doing well on a stable regimen and will be following up with Cardiology in 3 weeks. 4. Small left pleural effusion. This is probably related to her CHF. We will continue her on some mild diuresis and repeat chest x-ray can be done in 2 weeks. TIME SPENT: Greater than 30 minutes were spent on discharge. /[id number]/MODL
== END 2016-12-26 11:19 | DRG 177 ==
LOC: F3E 12:51 → OBSVTOIN 13:50 → F2W 12-21 18:49
PROVIDERS: ADMIT Internal Medicine; ATTEND Internal Medicine
PROC: 0D758ZZ Dilation of Esophagus, Via Natural or Artificial Opening Endoscopic (ICD-10-PCS; principal; 2016-12-20 11:00)
PROC: 0DB78ZX Excision of Stomach, Pylorus, Via Natural or Artificial Opening Endoscopic, Diagnostic (ICD-10-PCS; principal; 2016-12-20 11:00)
PROC: 0DB68ZX Excision of Stomach, Via Natural or Artificial Opening Endoscopic, Diagnostic (ICD-10-PCS; principal; 2016-12-20 11:00)
PROC: 0DH63UZ Insertion of Feeding Device into Stomach, Percutaneous Approach (ICD-10-PCS; 2016-12-21)
DX: J69.0 Pneumonitis due to inhalation of food and vomit (principal); I50.33 Acute on chronic diastolic (congestive) heart failure; J47.0 Bronchiectasis with acute lower respiratory infection; J96.21 Acute and chronic respiratory failure with hypoxia; J90 Pleural effusion, not elsewhere classified; K22.0 Achalasia of cardia; K22.2 Esophageal obstruction; I48.0 Paroxysmal atrial fibrillation; I27.2 Other secondary pulmonary hypertension; I11.0 Hypertensive heart disease with heart failure; E87.6 Hypokalemia; Z91.81 History of falling
CPT/HCPCS: 92610-GN; 96365; 97110-GP; 97112-GP; 97116-GP; 97161-GP; 97166-GO; 97530-GP; 97535-GO; C1729; C1769; G8978-GP-CK; G8979-GP-CI; G8987-GO-CJ; G8988-GO-CI; G8996-GN-CI; G8999-GN-CI; J0330; J0360; J1335; J1940; J2704; J3010; Q9967

== ENCOUNTER → 2017-02-07 | Outpatient (CLI) | payer OTHER | LOC: BMCIMAGING 15:44 | PROVIDERS: ATTEND Internal Medicine | DX: R10.9 Unspecified abdominal pain (principal); K59.00 Constipation, unspecified; Z93.1 Gastrostomy status ==

== ENCOUNTER → 2017-02-14 | Outpatient (CLI) | payer OTHER | LOC: CIMAGING 15:25 → EDSTATUS 15:26 → CIMAGING 15:26 | PROVIDERS: ATTEND Internal Medicine Gastroenterology | DX: K59.00 Constipation, unspecified (principal); I51.7 Cardiomegaly; Z93.1 Gastrostomy status | CPT/HCPCS: 74020-PO ==

== ENCOUNTER → 2017-02-15 | Day surgery (SDC) | payer OTHER ==
[~2017-02-15] MED LIST: IOPAMIDOL (ISOVUE-300) 100 ML BTL ONE
== END | disposition home or self-care (01) ==
LOC: FIMAGING 14:47
PROVIDERS: ATTEND Radiology Diagnostic Radiology
PROC: BD12YZZ Fluoroscopy of Stomach using Other Contrast (ICD-10-PCS; principal; 2017-02-15)
PROC: 0DW03UZ Revision of Feeding Device in Upper Intestinal Tract, Percutaneous Approach (ICD-10-PCS; principal; 2017-02-15)
DX: T85.848A Pain due to other internal prosthetic devices, implants and grafts, initial encounter (principal); Z93.1 Gastrostomy status
CPT/HCPCS: 43761; 76000; C1769; Q9967

== ENCOUNTER 2017-04-19 13:52 | Inpatient (IN) | payer OTHER ==
--- NOTE | 2017-04-19 14:06 | EDPHY ---
H & P HPI/ROS: CHIEF COMPLAINT: Syncope, abdominal cramping HISTORY OF PRESENT ILLNESS: The patient is an 86 y/o female who arrives with her family for complaining of waxing and waning abdominal cramping onset early this morning and subsequent syncopal event early this afternoon. Her medical history includes atrial fibrillation, chronic pulmonary hypertension, chronic hypoxemia, hypertension, and chronic kidney disease. She has achalasia and has a PEG tube in place, through which she receives all medications and nutrition. She describes waves of abdominal cramping that improved slightly after 3 separate bowel movements this morning. She has associated nausea, dry heaving, and dizziness. Early this afternoon while she was with family she lost consciousness for almost 2 minutes. Family members assisted her to the ground and deny any trauma or seizure activity during this episode. They contacted her GI doctor, Dr. Chi, and his office referred them to the ED. She denies chest pain, dyspnea, fever, diarrhea, headache, weakness, or numbness. REVIEW OF SYSTEMS: A ten point review of systems was performed and is negative with the exception of the items mentioned in the HPI. Past medical history: 1. Atrial fibrillation 2. Chronic pulmonary hypertension 3. Chronic hypoxemic respiratory failure 4. Hypertension 5. Chronic kidney disease 6. Diastolic heart failure 7. Mitral regurgitation 8. Bronchiectasis 9. Chronic orthostasis 10. Peptic ulcer disease 11. Hypercholesterolemia 12. Osteoporosis 13. Anemia 14. Prior intracranial hemorrhage 15. Multiple admissions for pneumonia 16. Achalasia and esophageal stricture leading to PEG tube placement 12/21/16 Past surgical history: 1. Hysterectomy 2. Appendectomy 3. Cataract surgery 4. Hand surgery 5. Total hip replacement 6. PEG tube - no food by mouth Prior medical records reviewed including admission 12/16/16 for weakness, cough, and dyspnea. She was diagnosed with aspiration pneumonia and achalasia with esophageal stricture and required PEG tube placement, which is still present. Family history: Noncontributory Social history: , who is a retired [employer], at bedside. Son-in-law at bedside. Walks with a walker for long distances General Appearance: Alert. Elderly and thin. Vital signs reviewed. Blood pressure 103/69 at triage with blood pressure of 72/46 at time of my exam. Repeat BP WNL (IVF started). Eyes: Pupils equal and round, no conjunctival injection, no discharge. Anicteric. ENT, Mouth: Mucous membranes are dry, chapped lips, no oropharyngeal erythema or edema. Neck: No lymphadenopathy, supple. Respiratory: Lungs are clear to auscultation; no wheezes, rales, or rhonchi. Cardiovascular: Regular rate and rhythm; no murmur, rub, or gallop. Gastrointestinal: Abdomen is soft, diffuse moderate tenderness, no masses or organomegaly, bowel sounds normal. PEG tube site clean and intact. Skin: Warm and dry, no rashes on exposed skin, normal color. Back: Nontender to palpation over the thoracolumbar spine. No CVAT. Extremities: No lower extremity edema, no calf tenderness or swelling. Neurological: Alert and oriented. Moving all four extremities easily and equally. Psychiatric: Normal affect. - Medical/Surgical History Hx Asthma: No Hx Chronic Respiratory Disease: No Hx Diabetes: No Hx Cardiac Disease: Yes Hx Renal Disease: No Hx Cirrhosis: No Hx Alcoholism: No Hx HIV/AIDS: No Hx Splenectomy or Spleen Trauma: No Other PMH: pneumonia, achilasia, scoliosis lumbar spine, charlene bunionectomies, left thr, hysterectomy, appy, charlene thumb surgeries for arthritis, LEFT HIP, CATARACTS, AFIB, HYPERCHOLEST, HYPERTSN - Social History Smoking Status: Never smoked Constitutional: Initial Vital Signs Temperature (C) 36 C 04/19/17 13:52 Heart Rate 75 04/19/17 13:52 Respiratory Rate 20 04/19/17 13:52 Blood Pressure 103/69 04/19/17 13:52 O2 Sat (%) 98 04/19/17 13:52 O2 Delivery Mode Room Air Allergies/Adverse Reactions: Sulfa (Sulfonamide Antibiotics) Allergy (Verified 12/16/16 10:16) Rash Home Medications: Medication Instructions Recorded Atorvastatin Calcium [Lipitor 10 10 mg PO HS 07/02/16 mg (*)] Acetaminophen [Tylenol ES 500 mg 500 mg PO Q6 PRN 12/16/16 (*)] Amiodarone HCl [Pacerone (*)] 200 mg PO DAILY 12/16/16 Aspirin [Aspirin 81mg (*)] 81 mg PO DAILY 12/16/16 Enalapril Maleate [Vasotec 5 MG 2.5 mg TUBE BID #1 tab 12/26/16 (*)] Furosemide [Lasix 20 MG (*)] 20 mg TUBE DAILY #1 tab 12/26/16 Miralax 17 gm (*) 04/19/17 Ranitidine HCl 04/19/17 Spironolactone 04/19/17 Medical Decision Making - Diagnostics Imaging Results: Imaging Impressions Chest X-Ray 04/19/17 14:20 Impression: 1. Resolved bilateral lower lobe pneumonia with effusions. 2. Right upper lobe irregular nodule, new since 2016. Consider noncontrast chest CT for further evaluation. Results discussed with Dr. Fairchild between at 3:07 PM Imaging: Discussed imaging studies w/ call center specialist Radiologist, I viewed and interpreted images myself ED Course/Re-evaluation: This is an elderly 86 y/o female with significant past medical history who presents with a 10-hour history of abdominal cramping and syncopal episode early this afternoon. She has diffuse abdominal tenderness on exam. During examination she became hypotensive at 72/46. Plan for IV, labs, EKG, chest x-ray , and abdominal CT. 1L IV NS administered. The 12 lead EKG was interpreted by myself. Sinus rhythm rate 73. First degree AV block. See hard copy and/or "tracemaster" electronic copy for interpretation. Chest x-ray shows irregular RUL nodule, cardiomegaly. WBC elevated 15.29. Creatinine elevated 2.2. Troponin elevated 0.041 (indeterminate range). Abdominal CT shows cecal volvulus and abdominal free fluid. Surgery paged. 1515: Reevaluated patient and discussed findings thus far with her and her . 1518: Consulted with Dr. Gonzalez, surgeon. He will review films and assess patient in the ED. Surgery planned. Differential Diagnosis: Abdominal pain including but not limited to SBO, volvulus, constipation, appendicitis, cholecystitis, gastritis and urinary tract infection. - Data Points Laboratory Results: Laboratory Results 04/19/17 14:00 04/19/17 14:00 04/19/17 04/19/17 14:00 14:00 WBC 15.29 10^3/uL H 10^3/uL (3.80-9.50) RBC 3.88 10^6/uL L 10^6/uL (4.18-5.33) Hgb 12.7 g/dL g/dL (12.6-16.3) Hct 38.1 % % (38.0-47.0) MCV 98.2 fL fL (81.5-99.8) MCH 32.7 pg pg (27.9-34.1) MCHC 33.3 g/dL g/dL (32.4-36.7) RDW 14.8 % % (11.5-15.2) Plt Count 209 10^3/uL 10^3/uL (150-400) MPV 12.0 fL H fL (8.7-11.7) Neut % (Auto) 93.2 % H % (39.3-74.2) Lymph % (Auto) 2.4 % L % (15.0-45.0) [place] % (Auto) 3.7 % L % (4.5-13.0) Eos % (Auto) 0.0 % L % (0.6-7.6) Baso % (Auto) 0.1 % L % (0.3-1.7) Nucleat RBC Rel Count 0.0 % % (0.0-0.2) Absolute Neuts (auto) 14.25 10^3/uL H 10^3/uL (1.70-6.50) Absolute Lymphs (auto) 0.37 10^3/uL L 10^3/uL (1.00-3.00) Absolute Monos (auto) 0.56 10^3/uL 10^3/uL (0.30-0.80) Absolute Eos (auto) 0.00 10^3/uL L 10^3/uL (0.03-0.40) Absolute Basos (auto) 0.02 10^3/uL 10^3/uL (0.02-0.10) Absolute Nucleated RBC 0.00 10^3/uL 10^3/uL (0-0.01) Immature Gran % 0.6 % % (0.0-1.1) Immature Gran # 0.09 10^3/uL 10^3/uL (0.00-0.10) Sodium 141 mEq/L mEq/L (134-144) Potassium 5.7 mEq/L H mEq/L (3.5-5.2) Chloride 103 mEq/L mEq/L (97-110) Carbon Dioxide 17 mEq/l L mEq/l (22-31) Anion Gap 21 mEq/L H mEq/L (8-16) BUN 89 mg/dL H mg/dL (7-23) Creatinine 2.2 mg/dL H mg/dL (0.6-1.0) Estimated GFR 21 Glucose 244 mg/dL H mg/dL (70-100) Calcium 10.2 mg/dL mg/dL (8.5-10.4) Troponin I 0.041 ng/mL H ng/mL (0.000-0.034) Medications Given: Discontinued Medications Sodium Chloride (Ns) 1,000 mls @ 0 mls/hr IV ONCE ONE PRN Reason: Wide Open Stop: 04/19/17 14:41 Last Admin: 04/19/17 14:41 Dose: 1,000 mls Departure - Departure Disposition: [facility] Inpatient Acute Clinical Impression: Cecal volvulus, Renal insufficiency Condition: Fair Referrals: Prema Guevara MD [Primary Care Provider] - As per Instructions Report Scribed for: Suzi Fairchild Report Scribed by: Nia Brambila Date of Report: 04/19/17 Time of Report: 14:37 Physician Review and Approval Statement: 04/19/17 14:06 Portions of this note were transcribed by the medical oncology physician. I, Dr. Suzi Fairchild, personally performed the history, physical exam, and medical decision- making; and confirmed the accuracy of the information in the transcribed note.
[2017-04-19 14:30] LABS: PLATELET COUNT 209 10^3/uL (150-400)
--- NOTE | 2017-04-19 14:32 | CPEKG ---
Heart Rate: 73 RR Interval: 822 P-R Interval: 224 QRSD Interval: 98 QT Interval: 444 QTC Interval: 490 P [place]: 85 QRS [place]: 74 T Wave [place]: 82 EKG Severity - ABNORMAL ECG - EKG Impression: SINUS RHYTHM EKG Impression: FIRST DEGREE AV BLOCK EKG Impression: BORDERLINE PROLONGED QT INTERVAL Electronically Signed By: Suzi Fairchild 19-Apr-2017 14:58:15
[2017-04-19] MEDS ORDERED: NS 1,000 ML IV ONE (14:40)
[2017-04-19] MEDS ORDERED: fentaNYL 100 MCG/2 ML INJ IVP ONE (15:30)
[2017-04-19] MEDS ORDERED: ERTAPENEM 1 GM VIAL IVP ONE (15:54)
--- NOTE | 2017-04-19 16:01 | PDGENHP ---
History and Physical - Chief Complaint abdominal pain - History of Present Illness 86-year-old female with extensive past medical history presents with 12 hr history of abdominal pain. Patient states that the pain started at 1:00 a.m. was progressive and crampy associated with nausea and vomiting as well as abdominal distention. Given the persistence of the pain the patient presented to the emergency department after contacting her stopperer assembler earlier today. She denies having any fevers or chills but states that the pain is progressive, colicky, sharp, worse in her left lower quadrant and with radiation to her left upper quadrant. Pain is currently an 8 of 10 in intensity. History Information - Allergies/Home Medication List Allergies/Adverse Reactions: Sulfa (Sulfonamide Antibiotics) Allergy (Verified 12/16/16 10:16) Rash Home Medications: Atorvastatin Calcium [Lipitor 10 mg (*)] 10 mg PO HS 07/02/16 [Last Taken ] Acetaminophen [Tylenol ES 500 mg (*)] 500 mg PO Q6 PRN 12/16/16 [Last Taken Unknown] Amiodarone HCl [Pacerone (*)] 200 mg PO DAILY 12/16/16 [Last Taken 12/15/16] Aspirin [Aspirin 81mg (*)] 81 mg PO DAILY 12/16/16 [Last Taken 12/16/16] Miralax 17 gm (*) 04/19/17 [Last Taken Unknown] Ranitidine HCl 04/19/17 [Last Taken Unknown] Spironolactone 04/19/17 [Last Taken Unknown] I have personally reviewed and updated: family history, medical history, social history, surgical history Past Medical History: Atrial fibrillation, chronic pulmonary hypertension, chronic hypoxemic respiratory failure, hypertension, chronic kidney disease, diastolic heart failure, mitral regurgitation, bronchiectasis, chronic orthostasis, peptic ulcer disease, hypercholesterolemia, osteoporosis, anemia, previous history of intracranial hemorrhage, multiple admissions for pneumonia, achalasia with esophageal stricture - Past Medical History Additional medical history: Atrial fibrillation off AC after recent intracranial hemorrhage. Intracranial hemorrhage. HTN. Achalasia. diastolic CHF. moderate to severe Pulm hypertension. chronic respiratory failure on home O2 at night. Osteoporosis with lumbar arthritis - Surgical History Additional surgical history: Hysterectomy. Bilateral bunionectomy. Appendectomy. Bilateral cataract. Right hand surgery - Family History Positive for: non-pertinent - Social History Smoking Status: Never smoked Additional social history: Patient lives with her in an independent living facility until recent hospital admission, discharged to [facility]. Usually walks with a walker Review of Systems Review of Systems: ROS: 10pt was reviewed & negative except for what was stated in HPI & below Physical Exam Physical Exam: Temp Pulse Resp BP Pulse Ox 36 C 66 15 129/65 H 99 04/19/17 13:52 04/19/17 15:42 04/19/17 15:42 04/19/17 15:42 04/19/17 15:44 Constitutional: appears nourished, not in pain, other (Mild distress) Eyes: PERRL, anicteric sclera, EOMI Ears, Nose, Mouth, Throat: moist mucous membranes, hearing normal, ears appear normal, no oral mucosal ulcers Cardiovascular: other (Irregularly irregular), No edema Respiratory: no respiratory distress, no rales or rhonchi, clear to auscultation Gastrointestinal: other (Distended, tender, with rebound) Genitourinary: no bladder fullness, no bladder tenderness Skin: warm, normal color, no rashes or abrasions, no fluctuance, no induration, No mottled Musculoskeletal: full muscle strength, no muscle tenderness, normal joint ROM, no joint effusions Psychiatric: interacting appropriately, not anxious, not encephalopathic, thought process linear Lymph, Heme, Immunologic: no cervical LAD, no supraclavicular LAD Lab Data & Imaging Review 04/19/17 14:00 04/19/17 14:00 WBC 15.29 10^3/uL (3.80-9.50) H 04/19/17 14:00 RBC 3.88 10^6/uL (4.18-5.33) L 04/19/17 14:00 Hgb 12.7 g/dL (12.6-16.3) 04/19/17 14:00 Hct 38.1 % (38.0-47.0) 04/19/17 14:00 MCV 98.2 fL (81.5-99.8) 04/19/17 14:00 MCH 32.7 pg (27.9-34.1) 04/19/17 14:00 MCHC 33.3 g/dL (32.4-36.7) 04/19/17 14:00 RDW 14.8 % (11.5-15.2) 04/19/17 14:00 Plt Count 209 10^3/uL (150-400) 04/19/17 14:00 MPV 12.0 fL (8.7-11.7) H 04/19/17 14:00 Neut % (Auto) 93.2 % (39.3-74.2) H 04/19/17 14:00 Lymph % (Auto) 2.4 % (15.0-45.0) L 04/19/17 14:00 [place] % (Auto) 3.7 % (4.5-13.0) L 04/19/17 14:00 Eos % (Auto) 0.0 % (0.6-7.6) L 04/19/17 14:00 Baso % (Auto) 0.1 % (0.3-1.7) L 04/19/17 14:00 Nucleat RBC Rel Count 0.0 % (0.0-0.2) 04/19/17 14:00 Absolute Neuts (auto) 14.25 10^3/uL (1.70-6.50) H 04/19/17 14:00 Absolute Lymphs (auto) 0.37 10^3/uL (1.00-3.00) L 04/19/17 14:00 Absolute Monos (auto) 0.56 10^3/uL (0.30-0.80) 04/19/17 14:00 Absolute Eos (auto) 0.00 10^3/uL (0.03-0.40) L 04/19/17 14:00 Absolute Basos (auto) 0.02 10^3/uL (0.02-0.10) 04/19/17 14:00 Absolute Nucleated RBC 0.00 10^3/uL (0-0.01) 04/19/17 14:00 Immature Gran % 0.6 % (0.0-1.1) 04/19/17 14:00 Immature Gran # 0.09 10^3/uL (0.00-0.10) 04/19/17 14:00 Sodium 141 mEq/L (134-144) 04/19/17 14:00 Potassium 5.7 mEq/L (3.5-5.2) H 04/19/17 14:00 Chloride 103 mEq/L (97-110) 04/19/17 14:00 Carbon Dioxide 17 mEq/l (22-31) L 04/19/17 14:00 Anion Gap 21 mEq/L (8-16) H 04/19/17 14:00 BUN 89 mg/dL (7-23) H 04/19/17 14:00 Creatinine 2.2 mg/dL (0.6-1.0) H 04/19/17 14:00 Estimated GFR 21 04/19/17 14:00 Glucose 244 mg/dL (70-100) H 04/19/17 14:00 Calcium 10.2 mg/dL (8.5-10.4) 04/19/17 14:00 Troponin I 0.041 ng/mL (0.000-0.034) H 04/19/17 14:00 Visualized and Interpreted imaging results: Yes Interpretation: CT scan shows acute cecal volvulus with surrounding inflammatory fluid, no signs of intestinal perforation Assessment & Plan Assessment: Cecal volvulus (Acute) Renal insufficiency (Acute) Plan: [age] old female with cecal volvulus. Discussed with the patient and her who is a retired physician the diagnosis and urgency for treatment. After discussing risks benefits and alternatives we will plan to proceed to the operating room [facility] for exploratory laparotomy resection. Discussed the risks benefits and alternatives including infection, bleeding, , protracted hospital course given her multiple medical problems. I will also have the Medicine Service consult and assist with her management.
--- NOTE | 2017-04-19 16:10 | PDANEPAE ---
ANE History of Present Illness 86F with volvulus for ex lap ANE Past Medical History - Cardiovascular History Hx Hypertension: Yes Hx Arrhythmias: Yes Hx Chest Pain: No Hx Coronary Artery / Peripheral Vascular Disease: No Hx CHF / Valvular Disease: Yes Hx Palpitations: No Cardiovascular History Comment: pcp monitors bp meds. hypercholesterolemia - Pulmonary History Hx COPD: No Hx Asthma/Reactive Airway Disease: No Hx Recent Upper Respiratory Infection: No Hx Oxygen in Use at Home: No Hx Sleep Apnea: Yes Pulmonary History Comment: pna 09/2015 recurrent pna d/t aspiration - Neurologic History Hx Cerebrovascular Accident: No Hx Seizures: No Hx Dementia: No - Endocrine History Hx Diabetes: No Obesity: no - Renal History Hx Renal Disorders: Yes Renal History Comment: CKD - Liver History Hx Hepatic Disorders: No - Neurological & Psychiatric Hx Hx Neurological and Psychiatric Disorders: No - Cancer History Hx Cancer: No - Congenital Disorder History Hx Congenital Disorders: No - GI History Hx Gastrointestinal Disorders: Yes Gastrointestinal History Comment: reflux. esophageal stenosis currently. achilasia. dysphagia - Other Health History Other Health History: none - Chronic Pain History Chronic Pain: No - Surgical History Prior Surgeries: 06/29/14 esophageal dilation with gatof. appy. bilateral bunionectomies. hysterectomy. left david. blepheroplasty. face lift. laser eye surgery. bilateral thumb surgery ANE Review of Systems Review of systems is: negative Review of Systems: - Exercise capacity Exercise capacity: <4 METS ANE Patient History - Allergies Allergies/Adverse Reactions: Sulfa (Sulfonamide Antibiotics) Allergy (Verified 12/16/16 10:16) Rash - Home Medications Home medications: home medication list seen and reviewed Home Medications: Atorvastatin Calcium [Lipitor 10 mg (*)] 10 mg PO HS 07/02/16 [Last Taken ] Acetaminophen [Tylenol ES 500 mg (*)] 500 mg PO Q6 PRN 12/16/16 [Last Taken Unknown] Amiodarone HCl [Pacerone (*)] 200 mg PO DAILY 12/16/16 [Last Taken 12/15/16] Aspirin [Aspirin 81mg (*)] 81 mg PO DAILY 12/16/16 [Last Taken 12/16/16] Miralax 17 gm (*) 04/19/17 [Last Taken Unknown] Ranitidine HCl 04/19/17 [Last Taken Unknown] Spironolactone 04/19/17 [Last Taken Unknown] - Anes Hx Anes Hx: no prior problems - Smoking Hx Smoking Status: Never smoked - Family Anes Hx Family Hx Anesthesia Complications: none ANE Labs/Vital Signs - Labs Result Diagrams: 04/19/17 14:00 04/19/17 14:00 - Vital Signs Blood Pressure: 129/65 Heart Rate: 66 Respiratory Rate: 15 O2 Sat (%): 99 Height: 162.56 cm Weight: 49.895 kg ANE Physical Exam - ASA Status ASA Status: IV, E ANE Anesthesia Plan Anesthesia Plan: general endotracheal anesthesia Lines/Monitors: arterial line
[2017-04-19] MEDS ORDERED: PROPOFOL 200 MG/20 ML VIAL ONE ×2 (16:16→18:08)
[2017-04-19] MEDS ORDERED: fentaNYL 250 MCG/5 ML INJ ONE (16:16)
[2017-04-19] MEDS ORDERED: ROCURONIUM 100 MG/10 ML VIAL ONE (16:17)
[2017-04-19 16:18] LABS: INR 0.99 (0.83-1.16); PROTIME(PATIENT) 13.3 SEC (12.0-15.0)
[2017-04-19] MEDS ORDERED: LIDOCAINE 2% 5 ML SDV ONE (16:19)
[2017-04-19] MEDS ORDERED: BUPIVACAINE 0.5% 30 ML SDV ONE (16:20)
[2017-04-19] MEDS ORDERED: BACITRACIN 50,000 UNITS/10 ML SYR IRR ONE (16:20)
[2017-04-19] MEDS ORDERED: THROMBIN(HUM PLAS)/FIBRINOG/CA 5 ML VIAL TP ONE (16:21)
[2017-04-19] MEDS ORDERED: LR 1,000 ML IV ONE (16:30)
--- NOTE | 2017-04-19 16:36 | PDANEPAE ---
ANE History of Present Illness 86 yo for exp lap, voluvus ANE Past Medical History - Cardiovascular History Hx Hypertension: Yes Hx Arrhythmias: No Hx Chest Pain: No Hx Coronary Artery / Peripheral Vascular Disease: No Hx CHF / Valvular Disease: No Hx Palpitations: No Cardiovascular History Comment: pcp monitors bp meds. hypercholesterolemia - Pulmonary History Hx COPD: No Hx Asthma/Reactive Airway Disease: No Hx Recent Upper Respiratory Infection: No Hx Oxygen in Use at Home: No Hx Sleep Apnea: Yes Pulmonary History Comment: pna 09/2015 recurrent pna d/t aspiration - Neurologic History Hx Cerebrovascular Accident: No Hx Seizures: No Hx Dementia: No - Endocrine History Hx Diabetes: No - Renal History Hx Renal Disorders: No - Liver History Hx Hepatic Disorders: No - Neurological & Psychiatric Hx Hx Neurological and Psychiatric Disorders: No - Cancer History Hx Cancer: No - Congenital Disorder History Hx Congenital Disorders: No - GI History Hx Gastrointestinal Disorders: Yes Gastrointestinal History Comment: reflux. esophageal stenosis currently. achilasia. dysphagia - Other Health History Other Health History: none - Chronic Pain History Chronic Pain: No - Surgical History Prior Surgeries: 06/29/14 esophageal dilation with gatof. appy. bilateral bunionectomies. hysterectomy. left david. blepheroplasty. face lift. laser eye surgery. bilateral thumb surgery ANE Review of Systems Review of Systems: ANE Patient History - Allergies Allergies/Adverse Reactions: Sulfa (Sulfonamide Antibiotics) Allergy (Verified 12/16/16 10:16) Rash - Home Medications Home medications: home medication list seen and reviewed Home Medications: Atorvastatin Calcium [Lipitor 10 mg (*)] 10 mg TUBE HS 07/02/16 [Last Taken ] Acetaminophen [Tylenol ES 500 mg (*)] 500 mg TUBE Q6 PRN 12/16/16 [Last Taken Unknown] Amiodarone HCl [Pacerone (*)] 100 mg TUBE DAILY 12/16/16 [Last Taken 04/19/17] Aspirin [Aspirin 81mg (*)] 81 mg TUBE DAILY 12/16/16 [Last Taken 04/19/17] Polyethylene Glycol 3350 [Miralax 17 gm (*)] 17 gm TUBE DAILY 04/19/17 [Last Taken Unknown] Ranitidine HCl [Zantac] 150 mg TUBE DAILY 04/19/17 [Last Taken 04/18/17] Spironolactone [Aldactone 25 MG (*)] 12.5 mg TUBE DAILY 04/19/17 [Last Taken ] - Smoking Hx Smoking Status: Never smoked - Family Anes Hx Family Hx Anesthesia Complications: none ANE Labs/Vital Signs - Labs Result Diagrams: 04/19/17 14:00 04/19/17 14:00 - Vital Signs Blood Pressure: 134/67 Heart Rate: 76 Respiratory Rate: 17 O2 Sat (%): 98 Height: 5 ft 4 in Weight: 49.895 kg ANE Physical Exam - Airway Neck exam: FROM Mallampati Score: Class 2 Mouth exam: normal dental/mouth exam - Pulmonary Pulmonary: no respiratory distress - Cardiovascular Cardiovascular: regular rate and rhythym - ASA Status ASA Status: IV, E ANE Anesthesia Plan Anesthesia Plan: general endotracheal anesthesia Lines/Monitors: arterial line, central line
[2017-04-19] MEDS ORDERED: ERTAPENEM 1 GM VIAL ONE (16:42)
[2017-04-19] MEDS ORDERED: INSULIN REGULAR HUMAN 100 UNIT in NS 100 ML IV ONE (16:56)
[2017-04-19] MEDS ORDERED: SODIUM BICARBONATE 10 MEQ/10 ML SYR IVP ONE (17:27)
[2017-04-19] MEDS ORDERED: NA BICARBONATE 50 MEQ/50 ML VIAL ONE (17:28)
[2017-04-19] MEDS ORDERED: HYDROmorphONE/DILAUDID 2 MG/ML INJ ONE (17:35)
[2017-04-19] MEDS ORDERED: LORazepam 2 MG/ML INJ IVP PRN (18:50)
[2017-04-19] MEDS ORDERED: NS 1,000 ML IV SCH (19:00)
[2017-04-19] MEDS ORDERED: PROPOFOL/EMULSION 100 ML IV SCH (19:00)
--- NOTE | 2017-04-19 19:00 | POSTOPPROG ---
Post Op Note Date of Operation: 04/19/17 Surgeon: Musa Gonzalez Anesthesiologist: Marie Anesthesia: GET(General Endotracheal) Pre-op Diagnosis: Cecal volvulus Post-op Diagnosis: cecal volvulus with necrotic cecum, small bowel Procedure: ex-lap, Extended right colectomy, anastomosis Findings: cecum, distal ileum, non-perforated Inf/Abcess present in the surg proc area at time of surgery?: No EBL: Minimal Total fluids administered: 2000cc washout c baci Specimen(s): colon c small bowel
[2017-04-19 19:41] LABS: PLATELET COUNT 142 10^3/uL (150-400)
[2017-04-19] MEDS: fentaNYL 100 MCG/2 ML INJ IVP PRN (19:48)
[2017-04-19] MEDS: FAMOTIDINE 20 MG/NACL 50 ML IV SCH (19:50)
[2017-04-19] MEDS: CHLORHEXIDINE GLUCONATE 15 ML UDL PO SCH (20:00)
[2017-04-19] MEDS ORDERED: ALBUMIN 5% 500 ML BOTTLE IV ONE (20:31)
--- NOTE | 2017-04-19 20:49 | GCON ---
[f rep st] CONSULTATION INTERNAL MEDICINE CONSULTATION DATE OF CONSULTATION: 04/19/2017 REQUESTING PHYSICIAN: Dr. Musa Gonzalez. REASON FOR CONSULTATION: Medical management. HISTORY OF PRESENT ILLNESS: This is an 86-year-old female with a fairly extensive past medical histo ry. Most recently she had a history of achalasia and a PEG tube was placed. She also had aspiration pneumonia at that time. She has a history of atrial fibrillation, diastolic heart failure, chronic pulmonary hypertension, bronchiectasis. She presented to the emergency department with a 12-hour sev ere right lower quadrant abdominal pain. 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 She denies any nausea, vomiting. She did have a little bit of bowel movement. She denies any fevers or chills. No chest pain. No shortness of breath. She is on oxygen at home. REVIEW OF SYSTEMS: A 10-point review of systems was obtained and negative. PAST MEDICAL HISTORY: 1. Atrial fibrillation. 2. Diastolic heart failure. 3. Mitral regurgitation. 4. Chronic pulmonary hypertension. 5. Bronchiectasis. 6. History of achalasia, status post PEG placement. 7. History of intracranial hemorrhage, and that is why she is not on anticoagulation. 8. Osteoporosis. PAST SURGICAL HISTORY: Hysterectomy, appendectomy, bilateral cataracts, right hand surgery. SOCIAL HISTORY: No smoking. Lives her . 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 FAMILY HISTORY: Both parents are . PHYSICAL EXAMINATION: VITAL SIGNS: Afebrile. Blood pressure is 103/69, heart rate 75, oxygen satur ation 98% on room air. GENERAL: The patient is a thin, elderly lady in no apparent distress. HEENT : Nonicteric sclerae. Extraocular movements intact. Moist mucous membranes. NECK: Supple. No th yromegaly. LUNGS: Good effort. Clear to auscultation bilaterally. CARDIOVASCULAR: Regular. No m urmurs, rubs, or gallops. ABDOMEN: Active bowel sounds, distended, firm, diffuse tenderness. EXTRE MITIES: No clubbing, cyanosis, or edema. SKIN: Without rash. Dry, intact. NEURO: Alert and orie nted x3. Moving all 4 extremities equally. PSYCH: Normal affect. LABS: White blood cell count elevated at 15, hemoglobin 12. Chemistry shows a sodium 141, potassium 5.2, creatinine is 2.2 with baseline of 1.0 although was 1.[address] scan of the abdomen an d pelvis shows markedly dilated bowel at 7.5 cm slipped in the left mid abdomen consistent with a cec al volvulus. ASSESSMENT AND PLAN: 86-year-old female presenting with a cecal volvulus. 1. Cecal volvulus. The patient will be going to the OR shortly. This is a high-risk procedure cons idering patient's age and comorbidities. 2. Hyperkalemia. This is probably driven by the fact that she is on enalapril, spironolactone, and she has an acidosis probably from dying gut. We will recheck her labs after she comes out of the OR. She may need some bicarb to treat the acidosis. 3. Diastolic dysfunction/pulmonary hypertension. We will continue to watch her fluid status and oxy genation carefully. 4. Acute renal failure. We are going to be holding her nephrotoxic medications. Continue with IV f luid hydration. She is mildly hypotensive and thus concern for acute tubular necrosis is there. 5. History of percutaneous endoscopic gastrostomy tube placement. When she starts feeding, we will continue this. 6. Deep venous thrombosis prophylaxis. We will start once appropriate per Surgery. 7. Gastrointestinal prophylaxis. We will start if she is on the ventilator which she comes out. 8. Atrial fibrillation. We will continue the amiodarone that she is on orally. 9. Hypertension, diastolic heart failure. We will hold her enalapril and spironolactone. Thank you for this consultation. We will follow along with you. /[id number]/MODL
[2017-04-19] MEDS ORDERED: ALBUMIN 5% 500 ML IV ONE (21:00)
[2017-04-20] MEDS ORDERED: ALBUMIN 5% 500 ML BOTTLE IV ONE (01:12)
[2017-04-20] MEDS: fentaNYL 100 MCG/2 ML INJ IVP PRN ×4 (01:19→11:36)
[2017-04-20] MEDS ORDERED: ALBUMIN 5% 500 ML IV ONE (01:30)
[2017-04-20 04:19] LABS: PLATELET COUNT 119 10^3/uL (150-400)
--- NOTE | 2017-04-20 05:10 | GOP ---
[f rep st] OPERATIVE REPORT DATE OF OPERATION: 04/19/2017 SURGEON: Musa Gonzalez MD CREELER: None. ANESTHESIA: General endotracheal. ANESTHESIOLOGIST: Humaira Salazar MD. PREOPERATIVE DIAGNOSIS: Cecal volvulus. 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 PROCEDURE PERFORMED: Exploratory laparotomy. Reduction of cecal volvulus with extended right colectomy. FINDINGS: Acute cecal volvulus with necrotic right colon, 10 cm of distal ileum , extended right colectomy to middle colic performed with [id number] functional end-to-end anastomosis. SPECIMENS: Right colon with additional proximal transverse colon and small bowel. ESTIMATED BLOOD LOSS: 5 cc. DESCRIPTION OF PROCEDURE: The patient was greeted in the preoperative suite. Once again, risks, benefits, and alternatives were discussed. Consent was signed. She was then brought back to the operative suite, placed on the OR table in supine position. After all anesthesia machines, including SCDs, were on and functioning, World Health Organization time-out was performed. After successful induction of general anesthesia, Anesthesiologist successfully placed an internal jugular central venous catheter as well as a left radial arterial line. After placement of these the abdomen was prepped and draped in typical sterile fashion. I entered the abdomen via a midline incision circumferentially around the umbilicus. Once successfully in the abdomen, a very dilated necrotic cecum was identified. I successfully eviscerated this from the patient's abdomen and reduced the volvulus. After reduction a clear demarcation of both the small bowel and the colon was identified. I initially stapled off both the distal ilium as well as the transverse colon, at areas of clear demarcation from necrotic to healthy, to enable my resection. Once this was done and the colon and small bowel were successfully stapled off, I took down the mesentery with the Harmonic scalpel. After successfully taking the mesentery I removed the specimen and passed it off. Once done I then irrigated the abdomen with 2 L sterile saline with bacitracin. After this was done, I turned my attention and ran the remainder of the small bowel and found no other significant pathology. I identified the middle colic artery and there was approximately 10 cm distal to this of remaining proximal transverse colon. I felt that the blood supply to this was compromised and took an additional 10 cm of proximal transverse colon. After this was done, I inspected both the distal ileum and colon. Blood supply appeared good. Both pieces of bowel were pink and peristalsing. I decided to perform my anastomosis here. Using a single fire LAURA blue load stapler I successfully created a common enterocolotomy, which was widely patent. I closed the enteral colotomy with an additional fire of the staple load. My staple line was then buttressed with interrupted 3-0 Vicryl sutures. Given the large size of the mesenteric defect I did not close it. Once again examined my staple line, which was clean dry and intact and hemostatic. I allowed it to lay within the belly without any kinks or tension. After that was done, I irrigated the abdomen once again with another L of sterile saline, noting clear effluent in the suction canister. I identified no other pathology within the patient's abdomen. I turned my attention then towards closing. Gowns, gloves and a clean closure tray were brought into the field. I successfully reapproximated the fascia with #1 PDS suture, noting excellent fascial reapproximation. The subcutaneous tissue was irrigated with warm normal saline. Skin reapproximated with jose. Sterile dressings were placed. Given the patient's guarded condition, she was transported from the operative suite to the intensive care unit, intubated, in guarded condition. DRAINS: None. /[id number]/MODL MTDD
--- NOTE | 2017-04-20 07:45 | SOAPPROG ---
SOAP Progress Note Assessment/Plan: Assessment/Plan: - 86yo F POD#1 s/p ex-lap, extended RHC for cecal volvulus - VSS, HDS, pressures very responsive to fluid overnight. - Weaning on the vent this AM, awake alert. Anticipate that we will extubate today - Abdomen is soft, aTTP. G tube clamped. Incision covered with clean dressings. - Hb drifted down to 7.3 today; multifactorial etiology including chronic anemia and acute blood loss anemia. Will transfuse today - Cr back to 2 today, made great urine throughout the night, anticipate will clear with fluid maintenance and sepsis treatment, watch closely - K back to 5.4, will likely get worse with transfusion. ? of whether or not to use lasix with blood or try different strategy to lower K (insulin) - Dispo: wean vent, transfuse; if stable later today may be candidate for SDU, keep ICU for now. Dr Pollock to see this weekend. 04/20/17 07:41 Subjective: Awake, alert, wants the tube removed. C/o R sided abdominal pain Objective: Vital Signs Temp Pulse Resp BP Pulse Ox 37.0 C 78 11 L 122/47 H 99 04/20/17 04:00 04/20/17 06:00 04/20/17 06:00 04/20/17 06:00 04/20/17 06:00 Microbiology 04/19/17 17:32 Gram Stain - Final Abdomen - Anaerobic Tube/Swab Laboratory Results 04/20/17 04:10 04/20/17 04:10 04/19/17 04/20/17 04/21/17 05:59 05:59 05:59 Intake Total 2778.6 Output Total 295 Balance 2483.6 PT 13.3 SEC (12.0-15.0) 04/19/17 14:20 INR 0.99 (0.83-1.16) 04/19/17 14:20 ICD10 Worksheet Patient Problems: Problems Problem Status Onset Cecal volvulus Acute Renal insufficiency Acute Aspiration pneumonia Acute Atrial flutter Acute Chronic Disease Mgmt/Transitional Care Acute Dehydration Acute Elevated troponin Acute Intraparenchymal hematoma of brain due to trauma Acute Lightheaded Acute Lip laceration Acute Pleural effusion Acute Pneumonia Acute Pulmonary edema Acute Subarachnoid hemorrhage Acute Syncope Acute
[2017-04-20] MEDS: FAMOTIDINE 20 MG/NACL 50 ML IV SCH (08:25)
[2017-04-20] MEDS: AMIODARONE HCL 200 MG TAB TUBE SCH (08:25)
[2017-04-20] MEDS: CHLORHEXIDINE GLUCONATE 15 ML UDL PO SCH ×2 (08:25→22:08)
[2017-04-20] MEDS: PANTOPRAZOLE SODIUM 40 MG VIAL IVP SCH (08:25)
[2017-04-20] MEDS: ASPIRIN 81 MG CHEWABLE TAB TUBE SCH (08:26)
--- NOTE | 2017-04-20 10:49 | HOSPPROG ---
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 cecal volvulu ss/p reduction, resection volvulus: s/p primary anastamosis abdomen still w hypoactive bowel sounds ABLA: has baseline anemia w baseline hg 10-11 getting 2 units now recheck in AM; doubt ongoing blood loss hyperkalemia: coming down NICHOLAS plus spironolactone plus volume depletion follow on tele YAMILEX: prerenal hold diuretcis and NICHOLAS baseine 1.2 proph: lmwh when OK per surgery AF: in sinus clinically follow Subjective: case d/w dr givens. cxr w atelectasis, subdiaphragmatic air (interp by me) Objective: Vital Signs Temp Pulse Resp BP Pulse Ox 36.6 C 77 14 120/43 L 99 04/20/17 08:00 04/20/17 08:00 04/20/17 08:00 04/20/17 08:00 04/20/17 08:00 Microbiology 04/19/17 17:32 Gram Stain - Final Abdomen - Anaerobic Tube/Swab Laboratory Results 04/20/17 04:10 04/20/17 09:00 04/19/17 04/20/17 04/21/17 05:59 05:59 05:59 Intake Total 2778.6 Output Total 295 Balance 2483.6 PT 13.3 SEC (12.0-15.0) 04/19/17 14:20 INR 0.99 (0.83-1.16) 04/19/17 14:20 - Physical Exam Constitutional: no apparent distress, other (intubated, alert) Eyes: PERRL, anicteric sclera Ears, Nose, Mouth, Throat: moist mucous membranes, hearing normal Cardiovascular: regular rate and rhythym, no murmur, rub, or gallop, No tachycardia Respiratory: no respiratory distress, clear to auscultation Gastrointestinal: other (very hypoactive bowel sounds, tender) Genitourinary: no bladder fullness, barcenas in urethra Skin: warm, normal color Musculoskeletal: full muscle strength, no muscle tenderness Neurologic: AAOx3, sensation intact bilaterally Psychiatric: interacting appropriately, not anxious ICD10 Worksheet Patient Problems: Problems Problem Status Onset Cecal volvulus Acute Renal insufficiency Acute Aspiration pneumonia Acute Atrial flutter Acute Chronic Disease Mgmt/Transitional Care Acute Dehydration Acute Elevated troponin Acute Intraparenchymal hematoma of brain due to trauma Acute Lightheaded Acute Lip laceration Acute Pleural effusion Acute Pneumonia Acute Pulmonary edema Acute Subarachnoid hemorrhage Acute Syncope Acute
--- NOTE | 2017-04-20 11:03 | ASMTCMCOM ---
CM Note CM Note Notes: Patient presented to ED with 12 hrs + of abdominal pain, found to have an operable cecal volvulus. She is POD #1 resection. She is currently intubated/sedated in the ICU; they anticipate weaning today in hopes of extubation. Patient lives at [facility] with her . I have called [facility] and notified them that patient might need a SNF bed upon discharge. PT/OT will be ordered to evaluate patient when she is able to ambulate. CM will follow for discharge planning. Date Signed: 04/20/2017 11:03 AM Electronically Signed By:Catia Mata RN
--- NOTE | 2017-04-20 13:34 | POSTANESTH ---
Post Anesthetic Evaluation Cardiovascular Status: Normal, Stable Respiratory Status: Tx Decrease in SpO2 Level of Consciousness/Mental Status: Mildly Sleepy, Arousable Pain Control: Adequate, Prn Tx Ordered Nausea/Vomiting Control: Adequate, Prn Tx Ordered Complications Possibly Related to Anesthesia: None Noted
--- NOTE | 2017-04-20 21:23 | GCON ---
[f rep st] CONSULTATION CRITICAL CARE CONSULTATION DATE OF CONSULTATION: 04/20/2017 HISTORY OF PRESENT ILLNESS: This patient is an 86-year-old female who presented yesterday with acute onset of significant abdominal pain that was causing her to writhe around in bed. She called her ga stroenterologist, as she has a history of gastric ulcer in the past, and was directed to the Emergenc y Department, where she was found to have a cecal volvulus on imaging. She was taken to the operatin g room, underwent exploratory laparotomy and repair of this. She was left on the ventilator overnigh t, but has been quite stable, and has been hemodynamically stable, and has no underlying pulmonary is sues, and is a lifelong nonsmoker. REVIEW OF SYSTEMS: Otherwise, negative. PAST MEDICAL HISTORY: 1. Achalasia with frequent aspirations requiring a PEG tube placement. 2. Degenerative joint disease. 3. Chronic kidney disease. She has a baseline creatinine of looks like around 1.2-1.5. 4. Gastric ulcer in the past. 5. Gastroesophageal reflux disease. 6. Hard of hearing. 7. Chronic anemia of uncertain severity. 8. Bronchiectasis. 9. 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 10. Mild mitral regurgitation. 11. Diastolic dysfunction as evidenced by the echocardiogram as described above with ejection fracti on of 65% at that time. 12. Chronic atrial fibrillation. 13. Hyperlipidemia. 14. Hypertension. 15. Remote intracranial bleed. PAST SURGICAL HISTORY: 1. PEG placement as described. 2. Appendectomy. 3. Blepharoplasty. 4. Cataracts. 5. Face-lift. 6. Left total hip arthroplasty. 7. Hysterectomy. 8. Previous thumb surgery. 9. Bunionectomy. ALLERGIES: Sulfa. SOCIAL HISTORY: She is a nonsmoker. Rare alcohol. No IV drug use. 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 FAMILY HISTORY: Coronary disease. CURRENT MEDICATIONS: Amiodarone, aspirin, Pepcid, fentanyl, Ativan, Protonix, normal saline. EXAM: GENERAL/VITAL SIGNS: At the time of my evaluation, she was afebrile. She had a blood pressur e of 112/41, heart rate of 16, oxygen saturation 99% on a ventilator, with a heart rate of 70. She w as in no apparent distress. She did respond to commands, and did appear to be breathing comfortably. HEENT: Pupils equally round and reactive to light, nonicteric and noninjected. Mucous membranes a re moist without erythema or exudate. NECK: Supple without adenopathy or jugular vein distention. LUNGS: Breath sounds were clear to auscultation bilaterally without wheezes, rubs, or rales. HEART: Regular rate and rhythm without murmurs, rubs, gallops. ABDOMEN: Diffusely tender, but the dressi ngs were clean and dry without evidence of ongoing bleeding with hypoactive bowel tones. EXTREMITIES : No clubbing, cyanosis, or edema. NEUROLOGIC: Nonfocal, including cranial nerves, deep tendon ref lexes. SKIN: Warm and dry without evidence of rash. LABORATORY DATA: White count today of 11.04, hematocrit of 21. Her hematocrit was 38 when she arriv ed, which is probably hemoconcentrated. It looks like her baseline hematocrit is about 28-33. Plate lets were 119, down from 209 on admission. Her blood gas this morning showed pH of 7.41, pCO2 35, PO 2 133, bicarb 23, saturation 99%. Her sodium was 149, potassium 5.4, chloride 114, bicarb 22, BUN 79 , creatinine 2.0, glucose 103. LFTs were normal. Albumin 3.0. Chest x-ray unremarkable. ASSESSMENT AND PLAN: 1. Respiratory failure due to surgery in prolonged effects of anesthesia. I do not see any evidence of pneumonia. She has no history of asthma or COPD. She ought to be able to extubate quite well, a nd I believe that has already occurred. 2. Acute kidney injury on top of chronic renal insufficiency. She is getting some volume at this ti me. NICHOLAS inhibitor has been held since, as well as her Aldactone. Her potassium has dropped from 5.3 to 5.0, and she is making urine. I expect this to recover on its own. If she needs more volume, bl ood would be a reasonable choice. 3. Cecal volvulus. Of course, being managed primarily by Dr. Gonzalez. She seems to be stable, a nd we will advance diet per his direction. 4. Anemia, as described above. I would certainly transfuse if her hemoglobin drops less than 7 or h er blood pressure becomes marginal. A total of 35 minutes of critical care time was required for this patient. /[id number]/MODL
[2017-04-21 05:35] LABS: PLATELET COUNT 124 10^3/uL (150-400)
--- NOTE | 2017-04-21 07:46 | SOAPPROG ---
SOAP Progress Note Assessment/Plan: Assessment: 86 yo with multiple co-morbidities. s/p extended right hemicolectomy for necrotic cecal volvulus Extubated and doing well Hypernatremic - changed IVF to D5W 1/2 NS DC NG Possible trickle feeds tomorrow P.r.n. pain medication PT OT Appreciate hospitalist and animal care giver. Step-down is fine from surgical standpoint S: Feeling better today. Some soreness by abdomen General: Pleasant, well-nourished and well-groomed woman sitting up in chair at bedside HENT: Normocephalic, no gross hearing deficits, mucous membranes moist, pupils equal and round, no scleral icterus. NG with scant bilious drainage Lungs: Clear to auscultation bilaterally, No increased work of breathing Cardiac: Regular rate, no peripheral edema Abdomen: Bowel sounds present, soft and nontender. Dressing clean dry and intact Skin: Warm and dry. Psych: Mood and affect normal Neuro: Grossly intact Plan: 04/21/17 07:43 Objective: Vital Signs Temp Pulse Resp BP Pulse Ox 36.5 C 63 19 162/57 H 96 04/21/17 04:00 04/21/17 07:34 04/21/17 07:34 04/21/17 07:34 04/21/17 07:34 Microbiology 04/19/17 17:32 Gram Stain - Final Abdomen - Anaerobic Tube/Swab Laboratory Results 04/21/17 05:30 04/21/17 05:30 04/20/17 04/21/17 04/22/17 05:59 05:59 05:59 Intake Total 2778.6 1681 Output Total 295 1415 Balance 2483.6 266 PT 13.3 SEC (12.0-15.0) 04/19/17 14:20 INR 0.99 (0.83-1.16) 04/19/17 14:20 ICD10 Worksheet Patient Problems: Problems Problem Status Onset Cecal volvulus Acute Renal insufficiency Acute Aspiration pneumonia Acute Atrial flutter Acute Chronic Disease Mgmt/Transitional Care Acute Dehydration Acute Elevated troponin Acute Intraparenchymal hematoma of brain due to trauma Acute Lightheaded Acute Lip laceration Acute Pleural effusion Acute Pneumonia Acute Pulmonary edema Acute Subarachnoid hemorrhage Acute Syncope Acute
[2017-04-21] MEDS: ASPIRIN 81 MG CHEWABLE TAB TUBE SCH (08:46)
[2017-04-21] MEDS: PANTOPRAZOLE SODIUM 40 MG VIAL IVP SCH (08:46)
[2017-04-21] MEDS: AMIODARONE HCL 200 MG TAB TUBE SCH (08:46)
[2017-04-21] MEDS: D5W 1/2 NS 1,000 ML IV SCH (08:46)
--- NOTE | 2017-04-21 10:00 | PDINTPN ---
Instructor Pilot Progress Note Assessment/Plan: Assessment/plan: 86 F with achalasia and recurrent aspirations leading to PEG placement, admitted 04/19 with cecal volvulus requiring urgent repair. She was slow to wake from anesthesia and required intubation overnight, but has recovered well. * Cecal volvulus- management per surgery, but planning to advance TF per PEG with slow continuous infusion * Respiratory failure with hypoxia 2/2 prolonged effects from anesthesia in elderly patient. Extubated 04/20 and now on minimal O2. Some atelectasis likely still present. Encourage OOB, IS, etc. * Anemia - stable with Hct at 28 this am. * Hypernatremia- IVF changed to D5 04/23 today which should correct it. * YAMILEX- baseline creatinine about 1.2-1.5. Good UOP and creatinine down to 1.8 * Hyperkalemia- resolved * Subjective: Stable overnight and extubated without difficulty 04/20. Pain controlled today Objective: Vital Signs Temp Pulse Resp BP Pulse Ox 36.8 C 63 21 H 162/58 H 95 04/21/17 08:00 04/21/17 08:13 04/21/17 08:00 04/21/17 08:13 04/21/17 08:13 Microbiology 04/19/17 17:32 Gram Stain - Final Abdomen - Anaerobic Tube/Swab Laboratory Results 04/21/17 05:30 04/21/17 05:30 04/20/17 04/21/17 04/22/17 05:59 05:59 05:59 Intake Total 2778.6 1681 Output Total 295 1415 Balance 2483.6 266 PT 13.3 SEC (12.0-15.0) 04/19/17 14:20 INR 0.99 (0.83-1.16) 04/19/17 14:20 Physical Exam - Physical Exam General Appearance: alert, no apparent distress, thin EENT: PERRL/EOMI Neck: supple, other (right CVC) Respiratory: lungs clear, normal breath sounds, decreased breath sounds, No respiratory distress, No accessory muscle use Cardiac/Chest: regular rate, rhythm, No edema Abdomen: soft, No distended Skin: normal color, warm/dry, No cyanosis Lymphatic: no adenopathy Extremities: No pedal edema Neuro/Psych: alert, normal mood/affect, oriented x 3 ICD10 Worksheet Patient Problems: Problems Problem Status Onset Cecal volvulus Acute Renal insufficiency Acute Aspiration pneumonia Acute Atrial flutter Acute Chronic Disease Mgmt/Transitional Care Acute Dehydration Acute Elevated troponin Acute Intraparenchymal hematoma of brain due to trauma Acute Lightheaded Acute Lip laceration Acute Pleural effusion Acute Pneumonia Acute Pulmonary edema Acute Subarachnoid hemorrhage Acute Syncope Acute
--- NOTE | 2017-04-21 16:06 | HOSPPROG ---
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 cecal volvulu ss/p reduction, resection volvulus: s/p primary anastamosis POD 1 abdomen still w hypoactive bowel sounds ABLA: has baseline anemia w baseline hg 10-11 getting 2 units now recheck in AM; doubt ongoing blood loss hyperkalemia: coming down NICHOLAS plus spironolactone plus volume depletion follow on tele htn: follow will likely restart when taking po's YAMILEX: prerenal hold diuretcis and NICHOLAS baseline 1.2 proph: lmwh when OK per surgery AF: in sinus clinically follow Subjective: case discussed w Phill Larios. extubated Objective: Vital Signs Temp Pulse Resp BP Pulse Ox 37.0 C 55 L 19 167/65 H 97 04/21/17 14:00 04/21/17 14:00 04/21/17 14:00 04/21/17 14:00 04/21/17 14:00 Microbiology 04/19/17 17:32 Gram Stain - Final Abdomen - Anaerobic Tube/Swab Laboratory Results 04/21/17 05:30 04/21/17 05:30 04/20/17 04/21/17 04/22/17 05:59 05:59 05:59 Intake Total 2778.6 1681 Output Total 295 1415 Balance 2483.6 266 PT 13.3 SEC (12.0-15.0) 04/19/17 14:20 INR 0.99 (0.83-1.16) 04/19/17 14:20 ICD10 Worksheet Patient Problems: Problems Problem Status Onset Cecal volvulus Acute Renal insufficiency Acute Aspiration pneumonia Acute Atrial flutter Acute Chronic Disease [facility]/Transitional Care Acute Dehydration Acute Elevated troponin Acute Intraparenchymal hematoma of brain due to trauma Acute Lightheaded Acute Lip laceration Acute Pleural effusion Acute Pneumonia Acute Pulmonary edema Acute Subarachnoid hemorrhage Acute Syncope Acute
[2017-04-21] MEDS: fentaNYL 100 MCG/2 ML INJ IVP PRN (21:28)
[2017-04-22 05:28] LABS: PLATELET COUNT 178 10^3/uL (150-400)
--- NOTE | 2017-04-22 09:38 | SOAPPROG ---
SOAP Progress Note Assessment/Plan: Assessment: 86 yo with multiple co-morbidities. 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 pain medication PT OT Appreciate hospitalist and certified legal secretary specialist. Step-down is fine from surgical standpoint S: Difficult night last night, sleepy today General: Pleasant, tired appearing woman sitting up in chair at bedside HENT: Normocephalic, no gross hearing deficits, mucous membranes moist, pupils equal and round, no scleral icterus. face mask in place Lungs: decreased at bases No increased work of breathing Cardiac: Regular rate, R arm edematous. 1_+ pedal edema Abdomen: Bowel sounds hypoactive, soft but distended. G tube in place. Appropriately tender. Dressing clean dry and intact Skin: IJ site without signs of infection. Small excoriation on r chest Psych: Mood and affect normal Neuro: Grossly intact Plan: 04/21/17 07:43 04/22/17 09:35 Objective: Vital Signs Temp Pulse Resp BP Pulse Ox 37.0 C 95 17 103/57 L 100 04/21/17 16:00 04/22/17 06:00 04/22/17 06:00 04/22/17 06:00 04/22/17 06:00 Microbiology 04/19/17 17:32 Gram Stain - Final Abdomen - Anaerobic Tube/Swab Laboratory Results 04/22/17 05:00 04/22/17 05:00 04/21/17 04/22/17 04/23/17 05:59 05:59 05:59 Intake Total 1681 1722 Output Total 1415 1050 Balance 266 672 PT 13.3 SEC (12.0-15.0) 04/19/17 14:20 INR 0.99 (0.83-1.16) 04/19/17 14:20 ICD10 Worksheet Patient Problems: Problems Problem Status Onset Cecal volvulus Acute Renal insufficiency Acute Aspiration pneumonia Acute Atrial flutter Acute Chronic Disease Mgmt/Transitional Care Acute Dehydration Acute Elevated troponin Acute Intraparenchymal hematoma of brain due to trauma Acute Lightheaded Acute Lip laceration Acute Pleural effusion Acute Pneumonia Acute Pulmonary edema Acute Subarachnoid hemorrhage Acute Syncope Acute
[2017-04-22] MEDS: AMIODARONE HCL 200 MG TAB TUBE SCH (09:40)
[2017-04-22] MEDS: PANTOPRAZOLE SODIUM 40 MG VIAL IVP SCH (09:40)
[2017-04-22] MEDS: ASPIRIN 81 MG CHEWABLE TAB TUBE SCH (09:40)
--- NOTE | 2017-04-22 10:26 | HOSPPROG ---
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 cecal volvulu ss/p reduction, resection leukocytosis: concerning for infection agree w blood cx, cxr if above negative, will check abd CT swollen RUE: u/s done; read pending encephalopathy: NO MORE ATIVAN volvulus: s/p primary anastamosis POD 1 abdomen still w hypoactive bowel sounds ABLA: has baseline anemia w baseline hg 10-11 getting 2 units now recheck in AM; doubt ongoing blood loss hyperkalemia: coming down NICHOLAS plus spironolactone plus volume depletion follow on tele htn: follow will likely restart when taking po's YAMILEX: prerenal hold diuretcis and NICHOLAS baseline 1.2 proph: lmwh when OK per surgery AF: in sinus clinically follow Subjective: case d/w michelle ramirez and tosha. increased white count this AM. received ativan overnight, now encephalopathic Objective: Vital Signs Temp Pulse Resp BP Pulse Ox 37.5 C 62 27 H 161/75 H 95 04/22/17 10:00 04/22/17 10:00 04/22/17 10:00 04/22/17 10:00 04/22/17 10:00 Microbiology 04/19/17 17:32 Gram Stain - Final Abdomen - Anaerobic Tube/Swab Laboratory Results 04/22/17 05:00 04/22/17 05:00 04/21/17 04/22/17 04/23/17 05:59 05:59 05:59 Intake Total 1681 1722 Output Total 1415 1050 Balance 266 672 PT 13.3 SEC (12.0-15.0) 04/19/17 14:20 INR 0.99 (0.83-1.16) 04/19/17 14:20 - Physical Exam Constitutional: no apparent distress, appears nourished Eyes: PERRL, anicteric sclera Ears, Nose, Mouth, Throat: moist mucous membranes, hearing normal Cardiovascular: regular rate and rhythym, no murmur, rub, or gallop Respiratory: other (CTA anterolat) Gastrointestinal: distension, other (more distended, no flatus), No normoactive bowel sounds, No guarding, No rebound Genitourinary: barcenas in urethra Skin: warm, normal color Musculoskeletal: full muscle strength, no muscle tenderness Neurologic: AAOx3 ICD10 Worksheet Patient Problems: Problems Problem Status Onset Cecal volvulus Acute Renal insufficiency Acute Aspiration pneumonia Acute Atrial flutter Acute Chronic Disease Mgmt/Transitional Care Acute Dehydration Acute Elevated troponin Acute Intraparenchymal hematoma of brain due to trauma Acute Lightheaded Acute Lip laceration Acute Pleural effusion Acute Pneumonia Acute Pulmonary edema Acute Subarachnoid hemorrhage Acute Syncope Acute
[2017-04-22] MEDS: D5W 1/2 NS 1,000 ML IV SCH (12:43)
[2017-04-22] MEDS: PIPERACILLIN/TAZO 3.375 GM/DEX 50 ML IV SCH ×2 (14:05→18:31)
--- NOTE | 2017-04-22 15:55 | PDINTPN ---
Food Service Aide Progress Note Assessment/Plan: Assessment/plan: 86 F with achalasia and recurrent aspirations leading to PEG placement, admitted 04/19 with cecal volvulus requiring urgent repair. She was slow to wake from anesthesia and required intubation overnight, but has recovered well. * Cecal volvulus- management per surgery, but planning to advance TF per PEG with slow continuous infusion eventually * Respiratory failure with hypoxia 2/2 prolonged effects from anesthesia in elderly patient. Extubated 04/20 and minimal O2. Some atelectasis likely still present. WBC climbing and now up to 18. Possible pulmonary source so reasonable to start abx. Surgery aware- holding off on CT for now makes sense to me. * Anemia - stable. * Hypernatremia- IVF changed to D5 04/23 04/21 with improvement. Keep IVF at current rate. . * YAMILEX- baseline creatinine about 1.2-1.5. Good UOP and creatinine down to 1.8 * Hyperkalemia- resolved * 04/22/17 15:52 Subjective: Agitation overnight treated with Ativan. Also with arm edema. Woke for me easily this am about 0800 Objective: Vital Signs Temp Pulse Resp BP Pulse Ox 37.4 C 60 22 H 172/75 H 96 04/22/17 12:00 04/22/17 14:00 04/22/17 14:00 04/22/17 14:00 04/22/17 14:00 Microbiology 04/19/17 17:32 Gram Stain - Final Abdomen - Anaerobic Tube/Swab Laboratory Results 04/22/17 05:00 04/22/17 05:00 04/21/17 04/22/17 04/23/17 05:59 05:59 05:59 Intake Total 1681 1722 Output Total 1415 1050 Balance 266 672 PT 13.3 SEC (12.0-15.0) 04/19/17 14:20 INR 0.99 (0.83-1.16) 04/19/17 14:20 Physical Exam - Physical Exam General Appearance: obtunded, other (easily aroused and appropriate) EENT: PERRL/EOMI Neck: supple, other (Right IJ) Respiratory: normal breath sounds, decreased breath sounds, crackles, No respiratory distress, No accessory muscle use Cardiac/Chest: regular rate, rhythm, No edema Abdomen: non-tender, soft, No distended Skin: normal color, warm/dry, No cyanosis Lymphatic: no adenopathy Extremities: No pedal edema Neuro/Psych: cognition abnormalities, No motor weakness, No sensory deficit ICD10 Worksheet Patient Problems: Problems Problem Status Onset Cecal volvulus Acute Renal insufficiency Acute Aspiration pneumonia Acute Atrial flutter Acute Chronic Disease Mgmt/Transitional Care Acute Dehydration Acute Elevated troponin Acute Intraparenchymal hematoma of brain due to trauma Acute Lightheaded Acute Lip laceration Acute Pleural effusion Acute Pneumonia Acute Pulmonary edema Acute Subarachnoid hemorrhage Acute Syncope Acute
[2017-04-23] MEDS: PIPERACILLIN/TAZO 3.375 GM/DEX 50 ML IV SCH ×2 (01:00→07:24)
[2017-04-23] MEDS: PANTOPRAZOLE SODIUM 40 MG VIAL IVP SCH (09:06)
[2017-04-23] MEDS: AMIODARONE HCL 200 MG TAB TUBE SCH (09:09)
[2017-04-23] MEDS: ASPIRIN 81 MG CHEWABLE TAB TUBE SCH (09:09)
--- NOTE | 2017-04-23 09:52 | SOAPPROG ---
SOAP Progress Note Assessment/Plan: Assessment/Plan: - 86yo F POD#4 s/p ex-lap, extended RHC for cecal volvulus - VSS, HDS, a little hypertensive but ok with SBP in 160s given hypotension post op. - Abdomen distended, no bowel sounds. Incision c/d/i. Tolerating amio per G tube. Would hold off on trickle feeds today, possibly tomorrow. Did discuss TPN if we are still awaiting bowel function this Saturday - Pain controlled, would not use benzos as she was very sleepy all day yesterday. - Dispo: ok for SDU, ambulate, PT/OT. Abx for charlene pna, hold off on TFs today 04/20/17 07:41 04/23/17 09:50 Subjective: Awake, alert, sitting in chair. Has no complaints. Objective: Vital Signs Temp Pulse Resp BP Pulse Ox 36.4 C 55 L 23 H 166/74 H 95 04/23/17 08:00 04/23/17 08:00 04/23/17 08:00 04/23/17 08:00 04/23/17 08:00 Microbiology 04/19/17 17:32 Gram Stain - Final Abdomen - Anaerobic Tube/Swab Laboratory Results 04/22/17 05:00 04/22/17 05:00 04/22/17 04/23/17 04/24/17 05:59 05:59 05:59 Intake Total 1722 1703 Output Total 1050 250 Balance 672 1453 PT 13.3 SEC (12.0-15.0) 04/19/17 14:20 INR 0.99 (0.83-1.16) 04/19/17 14:20 ICD10 Worksheet Patient Problems: Problems Problem Status Onset Cecal volvulus Acute Renal insufficiency Acute Aspiration pneumonia Acute Atrial flutter Acute Chronic Disease Mgmt/Transitional Care Acute Dehydration Acute Elevated troponin Acute Intraparenchymal hematoma of brain due to trauma Acute Lightheaded Acute Lip laceration Acute Pleural effusion Acute Pneumonia Acute Pulmonary edema Acute Subarachnoid hemorrhage Acute Syncope Acute
[2017-04-23] MEDS: PIPERACILLIN/TAZO 2.25 GM/DEX 50 ML IV SCH ×3 (12:21→23:47)
[2017-04-23] MEDS: ORAL BALANCE GEL TUBE PO PRN (12:21)
[2017-04-23] MEDS ORDERED: PIPERACILLIN/TAZO 2.25 GM/DEX 50 ML IV SCH (14:00)
--- NOTE | 2017-04-23 16:00 | HOSPPROG ---
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 cecal volvulu ss/p reduction, resection leukocytosis: concerning for infection agree w blood cx, cxr trating for HCAP swollen RUE: u/s done; read pending encephalopathy: NO MORE ATIVAN volvulus: s/p primary anastamosis POD 1 abdomen still w hypoactive bowel sounds ABLA: has baseline anemia w baseline hg 10-11 getting 2 units now recheck in AM; doubt ongoing blood loss hyperkalemia: coming down NICHOLAS plus spironolactone plus volume depletion follow on tele htn: follow will likely restart when taking po's YAMILEX: prerenal hold diuretcis and NICHOLAS baseline 1.2 proph: lmwh when OK per surgery AF: in sinus clinically follow Subjective: case d/w michelle carreon, mary kate Objective: Vital Signs Temp Pulse Resp BP Pulse Ox 36.9 C 51 L 20 187/61 H 98 04/23/17 12:00 04/23/17 14:00 04/23/17 14:00 04/23/17 14:00 04/23/17 14:00 Microbiology 04/19/17 17:32 Gram Stain - Final Abdomen - Anaerobic Tube/Swab Laboratory Results 04/22/17 05:00 04/22/17 05:00 04/22/17 04/23/17 04/24/17 05:59 05:59 05:59 Intake Total 1722 1703 Output Total 1050 250 Balance 672 1453 PT 13.3 SEC (12.0-15.0) 04/19/17 14:20 INR 0.99 (0.83-1.16) 04/19/17 14:20 - Physical Exam Constitutional: no apparent distress, appears nourished Eyes: PERRL, anicteric sclera Ears, Nose, Mouth, Throat: moist mucous membranes, hearing normal Cardiovascular: regular rate and rhythym, no murmur, rub, or gallop Respiratory: other (diffuse crackles, good air movement, no wheeze) Gastrointestinal: other (hypoactive bowel sounds, no rebound) Genitourinary: no bladder fullness, No barcenas in urethra Skin: warm, normal color Musculoskeletal: full muscle strength Neurologic: AAOx3 ICD10 Worksheet Patient Problems: Problems Problem Status Onset Cecal volvulus Acute Renal insufficiency Acute Aspiration pneumonia Acute Atrial flutter Acute Chronic Disease Mgmt/Transitional Care Acute Dehydration Acute Elevated troponin Acute Intraparenchymal hematoma of brain due to trauma Acute Lightheaded Acute Lip laceration Acute Pleural effusion Acute Pneumonia Acute Pulmonary edema Acute Subarachnoid hemorrhage Acute Syncope Acute
--- NOTE | 2017-04-23 16:32 | ASMTCMCOM ---
CM Note CM Note Notes: Therapists and agree that SNF Rehab would be beneficial for patient on discharge. Cedrick contacted at [facility] and referral sent. Date Signed: 04/23/2017 04:32 PM Electronically Signed By:Zenaida Guthrie LCSW
[2017-04-23] MEDS: D5W 1/2 NS 1,000 ML IV SCH (18:11)
[2017-04-23] MEDS: HEPARIN 5,000 UNIT/0.5 ML SYR SC SCH (20:17)
[2017-04-23] MEDS: hydrALAZINE 20 MG/ML VIAL IVP PRN (22:21)
[2017-04-24] MEDS: PIPERACILLIN/TAZO 2.25 GM/DEX 50 ML IV SCH ×4 (05:57→23:26)
[2017-04-24 06:01] LABS: PLATELET COUNT 154 10^3/uL (150-400)
[2017-04-24] MEDS: D5W 1/2 NS 1,000 ML IV SCH ×2 (08:17→23:25)
[2017-04-24] MEDS: PANTOPRAZOLE SODIUM 40 MG VIAL IVP SCH (09:37)
[2017-04-24] MEDS: ASPIRIN 81 MG CHEWABLE TAB TUBE SCH (09:39)
[2017-04-24] MEDS: HEPARIN 5,000 UNIT/0.5 ML SYR SC SCH (09:39)
[2017-04-24] MEDS: AMIODARONE HCL 200 MG TAB TUBE SCH (10:08)
[2017-04-24] MEDS: ORAL BALANCE GEL TUBE PO PRN (10:10)
[2017-04-24] MEDS ORDERED: POTASSIUM CL 20 MEQ/15 ML UDCUP PO ONE (10:12)
--- NOTE | 2017-04-24 10:44 | SOAPPROG ---
SOAP Progress Note Assessment/Plan: Assessment/Plan: - 86yo F POD#5 s/p ex-lap, extended RHC for cecal volvulus - VSS, HDS, HTn persists, also having intermittent HR into the 40s. I have asked cards to see the patient - Abdomen sift and less distended, will start trickle feeds today - replete K via G tube - PHYSICIAN RELATIONS SPECIALIST to eval whether or not she can swallow, I am hesitant given her aspiration Hx - Ok to Tx to floor. 04/20/17 07:41 04/23/17 09:50 04/24/17 10:42 Subjective: feels great, had BM this AM Objective: Vital Signs Temp Pulse Resp BP Pulse Ox 35.9 C L 51 L 22 H 176/70 H 95 04/24/17 10:00 04/24/17 10:00 04/24/17 10:00 04/24/17 10:00 04/24/17 10:00 Microbiology 04/19/17 17:32 Gram Stain - Final Abdomen - Anaerobic Tube/Swab Laboratory Results 04/24/17 05:50 04/24/17 05:50 04/23/17 04/24/17 04/25/17 05:59 05:59 05:59 Intake Total 1703 1707 Output Total 250 200 Balance 1453 1507 PT 13.3 SEC (12.0-15.0) 04/19/17 14:20 INR 0.99 (0.83-1.16) 04/19/17 14:20 ICD10 Worksheet Patient Problems: Problems Problem Status Onset Cecal volvulus Acute Renal insufficiency Acute Aspiration pneumonia Acute Atrial flutter Acute Chronic Disease Mgmt/Transitional Care Acute Dehydration Acute Elevated troponin Acute Intraparenchymal hematoma of brain due to trauma Acute Lightheaded Acute Lip laceration Acute Pleural effusion Acute Pneumonia Acute Pulmonary edema Acute Subarachnoid hemorrhage Acute Syncope Acute
[2017-04-24] MEDS: ENALAPRIL MALEATE 5 MG TAB TUBE SCH ×2 (11:43→20:37)
--- NOTE | 2017-04-24 12:38 | GCON ---
[f rep st] CONSULTATION CARDIOVASCULAR CONSULTATION. REASON FOR CONSULTATION: Asked to see the patient for bradycardia. HISTORY OF PRESENT ILLNESS: The patient is well known to our practice. She is an 86-year-old woman who has had a cecal volvulus resected and reduced, and she is 5 days post op. She has no fever, chills, or cough. No chest pain, chest tightness, jaw pain, arm pain. No lighthea dedness, dizziness. No nausea, vomiting, diarrhea. She is sitting comfortably in a hospital bed. S he tells me she is not feeling very sore. She has no back pain. She is not having orthopnea, PND, o r dyspnea on exertion. She has a long-standing history of bradycardia, and at times will get lighthe aded. She is not feeling any lightheadedness right now. She is being seen for chronic diastolic heart failure in the clinic. She has paroxysmal atrial fibri llation. She has hypertension. She has chronic renal insufficiency with a creatinine of 1.6. She i s not on anticoagulation for paroxysmal AFib because she falls at home and she has had a concussion i n the past. She, in the past has had a nuclear stress test in April that showed ejection fraction 57% with a sm all amount of anteroseptal and lateral ischemia. She has not wanted cardiac catheterization after th at test. Pulmonary artery pressure is estimated at 60, and she has mild TR, moderate MR, diastolic dysfunction , and mild to moderate LVH. She, in the past has had chronic diastolic heart failure, class 2. She has atrial fibrillation. She has dyslipidemia and hypertension, but no coronary artery disease. She has no other acute issues right now. SURGICAL HISTORY: 1. Appendectomy. 2. Blepharoplasty. 3. Bunionectomy. 4. Cataracts. 5. Face lift. 6. Hip replacement, left. 7. Hysterectomy. 8. Laser eye surgery. 9. Thumb surgery. 10. Five days ago, a volvulus reduction, repair, and resection. REVIEW OF SYSTEMS: A 12-point review of systems negative except as noted above and in the record, wh ich is attached. Both are old records from the hospital and our old records from the office. Her re view of systems is positive for known baseline anemia. She has had achalasia. She has chronic back pain. She has had dysphagia. She has had gastric ulcer. She has had GERD. Oriana desir has a history of , osteoarthritis, osteopenia. MEDICATIONS: In the past they have included low-dose aspirin, Ambien, amiodarone, atorvastatin, calc ium, and [id number] medications as well as enalapril, Lasix 20, losartan 25. ALLERGIES: Lactose intolerance, PPD test, and sulfa. FAMILY HISTORY: There is no family history of premature coronary disease. No history of unexplained sudden at a young age. SOCIAL HISTORY: She was born in [place] right [place] the [place] from [facility]. 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 She do es not smoke. She does not drink significant amounts of alcohol, and she tries to get around and exe rcise well. PHYSICAL EXAMINATION: VITAL SIGNS: Her blood pressure is 170/70. Her heart rate is 60, and earlier it has been 50-51. Temperature 35.9. O2 sat excellent. HEENT: Status post iridectomy. Mucous membranes of the mouth moist. NECK: Supple. CARDIOVASCULAR: S1, S2. Soft systolic murmur left sternal border. No diastolic murmur. No S3, S4. No rubs. PULMONARY: Rhonchi. No rales, whe ezing, or dullness. ABDOMEN: Soft, nontender without masses. EXTREMITIES: No edema, inflammation, or ulceration. Cranial nerves 2-12 are grossly normal except for the iridectomies. NEUROLOGIC: Oriana desir is in great condition and very cooperative. LAB: White count 5.9, hematocrit 27, platelets 154. Sodium 148, potassium 3.2, chloride 103, CO2 of 25, BUN 40, creatinine 1.1, glucose 101. INR is 0.99. She has an extremity venous study that was n egative. She has a chest x-ray on this admission, and the most recent one of 04/22 shows a bilateral lower lob e pneumonia versus likely asymmetric pulmonary edema or atelectasis, cardiomegaly, and atheroscleroti c aorta. ASSESSMENT AND PLAN: 1. Atrial fibrillation. 2. Diastolic heart failure. 3. Left ventricular hypertrophy. 4. Hypertension. 5. Hyperlipidemia. 6. Chronic renal insufficiency. 7. History of frequent falls and intermittent syncope. 8. Abnormal nuclear stress test. 9. Status post volvulus resection. She is doing really well from all the things she has been through, and looks great today. We will wa [facility] with you her heart rate. The last time she was in the office, she was having chronic sinus leola cardia, and this has been an issue over the years, but never needed to be addressed with a pacemaker. She has an abnormal nuclear stress test, but wants to do no further study for that. For atrial fibri llation, it has been decided she would not take full anticoagulation. She does not have heart failure right at this time. Her blood pressure is too high. She has no acut e coronary syndrome. We will watch her with you at this point in time. We would not do anything dif ferent. Please call us any time if we can be of help. There are records from [facility] here now , and I have reviewed the old records from earlier as well as this admission All her questions have been answered. Thank you very much for asking us to see this person. /[id number]/MODL
--- NOTE | 2017-04-24 13:05 | HOSPPROG ---
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, resection volvulus: s/p primary anastamosis POD 2, now having BM's ABLA: has baseline anemia w baseline hg 10-11, s/p 2 u prbc's swollen RUE: superficial thrombophlebitis on u/s, no dvt warm compresses encephalopathy: resolved, avoid bzd's htn: follow will likely restart lasix when taking po's prn hydral for now YAMILEX: Cr back to baseline (1.1-1.2) hypokalemia: replacement protocol AF: in sinus clinically follow FEN: bolus tube feeds today though with BM and return of bowel function, could start clears, defer to surg proph: MIRACLE Full code Dispo: cont inpt, transfer to med surg today Subjective: Pt doing better. Had a BM today. Started tube feeds. No fevers. No significant pain. Objective: Vital Signs Temp Pulse Resp BP Pulse Ox 36.1 C 66 24 H 148/59 H 94 04/24/17 12:00 04/24/17 12:00 04/24/17 12:00 04/24/17 12:00 04/24/17 12:00 Microbiology 04/19/17 17:32 Gram Stain - Final Abdomen - Anaerobic Tube/Swab Laboratory Results 04/24/17 05:50 04/24/17 05:50 04/23/17 04/24/17 04/25/17 05:59 05:59 05:59 Intake Total 1703 1707 Output Total 250 200 Balance 1453 1507 PT 13.3 SEC (12.0-15.0) 04/19/17 14:20 INR 0.99 (0.83-1.16) 04/19/17 14:20 - Physical Exam Constitutional: no apparent distress Eyes: PERRL Ears, Nose, Mouth, Throat: moist mucous membranes Cardiovascular: regular rate and rhythym Respiratory: no respiratory distress Gastrointestinal: normoactive bowel sounds, soft, non-tender abdomen, other ( incision c/d/i) Skin: warm Musculoskeletal: generalized weakness Neurologic: AAOx3 Psychiatric: interacting appropriately ICD10 Worksheet Patient Problems: Problems Problem Status Onset Cecal volvulus Acute Renal insufficiency Acute Aspiration pneumonia Acute Atrial flutter Acute Chronic Disease Mgmt/Transitional Care Acute Dehydration Acute Elevated troponin Acute Intraparenchymal hematoma of brain due to trauma Acute Lightheaded Acute Lip laceration Acute Pleural effusion Acute Pneumonia Acute Pulmonary edema Acute Subarachnoid hemorrhage Acute Syncope Acute
[2017-04-24] MEDS ORDERED: PROTOCOL POTASSIUM 1 DOSE MISC PRN (13:08)
[2017-04-24 14:08] LABS: INR 1.16 (0.83-1.16)
[2017-04-24] MEDS ORDERED: TRANEXAMIC ACID 1,000 MG in NS 100 ML IV ONE (14:30)
[2017-04-24] MEDS ORDERED: POTASSIUM CL 10 MEQ TAB PO ONE (19:34)
--- NOTE | 2017-04-24 21:08 | SOAPPROG ---
SOAP Progress Note Assessment/Plan: Assessment: 78-YEAR-OLD FEMALE STATUS POST RIGHT HEMICOLECTOMY FOR CECAL VOLVULUS WITH NECROTIC BOWEL PATIENT DEVELOPED LOWER GI BLEED TODAY WITH A LARGE AMOUNT OF OLD BLOOD AND CLOT VITAL SIGNS REMAINED STABLE AND SHE IS HAVING NO FURTHER BLEEDING AT THIS POINT/ SHE WAS TREATED WITH DEXA AND DISCONTINUATION OF HER SUBCU HEPARIN FOLLOW-UP HEMATOCRIT WAS 30 Plan: SERIAL HEMATOCRITS 04/24/17 21:06 Objective: Vital Signs Temp Pulse Resp BP Pulse Ox 36.9 C 59 L 15 178/78 H 94 04/24/17 19:25 04/24/17 19:25 04/24/17 19:25 04/24/17 20:37 04/24/17 19:25 Microbiology 04/19/17 17:32 Gram Stain - Final Abdomen - Anaerobic Tube/Swab Laboratory Results 04/24/17 18:40 04/23/17 04/24/17 04/25/17 05:59 05:59 05:59 Intake Total 1703 1707 1324 Output Total 250 200 Balance 1453 1507 1324 PT 15.0 SEC (12.0-15.0) 04/24/17 13:45 INR 1.16 (0.83-1.16) 04/24/17 13:45 ICD10 Worksheet Patient Problems: Problems Problem Status Onset Cecal volvulus Acute Renal insufficiency Acute Aspiration pneumonia Acute Atrial flutter Acute Chronic Disease Mgmt/Transitional Care Acute Dehydration Acute Elevated troponin Acute Intraparenchymal hematoma of brain due to trauma Acute Lightheaded Acute Lip laceration Acute Pleural effusion Acute Pneumonia Acute Pulmonary edema Acute Subarachnoid hemorrhage Acute Syncope Acute
[2017-04-24] MEDS: hydrALAZINE 20 MG/ML VIAL IVP PRN (23:26)
[2017-04-25 04:53] LABS: PLATELET COUNT 161 10^3/uL (150-400)
[2017-04-25] MEDS: PIPERACILLIN/TAZO 2.25 GM/DEX 50 ML IV SCH ×4 (05:16→23:49)
[2017-04-25] MEDS: PANTOPRAZOLE SODIUM 40 MG VIAL IVP SCH (08:40)
[2017-04-25] MEDS: ENALAPRIL MALEATE 5 MG TAB TUBE SCH ×2 (08:41→20:48)
[2017-04-25] MEDS: ASPIRIN 81 MG CHEWABLE TAB TUBE SCH (08:42)
[2017-04-25] MEDS: AMIODARONE HCL 200 MG TAB TUBE SCH (08:42)
[2017-04-25] MEDS: hydrALAZINE 20 MG/ML VIAL IVP PRN (08:49)
--- NOTE | 2017-04-25 09:32 | SOAPPROG ---
SOAP Progress Note Assessment/Plan: Assessment/Plan: - 86yo F POD#5 s/p ex-lap, extended RHC for cecal volvulus - VSS, HDS, HTN with SBP into 190s this AM, will defer management or changes in meds to IM/cards, appreciate their assistance - Pain well controlled, holding ativan. - Abdomen remains soft, had moderate bloody BM yesterday which is likely residual from OR as her Hb has been stable since. Will restart TFs at trickle today as she was uncomfortable with bolus feeds per her home routine. If she does well with trickle, will go back to bolus - Hep SQ held yesterday, will restart this afternoon. Dont feel as though this precipitated her bloody BM - Voiding, Cr back to BL - Dispo: PT/OT, will have senior case manager see her and we will make some plans for getting her out of here ([facility] apparently has higher level of care which she has used before but could be great option for her if appropriate)\ 04/20/17 07:41 04/23/17 09:50 04/24/17 10:42 04/25/17 09:29 Subjective: Feels well, had another small BM this AM. No complaints Objective: Vital Signs Temp Pulse Resp BP Pulse Ox 36.6 C 58 L 14 190/75 H 98 04/25/17 07:22 04/25/17 07:22 04/25/17 07:22 04/25/17 07:22 04/25/17 07:22 Microbiology 04/19/17 17:32 Gram Stain - Final Abdomen - Anaerobic Tube/Swab Laboratory Results 04/25/17 04:40 04/25/17 04:40 04/24/17 04/25/17 04/26/17 05:59 05:59 05:59 Intake Total 1707 2374 Output Total 200 450 300 Balance 1507 1924 -300 PT 15.0 SEC (12.0-15.0) 04/24/17 13:45 INR 1.16 (0.83-1.16) 04/24/17 13:45 ICD10 Worksheet Patient Problems: Problems Problem Status Onset Cecal volvulus Acute Renal insufficiency Acute Aspiration pneumonia Acute Atrial flutter Acute Chronic Disease Mgmt/Transitional Care Acute Dehydration Acute Elevated troponin Acute Intraparenchymal hematoma of brain due to trauma Acute Lightheaded Acute Lip laceration Acute Pleural effusion Acute Pneumonia Acute Pulmonary edema Acute Subarachnoid hemorrhage Acute Syncope Acute
[2017-04-25] MEDS ORDERED: POTASSIUM CL 10 MEQ TAB PO ONE ×2 (10:19→20:29)
[2017-04-25] MEDS ORDERED: POTASSIUM CL 20 MEQ/15 ML UDCUP TUBE ONE (10:45)
--- NOTE | 2017-04-25 11:44 | SOAPPROG ---
SOAP Progress Note Assessment/Plan: Assessment: 04/25/17 11:45 1. Volvulus resection 2. Feeding 3. Hypertension 4. Peripheral edema She is doing very well and is eager to keep getting stronger. There changing her feeding. Her blood pressure is high and I would add 10 mg of Norvasc daily to her current med regiment. I discussed her case with her and answered all his questions. Subjective: She has no chest pain She has no shortness of breath She is feeling stronger. She has no fever chills. She got some sleep through the night. She has had no recurrence bleeding. Objective: Vital Signs Temp Pulse Resp BP Pulse Ox 36.6 C 58 L 14 190/75 H 98 04/25/17 07:22 04/25/17 07:22 04/25/17 07:22 04/25/17 07:22 04/25/17 07:22 Microbiology 04/19/17 17:32 Gram Stain - Final Abdomen - Anaerobic Tube/Swab Laboratory Results 04/25/17 04:40 04/25/17 04:40 04/24/17 04/25/17 04/26/17 05:59 05:59 05:59 Intake Total 1707 2374 Output Total 200 450 300 Balance 1507 1924 -300 PT 15.0 SEC (12.0-15.0) 04/24/17 13:45 INR 1.16 (0.83-1.16) 04/24/17 13:45 Selected Entries 04/24/17 04/24/17 04/24/17 02:00 04:00 06:00 Heart Rate 87 53 L 60 Temperature (C) 36.9 C Blood Pressure 126/50 H 172/68 H 170/74 H 04/24/17 04/24/17 04/24/17 10:00 23:26 23:44 Heart Rate 51 L 53 L Temperature (C) 35.9 C L Blood Pressure 176/70 H 189/84 H 189/84 H 04/25/17 04/25/17 04:00 07:22 Heart Rate 52 L 58 L Temperature (C) 36.6 C 36.6 C Blood Pressure 169/65 H 190/75 H Laboratory Tests 04/21/17 04/25/17 04/25/17 05:30 04:40 04:40 WBC 5.30 Hct 28.4 L D 25.5 L RDW 19.2 H 17.0 H Plt Count 161 Sodium 148 H Potassium 3.6 Chloride 118 H Carbon Dioxide 20 L Anion Gap 10 BUN 34 H Creatinine 1.1 H Estimated GFR 47 Glucose 100 Calcium 8.6 Physical Exam - Physical Exam General Appearance: alert (Now her mom still working or now that she would like it) Respiratory: normal breath sounds (She she he), rhonchi (s hereshe he is) Cardiac/Chest: systolic murmur (Has she found another zarai she she trying 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), No edema (A he 1st he a) Abdomen: non-tender, soft (Her), No organomegaly (He a right) Skin: pallor, No warm/dry (She she her really not has right had) Extremities: non-tender, No pedal edema (A bigger ER was a he is that wonder are a jolly), No calf tenderness Neuro/Psych: normal mood/affect (She air he he is a stairs had RCA a really nice rattling overall right next does very goal a) ICD10 Worksheet Patient Problems: Problems Problem Status Onset Cecal volvulus Acute Renal insufficiency Acute Aspiration pneumonia Acute Atrial flutter Acute Chronic Disease Mgmt/Transitional Care Acute Dehydration Acute Elevated troponin Acute Intraparenchymal hematoma of brain due to trauma Acute Lightheaded Acute Lip laceration Acute Pleural effusion Acute Pneumonia Acute Pulmonary edema Acute Subarachnoid hemorrhage Acute Syncope Acute
--- NOTE | 2017-04-25 14:52 | HOSPPROG ---
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 old blood) ABLA: has baseline anemia w baseline hg 10-11, s/p 2 u prbc's, hgb dropped to 8.6 with return of melena last night trend h&h, transfuse as indicated swollen RUE: superficial thrombophlebitis on u/s, no dvt warm compresses encephalopathy: resolved, avoid bzd's htn: starting norvasc today, discussed with cards YAMILEX: Cr back to baseline (1.1-1.2) hypokalemia: replacement protocol AF: in sinus clinically follow FEN: tube feeds per surg proph: MIRACLE Full code Dispo: cont inp Subjective: Pt feels ok. Reports 2 melanotic stools since last night. No BRBPR or emesis. No abdominal pain. No fevers. Ambulating a bit. Remains NPO on tube feeds. Objective: Vital Signs Temp Pulse Resp BP Pulse Ox 36.4 C 59 L 16 159/68 H 94 04/25/17 12:00 04/25/17 12:00 04/25/17 12:00 04/25/17 12:00 04/25/17 12:00 Microbiology 04/19/17 17:32 Gram Stain - Final Abdomen - Anaerobic Tube/Swab Laboratory Results 04/25/17 04:40 04/25/17 04:40 04/24/17 04/25/17 04/26/17 05:59 05:59 05:59 Intake Total 1707 2374 Output Total 200 450 300 Balance 1507 1924 -300 PT 15.0 SEC (12.0-15.0) 04/24/17 13:45 INR 1.16 (0.83-1.16) 04/24/17 13:45 - Physical Exam Constitutional: no apparent distress Eyes: PERRL Ears, Nose, Mouth, Throat: moist mucous membranes Cardiovascular: regular rate and rhythym Respiratory: no respiratory distress, clear to auscultation Gastrointestinal: normoactive bowel sounds, soft, non-tender abdomen, other ( incision c/d/i) Skin: warm Musculoskeletal: full muscle strength Neurologic: AAOx3 Psychiatric: interacting appropriately ICD10 Worksheet Patient Problems: Problems Problem Status Onset Cecal volvulus Acute Renal insufficiency Acute Aspiration pneumonia Acute Atrial flutter Acute Chronic Disease Mgmt/Transitional Care Acute Dehydration Acute Elevated troponin Acute Intraparenchymal hematoma of brain due to trauma Acute Lightheaded Acute Lip laceration Acute Pleural effusion Acute Pneumonia Acute Pulmonary edema Acute Subarachnoid hemorrhage Acute Syncope Acute
--- NOTE | 2017-04-25 15:09 | ASMTCMCOM ---
CM Note CM Note Notes: CM sent updates to [facility]. [facility] reports that that they are able to accept since she is a [facility] Independent resident. DILAN spoke w/ LEONEL Humphrey regarding d/c POC. Pt will most likely not d/c for a couple more days. CM to follow. Plan: [facility] Date Signed: 04/25/2017 03:08 PM Electronically Signed By:ANDRÉS Venegas
[2017-04-26] MEDS: PIPERACILLIN/TAZO 2.25 GM/DEX 50 ML IV SCH ×3 (05:56→18:08)
[2017-04-26] MEDS: D5W 1/2 NS 1,000 ML IV SCH (05:57)
[2017-04-26] MEDS ORDERED: POTASSIUM CL 10 MEQ TAB PO ONE ×2 (07:05→19:04)
[2017-04-26] MEDS ORDERED: TRANEXAMIC ACID 1,000 MG in NS 100 ML IV ONE (10:53)
--- NOTE | 2017-04-26 11:07 | SOAPPROG ---
SOAP Progress Note Assessment/Plan: Assessment/Plan: - 86yo F POD#5 s/p ex-lap, extended RHC for cecal volvulus - VSS, HDS, SBP now 1-teens. HR stable - Had large dark bloody BM today, likely re-bled at anastomosis site. Getting 2 units packed cells now. I am giving an addl dose of TXA as well, she responded well to this last time. Stopping all GI stimulation and placing her back on NS IVF. - abdomen still very soft, minimally tender and nondistended. - Hopefully will respond to Tx, transfuse as needed. 04/20/17 07:41 04/23/17 09:50 04/24/17 10:42 04/25/17 09:29 04/26/17 11:05 Subjective: dark bloody BM today Objective: Vital Signs Temp Pulse Resp BP Pulse Ox 36.6 C 64 18 122/54 H 99 04/26/17 08:00 04/26/17 08:00 04/26/17 08:00 04/26/17 08:00 04/26/17 08:00 Microbiology 04/19/17 17:32 Gram Stain - Final Abdomen - Anaerobic Tube/Swab Laboratory Results 04/26/17 07:45 04/26/17 03:57 04/25/17 04/26/17 04/27/17 05:59 05:59 05:59 Intake Total 2374 2150 700 Output Total 450 1700 550 Balance 1924 450 150 PT 15.0 SEC (12.0-15.0) 04/24/17 13:45 INR 1.16 (0.83-1.16) 04/24/17 13:45 ICD10 Worksheet Patient Problems: Problems Problem Status Onset Cecal volvulus Acute Renal insufficiency Acute Aspiration pneumonia Acute Atrial flutter Acute Chronic Disease Mgmt/Transitional Care Acute Dehydration Acute Elevated troponin Acute Intraparenchymal hematoma of brain due to trauma Acute Lightheaded Acute Lip laceration Acute Pleural effusion Acute Pneumonia Acute Pulmonary edema Acute Subarachnoid hemorrhage Acute Syncope Acute
[2017-04-26] MEDS: AMIODARONE HCL 200 MG TAB TUBE SCH (11:19)
[2017-04-26] MEDS: ENALAPRIL MALEATE 5 MG TAB TUBE SCH ×2 (11:21→21:46)
[2017-04-26] MEDS: LANSOPRAZOLE SUSP 30MG/10ML UDSYR (Adult) TUBE SCH (11:21)
--- NOTE | 2017-04-26 11:39 | SOAPPROG ---
SOAP Progress Note Assessment/Plan: Assessment: . 04/26/17 11:35 To feeding 3 hypertension 4 peripheral edema 5 bleeding. She is now receiving transfusions. Blood pressure is under much better control with simple medicine additions. She is tolerating things very well but is quite discouraged with all this bleeding. She is having no significant pain. From a cardiovascular point of view she is stable. Subjective: She has no chest pain She is not short of breath She does not have nausea She has had multiple bleeding episodes She is getting transfused right now Her blood pressure is under better control. Objective: Vital Signs Temp Pulse Resp BP Pulse Ox 36.6 C 64 18 122/54 H 99 04/26/17 08:00 04/26/17 08:00 04/26/17 08:00 04/26/17 08:00 04/26/17 08:00 Microbiology 04/19/17 17:32 Gram Stain - Final Abdomen - Anaerobic Tube/Swab Laboratory Results 04/26/17 07:45 04/26/17 03:57 04/25/17 04/26/17 04/27/17 05:59 05:59 05:59 Intake Total 2374 2150 700 Output Total 450 1700 550 Balance 1924 450 150 PT 15.0 SEC (12.0-15.0) 04/24/17 13:45 INR 1.16 (0.83-1.16) 04/24/17 13:45 Selected Entries 04/26/17 04/26/17 04:00 08:00 Heart Rate 65 64 Blood Pressure 145/62 H 122/54 H Mean Arterial 89 76 Pressure (MAP) Laboratory Tests 04/24/17 04/24/17 04/25/17 13:45 20:40 04:40 WBC 5.30 Hgb 10.2 L 9.2 L 8.6 L Hct 29.7 L Plt Count 161 Sodium Potassium Chloride Carbon Dioxide Anion Gap BUN Creatinine Estimated GFR Glucose Calcium 04/25/17 04/26/17 04/26/17 15:58 03:57 03:57 WBC Hgb 9.9 L 7.2 L Hct Plt Count Sodium 148 H Potassium 3.8 Chloride 119 H Carbon Dioxide 21 L Anion Gap 8 BUN 30 H Creatinine 1.2 H Estimated GFR 42 Glucose 108 H Calcium 8.6 04/26/17 07:45 WBC Hgb 6.7 L Hct 19.9 L Plt Count Sodium Potassium Chloride Carbon Dioxide Anion Gap BUN Creatinine Estimated GFR Glucose Calcium Physical Exam - Physical Exam General Appearance: alert Respiratory: lungs clear, rhonchi Cardiac/Chest: regular rate, rhythm, systolic murmur Abdomen: non-tender, soft, No organomegaly Skin: pallor Extremities: No calf tenderness Neuro/Psych: normal mood/affect ICD10 Worksheet Patient Problems: Problems Problem Status Onset Cecal volvulus Acute Renal insufficiency Acute Aspiration pneumonia Acute Atrial flutter Acute Chronic Disease Mgmt/Transitional Care Acute Dehydration Acute Elevated troponin Acute Intraparenchymal hematoma of brain due to trauma Acute Lightheaded Acute Lip laceration Acute Pleural effusion Acute Pneumonia Acute Pulmonary edema Acute Subarachnoid hemorrhage Acute Syncope Acute
--- NOTE | 2017-04-26 15:28 | HOSPPROG ---
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 She has baseline anemia w baseline hg 10-11, hgb 6.7 this am transfuse 2 units prbc's now trend H&H discussed with surgery, holding tube feeds for bowel rest dysphagia: pt has been on tube feeds prior to admission with peg tube feeds held as above swollen RUE: superficial thrombophlebitis on u/s, no dvt warm compresses encephalopathy: resolved, avoid bzd's htn: hold norvasc during acute GIB event YAMILEX: Cr back to baseline (1.1-1.2) hypokalemia: replacement protocol AF: in sinus clinically follow FEN: tube feeds held per surg proph: MIRACLE held due to bleeding, SCD's for now Full code Dispo: cont inp Subjective: Pt reports another large bloody stool in between units of blood today. No abdominal pain, N/V. No fevers. Remains NPO, tube feeds held. Objective: Vital Signs Temp Pulse Resp BP Pulse Ox 36.9 C 64 16 143/61 H 98 04/26/17 15:20 04/26/17 15:20 04/26/17 15:20 04/26/17 15:20 04/26/17 15:20 Microbiology 04/19/17 17:32 Gram Stain - Final Abdomen - Anaerobic Tube/Swab Anaerobic Culture - Final Laboratory Results 04/26/17 07:45 04/26/17 03:57 04/25/17 04/26/17 04/27/17 05:59 05:59 05:59 Intake Total 2374 2150 700 Output Total 450 1700 550 Balance 1924 450 150 PT 15.0 SEC (12.0-15.0) 04/24/17 13:45 INR 1.16 (0.83-1.16) 04/24/17 13:45 - Physical Exam Constitutional: no apparent distress Eyes: PERRL Ears, Nose, Mouth, Throat: moist mucous membranes Cardiovascular: regular rate and rhythym Respiratory: no respiratory distress, clear to auscultation Gastrointestinal: normoactive bowel sounds, soft, non-tender abdomen, other ( incision c/d/i) Skin: warm Musculoskeletal: full muscle strength Neurologic: AAOx3 Psychiatric: interacting appropriately ICD10 Worksheet Patient Problems: Problems Problem Status Onset Cecal volvulus Acute Renal insufficiency Acute Aspiration pneumonia Acute Atrial flutter Acute Chronic Disease Mgmt/Transitional Care Acute Dehydration Acute Elevated troponin Acute Intraparenchymal hematoma of brain due to trauma Acute Lightheaded Acute Lip laceration Acute Pleural effusion Acute Pneumonia Acute Pulmonary edema Acute Subarachnoid hemorrhage Acute Syncope Acute
[2017-04-26] MEDS ORDERED: D5W 1,000 ML IV ONE (15:31)
[2017-04-26] MEDS ORDERED: TRANEXAMIC ACID 650 MG TAB PO SCH (16:00)
[2017-04-27] MEDS: PIPERACILLIN/TAZO 2.25 GM/DEX 50 ML IV SCH ×4 (00:03→18:31)
--- NOTE | 2017-04-27 09:28 | SOAPPROG ---
SOAP Progress Note Assessment/Plan: Assessment: 86 y/o woman with multiple medical problems. now POD #6 exp lap with some LGIB. Cardiac johns has PAF with previous fall and ICH remotely, CHF, and HTN. She is in NSR and no decompensated CHF. I think her edema is more from malnutrition then volume overload. Her BP is moderately elevated but still having some active GI bleeding so will not uptitrate Vasotec yet. PLAN: 1)No change in current cardiac meds. 2)when GI bleed stops and if SBP still > 160, will increase Vasotec to 5mg PO BID 3)will follow with you. 4)continue Tele 04/27/17 09:24 Subjective: Overall she feels stronger. Still some bloody clots in bowel movements. Denies CP, rest dyspnea, palpitations or PND. Has some leg edema. Objective: Vital Signs Temp Pulse Resp BP Pulse Ox 36.4 C 59 L 18 172/68 H 96 04/27/17 08:19 04/27/17 08:19 04/27/17 08:19 04/27/17 03:56 04/27/17 08:19 Microbiology 04/19/17 17:32 Gram Stain - Final Abdomen - Anaerobic Tube/Swab Anaerobic Culture - Final Laboratory Results 04/27/17 03:32 04/27/17 03:32 04/26/17 04/27/17 04/28/17 05:59 05:59 05:59 Intake Total 2150 1500 Output Total 1700 850 Balance 450 650 PT 15.0 SEC (12.0-15.0) 04/24/17 13:45 INR 1.16 (0.83-1.16) 04/24/17 13:45 Physical Exam - Physical Exam General Appearance: alert EENT: PERRL/EOMI Neck: non-tender Respiratory: lungs clear Cardiac/Chest: regular rate, rhythm, systolic murmur (2/6 WILTON heard), No gallop , No JVD Peripheral Pulses: 2+: carotid (R), carotid (L), femoral (R), femoral (L), dorsalis-pedis (R), dorsalis-pedis (L) Skin: warm/dry Extremities: pedal edema (1+ bilaterally to mid calves) Neuro/Psych: alert ICD10 Worksheet Patient Problems: Problems Problem Status Onset Cecal volvulus Acute Renal insufficiency Acute Aspiration pneumonia Acute Atrial flutter Acute Chronic Disease Mgmt/Transitional Care Acute Dehydration Acute Elevated troponin Acute Intraparenchymal hematoma of brain due to trauma Acute Lightheaded Acute Lip laceration Acute Pleural effusion Acute Pneumonia Acute Pulmonary edema Acute Subarachnoid hemorrhage Acute Syncope Acute
--- NOTE | 2017-04-27 10:50 | HOSPPROG ---
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, resection with recurrent GI bleeding post-operatively volvulus: s/p primary anastamosis POD 5, now with GI bleeding as below dc zosyn ABLA 2/2 GI bleeding: Baseline anemia, hgb 10-11, hgb dropped to 6.7 yesterday, s/p 2 units prbc's, hgb now stable ~9 trend H&H and monitor for ongoing bleeding discussed with surgery, holding tube feeds for bowel rest dysphagia: pt has been on tube feeds prior to admission with peg tube feeds held as above swollen RUE: superficial thrombophlebitis on u/s, no dvt warm compresses encephalopathy: resolved, avoid bzd's htn: hold norvasc during acute GIB event YAMILEX: Cr back to baseline (1.1-1.2) hypokalemia: replacement protocol hypernatremia: repeat D5W bolus today, consider change to D5W tomorrow AF: in sinus clinically follow FEN: tube feeds held per surg proph: MIRACLE held due to bleeding, SCD's for now Full code Dispo: cont inp Subjective: Pt feels ok, wishes to have more ice chips. No fevers. No more bloody stools today. Objective: Vital Signs Temp Pulse Resp BP Pulse Ox 36.4 C 59 L 18 172/68 H 96 04/27/17 08:19 04/27/17 08:19 04/27/17 08:19 04/27/17 03:56 04/27/17 08:19 Microbiology 04/19/17 17:32 Gram Stain - Final Abdomen - Anaerobic Tube/Swab Anaerobic Culture - Final Laboratory Results 04/27/17 09:58 04/27/17 03:32 04/26/17 04/27/17 04/28/17 05:59 05:59 05:59 Intake Total 2150 1500 Output Total 1700 850 Balance 450 650 PT 15.0 SEC (12.0-15.0) 04/24/17 13:45 INR 1.16 (0.83-1.16) 04/24/17 13:45 - Physical Exam Constitutional: no apparent distress Eyes: PERRL Ears, Nose, Mouth, Throat: moist mucous membranes Cardiovascular: regular rate and rhythym Respiratory: no respiratory distress Gastrointestinal: normoactive bowel sounds, soft, non-tender abdomen Skin: warm Musculoskeletal: generalized weakness Neurologic: AAOx3 Psychiatric: interacting appropriately ICD10 Worksheet Patient Problems: Problems Problem Status Onset Cecal volvulus Acute Renal insufficiency Acute Aspiration pneumonia Acute Atrial flutter Acute Chronic Disease Mgmt/Transitional Care Acute Dehydration Acute Elevated troponin Acute Intraparenchymal hematoma of brain due to trauma Acute Lightheaded Acute Lip laceration Acute Pleural effusion Acute Pneumonia Acute Pulmonary edema Acute Subarachnoid hemorrhage Acute Syncope Acute
[2017-04-27] MEDS: ENALAPRIL MALEATE 5 MG TAB TUBE SCH ×2 (10:58→20:58)
[2017-04-27] MEDS: AMIODARONE HCL 200 MG TAB TUBE SCH (10:58)
[2017-04-27] MEDS: LANSOPRAZOLE SUSP 30MG/10ML UDSYR (Adult) TUBE SCH (11:06)
--- NOTE | 2017-04-27 11:55 | SOAPPROG ---
SOAP Progress Note Assessment/Plan: Assessment/Plan: - 86yo F POD#5 s/p ex-lap, extended RHC for cecal volvulus - VSS, HDS, SBP now 1-teens. HR stable - bloody BMs slowing - responded appropriately to transfusion yesterday - hold TFs, ok for 1cup ice chips per day - abdomen soft - if no bleeding through today poss restart TFs tomorrow 04/20/17 07:41 04/23/17 09:50 04/24/17 10:42 04/25/17 09:29 04/26/17 11:05 04/27/17 11:54 Subjective: looks good Objective: Vital Signs Temp Pulse Resp BP Pulse Ox 36.4 C 59 L 18 172/68 H 96 04/27/17 08:19 04/27/17 08:19 04/27/17 08:19 04/27/17 03:56 04/27/17 08:19 Microbiology 04/19/17 17:32 Gram Stain - Final Abdomen - Anaerobic Tube/Swab Anaerobic Culture - Final Laboratory Results 04/27/17 09:58 04/27/17 03:32 04/26/17 04/27/17 04/28/17 05:59 05:59 05:59 Intake Total 2150 1500 Output Total 1700 850 Balance 450 650 PT 15.0 SEC (12.0-15.0) 04/24/17 13:45 INR 1.16 (0.83-1.16) 04/24/17 13:45 ICD10 Worksheet Patient Problems: Problems Problem Status Onset Cecal volvulus Acute Renal insufficiency Acute Aspiration pneumonia Acute Atrial flutter Acute Chronic Disease Mgmt/Transitional Care Acute Dehydration Acute Elevated troponin Acute Intraparenchymal hematoma of brain due to trauma Acute Lightheaded Acute Lip laceration Acute Pleural effusion Acute Pneumonia Acute Pulmonary edema Acute Subarachnoid hemorrhage Acute Syncope Acute
[2017-04-27] MEDS: D5W 1/2 NS W/ 20 KCl/L 1,000 ML IV SCH (12:21)
[2017-04-27] MEDS ORDERED: D5W 250 ML IV ONE (18:36)
[2017-04-28] MEDS: PIPERACILLIN/TAZO 2.25 GM/DEX 50 ML IV SCH ×2 (00:44→06:05)
[2017-04-28] MEDS: D5W 1/2 NS W/ 20 KCl/L 1,000 ML IV SCH ×2 (07:33→17:18)
--- NOTE | 2017-04-28 09:22 | SOAPPROG ---
SOAP Progress Note Assessment/Plan: Assessment/Plan: - 86yo F POD#5 s/p ex-lap, extended RHC for cecal volvulus - VSS, HDS, SBP now 1-teens. HR stable - old coffee ground BM with stool - abdomen soft, ND, NT. Jayson with some keyla-incisional erythema not infectious appearing - Restarting TFs today at noon, plan will be to trickle at 10 for 24hrs. - Hopefully she wont bleed again 04/20/17 07:41 04/23/17 09:50 04/24/17 10:42 04/25/17 09:29 04/26/17 11:05 04/27/17 11:54 04/28/17 09:21 Subjective: feels well, slept well/. Objective: Vital Signs Temp Pulse Resp BP Pulse Ox 36.2 C 59 L 16 156/58 H 94 04/28/17 03:35 04/28/17 03:35 04/28/17 03:35 04/28/17 03:35 04/28/17 03:35 Laboratory Results 04/28/17 03:53 04/28/17 03:53 04/27/17 04/28/17 04/29/17 05:59 05:59 05:59 Intake Total 1500 2300 Output Total 850 575 Balance 650 1725 PT 15.0 SEC (12.0-15.0) 04/24/17 13:45 INR 1.16 (0.83-1.16) 04/24/17 13:45 ICD10 Worksheet Patient Problems: Problems Problem Status Onset Cecal volvulus Acute Renal insufficiency Acute Aspiration pneumonia Acute Atrial flutter Acute Chronic Disease [facility]/Transitional Care Acute Dehydration Acute Elevated troponin Acute Intraparenchymal hematoma of brain due to trauma Acute Lightheaded Acute Lip laceration Acute Pleural effusion Acute Pneumonia Acute Pulmonary edema Acute Subarachnoid hemorrhage Acute Syncope Acute
[2017-04-28] MEDS ORDERED: FUROSEMIDE 40 MG/4 ML VIAL IVP ONE (09:37)
[2017-04-28] MEDS: AMIODARONE HCL 200 MG TAB TUBE SCH (09:39)
--- NOTE | 2017-04-28 09:40 | SOAPPROG ---
SOAP Progress Note Assessment/Plan: Assessment: 86 y/o woman with multiple medical problems. now POD #6 exp lap with some LGIB. Cardiac johns has PAF with previous fall and ICH remotely, CHF, and HTN. She is in NSR and no decompensated CHF. I think her edema is more from malnutrition then volume overload. Her BP is moderately elevated but still having some active GI bleeding so will not uptitrate Vasotec yet. PLAN: 1)Lasix 40mg IV x 1 now with all IVF and increasing leg edema. 2)rest of meds without changes. 3)hopefully LGIB will not recur as restart tube feeds. 04/28/17 09:38 Subjective: overall doing okay. Moderate [place] walking in hallway 50-100ft. Leg edema more. Overall however feels stronger. Denies CP, syncope, palpitations or PND. Objective: Vital Signs Temp Pulse Resp BP Pulse Ox 36.3 C 63 18 131/49 H 92 04/28/17 09:19 04/28/17 09:19 04/28/17 09:19 04/28/17 09:19 04/28/17 09:19 Microbiology 04/22/17 16:45 Blood Culture - Final Blood 04/22/17 12:30 Blood Culture - Final Blood Laboratory Results 04/28/17 03:53 04/28/17 03:53 04/27/17 04/28/17 04/29/17 05:59 05:59 05:59 Intake Total 1500 2300 Output Total 850 575 Balance 650 1725 PT 15.0 SEC (12.0-15.0) 04/24/17 13:45 INR 1.16 (0.83-1.16) 04/24/17 13:45 Physical Exam - Physical Exam General Appearance: alert EENT: PERRL/EOMI Neck: non-tender Respiratory: lungs clear, No rales Cardiac/Chest: regular rate, rhythm, systolic murmur, No gallop, No JVD Peripheral Pulses: 2+: carotid (R), carotid (L), femoral (R), femoral (L), dorsalis-pedis (R), dorsalis-pedis (L) Abdomen: non-tender, No guarding Skin: warm/dry Extremities: pedal edema Neuro/Psych: alert ICD10 Worksheet Patient Problems: Problems Problem Status Onset Cecal volvulus Acute Renal insufficiency Acute Aspiration pneumonia Acute Atrial flutter Acute Chronic Disease Mgmt/Transitional Care Acute Dehydration Acute Elevated troponin Acute Intraparenchymal hematoma of brain due to trauma Acute Lightheaded Acute Lip laceration Acute Pleural effusion Acute Pneumonia Acute Pulmonary edema Acute Subarachnoid hemorrhage Acute Syncope Acute
[2017-04-28] MEDS: ENALAPRIL MALEATE 5 MG TAB TUBE SCH ×2 (09:42→21:40)
[2017-04-28] MEDS: LANSOPRAZOLE SUSP 30MG/10ML UDSYR (Adult) TUBE SCH (09:42)
--- NOTE | 2017-04-28 13:05 | ASMTCMCOM ---
CM Note CM Note Notes: Reviewed chart regarding discharge plan, pt's progress. Pt POD #5 s/p exploratory lap. Per notes, pt w/ some edema and dyspnea on exertion. Pt lives independently at [facility] w/ her . Plan remains for pt to go to [facility] on discharge. Update provided to aristides Sanchez RN at . CM will cont to follow. Current Discharge Plan: [facility] Date Signed: 04/28/2017 01:04 PM Electronically Signed By:Aleyda Duarte RN
--- NOTE | 2017-04-28 15:44 | HOSPPROG ---
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, resection with recurrent GI bleeding post-operatively volvulus: s/p primary anastamosis POD 6, post-op anastomotic bleeding seems to be resolved dc zosyn advance care per surg ABLA 2/2 GI bleeding: Baseline anemia, hgb 10-11, hgb dropped to 6.7 with hematochezia, s/p 2 units prbc's, hgb now stable ~9 trend H&H and monitor for ongoing bleeding dysphagia: pt has been on tube feeds prior to admission with peg discussed with surgery, will resume tube feeds today (held for bowel rest in setting of bleeding) volume overload: weight up 7 kg with LE edema lasix today follow I&O's, daily weights swollen RUE: superficial thrombophlebitis on u/s, no dvt warm compresses encephalopathy: resolved, avoid bzd's htn: holding norvasc given recent GI bleeding, resume as indicated YAMILEX: Cr back to baseline (1.1-1.2) hypokalemia: replacement protocol hypernatremia: improved with daily D5W boluses, follow AF: in sinus clinically, no anticoagulation with recent bleeding follow FEN: resuming tube feeds per surg proph: MIRACLE held due to bleeding, SCD's for now Full code Dispo: cont inpt Subjective: Pt feels ok. Had a coffee ground stool, no BRBPR. No CP, SOB, abdominal pain, N/V. No fevers. Objective: Vital Signs Temp Pulse Resp BP Pulse Ox 36.4 C 59 L 16 133/64 H 97 04/28/17 15:03 04/28/17 15:03 04/28/17 15:03 04/28/17 15:03 04/28/17 15:03 Microbiology 04/22/17 16:45 Blood Culture - Final Blood 04/22/17 12:30 Blood Culture - Final Blood Laboratory Results 04/28/17 03:53 04/28/17 03:53 04/27/17 04/28/17 04/29/17 05:59 05:59 05:59 Intake Total 1500 2300 Output Total 698 418 4082 Balance 650 1725 -1340 PT 15.0 SEC (12.0-15.0) 04/24/17 13:45 INR 1.16 (0.83-1.16) 04/24/17 13:45 - Physical Exam Constitutional: no apparent distress Eyes: PERRL Ears, Nose, Mouth, Throat: moist mucous membranes Cardiovascular: regular rate and rhythym Respiratory: no respiratory distress, clear to auscultation Gastrointestinal: normoactive bowel sounds, soft, non-tender abdomen, other ( incision c/d/i) Skin: warm Musculoskeletal: full muscle strength, other (2+ LE edema) Neurologic: AAOx3 Psychiatric: interacting appropriately ICD10 Worksheet Patient Problems: Problems Problem Status Onset Cecal volvulus Acute Renal insufficiency Acute Aspiration pneumonia Acute Atrial flutter Acute Chronic Disease Mgmt/Transitional Care Acute Dehydration Acute Elevated troponin Acute Intraparenchymal hematoma of brain due to trauma Acute Lightheaded Acute Lip laceration Acute Pleural effusion Acute Pneumonia Acute Pulmonary edema Acute Subarachnoid hemorrhage Acute Syncope Acute
[2017-04-29] MEDS ORDERED: POTASSIUM CL 10 MEQ TAB PO ONE (08:52)
[2017-04-29] MEDS ORDERED: POTASSIUM CL 20 MEQ/15 ML UDCUP TUBE ONE (09:00)
[2017-04-29] MEDS: ENALAPRIL MALEATE 5 MG TAB TUBE SCH ×2 (09:27→21:55)
[2017-04-29] MEDS: AMIODARONE HCL 200 MG TAB TUBE SCH (09:27)
[2017-04-29] MEDS: LANSOPRAZOLE SUSP 30MG/10ML UDSYR (Adult) TUBE SCH (09:28)
[2017-04-29] MEDS: D5W 1/2 NS W/ 20 KCl/L 1,000 ML IV SCH (12:41)
--- NOTE | 2017-04-29 13:03 | SOAPPROG ---
SOAP Progress Note Assessment/Plan: Assessment/Plan: - 86yo F POD#5 s/p ex-lap, extended RHC for cecal volvulus - VSS, HDS, SBP now 1-teens. HR stable - Hb stable, no new bleeding - change Tfs to bolus feeds per her home routine - look for placement within next day or so 04/20/17 07:41 04/23/17 09:50 04/24/17 10:42 04/25/17 09:29 04/26/17 11:05 04/27/17 11:54 04/28/17 09:21 04/29/17 13:03 Subjective: doing well, hungry Objective: Vital Signs Temp Pulse Resp BP Pulse Ox 36.3 C 53 L 12 151/65 H 97 04/29/17 12:00 04/29/17 12:00 04/29/17 12:00 04/29/17 12:00 04/29/17 12:00 Microbiology 04/22/17 16:45 Blood Culture - Final Blood 04/22/17 12:30 Blood Culture - Final Blood Laboratory Results 04/29/17 03:22 04/29/17 03:22 04/28/17 04/29/17 04/30/17 05:59 05:59 05:59 Intake Total 2300 2488 Output Total 575 1940 150 Balance 1725 548 -150 PT 15.0 SEC (12.0-15.0) 04/24/17 13:45 INR 1.16 (0.83-1.16) 04/24/17 13:45 ICD10 Worksheet Patient Problems: Problems Problem Status Onset Cecal volvulus Acute Renal insufficiency Acute Aspiration pneumonia Acute Atrial flutter Acute Chronic Disease Mgmt/Transitional Care Acute Dehydration Acute Elevated troponin Acute Intraparenchymal hematoma of brain due to trauma Acute Lightheaded Acute Lip laceration Acute Pleural effusion Acute Pneumonia Acute Pulmonary edema Acute Subarachnoid hemorrhage Acute Syncope Acute
[2017-04-29] MEDS ORDERED: FUROSEMIDE 40 MG/4 ML VIAL IVP ONE (13:16)
--- NOTE | 2017-04-29 13:24 | PDCARPN ---
Cardiology Progress Note Chief Complaint: volvulus/LGIB Assessment/Plan: Assessment: 86-y/o F PMH PAF, htn, achalasia, PEG tube, frequent falls (therefore not candidate for AC), mod MR, mod PHTN, DCHF, p/w abdominal pain and found to have a cecal volvulus. S/p R colectomy, c/b LGIB. #. DCHF: appears hypervolemic currently with L sided rales and LA NENA will give another dose of IV lasix now BNP/CXR today PAF: in SR Amiodarone by tube continued not on AC given h/o of falls with injury (ICH) #. htn: BP mildly elevated will hold titrating meds due to recent bleed and need for IV lasix #. anemia: ABL hopefully this has ceased/H & H being followed serially Plan: dose of IV lasix now 04/29/17 13:24 Subjective: No dyspnea but edema is worsening. No cp/palps. Motivated to get stronger in order to go back to independent living. Reviewed/Discussed With: hospitalist (Dr. Serna) Objective: Vital Signs (8 Hrs) Temp Pulse Resp BP Pulse Ox 04/29/17 12:00 97.4 F 53 L 12 151/65 H 97 04/29/17 08:00 97.3 F 61 13 145/57 H 94 Intake/Output (24 Hrs) 04/28/17 04/29/17 04/30/17 05:59 05:59 05:59 Intake Total 2300 2488 Output Total 575 1940 150 Balance 1725 548 -150 Intake: IV Intake (ml) 1350 IV Infused (ml) 950 2300 D5W 1/2 NS W/ 20 KCl/L 1, 900 2300 000 ml @ 100 mls/hr IV CONT MIRACLE Rx#:[id number] Piperacillin/Tazo 2.25 gm 50 /Dex 50 ml @ 100 mls/hr IV Q6 MIRACLE Rx#:[id number] Tube Feeding (ml) 168 Tube Flush (ml) 20 Output: Urine (ml) 575 1625 150 Bedside Commode 1625 Toilet 575 150 Liquid Stool (ml) 300 Bedside Commode 300 PEG Tube Output (ml) 15 PEG 15 Other: Weight 55.3 kg Output Comment Bedside Commode coffee ground stool Number of Voids Bedside Commode 2 Incontinence 1 Toilet 1 1 Number of Stools Bedside Commode 2 Toilet 1 Result Diagrams: 04/29/17 03:22 04/29/17 03:22 Telemetry: SR - Physical Exam Constitutional: healthy appearing, no apparent distress Ears, Nose, Mouth, Throat: moist mucous membranes Cardiovascular: regular rate and rhythm Respiratory: reduced air movement, other (L sided crackles in base) Gastrointestinal: no tenderness Genitourinary: No barcenas in urethra Skin: no rashes, warm, other (2+ edema) Neurologic: AAOx3 Psychiatric: cooperative, interactive ICD10 Worksheet Patient Problems: Problems Problem Status Onset Aspiration pneumonia Acute Atrial flutter Acute Lightheaded Acute Renal insufficiency Acute Elevated troponin Acute Dehydration Acute Pneumonia Acute Pleural effusion Acute Chronic Disease Mgmt/Transitional Care Acute Pulmonary edema Acute Subarachnoid hemorrhage Acute Intraparenchymal hematoma of brain due to trauma Acute Lip laceration Acute Syncope Acute Cecal volvulus Acute
--- NOTE | 2017-04-29 13:33 | HOSPPROG ---
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, resection with recurrent GI bleeding post-operatively volvulus: s/p primary anastamosis POD 7, post-op anastomotic bleeding seems to be resolved dc zosyn advance care per surg Rales left base with worsening leg swelling concerning acute on chronic diastolic heart failure -check bnp and cxr -case discusses with LARA Siddiqui agree with repeating iv bolus of lasix ABLA 2/2 GI bleeding: Baseline anemia, hgb 10-11, hgb dropped to 6.7 with hematochezia, s/p 2 units prbc's, hgb now stable ~9 trend H&H and monitor for ongoing bleeding dysphagia: pt has been on tube feeds prior to admission with peg discussed with surgery, will resume tube feeds today (held for bowel rest in setting of bleeding) swollen RUE: superficial thrombophlebitis on u/s, no dvt warm compresses encephalopathy: resolved, avoid bzd's htn: holding norvasc given recent GI bleeding, resume as indicated YAMILEX: Cr back to baseline (1.1-1.2) hypokalemia: replacement protocol hypernatremia: improved with daily D5W boluses, follow AF: in sinus clinically, no anticoagulation with recent bleeding follow FEN: resuming tube feeds per surg proph: MIRACLE held due to bleeding, SCD's for now Full code Dispo: cont inpt Subjective: denies shortness of breath or chest pain. does not want to go to snf. denies shortness of breath. legs have been swelling today Objective: Vital Signs Temp Pulse Resp BP Pulse Ox 36.3 C 53 L 12 151/65 H 97 04/29/17 12:00 04/29/17 12:00 04/29/17 12:00 04/29/17 12:00 04/29/17 12:00 Microbiology 04/22/17 16:45 Blood Culture - Final Blood 04/22/17 12:30 Blood Culture - Final Blood Laboratory Results 04/29/17 03:22 04/29/17 03:22 04/28/17 04/29/17 04/30/17 05:59 05:59 05:59 Intake Total 2300 2488 Output Total 575 1940 150 Balance 1725 548 -150 PT 15.0 SEC (12.0-15.0) 04/24/17 13:45 INR 1.16 (0.83-1.16) 04/24/17 13:45 ICD10 Worksheet Patient Problems: Problems Problem Status Onset Aspiration pneumonia Acute Atrial flutter Acute Lightheaded Acute Renal insufficiency Acute Elevated troponin Acute Dehydration Acute Pneumonia Acute Pleural effusion Acute Chronic Disease Mgmt/Transitional Care Acute Pulmonary edema Acute Subarachnoid hemorrhage Acute Intraparenchymal hematoma of brain due to trauma Acute Lip laceration Acute Syncope Acute Cecal volvulus Acute
[2017-04-29] MEDS ORDERED: PEG 3350/NA SULF,BICARB,CL/KCL (GAVILYTE-G) 4000 ML BTL PO ONE (15:18)
[2017-04-30] MEDS: D5W 1/2 NS W/ 20 KCl/L 1,000 ML IV SCH (04:05)
--- NOTE | 2017-04-30 07:43 | PDANEPAE ---
ANE History of Present Illness GI bleed s/p ex lap POD #7 ANE Past Medical History - Cardiovascular History Hx Hypertension: Yes Hx Arrhythmias: No Hx Chest Pain: No Hx Coronary Artery / Peripheral Vascular Disease: No Hx CHF / Valvular Disease: No Hx Palpitations: No Cardiovascular History Comment: pcp monitors bp meds. hypercholesterolemia - Pulmonary History Hx COPD: No Hx Asthma/Reactive Airway Disease: No Hx Recent Upper Respiratory Infection: No Hx Oxygen in Use at Home: No Hx Sleep Apnea: No Sleep Apnea Screening Result - Last Documented: Positive Pulmonary History Comment: pna 09/2015 recurrent pna d/t aspiration - Neurologic History Hx Cerebrovascular Accident: No Hx Seizures: No Hx Dementia: No - Endocrine History Hx Diabetes: No Obesity: no - Renal History Hx Renal Disorders: No - Liver History Hx Hepatic Disorders: No - Neurological & Psychiatric Hx Hx Neurological and Psychiatric Disorders: No - Cancer History Hx Cancer: No - Congenital Disorder History Hx Congenital Disorders: No - GI History Hx Gastrointestinal Disorders: Yes Gastrointestinal History Comment: reflux. esophageal stenosis currently. achilasia. dysphagia - Other Health History Other Health History: none - Chronic Pain History Chronic Pain: No - Surgical History Prior Surgeries: 06/29/14 esophageal dilation with gatof. appy. bilateral bunionectomies. hysterectomy. left david. blepheroplasty. face lift. laser eye surgery. bilateral thumb surgery ANE Review of Systems Review of systems is: negative Review of Systems: - Exercise capacity Exercise capacity: <4 METS ANE Patient History - Allergies Allergies/Adverse Reactions: Sulfa (Sulfonamide Antibiotics) Allergy (Verified 12/16/16 10:16) Rash - Home Medications Home medications: home medication list seen and reviewed Home Medications: Atorvastatin Calcium [Lipitor 10 mg (*)] 10 mg TUBE HS 07/02/16 [Last Taken ] Acetaminophen [Tylenol ES 500 mg (*)] 500 mg TUBE Q6 PRN 12/16/16 [Last Taken Unknown] Amiodarone HCl [Pacerone (*)] 100 mg TUBE DAILY 12/16/16 [Last Taken 04/19/17] Aspirin [Aspirin 81mg (*)] 81 mg TUBE DAILY 12/16/16 [Last Taken 04/19/17] Polyethylene Glycol 3350 [Miralax 17 gm (*)] 17 gm TUBE DAILY 04/19/17 [Last Taken Unknown] Ranitidine HCl [Zantac] 150 mg TUBE DAILY 04/19/17 [Last Taken 04/18/17] Spironolactone [Aldactone 25 MG (*)] 12.5 mg TUBE DAILY 04/19/17 [Last Taken ] - Smoking Hx Smoking Status: Never smoked - Family Anes Hx Family Hx Anesthesia Complications: none ANE Labs/Vital Signs - Labs Result Diagrams: 04/29/17 14:45 04/30/17 04:02 - Vital Signs Blood Pressure: 144/83 Heart Rate: 65 Respiratory Rate: 16 O2 Sat (%): 95 Height: 162.56 cm Weight: 55.6 kg ANE Physical Exam - Airway Neck exam: FROM Mallampati Score: Class 2 Mouth exam: normal dental/mouth exam - Pulmonary Pulmonary: no respiratory distress - Cardiovascular Cardiovascular: regular rate and rhythym - ASA Status ASA Status: IV ANE Anesthesia Plan Anesthesia Plan: GA with mask
[2017-04-30] MEDS ORDERED: PROPOFOL 200 MG/20 ML VIAL ONE (07:46)
[2017-04-30] MEDS ORDERED: LIDOCAINE 2% 5 ML SDV ONE (07:49)
--- NOTE | 2017-04-30 08:13 | GCON ---
[f rep st] CONSULTATION GI CONSULTATION DATE OF CONSULTATION: 04/30/2017 REASON FOR CONSULTATION: Rectal bleeding with posthemorrhagic anemia. 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 Postoperatively, she had recurrent bright red blood per rectum requiring transfusion of 4 units of packed red blood cells over the last several days. The patient was admitted on 04/19/2017. Patient with chronic dysphagia secondary to Achalasia with chronic feedings through G-Tube. HOME MEDICATIONS: Lipitor 10 mg daily, amiodarone 20 mg daily, aspirin 81 mg daily, ranitidine 150 mg daily, and spironolactone 100 mg daily. ALLERGIES: Sulfa. PAST MEDICAL HISTORY: Extensive and includes atrial fibrillation, chronic pulmonary hypertension, respiratory insufficiency with hypoxia, hypertension, chronic renal failure, diastolic heart failure, mitral regurgitation, bronchiectasis, history of peptic ulcer disease, hyperlipidemia, osteoporosis, history of intracranial bleed, and history of achalasia and chronic dysphagia. SURGICAL HISTORY: Significant for recent right hemicolectomy with removal of the ileocecal valve. Hysterectomy and appendectomy in the past. PAST FAMILY HISTORY: Negative for GI malignancies. SOCIAL HISTORY: She is a nonsmoker. Does not drink alcohol. She was living independently with her until last year when she was at [facility]. REVIEW OF SYSTEMS: Positive for blood in stool. Otherwise negative for comprehensive review of systems. PHYSICAL EXAMINATION: VITAL SIGNS: Today on my examination, temperature 36.6 Celsius, pulse 65 regular, blood pressure 144/83, respiratory rate 16, O2 saturation 95% on room air. INTEGUMENT: Clear. HEENT: Head atraumatic, normocephalic. Pupils equal, round, reactive to light. EOMs intact. Sclerae nonicteric. Nares patent. Mucous membranes moist. Dentition fair. NECK: Supple. Trachea midline. LYMPHATICS: No palpable cervical or axillary adenopathy. PULMONARY: Lungs clear to percussion and auscultation. CARDIOVASCULAR: Regular rhythm, rate. Normal S1, S2 without murmur. Peripheral pulses decreased bilaterally. Pulse 2 pedal edema. GASTROINTESTINAL : G- Tube in right mid-quadrant. Abdomen is supple. Positive bowel sounds. There is a well-healing surgical scar in midline. No liver edge or spleen tip palpable. No masses or significant tenderness. No fluid wave. EXTREMITIES: Without deformity. NEURO: Patient was alert, oriented x3. There are no focal neurologic deficits. LABS: Hemoglobin yesterday 8.4, with hematocrit 24.8 (stable over last 24 hours. H and H pending today. Potassium is 4.3 this morning. Electrolytes normal yesterday. BNP elevated at 3560 yesterday. Pro time 15.0, PTT 30, INR 1.16 on 04/24/2017. IMPRESSION: 1. Lower gastrointestinal bleed after right hemicolectomy for cecal volvulus, rule out anastomotic bleed. 2. Congestive heart failure. 3. Respiratory insufficiency. 4. History of hypertension. 5. History of acute renal insufficiency. 6. History of atrial fibrillation, presently in normal sinus. 7. History of intracranial bleed. 8. Achalsia with chronic dysphagia and feedings through indwelling G-Tube. RECOMMENDATIONS: 1. Colyte prep. 2. Will do a total colonoscopy today when prep clears colon. Patient is at increased risk for complications due to advanced age and multiple concurrent health problems including congestive heart failure. Will perform colonoscopy with propofol anesthesia with the assistance of anesthesiologist. /[id number]/MODL MTDD
--- NOTE | 2017-04-30 08:29 | POSTANESTH ---
Post Anesthetic Evaluation Cardiovascular Status: Normal, Stable Respiratory Status: Normal, Stable Level of Consciousness/Mental Status: Can Participate in Eval Pain Control: Adequate, Prn Tx Ordered Nausea/Vomiting Control: Adequate, Prn Tx Ordered Complications Possibly Related to Anesthesia: None Noted
--- NOTE | 2017-04-30 08:44 | GIREPORT ---
[facility] - Endoscopy Department Patient Name: Danitza Lawrence Procedure Date: 04/30/2017 8:07 AM Patient Type: Inpatient Attending MD/ ER Physician: Jaun Nicholas MD Procedure: Colonoscopy Indications: Hematochezia, Acute post hemorrhagic anemia Providers: Juan Nicholas MD Medicines: General Anesthesia Complications: No immediate complications. Description of Procedure: After obtaining informed consent, the scope was passed under direct vis ion. Throughout the procedure, the patient's blood pressure, pulse, and oxyg en saturations were monitored continuously. The Colonoscope with irrigatio n channel was introduced through the anus and advanced to the ileocolonic anastomosis. The colonoscopy was performed without difficulty. The marlyn ent tolerated the procedure well. The quality of the bowel preparation was excellent. Findings: There was evidence of a prior end-to-side ileo-colonic anastomosis in t he distal transverse colon. This was patent and was characterized by anastomotic ulceration without stigmata of bleed. Scattered diverticula were found in the sigmoid colon and descending co nazario. The rectum appeared normal. The perianal and digital rectal examinations were normal. Estimated Blood Loss: Estimated blood loss: none. Post Op Diagnosis: - Patent end-to-side ileo-colonic anastomosis, characterized by anastom otic ulceration without stigmata of bleed. - Diverticulosis in the sigmoid colon and in the descending colon. - Recent GI bleed likely of either diverticular source of anastomotic b leed; resolved. - The rectum is normal. - No specimens collected. Recommendation: - Return patient to [facility] for [facility] care. - Patient has a contact number available for emergencies. The signs and symptoms of potential delayed complications were discussed with the pat ient. Return to normal activities tomorrow. Written discharge instructions we re provided to the patient. - Advance diet as tolerated today. - No follow-up screening colonoscopy indicated due to advanced age. Attending Participation: I personally performed the entire procedure. Jaun Nicholas MD Jaun Nicholas MD 04/30/2017 8:43:31 AM This report has been signed electronicallyJaun Nicholas MD Number of Addenda: 0 Note Initiated On: 04/30/2017 8:07 AM Total Procedure Duration Time 0 hours 20 minutes 56 seconds [email or web address]
[2017-04-30] MEDS ORDERED: LABETALOL HCL 5 MG/ML 20 ML MDV IVP PRN (09:10)
[2017-04-30] MEDS ORDERED: OXYCODONE/APAP 5/325 TAB PO PRN (09:10)
[2017-04-30] MEDS ORDERED: ACETAMINOPHEN 500 MG TAB PO PRN (09:10)
[2017-04-30] MEDS ORDERED: NALOXONE HCL 0.4 MG/ML INJ IVP PRN (09:10)
[2017-04-30] MEDS ORDERED: ONDANSETRON 4 MG/2 ML VIAL IVP PRN (09:10)
[2017-04-30] MEDS: LANSOPRAZOLE SUSP 30MG/10ML UDSYR (Adult) TUBE SCH (10:10)
[2017-04-30] MEDS: AMIODARONE HCL 200 MG TAB TUBE SCH (10:10)
[2017-04-30] MEDS: ENALAPRIL MALEATE 5 MG TAB TUBE SCH ×2 (10:10→20:45)
--- NOTE | 2017-04-30 10:32 | SOAPPROG ---
SOAP Progress Note Assessment/Plan: Assessment/Plan: - 86yo F s/p ex-lap, extended RHC for cecal volvulus - VSS, HDS, SBP now 1-teens. HR stable - didnt bleed with the prep overnight - C-scope showed pristine mosis without evidence of recent bleed, could have been diverticular bleed? - restart feeds, once tolerating will plan for dc 04/20/17 07:41 04/23/17 09:50 04/24/17 10:42 04/25/17 09:29 04/26/17 11:05 04/27/17 11:54 04/28/17 09:21 04/29/17 13:03 04/30/17 10:31 Subjective: still sleepy from c-scope but doing ok Objective: Vital Signs Temp Pulse Resp BP Pulse Ox 36.0 C 65 19 146/53 H 99 04/30/17 09:34 04/30/17 08:25 04/30/17 09:31 04/30/17 09:31 04/30/17 09:31 Laboratory Results 04/29/17 14:45 04/30/17 04:02 04/29/17 04/30/17 05/01/17 05:59 05:59 05:59 Intake Total 2488 922 325 Output Total 1940 850 250 Balance 548 72 75 PT 15.0 SEC (12.0-15.0) 04/24/17 13:45 INR 1.16 (0.83-1.16) 04/24/17 13:45 ICD10 Worksheet Patient Problems: Problems Problem Status Onset Cecal volvulus Acute Renal insufficiency Acute Aspiration pneumonia Acute Atrial flutter Acute Chronic Disease Mgmt/Transitional Care Acute Dehydration Acute Elevated troponin Acute Intraparenchymal hematoma of brain due to trauma Acute Lightheaded Acute Lip laceration Acute Pleural effusion Acute Pneumonia Acute Pulmonary edema Acute Subarachnoid hemorrhage Acute Syncope Acute
[2017-04-30] MEDS ORDERED: FUROSEMIDE 20 MG/2 ML VIAL IVP ONE (12:25)
--- NOTE | 2017-04-30 13:48 | HOSPPROG ---
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, resection with recurrent GI bleeding post-operatively volvulus: s/p primary anastamosis POD 8, post-op anastomotic bleeding seems to be resolved dc zosyn advance care per surg Rales left base with leg swelling concerning acute on chronic diastolic heart failure (improving) -resume home dose of lasix ABLA 2/2 GI bleeding: Baseline anemia, hgb 10-11, hgb dropped to 6.7 with hematochezia, s/p 2 units prbc's, hgb now stable ~9 trend H&H and monitor for ongoing bleeding dysphagia: pt has been on tube feeds prior to admission with peg discussed with surgery, will resume tube feeds today (held for bowel rest in setting of bleeding) swollen RUE: superficial thrombophlebitis on u/s, no dvt warm compresses encephalopathy: resolved, avoid bzd's htn: holding norvasc given recent GI bleeding, resume as indicated YAMILEX: Cr back to baseline (1.1-1.2) hypokalemia: replacement protocol hypernatremia: improved with daily D5W boluses, follow AF: in sinus clinically, no anticoagulation with recent bleeding follow FEN: resuming tube feeds per surg proph: MIRACLE held due to bleeding, SCD's for now Full code Dispo: cont inpt Subjective: tolerating 1/2 bolus feeds. denies bleeding. no shortness of breath. Objective: Vital Signs Temp Pulse Resp BP Pulse Ox 36.8 C 65 18 103/56 L 96 04/30/17 11:37 04/30/17 11:37 04/30/17 11:37 04/30/17 11:37 04/30/17 11:37 Laboratory Results 04/29/17 14:45 04/30/17 04:02 04/29/17 04/30/17 05/01/17 05:59 05:59 05:59 Intake Total 2488 922 325 Output Total 1940 850 250 Balance 548 72 75 PT 15.0 SEC (12.0-15.0) 04/24/17 13:45 INR 1.16 (0.83-1.16) 04/24/17 13:45 - Physical Exam Constitutional: no apparent distress, appears nourished, not in pain Cardiovascular: regular rate and rhythym, no murmur, rub, or gallop Respiratory: no respiratory distress, no rales or rhonchi, clear to auscultation Gastrointestinal: normoactive bowel sounds, soft, non-tender abdomen, no palpable masses, No guarding, No rebound ICD10 Worksheet Patient Problems: Problems Problem Status Onset Aspiration pneumonia Acute Atrial flutter Acute Lightheaded Acute Renal insufficiency Acute Elevated troponin Acute Dehydration Acute Pneumonia Acute Pleural effusion Acute Chronic Disease Mgmt/Transitional Care Acute Pulmonary edema Acute Subarachnoid hemorrhage Acute Intraparenchymal hematoma of brain due to trauma Acute Lip laceration Acute Syncope Acute Cecal volvulus Acute
--- NOTE | 2017-04-30 14:21 | PDCARPN ---
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 S/p R colectomy, c/b LGIB. #. DCHF: still appears hypervolemicthough rales and edema are diminished will give another dose of IV lasix now BNP a little above b/l and CXR with improvement to interstitial edema pattern PAF: in SR Amiodarone by tube continued not on AC given h/o of falls with injury (ICH) #. htn: BP currently controlled #. anemia: ABL H & H being followed serially Plan: dose of IV lasix now 04/30/17 14:18 Subjective: Feels fatigued from poor night's sleep. Denies dyspnea. Objective: Vital Signs (8 Hrs) Temp Pulse Resp BP Pulse Ox 04/30/17 11:37 98.2 F 65 18 103/56 L 96 04/30/17 09:50 98.3 F 55 L 18 148/53 H 96 04/30/17 09:34 96.8 F 04/30/17 09:31 19 146/53 H 99 04/30/17 09:16 19 152/54 H 100 04/30/17 09:01 18 166/65 H 100 04/30/17 08:56 18 159/66 H 99 04/30/17 08:51 17 165/60 H 100 04/30/17 08:50 14 100 04/30/17 08:46 20 167/59 H 04/30/17 08:45 97.9 F 04/30/17 08:42 22 H 100 04/30/17 08:41 9 L 155/65 H 100 04/30/17 08:40 25 H 159/64 H 100 04/30/17 08:25 65 16 144/83 H 95 04/30/17 08:00 57 L 18 145/66 H 96 04/30/17 07:57 97.5 F 57 L 16 179/67 H 95 Intake/Output (24 Hrs) 04/29/17 04/30/17 05/01/17 05:59 05:59 05:59 Intake Total 2488 922 325 Output Total 1940 850 450 Balance 548 72 -125 Intake: IV Intake (ml) 325 IV Infused (ml) 2300 824 D5W 1/2 NS W/ 20 KCl/L 1, 2300 824 000 ml @ 75 mls/hr IV CONT MIRACLE Rx#:[id number] Tube Feeding (ml) 168 68 Tube Flush (ml) 20 30 Output: Urine (ml) 1625 850 450 Bedside Commode 1625 400 450 Toilet 450 Liquid Stool (ml) 300 Bedside Commode 300 Estimated Blood Loss (ml) 0 PEG Tube Output (ml) 15 PEG 15 Other: Weight 55.3 kg 55.6 kg 55.6 kg Output Comment Bedside Commode coffee ground stool Golyte prep. Stool is clear this am Number of Voids Bedside Commode 2 6 Incontinence 1 Toilet 1 Number of Stools Bedside Commode 2 10 Incontinence 1 Toilet 1 Result Diagrams: 04/29/17 14:45 04/30/17 04:02 - Physical Exam Constitutional: no apparent distress Eyes: pale conjunctiva Ears, Nose, Mouth, Throat: moist mucous membranes Cardiovascular: regular rate and rhythm Respiratory: clear to auscultate bilat, no crackles, no wheezes Skin: no rashes, warm, other (1+ edema) Neurologic: AAOx3 ICD10 Worksheet Patient Problems: Problems Problem Status Onset Cecal volvulus Acute Renal insufficiency Acute Aspiration pneumonia Acute Atrial flutter Acute Chronic Disease [facility]/Transitional Care Acute Dehydration Acute Elevated troponin Acute Intraparenchymal hematoma of brain due to trauma Acute Lightheaded Acute Lip laceration Acute Pleural effusion Acute Pneumonia Acute Pulmonary edema Acute Subarachnoid hemorrhage Acute Syncope Acute
[2017-05-01] MEDS: AMIODARONE HCL 200 MG TAB TUBE SCH (09:47)
[2017-05-01] MEDS: LANSOPRAZOLE SUSP 30MG/10ML UDSYR (Adult) TUBE SCH (09:48)
[2017-05-01] MEDS: ENALAPRIL MALEATE 5 MG TAB TUBE SCH (09:48)
--- NOTE | 2017-05-01 10:23 | SOAPPROG ---
SOAP Progress Note Assessment/Plan: Assessment: 1. LGI Bleed; resolved. 2, Post-hemorrhagic anemia; stable. Plan: 1. Diet per TF. 2. Continue PPI therapy. 3. Will sign off today. Jaun Nicholas MD 05/01/17 10:20 Subjective: CC: LGI Bleed. Interval HPI: Normal brown BM x 1. No blood in stool. Tolerating TF. Objective: Vital Signs Temp Pulse Resp BP Pulse Ox 36.8 C 56 L 12 137/59 H 96 05/01/17 07:33 05/01/17 07:33 05/01/17 07:33 05/01/17 07:33 05/01/17 07:33 Laboratory Results 04/29/17 14:45 04/30/17 18:53 04/30/17 05/01/17 05/02/17 05:59 05:59 05:59 Intake Total 922 1507 Output Total 850 775 200 Balance 72 732 -200 PT 15.0 SEC (12.0-15.0) 04/24/17 13:45 INR 1.16 (0.83-1.16) 04/24/17 13:45 Physical Exam - Physical Exam General Appearance: alert, no apparent distress Respiratory: lungs clear, normal breath sounds Cardiac/Chest: regular rate, rhythm Abdomen: normal bowel sounds, non-tender, soft Skin: normal color, warm/dry Neuro/Psych: alert, normal mood/affect, oriented x 3 ICD10 Worksheet Patient Problems: Problems Problem Status Onset Cecal volvulus Acute Renal insufficiency Acute Aspiration pneumonia Acute Atrial flutter Acute Chronic Disease Mgmt/Transitional Care Acute Dehydration Acute Elevated troponin Acute Intraparenchymal hematoma of brain due to trauma Acute Lightheaded Acute Lip laceration Acute Pleural effusion Acute Pneumonia Acute Pulmonary edema Acute Subarachnoid hemorrhage Acute Syncope Acute
[2017-05-01 10:39] LABS: PLATELET COUNT 346 10^3/uL (150-400)
[2017-05-01 11:05] VITALS: BP 125/55; PULSE 66; RESP 20; TEMP 97.7; O2SAT 94
--- NOTE | 2017-05-01 12:36 | HOSPPROG ---
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, resection with recurrent GI bleeding post-operatively volvulus: s/p primary anastamosis POD 9, post-op anastomotic bleeding seems to be resolved dc zosyn advance care per surg Rales left base with leg swelling concerning acute on chronic diastolic heart failure (resolved) -resume home dose of lasix ABLA 2/2 GI bleeding: Baseline anemia, hgb 10-11, hgb dropped to 6.7 with hematochezia, s/p 2 units prbc's, hgb now stable ~9 trend H&H and monitor for ongoing bleeding dysphagia: pt has been on tube feeds prior to admission with peg discussed with surgery, will resume tube feeds today (held for bowel rest in setting of bleeding) swollen RUE: superficial thrombophlebitis on u/s, no dvt warm compresses encephalopathy: resolved, avoid bzd's htn: holding norvasc given recent GI bleeding, resume as indicated YAMILEX: Cr back to baseline (1.1-1.2) hypokalemia: replacement protocol hypernatremia: improved with daily D5W boluses, follow AF: in sinus clinically, no anticoagulation with recent bleeding follow FEN: resuming tube feeds per surg proph: MIRACLE held due to bleeding, SCD's for now Full code Dispo: Patient seems to be appropriate for discharge. I have a call in to her attending Dr. Aly to see if he is in agreement with discharge. Subjective: Tolerating bolus feeds. No bleeding. No pain. Denies any fevers or chills. Objective: Vital Signs Temp Pulse Resp BP Pulse Ox 36.5 C 66 20 125/55 H 94 05/01/17 11:04 05/01/17 11:04 05/01/17 11:04 05/01/17 11:04 05/01/17 11:04 Laboratory Results 05/01/17 10:31 05/01/17 10:31 04/30/17 05/01/17 05/02/17 05:59 05:59 05:59 Intake Total 922 1507 Output Total 850 775 200 Balance 72 732 -200 PT 15.0 SEC (12.0-15.0) 04/24/17 13:45 INR 1.16 (0.83-1.16) 04/24/17 13:45 - Physical Exam Constitutional: no apparent distress, appears nourished, not in pain Ears, Nose, Mouth, Throat: moist mucous membranes, hearing normal, ears appear normal, no oral mucosal ulcers Cardiovascular: regular rate and rhythym, no murmur, rub, or gallop, No edema Respiratory: no respiratory distress, no rales or rhonchi, clear to auscultation , No inspiratory crackles Gastrointestinal: normoactive bowel sounds, soft, non-tender abdomen, no palpable masses, distension, No guarding, No rebound Neurologic: AAOx3, sensation intact bilaterally ICD10 Worksheet Patient Problems: Problems Problem Status Onset Aspiration pneumonia Acute Atrial flutter Acute Lightheaded Acute Renal insufficiency Acute Elevated troponin Acute Dehydration Acute Pneumonia Acute Pleural effusion Acute Chronic Disease Mgmt/Transitional Care Acute Pulmonary edema Acute Subarachnoid hemorrhage Acute Intraparenchymal hematoma of brain due to trauma Acute Lip laceration Acute Syncope Acute Cecal volvulus Acute
--- NOTE | 2017-05-01 13:39 | PDIAF ---
- Diagnosis Diagnosis: s/p lapartomy and colon resection for volvulus, also LGIB Code Status: Full Code - Medication Management Discharge Medications: Medications to Continue on Transfer Atorvastatin Calcium [Lipitor 10 mg (*)] 10 mg TUBE HS 07/02/16 [Last Taken ] Acetaminophen [Tylenol ES 500 mg (*)] 500 mg TUBE Q6 PRN 12/16/16 [Last Taken Unknown] Amiodarone HCl [Pacerone (*)] 100 mg TUBE DAILY 12/16/16 [Last Taken 04/19/17] Aspirin [Aspirin 81mg (*)] 81 mg TUBE DAILY 12/16/16 [Last Taken 04/19/17] Enalapril Maleate [Vasotec 5 MG (*)] 2.5 mg TUBE BID #1 tab 12/26/16 [Last Taken 04/19/17] Furosemide [Lasix 20 MG (*)] 20 mg TUBE DAILY #1 tab 12/26/16 [Last Taken ] Polyethylene Glycol 3350 [Miralax 17 gm (*)] 17 gm TUBE DAILY 04/19/17 [Last Taken Unknown] Ranitidine HCl [Zantac] 150 mg TUBE DAILY 04/19/17 [Last Taken 04/18/17] Spironolactone [Aldactone 25 MG (*)] 12.5 mg TUBE DAILY 04/19/17 [Last Taken ] Lansoprazole [PREVACID 30mg/10ml susp (Adult) (*)] 30 mg TUBE DAILY #100 ml 02/06 [Last Taken Unknown] Discharge Medications: Refer to the Discharge Home Medication list for PRN reason. PICC Care - Routine: N/A - Orders Services needed: Registered Nurse, Physical Therapy, Occupational Therapy Isolation Type: None Diet Recommendation: other (tube feeds) Diet Texture: None Tube feeding: tube feeds per routine from before hospital stay Wound Care Instructions: ok to shower. jose should be removed already. let steri strips fall off on their own. Activity/Weight Bearing Restrictions: No lifting, pushing, or pulling greater than 15 lbs. - Follow Up Care Current Providers and Referrals: Prema Guevara MD [Primary Care Provider] - As per Instructions Musa Gonzalez MD [Medical Doctor] - follow up in 2 weeks
--- NOTE | 2017-05-01 15:00 | SOAPPROG ---
SOAP Progress Note Assessment/Plan: Assessment: 86 yo with multiple co-morbidities. s/p extended right hemicolectomy for necrotic cecal volvulus Much improved and eager to go home Liquid stool following bowel prep. Tolerating tube feeds DC jose Hyper/hypokalemia resolved Home today if okay with medicine and cards S: Feeling well General: Pleasant, well appearing woman sitting up in chair at bedside HENT: Normocephalic, no gross hearing deficits, mucous membranes moist, pupils equal and round, no scleral icterus. Abdomen: Bowel sounds present, soft but distended. G tube in place. Appropriately tender. staple line intact Skin: Small excoriation on r chest Psych: Mood and affect normal Neuro: Grossly intact Plan: 04/21/17 07:43 04/22/17 09:35 05/01/17 14:58 Objective: Vital Signs Temp Pulse Resp BP Pulse Ox 36.5 C 66 20 125/55 H 94 05/01/17 11:04 05/01/17 11:04 05/01/17 11:04 05/01/17 11:04 05/01/17 11:04 Laboratory Results 05/01/17 10:31 05/01/17 10:31 04/30/17 05/01/17 05/02/17 05:59 05:59 05:59 Intake Total 922 1507 Output Total 850 775 200 Balance 72 732 -200 PT 15.0 SEC (12.0-15.0) 04/24/17 13:45 INR 1.16 (0.83-1.16) 04/24/17 13:45 ICD10 Worksheet Patient Problems: Problems Problem Status Onset Cecal volvulus Acute Renal insufficiency Acute Aspiration pneumonia Acute Atrial flutter Acute Chronic Disease Mgmt/Transitional Care Acute Dehydration Acute Elevated troponin Acute Intraparenchymal hematoma of brain due to trauma Acute Lightheaded Acute Lip laceration Acute Pleural effusion Acute Pneumonia Acute Pulmonary edema Acute Subarachnoid hemorrhage Acute Syncope Acute
--- NOTE | 2017-05-01 16:12 | ASDISCHSUM ---
Discharge Information Plan Status:SNF Medically Cleared to Leave:04/30/2017 Discharge Date:05/01/2017 04:07 PM D/C Disposition:Retirement Facility ADT D/C Disposition:Retirement Facility Projected Discharge Date:05/01/2017 11:00 AM Transportation at D/C: Discharge Delay Reason: Follow-Up Date:05/01/2017 11:00 AM Discharge Slot: Final Diagnosis: Placement Information Referral Type:*Fpc/SNF Referral ID:[id number] Provider Name:Rene Kwong Banner Address 1:[address] Address 2: City:[place] Selection Factors: State:[place] Patient Contact Information Contact Name:FELIPE Relationship: Address:[address] Work Phone: [facility]:[place] Alternate Phone: State/Zip Code:[place] [address] Email: Financial Information Financial Class: Primary Plan Desc:MEDICARE INPATIENT Primary Plan Number:[id number] Secondary Plan Desc:[employer] Secondary Plan Number:[id number] Assessment Information LACE LACE Acuity / Level of Care Answers: Was the patient admitted to hospital via the emergency department? 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 She is POD #1 resection. She is currently intubated/sedated in the ICU; they anticipate weaning today in hopes of extubation. Patient lives at [facility] with her . I have called [facility] and notified them that patient might need a SNF bed upon discharge. PT/OT will be ordered to evaluate patient when she is able to ambulate. CM will follow for discharge planning. Date Signed: 04/20/2017 11:03 AM Electronically Signed By:Catia Mata RN [facility] Progress Note CM Note CM Note Notes: Therapists and agree that SNF Rehab would be beneficial for patient on discharge. Cedrick contacted at [facility] and referral sent. Date Signed: 04/23/2017 04:32 PM Electronically Signed By:Zenaida Guthrie LCSW [facility] Progress Note CM Note CM Note Notes: CM sent updates to [facility]. Rene reports that that they are able to accept since she is a [facility] resident. CM spoke w/ LEONEL Humphrey regarding d/c POC. Pt will most likely not d/c for a couple more days. CM to follow. Plan: [facility] Date Signed: 04/25/2017 03:08 PM Electronically Signed By:ANDRÉS Venegas [facility] Progress Note CM Note CM Note Notes: Reviewed chart regarding discharge plan, pt's progress. Pt POD #5 s/p exploratory lap. Per MD notes, pt w/ some edema and dyspnea on exertion. Pt lives independently at [facility] w/ her . Plan remains for pt to go to [facility] on discharge. Update provided to aristides Sanchez RN at . CM will cont to follow. Current Discharge Plan: [facility] Date Signed: 04/28/2017 01:04 PM Electronically Signed By:Aleyda Duarte RN Case Management Discharge Plan Note Case Management Discharge Discharge Order Complete? Answers: Yes Patient to Obtain Answers: Other Notes: [facility] Transportation Arranged Answers: Other Notes: Pass[facility] Transport will Pick (Date 05/01/2017 04:00 PM & Time) BARRY Complete Answers: No Case Management Transport Answers: No Form Complete Faxed Final Orders Answers: Yes Agency/Facility Transfer Answers: Yes Report Printed & Faxed to Receiving Agency Family Notified Answers: Yes Discharge Comments Notes: Pt is being discharged today to [facility]. CM met w/ pt and for dispo planning. CM provided LEONEL Macdonald w/ [facility] to give report. CM sent d/c orders to [facility]. CM available for changes. Plan: [facility] Date Signed: 05/01/2017 02:51 PM Electronically Signed By:ANDRÉS Venegas Intervention Information Intervention Type:*IM-Signed Date of Service:05/01/2017 03:43 PM Patient Type:Inpatient Staff Member:Thu Sánchez Hours: Discipline: Severity: Comment:
== END 2017-05-01 16:07 | DRG 329 ==
LOC: EDUNIT# → F2N 18:53 → F2W 04-24 13:40
PROVIDERS: ADMIT Surgery; ATTEND Surgery
PROC: 0DBF0ZZ Excision of Right Large Intestine, Open Approach (ICD-10-PCS; principal; 2017-04-20)
PROC: 30233N1 Transfusion of Nonautologous Red Blood Cells into Peripheral Vein, Percutaneous Approach (ICD-10-PCS; 2017-04-26)
PROC: 0DJD8ZZ Inspection of Lower Intestinal Tract, Via Natural or Artificial Opening Endoscopic (ICD-10-PCS; 2017-04-30)
DX: K56.2 Volvulus (principal); K55.049 Acute infarction of large intestine, extent unspecified; K92.2 Gastrointestinal hemorrhage, unspecified; D62 Acute posthemorrhagic anemia; G93.40 Encephalopathy, unspecified; N17.9 Acute kidney failure, unspecified; J96.11 Chronic respiratory failure with hypoxia; E87.5 Hyperkalemia; E87.6 Hypokalemia; I80.8 Phlebitis and thrombophlebitis of other sites; I11.0 Hypertensive heart disease with heart failure; I50.32 Chronic diastolic (congestive) heart failure; N18.9 Chronic kidney disease, unspecified; I48.0 Paroxysmal atrial fibrillation; E78.00 Pure hypercholesterolemia, unspecified; K22.0 Achalasia of cardia; Z87.11 Personal history of peptic ulcer disease; Z87.01 Personal history of pneumonia (recurrent); Z96.642 Presence of left artificial hip joint
CPT/HCPCS: 82947-QW; 92610-GN; 96374; 97110-GP; 97116-GP; 97161-GP; 97166-GO; 97530-GO; 97530-GP; 97535-GO; G8978-GP-CK; G8979-GP-CI; G8980-GP-CI; G8987-GO-CK; G8988-GO-CI; G8996-GN-CI; G8997-GN-CI; G8998-GN-CI; J0171; J0360; J1170; J1335; J1815; J1940; J2060; J2543; J2704; J3010; P9016; P9041

== ENCOUNTER 2017-09-16 13:25 | Emergency (ER) | payer OTHER ==
--- NOTE | 2017-09-16 15:04 | EDPHY ---
H & P Time Seen by Provider: 09/16/17 14:33 HPI/ROS: CHIEF COMPLAINT: Feeding tube fell out at 1:00 p.m. HISTORY OF PRESENT ILLNESS: Patient has a history of chronic dysphagia with a feeding tube, there was a little bit of bleeding around the site, was being cleaned by her , it fell out. She has been having a little bit of abdominal cramping but tolerating feeding just fine. Normal bowel movements. Not distended. No fever or chills. REVIEW OF SYSTEMS: No vomiting. No skin rash. PAST MEDICAL HISTORY: Includes chronic dysphagia with feeding to, scoliosis, hysterectomy and appendectomy, left hip surgery, hypertension, hypercholesterolemia CHF and atrial fibrillation. Cecal volvulus. Social history: here with spouse General Appearance: Alert and conversant, cooperative. Respiratory: Normal respiratory effort, breath sounds equal, lungs are clear to auscultation. Cardiovascular: Regular rate and rhythm. Gastrointestinal: Abdomen is soft and non tender. Bowel sounds present and nondistended. Neurological: Alert, face symmetric, normal motor and sensory in extremities. Skin: No surrounding erythema at the feeding tube site. Emergency Department course/MDM: 1500: Tube replaced by myself and the bulb filled with 7 mL of water. 1540: per Dr. Elizabeth tube is in the correct place on radiographic studies. Examined by myself afterwards and has just a tiny bit of serosanguineous oozing around the tube, which I think is from the trauma of reinserting it. Patient is comfortable and not in any distress. Stable for discharge as the tube appears to be in the right place and working again. Smoking Status: Never smoked Constitutional: Initial Vital Signs Temperature (C) 36.6 C 09/16/17 13:32 Heart Rate 67 09/16/17 13:32 Respiratory Rate 16 09/16/17 13:32 Blood Pressure 145/70 H 09/16/17 13:32 O2 Sat (%) 94 09/16/17 13:32 O2 Delivery Mode Room Air Allergies/Adverse Reactions: Sulfa (Sulfonamide Antibiotics) Allergy (Verified 12/16/16 10:16) Rash Home Medications: Medication Instructions Recorded Atorvastatin Calcium [Lipitor 10 10 mg TUBE HS 07/02/16 mg (*)] Acetaminophen [Tylenol ES 500 mg 500 mg TUBE Q6 PRN 12/16/16 (*)] Amiodarone HCl [Pacerone (*)] 100 mg TUBE DAILY 12/16/16 Aspirin [Aspirin 81mg (*)] 81 mg TUBE DAILY 12/16/16 Enalapril Maleate [Vasotec 5 MG 2.5 mg TUBE BID #1 tab 12/26/16 (*)] Furosemide [Lasix 20 MG (*)] 20 mg TUBE DAILY #1 tab 12/26/16 Polyethylene Glycol 3350 [Miralax 17 gm TUBE DAILY 04/19/17 17 gm (*)] Ranitidine HCl [Zantac] 150 mg TUBE DAILY 04/19/17 Spironolactone [Aldactone 25 MG 12.5 mg TUBE DAILY 04/19/17 (*)] Lansoprazole [PREVACID 30mg/10ml 30 mg TUBE DAILY #100 ml 05/01/17 susp (Adult) (*)] Medical Decision Making - Diagnostics Imaging Results: Imaging Impressions Fluoroscopy 09/16/17 15:15 Impression: The repositioned G-tube is well seated in the stomach. Results called and discussed with THI GALO MD on 09/16/2017. Imaging: Discussed imaging studies w/ body recall instructor Radiologist Departure - Departure Disposition: Home, Routine, Self-Care Clinical Impression: FEEDING TUBE PROBLEM Condition: Good Instructions: How to Use and Care for Your PEG Tube (ED) Referrals: Prema Guevara MD [Primary Care Provider] - As per Instructions
[2017-09-16 16:09] VITALS: BP 127/62
== END 2017-09-16 16:32 | disposition home or self-care (01) ==
PROC: 0DH63UZ Insertion of Feeding Device into Stomach, Percutaneous Approach (ICD-10-PCS; principal; 2017-09-16)
DX: K94.23 Gastrostomy malfunction (principal); Z79.82 Long term (current) use of aspirin

== ENCOUNTER → 2017-09-26 | Day surgery (SDC) | payer OTHER ==
--- NOTE | 2017-09-26 14:56 | PDRADPN ---
Radiology Procedure Note Date of Procedure: 09/26/17 Radiologist: Williams Odom Pre-op Diagnosis: G tube leakage Post-op Diagnosis: Functional, intact G tube Indication: leakage Procedure: G tube check Finding(s): 22G SELENA gastrostomy tube. Partially inflated retention balloon. Over guidewire, balloon deflated, retracted and reinflated above the skin for inspection. Balloon inflates, shows no defect. Existing tube was replaced. Repostioned retention disc myself. Feel that apposition is improved. Observed for leakage for several minutes after, none detected. Inf/Abcess present in the surg proc area at time of surgery?: No Complications: none
== END | disposition home or self-care (01) ==
LOC: FIMAGING 13:48
PROVIDERS: ATTEND Internal Medicine Gastroenterology
PROC: 0DH67UZ Insertion of Feeding Device into Stomach, Via Natural or Artificial Opening (ICD-10-PCS; principal; 2017-09-26)
DX: K94.23 Gastrostomy malfunction (principal)

== ENCOUNTER → 2017-10-22 | Outpatient (CLI) | payer OTHER | LOC: BHLMT 13:15 | PROVIDERS: ATTEND Internal Medicine Interventional Cardiology | DX: I50.9 Heart failure, unspecified (principal); I48.91 Unspecified atrial fibrillation | CPT/HCPCS: 93306-PO ==

== ENCOUNTER → 2017-12-12 | Outpatient (CLI) | payer OTHER | LOC: FIMAGING 10:28 | PROVIDERS: ATTEND Internal Medicine Gastroenterology | DX: Z43.1 Encounter for attention to gastrostomy (principal); K76.89 Other specified diseases of liver; N28.1 Cyst of kidney, acquired; K57.30 Diverticulosis of large intestine without perforation or abscess without bleeding | CPT/HCPCS: 74177; Q9967; 82565-PO ==

== ENCOUNTER → 2018-01-31 | Day surgery (SDC) | payer OTHER ==
[~2018-01-31] MED LIST changes: +LIDOCAINE 1% 300 MG/30 ML SDV ONE; +LIDOCAINE 2% JELLY 20 ML (UROJECT) ONE
== END | disposition home or self-care (01) ==
LOC: FIMAGING 12:55
PROVIDERS: ATTEND Radiology Diagnostic Radiology
DX: K94.23 Gastrostomy malfunction (principal)
CPT/HCPCS: 49450; C1729; C1769; J1644; Q9967

== ENCOUNTER → 2018-05-21 | Outpatient (CLI) | payer OTHER | LOC: FIMAGING 15:39 | PROVIDERS: ATTEND Radiology Vascular & Interventional Radiology | DX: I48.91 Unspecified atrial fibrillation (principal); K94.20 Gastrostomy complication, unspecified; Z79.899 Other long term (current) drug therapy ==

== ENCOUNTER 2018-05-27 07:16 | Day surgery (SDC) | payer OTHER ==
[2018-05-27] MEDS ORDERED: MIDAZOLAM 2 MG/2 ML VIAL IVP PRN (07:51)
[2018-05-27] MEDS ORDERED: fentaNYL 100 MCG/2 ML INJ IVP PRN (07:51)
[2018-05-27] MEDS ORDERED: FLUMAZENIL 0.5 MG/5 ML MDV IVP PRN (07:51)
[2018-05-27] MEDS ORDERED: NALOXONE HCL 0.4 MG/ML INJ IVP PRN (07:51)
[2018-05-27] MEDS ORDERED: NS 1,000 ML IV SCH (08:00)
--- NOTE | 2018-05-27 09:44 | PDPROPOC ---
Sedation Plan of Care Sedation Plan of Care: vital signs stable, mental status noted, patient educated of risks, benefits, alternatives, patient can tolerate sedation ASA Classification: ASA 2 Planned drugs: fentanyl, midazolam Mallampati Score: Class 2 Mallampati Reference Image: Patient passed 3-3-2 rule?: Yes
--- NOTE | 2018-05-27 09:45 | PDRADPRE ---
Radiology History & Physical Indication for procedure: other (G tube feed dependent, pericatheter leakage - Plan for G tube upsize) Home medications: Atorvastatin Calcium [Lipitor 10 mg (*)] 10 mg TUBE HS 07/02/16 [Last Taken 08/08] Amiodarone HCl [Pacerone (*)] 100 mg TUBE DAILY 12/16/16 [Last Taken 05/27/18] Aspirin [Aspirin 81mg (*)] 81 mg TUBE DAILY 12/16/16 [Last Taken 05/27/18] Ranitidine HCl [Zantac] 150 mg TUBE DAILY 04/19/17 [Last Taken 05/26/18] Colace Oral Liquid (*) 20 ml DAILY 05/22/18 [Last Taken 05/22/18] Norvasc 5 mg (*) 2.5 mg DAILY 05/22/18 [Last Taken 05/26/18] Allergies/Adverse Reactions: Sulfa (Sulfonamide Antibiotics) Allergy (Verified 05/27/18 08:37) Rash Mental status: A&Ox3 Heart exam: regular rate and rhythm Lungs exam: clear to auscultation Mallampati Score: Class 2
[2018-05-27] MEDS ORDERED: ACETAMINOPHEN 325 MG TAB PO PRN (10:28)
[2018-05-27] MEDS ORDERED: ONDANSETRON 4 MG/2 ML VIAL IVP PRN (10:28)
--- NOTE | 2018-05-27 10:30 | PDRADPN ---
Radiology Procedure Note Date of Procedure: 05/27/18 Radiologist: Syed Matos Anesthesia: IV Sedation Pre-op Diagnosis: G tube feed dependent, pericatheter leakage Post-op Diagnosis: G tube feed dependent, pericatheter leakage Indication: G tube feed dependent, pericatheter leakage Procedure: G tube exchange/upsize Finding(s): Upsized to 24 Fr tube without complication. Please see separately dictated radiology report for full details. Inf/Abcess present in the surg proc area at time of surgery?: No
[2018-05-27 11:29] VITALS: BP 169/78
== END 2018-05-27 11:23 | disposition home or self-care (01) ==
LOC: FIMAGING 07:16
PROVIDERS: ATTEND Radiology Vascular & Interventional Radiology
DX: K94.29 Other complications of gastrostomy (principal); Z88.2 Allergy status to sulfonamides
CPT/HCPCS: 49450; 99152; C1729; C1769; J2250; J2310; J3010